=== PATIENT | female | born 1940 | race African-American/Black ===

== ENCOUNTER → 2016-09-09 | Outpatient (CLI) | payer MEDICARE, MEDICAID ==
[~2016-09-09] MED LIST: ACETAMINOPHEN325 M1 ORAL; ALPHAGAN1 DROP BOTH EYES; ALPHAGAN1 DROP OD; AMBIEN5 MG ORAL; AMITRIPTYLINE25 MG ORAL; AMLODIPINE BESY10 MG ORAL; ANCEF1 GM/50 ML IV; ANUSOL HC1 SUPP RECTAL; ATIVAN0.5 MG ORAL; ATIVAN1 MG ORAL; AZULFIDINE500 MG ORAL; BENADRYL25 M3 PO; BRIMONIDINE TART5 ML BOTH EYES; CATAPRES0.1 MG ORAL; CATAPRES0.2 MG ORAL; CITRACAL + D M1 EACH PO; CLONIDINE 0.2M0.2 MG ORAL; CLONIDINE 0.2M0.2 MG PO; CLONIDINE HCL0.2 MG PO; COLACE100 MG ORAL; COMPAZINE10 MG ORAL; DAILY VITAMIN1 EAC4 ORAL; DUONEB 0.5-3(2.53 ML HHN; FAMOTIDINE20 MG ORAL; HEPARIN SO5000 UNIT2 SUBQ; HEPARIN2000 UNIT/ SUBQ; HUMALOG100 UNIT/4 SUBQ; HUMULIN R100 UNIT/1 SUBQ; IBUPROFEN400 MG ORAL; INVANZ1 GM IVPB; IPRAT-ALBUT 0.5-3 ML IH; KEFLEX500 MG ORAL; KETOROLAC15 MG/1 ML IV; LACTULOSE20 GM/301 ORAL; LISINOPRIL20 MG ORAL; LISINOPRIL40 MG ORAL; LOPRESSOR25 M1 ORAL; LORAZEPAM0.5 MG ORAL; LORAZEPAM1 MG ORAL; MELATONIN3 MG ORAL; MEROPENEM500 MG IV; METOCLOPRAM5 MG/1 M1 IVP; METOPROLOL TAR100 M1 ORAL; METOPROLOL TAR100 MG ORAL; METOPROLOL TART75 MG PO; MIRALAX17 G2 ORAL; MORPHINE SU2 MG/1 M1 IVP; MORPHINE SULFAT15 M1 PO; MS CONTIN30 MG ORAL; MYLANTA II30 ML ORAL; NAMENDA5 MG ORAL; NITROGLYCERIN0.4 MG SL; NORVASC10 MG ORAL; NOVOLIN R100 UNIT/1 SUBQ; NOVOLOG100 UNIT/3 SUBQ; NOVOLOG100 UNITS1 SUBQ; OMEPRAZOLE20 M2 ORAL; ONDANSETRON4 MG/2 M1 IVP; OXYCODONE-ACET1 EAC5 ORAL; PENTASA500 MG ORAL; PERCOCET 10-321 EAC1 PO; PERCOCET 10-321 EACH ORAL; POLYETHYLENE GL17 GM ORAL; PRINIVIL20 MG ORAL; PROBIOTIC ACID1 EAC3 PO; PROTONIX40 MG ORAL; RANITIDINE50 MG/2 ML IV; RESTORIL15 MG ORAL; ROCEPHIN250 MG IVPB; SULFASALAZINE500 MG ORAL; TEMAZEPAM15 MG ORAL; TIMOLOL MALEATE10 M1 OP; TIMOPTIC 0.5%1 DRO1 BOTH EYES; TYLENOL650 MG/20. ORAL; UNOBMED; ZANTAC150 MG ORAL; ZOFRAN4 M3 ORAL; insulin novolog
--- NOTE | 2016-09-09 13:52 | GI Progress Note ---
Assessment/Plan Problems: (1) Osteoarthritis ICD Codes: M19.90 - Osteoarthritis SNOMED: 676540668 (2) Narcotic dependence ICD Codes: F19.20 - Narcotic dependence SNOMED: 36386101 (3) Diabetic nephropathies ICD Codes: E11.29 - Diabetic nephropathies SNOMED: 039717253 (4) Constipation ICD Codes: K59.00 - Constipation SNOMED: 89820454 (5) Abdominal pain ICD Codes: R10.9 - Abdominal pain SNOMED: 49174156 (6) Cirrhosis ICD Codes: K74.60 - Unspecified cirrhosis of liver SNOMED: 24359317 (7) Crohn's disease ICD Codes: K50.90 - Crohn's disease SNOMED: 19798299 Status: stable Status Narrative Seen with Dr. Ambriz. Assessment/Plan s/p EGD c esophageal varices (04/2015) rx refill Pentasa RTC x 3 months, will consider EGD during this visit given hx of EV repeat colon x 1 year Subjective Gastrointestinal/Abdominal: Reports: no symptoms Subjective request Pentasa refill Objective General Appearance: no apparent distress, alert Cardiovascular: normal rate Respiratory/Chest: normal breath sounds, no respiratory distress Abdominal Exam: normal bowel sounds, non tender, soft Extremities: other - wheelchair Objective Endoscopy Procedure Note Indication for Procedure: screening colon, cirrhosis Procedures Performed: EGD, colonoscopy Operative Findings/Diagnosis: esop varices, colon polyps SHARRON AMBRIZ - May 12, 2015 12:05 Miladys Tolliver N.P. Sep 09, 2016 13:52
== END | disposition home or self-care (01) ==
LOC: PAN 12:59
DX: M19.90 Unspecified osteoarthritis, unspecified site (principal); F19.20 Other psychoactive substance dependence, uncomplicated; E11.29 Type 2 diabetes mellitus with other diabetic kidney complication; K59.00 Constipation, unspecified; R10.9 Unspecified abdominal pain; K74.60 Unspecified cirrhosis of liver; K50.90 Crohn's disease, unspecified, without complications
CPT/HCPCS: 99211

== ENCOUNTER 2016-11-23 10:02 | Outpatient (CLI) | payer MEDICARE, MEDICAID ==
--- NOTE | 2016-11-23 10:29 | GI Progress Note ---
Assessment/Plan Problems: (1) Encounter for diagnostic endoscopy ICD Codes: Z01.818 - Encounter for other preprocedural examination SNOMED: 567650623, 783360785 (2) Nausea ICD Codes: R11.0 - Nausea SNOMED: 233614665 (3) Abdominal pain ICD Codes: R10.9 - Abdominal pain SNOMED: 58304394 (4) Crohn's disease ICD Codes: K50.90 - Crohn's disease SNOMED: 28153542 (5) Cirrhosis ICD Codes: K74.60 - Unspecified cirrhosis of liver SNOMED: 69927994 (6) DM (diabetes mellitus) ICD Codes: E11.9 - DM (diabetes mellitus) SNOMED: 50473507 (7) GERD (gastroesophageal reflux disease) ICD Codes: K21.9 - Gastro-esophageal reflux disease without esophagitis SNOMED: 531152161 Status: stable Status Narrative Seen with Dr. Ambriz. Assessment/Plan s/p EGD c esophageal varices (04/2015) EGD scheduled for 11/29/16 given hx of EV. - NPO @ [facility] day prior to procedure - ordered abdominal U/S - labs to be drawn; ESR, CRP, CBC, CMP cont pentasa zofran prn dc zantac rx omeprazole repeat colon x 1 year Subjective Subjective nausea after eating, denies emesis hx of crohns decrease in appetite with weight loss of 5 lbs over last month abdominal pain Objective T 97.7 BP 134/62 P 60 100 RA General Appearance: no apparent distress, alert, overweight Cardiovascular: normal rate Respiratory/Chest: normal breath sounds, no respiratory distress Abdominal Exam: normal bowel sounds, non tender, soft Extremities: other - WC Miladys Tolliver N.P. November 23, 2016 10:29
== END 2016-11-23 10:23 | disposition home or self-care (01) ==
LOC: PAN 10:02
DX: Z01.818 Encounter for other preprocedural examination (principal); R11.0 Nausea; R10.9 Unspecified abdominal pain; K50.90 Crohn's disease, unspecified, without complications; K74.60 Unspecified cirrhosis of liver; E11.9 Type 2 diabetes mellitus without complications; K21.9 Gastro-esophageal reflux disease without esophagitis
CPT/HCPCS: 99211

== ENCOUNTER 2016-11-29 11:00 | Day surgery (SDC) | payer MEDICARE, MEDICAID ==
[2016-11-29] VITALS (8 sets, daily range): BP systolic 130–140; BP diastolic 64–72
[~2016-11-29] VITALS: Ht 165.1 cm; Wt 89.4 kg
--- NOTE | 2016-11-29 11:38 | Diagnostic Imaging Report ---
Indication:Abdominal pain Technique: Grayscale and duplex Doppler imaging of the abdomen performed. Comparison: None Findings: Gallstones are present without gallbladder wall thickening. Sonographic Cullen sign is reported as positive for technologist. Please correlate clinically. The liver is prominent. Demonstrated part of the pancreas is normal. Main portal vein is patent by Doppler examination. No biliary ductal dilatation is definitely identified. There is trace ascites present. Kidneys are unremarkable. There is no hydronephrosis. Spleen is enlarged measuring 14 cm. CBD is between 8 and 9 mm. Impression: Cholelithiasis with wall thickening and positive sonographic Cullen's. Cholecystitis should be considered. Trace ascites Hepatosplenomegaly
--- NOTE | 2016-11-29 12:03 | Pre-Procedure Note/Attestation ---
Pre-Procedure Note/Attestation Complete Prior to Procedure Planned Procedure: not applicable Procedure Narrative: egd Indications for Procedure Pre-Operative Diagnosis: cirrhosis and varices Attestation I attest that I discussed the nature of the procedure; its benefits; risks and complications; and alternatives (and the risks and benefits of such alternatives ), prior to the procedure, with the patient (or the patient's legal construction sales representative). I attest that, if there was a reasonable possibility of needing a blood transfusion, the patient (or the patient's legal construction sales representative) was given the [facility] standardized written summary, pursuant to the [place] Levy Blood Safety Act ([place] Health and Safety Code # 1645, as amended). I attest that I re-evaluated the patient just prior to the surgery and that there has been no change in the patient's H&P, except as documented below: SHARRON BARRY November 29, 2016 12:03
--- NOTE | 2016-11-29 12:04 | Short Stay Surgery H&P ---
History of Present Illness History of Present Illness Chief Complaint esoph varices HPI Page Meraz is a 76 year old female who was admitted on for Abdominal Pain Patient History Allergies: Coded Allergies: No Known Allergies (Unverified , 08/20/14) PAST MEDICAL HISTORY: (1) Transaminitis (2) Hyperplastic colon polyp (3) HTN (hypertension) (4) COPD (chronic obstructive pulmonary disease) (5) Constipation (6) Cirrhosis (7) Crohn's disease (8) DM (diabetes mellitus) (9) GERD (gastroesophageal reflux disease) Past Surgeries: Social History: Medication History Scheduled Brimonidine Tartrate (Brimonidine Tartrate), 1 DROP BOTH EYES Q8HR Insulin Lispro (Humalog), 0 SUBQ BEFORE MEALS AND HS, (Reported) Lactobacillus Acidophilus (Probiotic Acidophilus), 1 EACH PO TID, (Reported) Lactulose (Lactulose*), 20 GM ORAL THREE TIMES A DAY Lisinopril (Lisinopril*), 40 MG ORAL DAILY, (Reported) Memantine Hcl* (Namenda*), 5 MG ORAL DAILY, (Reported) Metoprolol Tartrate* (Metoprolol Tartrate*), 100 MG ORAL EVERY 12 HOURS Scheduled PRN Lorazepam* (Ativan*), 0.5 MG ORAL Q8HR PRN for Agitation, (Reported) Ondansetron* (Zofran*), 4 MG ORAL Q6H PRN for Nausea & Vomiting, (Reported) Oxycodone Hcl/Acetaminophen 10-325* (Oxycodone-Acetaminophen 10-325*), 1 TAB ORAL Q4H PRN for Pain Scale (6-10), (Reported) Temazepam* (Restoril*), 15 MG ORAL BEDTIME PRN for Insomnia, (Reported) Discontinued Medications Polyethylene Glycol 3350* (Miralax*), 17 GM ORAL DAILY PRN for Constipation, ( Reported) Discontinued Reason: Pt stopped taking med Ranitidine Hcl* (Zantac*), 150 MG ORAL HS, (Reported) Discontinued Reason: Pt stopped taking med Review of Systems Cardiovascular: Reports: no symptoms Respiratory: Reports: no symptoms Skeletal: Reports: no symptoms Gastrointestinal: Reports: no symptoms Genitourinary: Reports: no symptoms Neurologic: Reports: no symptoms Endocrine: Reports: no symptoms Physical Exam Skin: normal HENT: normal Heart: normal Lungs: normal Abdomen: normal Extremities: normal Plan Plan of Care egd Final Diagnosis: Attestation Are the patient's medical conditions optimized for surgery? Attestation Response: yes SHARRON BARRY November 29, 2016 12:04
--- NOTE | 2016-11-29 12:51 | Endoscopy Procedure Note ---
Endoscopy Procedure Note Indication for Procedure: esoph varices Procedures Performed: EGD Operative Findings/Diagnosis: gastrtiis Specimen: yes Pt Tolerated Procedure Well: Yes Estimated Blood Loss: none Anesthesiologist: chiquita Anesthesia: MAC Implant(s) used?: No 50 yrs or older w/o bx or poly: Not Applicable 10yrs. F/U not recommended: Not Applicable SHARRON BARRY November 29, 2016 12:51
--- NOTE | 2016-11-29 12:58 | Immediate Post-Op Evaluation ---
Immediate Post-Op Evalulation Immediate Post-Op Evalulation Procedure: EGD Date of Evaluation: November 29, 2016 Time of Evaluation: 12:58 IV Fluids: 300 Blood Pressure Systolic: 122 Blood Pressure Diastolic: 66 Pulse Rate: 55 Respiratory Rate: 14 O2 Sat by Pulse Oximetry: 100 Temperature (Fahrenheit): 97.4 Nausea: No Vomiting: No Complications none Patient Status: awake, patent Hydration Status: adequate Drug: none KARLOS MONTES CRNA November 29, 2016 12:58
--- NOTE | 2016-11-29 13:00 | Anethesia Preoperative Eval ---
Anesthesia Pre-op PMH/ROS General Date of Evaluation: November 29, 2016 Time of Evaluation: 12:59 Anesthesiologist: xuan ASA Score: ASA 2 Mallampati Score Class I : Soft palate, uvula, fauces, pillars visible Class II: Soft palate, uvula, fauces visible Class III: Soft palate, base of uvula visible Class IV: Only hard plate visible Mallampati Classification: Class II Surgeon: Katina Diagnosis: GERD/Gastritis Surgical Procedure: EGD Anesthesia History: none Family History: no anesthesia problems Allergies: Coded Allergies: No Known Allergies (Unverified , 08/20/14) Past Medical History Cardiovascular: Reports: HTN Pulmonary: Reports: COPD Gastrointestinal/Genitourinary: Reports: GERD Endocrine: Reports: DM HEENT: Denies: THREE AFFILIATED (L), THREE AFFILIATED (R), cataract (L), cataract (R), glaucoma, other Hematology/Immune: Denies: DVT, anemia, bleeding disorder, other Musculoskeletal/Integumentary: Denies: DDD, DJD, OA, RA, edema, other Anesthesia Pre-op Phys. Exam Physician Exam 122/644 58 SR Constitutional: NAD Neurologic: CN 2-12 intact Cardiovascular: RRR Respiratory: CTA Gastrointestinal: S/NT/ND Airway Exam Mallampati Classification 2 MO: full ROM: full Dentures: upper Anesthesia Pre-op A/P Risk Assessment & Plan Plan: mac Status Change Before Surgery: No Pre-Antibiotics Drug: none KARLOS MONTES CRNA November 29, 2016 13:00
--- NOTE | 2016-11-29 13:01 | 48 Hour Post Anesthesia Eval ---
Post Anesthesia Evaluation Procedure: EGD Date of Evaluation: November 29, 2016 Time of Evaluation: 13:01 Blood Pressure Systolic: 110 0: 60 Pulse Rate: 58 Respiratory Rate: 14 O2 Sat by Pulse Oximetry: 100 Airway: patent Nausea: No Vomiting: No Hydration Status: adequate Mental Status/LOC: patient returned to baseline Post-Anesthesia Complications: none KARLOS MONTES CRNA November 29, 2016 13:01
--- NOTE | 2016-11-29 20:19 | Procedure Note ---
DATE OF PROCEDURE: 11/29/2016 SURGEON: Tashi Ambriz M.D. PROCEDURE: Upper endoscopy with biopsy. ANESTHESIA: Per Mavis MARTINEZ. INSTRUMENT: Olympus adult flexible upper endoscope. INDICATION: History of esophageal varices. REASON FOR PROCEDURE: The procedure, risks, benefits, and possible consequences, including hemorrhage, aspiration, perforation and infection, and alternative treatments, were explained to the patient/legal guardian by Dr. Tashi Ambriz and the patient/legal guardian understood and accepted these risks. DESCRIPTION OF PROCEDURE: After informed consent was obtained and the patient was adequately sedated, Olympus upper endoscope was advanced from mouth into the second portion of duodenum and retroflexion was performed in the stomach. The patient had four columns of grade maximum 2 distal esophageal varices without any stigmata. In the stomach, there was diffuse gastritis. Random biopsies from antrum was obtained to rule out H. pylori infection. Otherwise, the rest of the upper endoscopic examination was grossly within normal limits. The patient tolerated the procedure very well without any complication. SUMMARY OF FINDINGS: 1. Four columns of grade 2 distal esophageal varices. 2. Gastritis, status post biopsy. RECOMMENDATIONS: Follow up biopsies and treat accordingly. I want to thank, Dr. Chacho Morocho, for this kind referral. Tashi Ambriz M.D. DR: VERONICA JOB#: [id number] CC: Chacho Morocho D.O.
== END 2016-11-29 14:20 | disposition home or self-care (01) ==
LOC: GAS 11:00 → EDSTATUS 13:00 → GAS 14:20
DX: K74.60 Unspecified cirrhosis of liver (principal); I85.10 Secondary esophageal varices without bleeding; K29.50 Unspecified chronic gastritis without bleeding; K50.90 Crohn's disease, unspecified, without complications; K59.00 Constipation, unspecified; I10 Essential (primary) hypertension; J44.9 Chronic obstructive pulmonary disease, unspecified; E11.9 Type 2 diabetes mellitus without complications; Z79.4 Long term (current) use of insulin; K21.9 Gastro-esophageal reflux disease without esophagitis; Z86.010 Personal history of colon polyps
CPT/HCPCS: 76700; 82962; 94003; 94150

== ENCOUNTER → 2016-11-29 | Day surgery (SDC) | payer MEDICARE, MEDICAID ==
[~2016-11-29] VITALS: Ht 165.1 cm; Wt 89.4 kg
[2016-11-29] VITALS (8 sets, daily range): BP systolic 130–140; BP diastolic 64–72
--- NOTE | 2016-11-30 14:28 | Cardiology Report ---
APPROVED REPORT EKG Measurement Heart [id number] Normal sinus rhythm Normal ECG
== END | disposition home or self-care (01) ==
LOC: SDS 07:00 → EDSTATUS 11:15
DX: Z01.810 Encounter for preprocedural cardiovascular examination (principal); I85.00 Esophageal varices without bleeding
CPT/HCPCS: 93005; 94003; 94150

== ENCOUNTER 2016-12-21 10:08 | Outpatient (CLI) | payer MEDICARE, MEDICAID ==
--- NOTE | 2016-12-21 15:51 | GI Progress Note ---
Assessment/Plan Problems: (1) Transaminitis ICD Codes: R74.0 - Nonspec elev of levels of transamns & lactic acid dehydrgnse SNOMED: 230334459 (2) DM (diabetes mellitus) ICD Codes: E11.9 - DM (diabetes mellitus) SNOMED: 83421954 (3) HTN (hypertension) ICD Codes: I10 - Essential (primary) hypertension SNOMED: 55976851 (4) GERD (gastroesophageal reflux disease) ICD Codes: K21.9 - Gastro-esophageal reflux disease without esophagitis SNOMED: 114594752 (5) Crohn's disease ICD Codes: K50.90 - Crohn's disease SNOMED: 41073047 (6) Cirrhosis ICD Codes: K74.60 - Unspecified cirrhosis of liver SNOMED: 67200869 (7) Constipation ICD Codes: K59.00 - Constipation SNOMED: 88177184 (8) Abdominal pain ICD Codes: R10.9 - Abdominal pain SNOMED: 51925520 (9) Narcotic dependence ICD Codes: F19.20 - Narcotic dependence SNOMED: 45748964 Status: stable Status Narrative Discussed with Dr. Ambriz. Assessment/Plan S/P EGD SUMMARY OF FINDINGS: 1. Four columns of grade 2 distal esophageal varices. 2. Gastritis, status post biopsy. >> unremarkable RECOMMENDATIONS: pain management consultation cont Pentasa zofran prn cont omeprazole RTC x 3 months abdominal US q6 months given history if cirrhosis (last 11/29/16) repeat colon x 1 year Subjective Gastrointestinal/Abdominal: Reports: abdominal pain Subjective wakes up nauseated with relief from zofran BM daily, taking lactulose prescribed Omeprazole, she cannot feel the difference Objective T 98.5 BP 129/68 P 62 97 RA denies weight loss. General Appearance: no apparent distress, alert Cardiovascular: normal rate Respiratory/Chest: normal breath sounds, no respiratory distress Abdominal Exam: normal bowel sounds, non tender, soft Miladys Tolliver N.P. Dec 21, 2016 15:51
== END 2016-12-21 10:45 | disposition home or self-care (01) ==
LOC: PAN 10:08
DX: K50.90 Crohn's disease, unspecified, without complications (principal); K21.9 Gastro-esophageal reflux disease without esophagitis; I10 Essential (primary) hypertension; E11.9 Type 2 diabetes mellitus without complications; R74.0 Nonspecific elevation of levels of transaminase and lactic acid dehydrogenase [LDH]; K74.60 Unspecified cirrhosis of liver; K59.00 Constipation, unspecified; R10.9 Unspecified abdominal pain; F19.20 Other psychoactive substance dependence, uncomplicated
CPT/HCPCS: 99211

== ENCOUNTER 2017-01-14 15:02 | Inpatient (IN) | payer MEDICARE, MEDICAID ==
[~2017-01-14] VITALS: Ht 167.6 cm; Wt 89.8 kg
--- NOTE | 2017-01-14 15:14 | Emergency Room Report ---
History of Present Illness General Chief Complaint: Generalized Weakness Source: Patient, EMS Present Illness HPI Patient is a 76-year-old female presented for increased generalized weakness. Patient had increased shortness of breath for approximately one day. Patient gradual onset of symptoms. Patient was noted to have prior history of Crohn's disease. She was noted to be bedbound. Patient was noted increased lower extremity swelling bilaterally. She reported having increased difficulty breathing. Patient had no fever. She was noted to be hypoxic at facility was started on supplemental oxygen. 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, VRE Hx COPD: Yes Hx Diabetes: Yes Hx Cancer: No Hx Gastrointestinal Problems: Yes Hx Neurological Problems: No Hx Dementia: Yes Hx Seizures: Yes Hx Memory Loss: Yes - Forgetful Review of Systems All Other Systems: negative except mentioned in HPI Physical Exam Vital Signs Date Time Temp Pulse Resp B/P Pulse Ox O2 Delivery O2 Flow Rate FiO2 01/14/17 14:51 99.1 89 20 143/91 94 Nasal Cannula 3.0 Sp02 EP Interpretation: reviewed, normal General Appearance: normal inspection, well appearing, alert, GCS 15, mild distress, obese, Chronically Ill Head: atraumatic ENT: normal ENT inspection, hearing grossly normal, normal voice Neck: normal inspection, full range of motion, supple, no bony tend Respiratory: normal inspection, no respiratory distress, no retraction, rales Cardiovascular #1: regular rate, rhythm, edema - bilateral lower extremity Gastrointestinal: normal bowel sounds, non tender, soft, no guarding, no hernia , tenderness - mild diffuse tenderness Genitourinary: no CVA tenderness Musculoskeletal: normal inspection, back normal, normal range of motion Neurologic: normal inspection, alert, oriented x3, responsive, manhole builder III-XII nml as tested, speech normal, motor weakness - bilateral lower extremity weakness Psychiatric: normal inspection, judgement/insight normal, mood/affect normal Skin: normal inspection, normal color, no rash Medical Decision Making Diagnostic Impression: Primary Impression: Pulmonary edema Additional Impressions: Crohn's disease COPD (chronic obstructive pulmonary disease) ER Course Patient presented for shortness of breath. Differential included but was not limited to anemia, pneumonia, pneumothorax, myocardial infarction, pericardial effusion, congestive heart failure, acidosis. Because of complexity of patient' s case laboratory testing and imaging studies were ordered.The patient was given a Lasix. Chest x-ray one view interpreted by radiology showed upper limits of normal heart size with bilateral small pleural effusions. Patient requires hospitalization due to fluid overload. Dr. Chacho Morocho was contacted for inpatient management. Labs Test 01/14/17 15:31 01/14/17 18:42 White Blood Count 7.3 K/UL (4.8-10.8) Red Blood Count 4.66 M/UL (4.20-5.40) Hemoglobin 13.5 G/DL (12.0-16.0) Hematocrit 44.1 % (37.0-47.0) Mean Corpuscular Volume 95 FL (80-99) Mean Corpuscular Hemoglobin 28.9 PG (27.0-31.0) Mean Corpuscular Hemoglobin Concent 30.5 G/DL (32.0-36.0) Red Cell Distribution Width 13.3 % (11.6-14.8) Platelet Count 140 K/UL (150-450) Mean Platelet Volume 8.7 FL (6.5-10.1) Neutrophils (%) (Auto) 78.0 % (45.0-75.0) Lymphocytes (%) (Auto) 13.5 % (20.0-45.0) Monocytes (%) (Auto) 5.5 % (1.0-10.0) Eosinophils (%) (Auto) 2.3 % (0.0-3.0) Basophils (%) (Auto) 0.7 % (0.0-2.0) Sodium Level 135 mEQ/L (135-145) Potassium Level 5.4 mEQ/L (3.4-4.9) Chloride Level 95 mEQ/L (98-107) Carbon Dioxide Level 32 mEQ/L (20-30) Anion Gap 8 (5-15) Blood Urea Nitrogen 6 mg/dL (7-23) Creatinine 0.6 mg/dL (0.5-0.9) Estimat Glomerular Filtration Rate mL/min (>60) Glucose Level 144 mg/dL (74-106) Lactic Acid Level 1.00 mmol/L (0.66-2.22) Calcium Level 9.0 mg/dL (8.6-10.2) Total Bilirubin 0.8 mg/dL (0.0-1.2) Aspartate Amino Transf (AST/SGOT) 61 U/L (5-40) Alanine Aminotransferase (ALT/SGPT) 22 U/L (3-33) Alkaline Phosphatase 145 U/L (35-104) Total Creatine Kinase 54 U/L (26-140) Creatine Kinase MB < 1.5 ng/mL (< 3.8) Creatine Kinase MB Relative Index Troponin I < 0.30 ng/mL (<=0.30) Pro-B-Type Natriuretic Peptide 506 pg/mL (0-450) Total Protein 8.1 g/dL (6.6-8.7) Albumin 3.5 g/dL (3.5-5.2) Globulin 4.6 g/dL Albumin/Globulin Ratio 0.7 (1.0-2.7) Lipase 29 U/L (< 60) Urine Color Pale yellow Urine Appearance Clear Urine pH 5 (4.5-8.0) Urine Specific Almond 1.005 (1.005-1.035) Urine Protein Negative (NEGATIVE) Urine Glucose (UA) Negative (NEGATIVE) Urine Ketones Negative (NEGATIVE) Urine Occult Blood Negative (NEGATIVE) Urine Nitrite Negative (NEGATIVE) Urine Bilirubin Negative (NEGATIVE) Urine Urobilinogen Normal MG/DL (0.0-1.0) Urine Leukocyte Esterase Negative (NEGATIVE) EKG Diagnostic Results Rate: normal Rhythm: NSR ST Segments: no acute changes Rhythm Strip Diag. Results EP Interpretation: yes Rhythm: NSR, no PVC's, no ectopy Last Vital Signs Date Time Temp Pulse Resp B/P Pulse Ox O2 Delivery O2 Flow Rate FiO2 01/14/17 14:51 99.1 89 20 143/91 94 Nasal Cannula 3.0 Status: unchanged Disposition: ADMITTED INPATIENT Condition: Kolton Rodriguez Jan 14, 2017 15:14
[2017-01-14 15:59] LABS: BASOPHILS % (AUTO) 0.7 % (0.0-2.0); EOSINOPHILS % (AUTO) 2.3 % (0.0-3.0); LYMPHOCYTES % (AUTO) 13.5 % (20.0-45.0); MEAN CORPUSCULAR HEMOGLOBIN 28.9 PG (27.0-31.0); MEAN CORPUSCULAR HGB CONC 30.5 G/DL (32.0-36.0); MEAN CORPUSCULAR VOLUME 95 FL (80-99); MEAN PLATELET VOLUME 8.7 FL (6.5-10.1); MONOCYTES % (AUTO) 5.5 % (1.0-10.0); PLATELET COUNT 140 K/UL (150-450); RED BLOOD COUNT 4.66 M/UL (4.20-5.40); RED CELL DISTRIBUTION WIDTH 13.3 % (11.6-14.8); WHITE BLOOD COUNT 7.3 K/UL (4.8-10.8)
[2017-01-14] MEDS ORDERED: AMLODIPINE BESY10 MG ORAL (16:13)
[2017-01-14] MEDS ORDERED: PENTASA500 MG ORAL ×2 (16:13→18:03)
[2017-01-14] MEDS ORDERED: RESTORIL15 MG ORAL (16:13)
[2017-01-14] MEDS ORDERED: MIRALAX17 G2 ORAL (16:13)
[2017-01-14] MEDS ORDERED: OMEPRAZOLE40 M1 ORAL (16:13)
[2017-01-14] MEDS ORDERED: COMPAZINE10 MG ORAL (16:13)
[2017-01-14] MEDS ORDERED: CYCLOBENZAPRINE10 MG ORAL (16:13)
[2017-01-14] MEDS ORDERED: AZELASTINE HCL6 ML OP (16:13)
[2017-01-14 16:23] LABS: ALANINE AMINOTRANSFERASE 22 U/L (3-33); ALBUMIN/GLOBULIN RATIO 0.7 (1.0-2.7); ANION GAP 8 (5-15); ASPARTATE AMINO TRANSFERASE 61 U/L (5-40); CARBON DIOXIDE 32 mEQ/L (20-30); CHLORIDE 95 mEQ/L (98-107); CREATININE 0.6 mg/dL (0.5-0.9); HEMOLYSIS 177; LIPASE 29 U/L (< 60); POTASSIUM 5.4 mEQ/L (3.4-4.9); SODIUM 135 mEQ/L (135-145); TOTAL PROTEIN 8.1 g/dL (6.6-8.7); TROPONIN I < 0.30 ng/mL (<=0.30)
[2017-01-14 16:34] LABS: CKMB < 1.5 ng/mL (< 3.8)
[2017-01-14 16:55] VITALS: BP 140/61
[2017-01-14] MEDS ORDERED: Norco 5mg/325mg tab ORAL ONE (17:00)
[2017-01-14] MEDS ORDERED: ARTIFICIAL TEAR15 ML BOTH EYES (17:56)
[2017-01-14] MEDS ORDERED: ATIVAN1 MG ORAL (17:59)
[2017-01-14] MEDS ORDERED: BRIMONIDINE TART5 ML BOTH EYES (18:14)
[2017-01-14] MEDS ORDERED: DuoNeb 0.5-3(2.5)mg/3ml neb HHN PRN (18:15)
[2017-01-14] MEDS ORDERED: Miralax 17gm pkt ORAL PRN (18:15)
[2017-01-14 18:29] VITALS: BP 151/86
[2017-01-14 18:56] LABS: APPEARANCE,URINE CLEAR; KETONES,URINE NEGATIVE (NEGATIVE); LEUKOCYTE ESTERASE ,URINE NEGATIVE (NEGATIVE); NITRITE,URINE NEGATIVE (NEGATIVE); PH,URINE 5 (4.5-8.0); PROTEIN,URINE NEGATIVE (NEGATIVE); UROBILINOGEN,URINE NORMAL MG/DL (0.0-1.0)
[2017-01-14 20:00] VITALS: BP 153/90
[2017-01-14] MEDS: Heparin 5000 units/ml inj SUBQ SCH (21:58)
[2017-01-14] MEDS: NovoLOG Insulin Flexpen SUBQ SCH (22:01)
[2017-01-14] MEDS: Norco 5mg/325mg tab ORAL PRN (22:58)
[2017-01-15] VITALS: BP 156/65
[2017-01-15] MEDS: LORazepam 1mg tab ORAL PRN ×2 (01:34→12:53)
[2017-01-15 04:00] VITALS: BP_SYST 152; BP_SYST 97; BP_DIAS 60; BP_DIAS 72
[2017-01-15] MEDS: Norco 5mg/325mg tab ORAL PRN ×3 (04:23→12:49)
[2017-01-15] MEDS: NovoLOG Insulin Flexpen SUBQ SCH ×4 (06:30→21:46)
[2017-01-15 06:37] LABS: BASOPHILS % (AUTO) 0.5 % (0.0-2.0); EOSINOPHILS % (AUTO) 3.6 % (0.0-3.0); MEAN CORPUSCULAR HGB CONC 31.7 G/DL (32.0-36.0); MEAN CORPUSCULAR VOLUME 95 FL (80-99); MEAN PLATELET VOLUME 9.5 FL (6.5-10.1); MONOCYTES % (AUTO) 12.2 % (1.0-10.0); NEUTROPHILS % (AUTO) 62.7 % (45.0-75.0); PLATELET COUNT 114 K/UL (150-450); RED BLOOD COUNT 3.95 M/UL (4.20-5.40); RED CELL DISTRIBUTION WIDTH 13.1 % (11.6-14.8); WHITE BLOOD COUNT 4.9 K/UL (4.8-10.8)
[2017-01-15 06:46] LABS: ANION GAP 7 (5-15); CARBON DIOXIDE 39 mEQ/L (20-30); CHLORIDE 95 mEQ/L (98-107); CREATININE 0.4 mg/dL (0.5-0.9); HEMOLYSIS 1; PHOSPHORUS 3.2 mg/dL (2.5-4.8); POTASSIUM 3.4 mEQ/L (3.4-4.9); SODIUM 141 mEQ/L (135-145)
[2017-01-15 07:53] VITALS: BP 144/64
[2017-01-15 07:55] LABS: TROPONIN I < 0.30 ng/mL (<=0.30)
--- NOTE | 2017-01-15 08:00 | Consultation ---
History of Present Illness General Date patient seen: Jan 15, 2017 Time patient seen: 07:15 Chief Complaint: Generalized Weakness Referring physician: dr Morocho Reason for Consultation: inpatient management Present Illness HPI 76-year-old female with hx of COPD, HTN. DM, cirrhosis, Crohn disease, paranoid schizophrenia presented for increased generalized weakness and SOB Patient had gradually increased shortness of breath for approximately one day. Patient was noted increased lower extremity swelling bilaterally. She reported having increased difficulty breathing. Patient denied fevers, chills. She was noted to be hypoxic at facility and was started on supplemental oxygen. in ED afebrile, SR on tele sat stable on O2 via NC CXR with evidence of CHF/pulmonary edema troponin negative pro BNP -506 K-5.4 AST- 61 glucose -144 UA -negative last ECHO in 2015 with preserved EF 60-65% patient was admitted for further management Allergies: Coded Allergies: No Known Allergies (Unverified , 08/20/14) Medication History Scheduled Amlodipine Besylate* (Amlodipine Besylate*), 10 MG ORAL DAILY, (Reported) Brimonidine Tartrate* (Alphagan*), 1 DROP BOTH EYES BID, (Reported) Cyclobenzaprine Hcl* (Flexeril*), 10 MG ORAL BID, (Reported) Insulin Lispro (Humalog), 0 SUBQ BEFORE MEALS AND HS, (Reported) Lactobacillus Acidophilus (Probiotic Acidophilus), 1 EACH PO TID, (Reported) Lactulose (Lactulose*), 20 GM ORAL THREE TIMES A DAY Lisinopril (Lisinopril*), 40 MG ORAL DAILY, (Reported) Memantine Hcl* (Namenda*), 5 MG ORAL DAILY, (Reported) Mesalamine (Pentasa), 1,000 MG ORAL TID, (Reported) Metoprolol Tartrate* (Metoprolol Tartrate*), 100 MG ORAL EVERY 12 HOURS Omeprazole (Omeprazole), 40 MG ORAL DAILY, (Reported) Polyethylene Glycol 3350* (Miralax*), 17 GM ORAL DAILY, (Reported) Scheduled PRN Dextran 70/Hypromellose (Artificial Tears Eye Drops*), 1 DROP BOTH EYES for Dry Eyes, (Reported) Lorazepam* (Ativan*), 1 MG ORAL EVERY 8 HOURS PRN for For Anxiety, (Reported) Oxycodone Hcl/Acetaminophen 10-325* (Oxycodone-Acetaminophen 10-325*), 1 TAB ORAL Q4H PRN for Pain Scale (6-10), (Reported) Prochlorperazine (Compazine*), 10 MG ORAL Q8HR PRN for Nausea & Vomiting, ( Reported) Temazepam* (Restoril*), 15 MG ORAL BEDTIME PRN for Insomnia, (Reported) Miscellaneous Medications Azelastine Hcl (Azelastine Hcl), 6 ML OP, (Reported) Discontinued Medications Ondansetron* (Zofran*), 4 MG ORAL Q6H PRN for Nausea & Vomiting, (Reported) Discontinued Reason: MD discontinued med Patient History Healthcare decision maker N Resuscitation status Full Code Advanced Directive on File No Past Medical/Surgical History Past Medical/Surgical History: (1) Spinal stenosis of lumbar region (2) Lumbar radiculopathy (3) UTI (urinary tract infection) (4) HTN (hypertension) (5) Cholelithiasis (6) OBESITY, NOS (7) Scoliosis (8) Narcotic dependence (9) Diabetic nephropathies (10) Osteoarthritis (11) Cirrhosis (12) GERD (gastroesophageal reflux disease) (13) HTN (hypertension) (14) DM (diabetes mellitus) (15) COPD (chronic obstructive pulmonary disease) (16) Crohn's disease Review of Systems Constitutional: Reports: weakness Eye: Reports: no symptoms ENT: Reports: no symptoms Respiratory: Reports: see HPI Cardiovascular: Reports: see HPI Gastrointestinal: Reports: see HPI Genitourinary: Reports: frequency Musculoskeletal: Reports: joint pain, muscle pain, other - OA Skin: Reports: no symptoms Psychiatric: Reports: other - schizophrenia Neurological: Reports: headache, numbness Endocrine: Reports: other - DM Hematologic/Lymphatic: Reports: no symptoms Physical Exam General Appearance: no apparent distress, alert - responsive Lines, tubes and drains: peripheral HEENT: normocephalic, atraumatic, anicteric, mucous membranes moist Neck: non-tender, normal alignment, supple Respiratory/Chest: lungs clear - with moderate air entry Cardiovascular/Chest: normal rate, regular rhythm, no JVD Abdomen: normal bowel sounds, non tender, soft Extremities: non-tender, no calf tenderness, other - trace edema Skin Exam: warm/dry Neurologic: abnormal gait - bedridden , alert, responsive, normal mood/affect Musculoskeletal: atrophy - BLE Last 24 Hour Vital Signs Date Time Temp Pulse Resp B/P Pulse Ox O2 Delivery O2 Flow Rate FiO2 01/15/17 04:00 97.4 91 20 152/72 95 Nasal Cannula 3.0 01/15/17 03:41 89 01/15/17 00:00 92 01/15/17 00:00 98.1 92 20 156/65 97 Nasal Cannula 3.0 01/14/17 20:00 99.1 93 20 153/90 95 Nasal Cannula 3.0 01/14/17 19:35 99.1 65 9 151/86 100 Nasal Cannula 3.0 01/14/17 18:29 99.1 65 9 151/86 100 Nasal Cannula 3.0 01/14/17 16:55 99.1 83 17 140/61 99 Nasal Cannula 3.0 01/14/17 14:51 99.1 89 20 143/91 94 Nasal Cannula 3.0 Intake and Output 01/14/17 01/15/17 19:00 07:00 Intake Total 0 ml 840 ml Output Total 2600 ml Balance 0 ml -1760 ml Intake Oral 0 ml 840 ml Output Urine Total 2600 ml Laboratory Tests Test 01/14/17 15:31 01/14/17 18:42 01/15/17 05:45 White Blood Count 7.3 K/UL (4.8-10.8) 4.9 K/UL (4.8-10.8) Red Blood Count 4.66 M/UL (4.20-5.40) 3.95 M/UL (4.20-5.40) L Hemoglobin 13.5 G/DL (12.0-16.0) 11.9 G/DL (12.0-16.0) L Hematocrit 44.1 % (37.0-47.0) 37.4 % (37.0-47.0) Mean Corpuscular Volume 95 FL (80-99) 95 FL (80-99) Mean Corpuscular Hemoglobin 28.9 PG (27.0-31.0) 30.0 PG (27.0-31.0) Mean Corpuscular Hemoglobin Concent 30.5 G/DL (32.0-36.0) L 31.7 G/DL (32.0-36.0) L Red Cell Distribution Width 13.3 % (11.6-14.8) 13.1 % (11.6-14.8) Platelet Count 140 K/UL (150-450) L 114 K/UL (150-450) L Mean Platelet Volume 8.7 FL (6.5-10.1) 9.5 FL (6.5-10.1) Neutrophils (%) (Auto) 78.0 % (45.0-75.0) H 62.7 % (45.0-75.0) Lymphocytes (%) (Auto) 13.5 % (20.0-45.0) L 21.0 % (20.0-45.0) Monocytes (%) (Auto) 5.5 % (1.0-10.0) 12.2 % (1.0-10.0) H Eosinophils (%) (Auto) 2.3 % (0.0-3.0) 3.6 % (0.0-3.0) H Basophils (%) (Auto) 0.7 % (0.0-2.0) 0.5 % (0.0-2.0) Sodium Level 135 mEQ/L (135-145) 141 mEQ/L (135-145) Potassium Level 5.4 mEQ/L (3.4-4.9) H 3.4 mEQ/L (3.4-4.9) Chloride Level 95 mEQ/L (98-107) L 95 mEQ/L (98-107) L Carbon Dioxide Level 32 mEQ/L (20-30) H 39 mEQ/L (20-30) H Anion Gap 8 (5-15) 7 (5-15) Blood Urea Nitrogen 6 mg/dL (7-23) L 7 mg/dL (7-23) Creatinine 0.6 mg/dL (0.5-0.9) 0.4 mg/dL (0.5-0.9) L Estimat Glomerular Filtration Rate mL/min (>60) mL/min (>60) Glucose Level 144 mg/dL (74-106) H 131 mg/dL (74-106) H Lactic Acid Level 1.00 mmol/L (0.66-2.22) Calcium Level 9.0 mg/dL (8.6-10.2) 9.0 mg/dL (8.6-10.2) Total Bilirubin 0.8 mg/dL (0.0-1.2) Aspartate Amino Transf (AST/SGOT) 61 U/L (5-40) H Alanine Aminotransferase (ALT/SGPT) 22 U/L (3-33) Alkaline Phosphatase 145 U/L (35-104) H Total Creatine Kinase 54 U/L (26-140) Creatine Kinase MB < 1.5 ng/mL (< 3.8) Creatine Kinase MB Relative Index Troponin I < 0.30 ng/mL (<=0.30) Pending Pro-B-Type Natriuretic Peptide 506 pg/mL (0-450) H Total Protein 8.1 g/dL (6.6-8.7) Albumin 3.5 g/dL (3.5-5.2) 3.0 g/dL (3.5-5.2) L Globulin 4.6 g/dL Albumin/Globulin Ratio 0.7 (1.0-2.7) L Lipase 29 U/L (< 60) Urine Color Pale yellow Urine Appearance Clear Urine pH 5 (4.5-8.0) Urine Specific [place] 1.005 (1.005-1.035) Urine Protein Negative (NEGATIVE) Urine Glucose (UA) Negative (NEGATIVE) Urine Ketones Negative (NEGATIVE) Urine Occult Blood Negative (NEGATIVE) Urine Nitrite Negative (NEGATIVE) Urine Bilirubin Negative (NEGATIVE) Urine Urobilinogen Normal MG/DL (0.0-1.0) Urine Leukocyte Esterase Negative (NEGATIVE) Phosphorus Level 3.2 mg/dL (2.5-4.8) Height (Feet): 5 Height (Inches): 6.00 Weight (Pounds): 198 Medications Current Medications Medications (Trade) Dose Ordered Sig/Isabel Route PRN Reason Start Time Stop Time Status Last Admin Dose Admin Acetaminophen (Tylenol) 650 mg Q4H PRN ORAL Fever 01/14/17 18:15 02/13/17 18:14 Acetaminophen/ Hydrocodone Bitart ([place] 5/325) 1 tab Q4H PRN ORAL Moderate Pain (Pain Scale 4-6) 01/14/17 22:45 01/21/17 22:44 01/15/17 04:23 Albuterol/ Ipratropium (DuoNeb 0.5-3(2.5)mg/3ml) 3 ml Q4H PRN HHN Shortness of Breath 01/14/17 18:15 01/19/17 18:14 Amlodipine Besylate (Norvasc) 10 mg DAILY ORAL 01/15/17 09:00 02/14/17 08:59 Dextrose (Dextrose 50%) STAT PRN IV Hypoglycemia 01/14/17 18:15 02/13/17 18:14 Furosemide (Lasix) 40 mg EVERY 8 HOURS IV 01/14/17 22:00 02/13/17 21:59 01/15/17 06:38 Heparin Sodium (Porcine) (Heparin 5000 units/ml) 5,000 units EVERY 12 HOURS SUBQ 01/14/17 21:00 02/13/17 20:59 01/14/17 21:58 Insulin Aspart (NovoLOG) BEFORE MEALS AND HS SUBQ 01/14/17 21:00 02/13/17 20:59 01/14/17 22:01 Lorazepam (Ativan) 1 mg Q8H PRN ORAL For Anxiety 01/14/17 18:15 01/21/17 18:14 01/15/17 01:34 Ondansetron HCl (Zofran) 4 mg Q6H PRN IVP Nausea & Vomiting 01/14/17 18:15 02/13/17 18:14 Polyethylene Glycol (Miralax) 17 gm DAILYPRN PRN ORAL Constipation 01/14/17 18:15 02/13/17 18:14 Temazepam (Restoril) 15 mg HSPRN PRN ORAL Insomnia 01/14/17 18:15 01/21/17 18:14 01/14/17 22:16 Assessment/Plan Assessment/Plan ASSESSMENT acute pulmonary edema-improving acute hypoxemia 2 to acute pulmonary edema -improving HTN COPD DM Hyperkalemia Cirrhosis hx of Crohn disease PLAN OF CARE tele serial troponin x 2 negative, ECG no acute changes, r/o for acute [place] ECHO cardio consult appreciated diuresis, initially intense, change to daily today no edema, clinically improving, monitor I/O renal parameters. lytes O2 , to keep sat above 92@ HHN prn fup with CXR and pro BNP BP management with current regimen and optimize further as needed BS management with SS of insulin Venous Duplex BLE DVT prophylaxis Bowel regimen consider GI eval in lieu of hx of Crohn disease, cirrhosis, with findings fo esophageal varices on last EGD, hx of hep C case discussed and evaluated by supervising physician Shane ([facility]),Marimar ESCALANTE Jan 15, 2017 08:00
[2017-01-15] MEDS: Heparin 5000 units/ml inj SUBQ SCH ×2 (08:59→21:00)
[2017-01-15] MEDS ORDERED: Prochlorperazine 10mg tab ORAL PRN (09:15)
--- NOTE | 2017-01-15 09:16 | Cardiology Progress Note ---
Assessment/Plan Assessment/Plan full note dictated duplex neg pro bnp not sig elevated bu has no raj at this poitn echo repeat ekg all torp neg no sx to suggest coronary syndrome at this time resume anti hypertensive acei adn bb diuretic to q daily watch bicarb level Objective Last 24 Hour Vital Signs Date Time Temp Pulse Resp B/P Pulse Ox O2 Delivery O2 Flow Rate FiO2 01/15/17 08:47 91 144/64 01/15/17 07:53 98.1 91 20 144/64 94 Nasal Cannula 2.0 01/15/17 04:00 97.4 91 20 152/72 95 Nasal Cannula 3.0 01/15/17 03:41 89 01/15/17 00:00 92 01/15/17 00:00 98.1 92 20 156/65 97 Nasal Cannula 3.0 01/14/17 20:00 99.1 93 20 153/90 95 Nasal Cannula 3.0 01/14/17 19:35 99.1 65 9 151/86 100 Nasal Cannula 3.0 01/14/17 18:29 99.1 65 9 151/86 100 Nasal Cannula 3.0 01/14/17 16:55 99.1 83 17 140/61 99 Nasal Cannula 3.0 01/14/17 14:51 99.1 89 20 143/91 94 Nasal Cannula 3.0 Intake and Output 01/14/17 01/15/17 18:59 06:59 Intake Total 0 ml 840 ml Output Total 2600 ml Balance 0 ml -1760 ml Intake Oral 0 ml 840 ml Output Urine Total 2600 ml Laboratory Tests Test 01/14/17 15:31 01/14/17 18:42 01/15/17 05:45 White Blood Count 7.3 K/UL (4.8-10.8) 4.9 K/UL (4.8-10.8) Red Blood Count 4.66 M/UL (4.20-5.40) 3.95 M/UL (4.20-5.40) L Hemoglobin 13.5 G/DL (12.0-16.0) 11.9 G/DL (12.0-16.0) L Hematocrit 44.1 % (37.0-47.0) 37.4 % (37.0-47.0) Mean Corpuscular Volume 95 FL (80-99) 95 FL (80-99) Mean Corpuscular Hemoglobin 28.9 PG (27.0-31.0) 30.0 PG (27.0-31.0) Mean Corpuscular Hemoglobin Concent 30.5 G/DL (32.0-36.0) L 31.7 G/DL (32.0-36.0) L Red Cell Distribution Width 13.3 % (11.6-14.8) 13.1 % (11.6-14.8) Platelet Count 140 K/UL (150-450) L 114 K/UL (150-450) L Mean Platelet Volume 8.7 FL (6.5-10.1) 9.5 FL (6.5-10.1) Neutrophils (%) (Auto) 78.0 % (45.0-75.0) H 62.7 % (45.0-75.0) Lymphocytes (%) (Auto) 13.5 % (20.0-45.0) L 21.0 % (20.0-45.0) Monocytes (%) (Auto) 5.5 % (1.0-10.0) 12.2 % (1.0-10.0) H Eosinophils (%) (Auto) 2.3 % (0.0-3.0) 3.6 % (0.0-3.0) H Basophils (%) (Auto) 0.7 % (0.0-2.0) 0.5 % (0.0-2.0) Sodium Level 135 mEQ/L (135-145) 141 mEQ/L (135-145) Potassium Level 5.4 mEQ/L (3.4-4.9) H 3.4 mEQ/L (3.4-4.9) Chloride Level 95 mEQ/L (98-107) L 95 mEQ/L (98-107) L Carbon Dioxide Level 32 mEQ/L (20-30) H 39 mEQ/L (20-30) H Anion Gap 8 (5-15) 7 (5-15) Blood Urea Nitrogen 6 mg/dL (7-23) L 7 mg/dL (7-23) Creatinine 0.6 mg/dL (0.5-0.9) 0.4 mg/dL (0.5-0.9) L Estimat Glomerular Filtration Rate mL/min (>60) mL/min (>60) Glucose Level 144 mg/dL (74-106) H 131 mg/dL (74-106) H Lactic Acid Level 1.00 mmol/L (0.66-2.22) Calcium Level 9.0 mg/dL (8.6-10.2) 9.0 mg/dL (8.6-10.2) Total Bilirubin 0.8 mg/dL (0.0-1.2) Aspartate Amino Transf (AST/SGOT) 61 U/L (5-40) H Alanine Aminotransferase (ALT/SGPT) 22 U/L (3-33) Alkaline Phosphatase 145 U/L (35-104) H Total Creatine Kinase 54 U/L (26-140) Creatine Kinase MB < 1.5 ng/mL (< 3.8) Creatine Kinase MB Relative Index Troponin I < 0.30 ng/mL (<=0.30) < 0.30 ng/mL (<=0.30) Pro-B-Type Natriuretic Peptide 506 pg/mL (0-450) H Total Protein 8.1 g/dL (6.6-8.7) Albumin 3.5 g/dL (3.5-5.2) 3.0 g/dL (3.5-5.2) L Globulin 4.6 g/dL Albumin/Globulin Ratio 0.7 (1.0-2.7) L Lipase 29 U/L (< 60) Urine Color Pale yellow Urine Appearance Clear Urine pH 5 (4.5-8.0) Urine Specific [place] 1.005 (1.005-1.035) Urine Protein Negative (NEGATIVE) Urine Glucose (UA) Negative (NEGATIVE) Urine Ketones Negative (NEGATIVE) Urine Occult Blood Negative (NEGATIVE) Urine Nitrite Negative (NEGATIVE) Urine Bilirubin Negative (NEGATIVE) Urine Urobilinogen Normal MG/DL (0.0-1.0) Urine Leukocyte Esterase Negative (NEGATIVE) Phosphorus Level 3.2 mg/dL (2.5-4.8) JOSE ROMAN Jan 15, 2017 09:16
[2017-01-15] MEDS: Memantine 5 MG TAB ORAL SCH (10:12)
[2017-01-15] MEDS: Miralax 17gm pkt ORAL SCH (10:12)
--- NOTE | 2017-01-15 11:31 | History and Physical Report ---
DATE OF ADMISSION: 01/14/2017 TIME SEEN: 9 a.m. CONSULTANTS: 1. Jayson Mckinnon M.D. 2. Mohsen Ferrera M.D. 3. Tashi Ambriz M.D. 4. Casandra Alston M.D. CHIEF COMPLAINT: Shortness of breath, edema, CHF exacerbation, and chronic pain. BRIEF HISTORY: This is a 76-year-old female from [facility], presented for above-mentioned diagnosis, admitted to telemetry for further care. Currently, no bed complaining of general pain 01/24, no complaint. PAST MEDICAL HISTORY: Includes shortness of breath, bilateral lower extremity edema, COPD, CHF exacerbation, diabetes, hypertension, chronic pain and Crohn's. PAST SURGICAL HISTORY: Hysterectomy. MEDICATIONS: Include Norvasc, [place], Lasix, heparin, NovoLog, Ativan, Restoril, Zofran, MiraLax, Tylenol, and DuoNeb. ALLERGIES: Denies. SOCIAL HISTORY: No smoking. No alcohol. No intravenous drug abuse. FAMILY HISTORY: Noncontributory. REVIEW OF SYSTEMS: No chest pain. Slight shortness of breath. No nausea, vomiting, or diarrhea. PHYSICAL EXAMINATION: GENERAL: Slightly anxious in bed, oriented x2, and in no acute distress. VITAL SIGNS: Temperature is 98.0 degrees, pulse 91, respirations 20, and blood pressure 144/64. CARDIOVASCULAR: No murmurs. LUNGS: Poor air exchange. ABDOMEN: Positive bowel sounds. Soft, nontender, and nondistended. EXTREMITIES: Show no cyanosis or clubbing. A 1+ edema. NEUROLOGIC: The patient moves all extremities. Slightly weak. LABORATORY AND DIAGNOSTIC DATA: Lab exam show hemoglobin 11.9, platelets 114,000, otherwise CBC is normal. Chloride 95, CO2 of 39, creatinine 0.4, glucose 131, otherwise normal. Urinalysis is negative. ASSESSMENT: 1. Shortness of breath. 2. Anemia. 3. Bilateral lower extremity edema. 4. Chronic obstructive pulmonary disease. 5. Congestive heart failure exacerbation. 6. Diabetes. 7. Hypertension. 8. Chronic pain. PLAN: 1. Continue premedications. 2. O2 and pulmonary treatment. 3. OT, PT, and dietary evaluation. 4. Blood pressure and blood sugar control. 5. Pain control. 6. Dietary followup. 7. Using home medications. 8. Dr. Mckinnon, Dr. Ferrera, Dr. Ambriz, Dr. Alston to consult. Chacho Morocho D.O. DR: Tino JOB#: [id number] CC:
[2017-01-15 11:46] VITALS: BP 146/73
--- NOTE | 2017-01-15 12:00 | Diagnostic Imaging Report ---
Indication: Dyspnea Comparison: 01/14/17 A single view chest radiograph was obtained. Findings: Interstitial edema demonstrated with cardiomegaly. There is a probable right pleural effusion. The findings appear similar from the previous day. Impression: CHF
[2017-01-15] MEDS: Lactulose 20gm/30ml UDC ORAL SCH ×2 (13:50→17:30)
--- NOTE | 2017-01-15 14:01 | Consultation ---
DATE OF CONSULTATION: 01/15/2017 CARDIOLOGY CONSULTATION REFERRING PHYSICIAN: Chacho Morocho D.O. REASON FOR REFERRAL: Possible congestive heart failure. HISTORY OF PRESENT ILLNESS: This is an elderly female, who is brought to the emergency room from a convalescent facility because of complaints of lower extremity edema that has been occurring for the past two days. She really does not have any pain. She has some shortness of breath. She has an approximately two pillow usage for comfort. She does not ambulate. She does not stand. She does not get dizzy when she stands up. She does not have any pain, pressure, tightness, heaviness or discomfort in her chest and she denies any palpitations. PAST MEDICAL HISTORY: She has had an extensive past medical history including history of hypertension, diabetes, COPD, paranoid schizophrenia, and cirrhosis of the liver. She has history of atypical chest pain felt to be secondary to gastritis, cirrhosis of the liver, Klebsiella, urinary tract infection, obesity, chronic obstructive pulmonary disease, lumbar spondylosis, lumbar radiculopathy, chronic pain syndrome, cholelithiasis, hypokalemia, Crohn's disease as well. ALLERGIES: She is not allergic to any medications she states. SOCIAL HISTORY: She does not smoke or drink, never did. She used to drink alcoholic beverages previously. REVIEW OF SYSTEMS: Gastrointestinal: Positive for nausea and she has some problems with loose stool secondary to her Crohn's disease. Genitourinary: Negative. Pulmonary: Negative. Constitutional: She is just sweating all the time she states. Neurological: Negative. PHYSICAL EXAMINATION: GENERAL: Shows to be an elderly female, in no apparent respiratory distress. NECK: Supple. No jugular venous distention is noted. LUNGS: She has some crackles noted bilaterally at the bases of her lungs. CARDIAC: Regular rate and rhythm. No RV lift or heaves or thrills noted. There is a systolic ejection murmur. ABDOMEN: Soft and obese. Positive bowel sounds. EXTREMITIES: There is no edema of the lower extremities at this time. NEUROLOGIC: She is awake, alert, responsive, in no apparent respiratory distress. LABORATORY AND DIAGNOSTIC DATA: Laboratory values, her white count of 4.9 with hemoglobin 11.9 and platelet count of 114,000. Sodium 141, potassium 3.4, chloride 95, bicarbonate 39, BUN 7, creatinine 0.4, and glucose of 131. Troponins are negative on two separate occasions. ProBNP is only 506 at the time of her admission. Albumin of 3.0. Liver function tests are otherwise unremarkable. Her urinalysis in this hospitalization is actually normal. Her vital signs are blood pressure is anywhere between 144/64 to 152/72, heart rate in the 90s, temperature 98, saturation of 94% to 95% on and two and three liters of nasal cannula respectively. The chest x-ray performed apparently in the emergency room. The chest x-ray is not available for review by me, just radiologist interpretation, apparently per ER physician's note indicates upper limits of normal size with bilateral small pleural effusions. EKG, normal sinus rhythm, no ST-T wave abnormalities, of any significant degree. ASSESSMENT: 1. the convalescent facility. 2. Chronic obstructive pulmonary disease history. 3. Reported history of edema seems resolved. 4. Hypertension. 5. Obesity. 6. Diabetes mellitus. 7. Crohn's disease. 8. Cirrhosis. PLAN: This patient was seen in cardiac consultation. The patient seems to have had some improvement and I do not actually see any edema in lower extremities at this time. She did receive some diuretics earlier in the emergency room. Her proBNP was not significantly elevated. Venous Duplex study of the lower extremities have been fairly unremarkable except for that distally were not visualized due to "edema in depth". Jayson Mckinnon M.D. DR: NALLELY JOB#: [id number] CC:
[2017-01-15] MEDS ORDERED: Oxycodone/Acetaminophen 5-325 ORAL PRN (15:30)
[2017-01-15 16:12] VITALS: BP 145/65
[2017-01-15] MEDS: Brimonidine 0.2% Opth Sol BOTH EYES SCH (17:30)
[2017-01-15 20:00] VITALS: BP 140/68
--- NOTE | 2017-01-15 22:27 | General Progress Note ---
Assessment/Plan Assessment/Plan (1) Lumbar spondylosis (2) Lumbar radiculopathy (3) Scoliosis (4) Spinal stenosis of lumbar region (5) Crohn's disease We will continue Percocet as needed. Pt was d/w Dr. Alston and he concurred. Thank you for courtesy of this consultation. Subjective Date patient seen: Jan 15, 2017 Time patient seen: 10:00 - pm Allergies: Coded Allergies: No Known Allergies (Unverified , 08/20/14) Subjective Constitutional: Denies: no symptoms, chills, diaphoresis, fever, malaise, weakness, other HEENT: Denies: no symptoms, eye pain, blurred vision, tearing, double vision, ear pain, ear discharge, nose pain, nose congestion, throat pain, throat swelling, mouth pain, mouth swelling, other Cardiovascular: Denies: no symptoms, chest pain, edema, irregular heart rate, lightheadedness, palpitations, syncope, other Respiratory: Denies: no symptoms, cough, orthopnea, shortness of breath, SOB with excertion, SOB at rest, sputum, stridor, wheezing, other Gastrointestinal/Abdominal: Denies: no symptoms, abdomen distended, abdominal pain, black stools, tarry stools, blood in stool, constipated, diarrhea, difficulty swallowing, nausea, poor appetite, poor fluid intake, rectal bleeding , vomiting, other Genitourinary: Reports: burning, Denies: no symptoms, discharge, frequency, flank pain, hematuria, incontinence, pain, urgency, other Neurologic/Psychiatric: Reports: weakness, Denies: no symptoms, anxiety, depressed, emotional problems, headache, numbness, paresthesia, pre-existing deficit, seizure, tingling, tremors, other Endocrine: Denies: no symptoms, excessive sweating, flushing, intolerance to cold, intolerance to heat, increased hunger, increased thirst, increased urine, unexplained weight gain, unexplained weight loss, other Hematologic/Lymphatic: Denies: no symptoms, anemia, easy bleeding, easy bruising, other SUBJECTIVE Pt has been seen on prior admission and in the office admitted due to CHF and dyspnea. She is laying in bed in no signs or pain or distress. She continues to have back and abdominal pain tolerated on the Percocet. Which has been started at Percocet 5-10/325mg PO 1 tab Q4H PRN Mod to severe pain. Objective Last 24 Hour Vital Signs Date Time Temp Pulse Resp B/P Pulse Ox O2 Delivery O2 Flow Rate FiO2 01/15/17 21:43 87 140/68 01/15/17 20:00 98.4 87 20 140/68 97 Nasal Cannula 2.0 01/15/17 19:25 Room Air 2.0 01/15/17 19:25 97 18 Nasal Cannula 2.0 01/15/17 19:25 98 Nasal Cannula 2.0 01/15/17 19:12 85 01/15/17 16:12 97.9 83 20 145/65 96 Nasal Cannula 2.0 01/15/17 16:00 86 01/15/17 12:00 86 01/15/17 11:46 98.1 95 20 146/73 95 Nasal Cannula 2.0 01/15/17 10:12 91 144/64 01/15/17 08:47 91 144/64 01/15/17 08:00 94 01/15/17 07:53 98.1 91 20 144/64 94 Nasal Cannula 2.0 01/15/17 07:49 97 Nasal Cannula 2.0 01/15/17 07:48 97 18 Nasal Cannula 2.0 01/15/17 07:46 Room Air 2.0 01/15/17 04:00 97.4 91 20 152/72 95 Nasal Cannula 3.0 01/15/17 03:41 89 01/15/17 00:00 92 01/15/17 00:00 98.1 92 20 156/65 97 Nasal Cannula 3.0 Intake and Output 01/14/17 01/15/17 19:00 07:00 Intake Total 0 ml 840 ml Output Total 2600 ml Balance 0 ml -1760 ml Intake Oral 0 ml 840 ml Output Urine Total 2600 ml Laboratory Tests 01/15/17 05:45: White Blood Count 4.9, Red Blood Count 3.95L, Hemoglobin 11.9L, Hematocrit 37.4 , Mean Corpuscular Volume 95, Mean Corpuscular Hemoglobin 30.0, Mean Corpuscular Hemoglobin Concent 31.7L, Red Cell Distribution Width 13.1, Platelet Count 114L, Mean Platelet Volume 9.5, Neutrophils (%) (Auto) 62.7, Lymphocytes (%) (Auto) 21.0, Monocytes (%) (Auto) 12.2H, Eosinophils (%) (Auto) 3.6H, Basophils (%) (Auto) 0.5, Sodium Level 141, Potassium Level 3.4, Chloride Level 95L, Carbon Dioxide Level 39H, Anion Gap 7, Blood Urea Nitrogen 7, Creatinine 0.4L, Estimat Glomerular Filtration Rate , Glucose Level 131H, Calcium Level 9.0, Phosphorus Level 3.2, Troponin I < 0.30, Albumin 3.0L Height (Feet): 5 Height (Inches): 6.00 Weight (Pounds): 198 Objective General Appearance: no apparent distress, alert EENT: PERRL/EOMI, normal ENT inspection Neck: normal alignment, supple Cardiovascular: normal rate, regular rhythm Respiratory/Chest: lungs clear, normal breath sounds Abdomen: tender, soft Extremities: tender Edema: trace edema Neurologic: abnormal gait, alert, oriented x 3 Skin: normal pigmentation RON MCKENNA Jan 15, 2017 22:26
[2017-01-16] VITALS (7 sets, daily range): BP systolic 116–133; BP diastolic 57–71
[2017-01-16] MEDS: NovoLOG Insulin Flexpen SUBQ SCH ×4 (06:30→21:59)
[2017-01-16 07:26] LABS: BASOPHILS % (AUTO) 0.5 % (0.0-2.0); EOSINOPHILS % (AUTO) 4.5 % (0.0-3.0); LYMPHOCYTES % (AUTO) 23.2 % (20.0-45.0); MEAN CORPUSCULAR HEMOGLOBIN 30.2 PG (27.0-31.0); MEAN CORPUSCULAR HGB CONC 31.6 G/DL (32.0-36.0); MEAN CORPUSCULAR VOLUME 95 FL (80-99); MEAN PLATELET VOLUME 8.9 FL (6.5-10.1); NEUTROPHILS % (AUTO) 59.8 % (45.0-75.0); PLATELET COUNT 122 K/UL (150-450); RED BLOOD COUNT 4.02 M/UL (4.20-5.40); WHITE BLOOD COUNT 5.4 K/UL (4.8-10.8)
[2017-01-16 08:01] LABS: ANION GAP 7 (5-15); CALCIUM 8.9 mg/dL (8.6-10.2); CARBON DIOXIDE 40 mEQ/L (20-30); CHLORIDE 93 mEQ/L (98-107); CREATININE 0.6 mg/dL (0.5-0.9); HEMOLYSIS 5; POTASSIUM 3.6 mEQ/L (3.4-4.9); SODIUM 140 mEQ/L (135-145)
[2017-01-16 08:03] LABS: MAGNESIUM 1.7 mg/dL (1.7-2.5)
[2017-01-16] MEDS: Miralax 17gm pkt ORAL SCH ×2 (08:24→08:35)
[2017-01-16] MEDS: Lactulose 20gm/30ml UDC ORAL SCH ×3 (08:24→18:18)
[2017-01-16] MEDS: Memantine 5 MG TAB ORAL SCH (08:24)
[2017-01-16] MEDS: Lisinopril 20mg tab ORAL SCH (08:25)
[2017-01-16] MEDS: Brimonidine 0.2% Opth Sol BOTH EYES SCH ×2 (08:28→18:19)
[2017-01-16] MEDS: Heparin 5000 units/ml inj SUBQ SCH ×2 (08:28→21:44)
--- NOTE | 2017-01-16 09:19 | Diagnostic Imaging Report ---
Indication: SOB Technique: One view of the chest Comparison: 02/03/2016 Findings: There is thoracic scoliotic deformity. Interim development of bilateral mostly perihilar interstitial and alveolar parenchymal disease. Stable linear band in the left lung may reflect areas of scarring. The heart is upper limits of normal in size There are probably small bilateral pleural effusions. Impression: Bilateral residual and alveolar parenchymal disease, edema versus infiltrates. Probable small bilateral pleural effusions. Scoliosis
--- NOTE | 2017-01-16 09:51 | General Progress Note ---
Assessment/Plan Problem List: (1) SOB (shortness of breath) ICD Codes: R06.02 - Shortness of breath SNOMED: 184140900 (2) CHF (congestive heart failure) ICD Codes: I50.9 - Heart failure, unspecified SNOMED: 25053848 (3) Edema ICD Codes: R60.9 - Edema, unspecified SNOMED: 282852833, 459018504 (4) Chronic pain ICD Codes: G89.29 - Other chronic pain SNOMED: 40928670 (5) COPD (chronic obstructive pulmonary disease) ICD Codes: J44.9 - Chronic obstructive pulmonary disease, unspecified SNOMED: 21759195 (6) Crohn's disease ICD Codes: K50.90 - Crohn's disease SNOMED: 03905853 (7) OBESITY, NOS (8) HTN (hypertension) ICD Codes: I10 - HTN (hypertension) SNOMED: 89081253 (9) DM (diabetes mellitus) ICD Codes: E11.9 - DM (diabetes mellitus) SNOMED: 69312460 Status: stable, progressing, tolerating diet Assessment/Plan o2 pulm tx diuresis ot pt diet cbc bmp am Subjective Allergies: Coded Allergies: No Known Allergies (Unverified , 08/20/14) All Systems: reviewed and negative except above Subjective o2nc sleepy in bed Objective Last 24 Hour Vital Signs Date Time Temp Pulse Resp B/P Pulse Ox O2 Delivery O2 Flow Rate FiO2 01/16/17 08:25 78 133/69 01/16/17 08:25 133/69 01/16/17 08:23 78 133/69 01/16/17 07:56 97.9 78 18 133/69 96 Nasal Cannula 2.0 01/16/17 07:53 Nasal Cannula 2.0 01/16/17 07:51 93 Nasal Cannula 2.0 01/16/17 07:50 83 18 Nasal Cannula 2.0 01/16/17 04:00 96.8 70 20 132/63 100 Nasal Cannula 2.0 01/16/17 04:00 86 01/16/17 00:00 96.4 73 20 116/57 97 Nasal Cannula 2.0 01/15/17 23:37 76 01/15/17 21:43 87 140/68 01/15/17 20:00 98.4 87 20 140/68 97 Nasal Cannula 2.0 01/15/17 19:25 Room Air 2.0 01/15/17 19:25 97 18 Nasal Cannula 2.0 01/15/17 19:25 98 Nasal Cannula 2.0 01/15/17 19:12 85 01/15/17 16:12 97.9 83 20 145/65 96 Nasal Cannula 2.0 01/15/17 16:00 86 01/15/17 12:00 86 01/15/17 11:46 98.1 95 20 146/73 95 Nasal Cannula 2.0 01/15/17 10:12 91 144/64 Intake and Output 01/15/17 01/16/17 19:00 07:00 Intake Total 360 ml 200 ml Output Total 2450 ml 800 ml Balance -2090 ml -600 ml Intake Oral 360 ml 200 ml Output Urine Total 2450 ml 800 ml # Bowel Movements 2 Laboratory Tests 01/16/17 05:15: White Blood Count 5.4, Red Blood Count 4.02L, Hemoglobin 12.1, Hematocrit 38.4, Mean Corpuscular Volume 95, Mean Corpuscular Hemoglobin 30.2, Mean Corpuscular Hemoglobin Concent 31.6L, Red Cell Distribution Width 13.0, Platelet Count 122L , Mean Platelet Volume 8.9, Neutrophils (%) (Auto) 59.8, Lymphocytes (%) (Auto) 23.2, Monocytes (%) (Auto) 12.0H, Eosinophils (%) (Auto) 4.5H, Basophils (%) ( Auto) 0.5, Sodium Level 140, Potassium Level 3.6, Chloride Level 93L, Carbon Dioxide Level 40H, Anion Gap 7, Blood Urea Nitrogen 9, Creatinine 0.6, Estimat Glomerular Filtration Rate , Glucose Level 132H, Calcium Level 8.9, Magnesium Level 1.7, Pro-B-Type Natriuretic Peptide 182 Height (Feet): 5 Height (Inches): 6.00 Weight (Pounds): 198 General Appearance: lethargic EENT: normal ENT inspection Neck: normal alignment Cardiovascular: normal peripheral pulses, normal rate, regular rhythm Respiratory/Chest: chest wall non-tender, lungs clear, normal breath sounds Abdomen: normal bowel sounds, non tender, soft Extremities: normal inspection Edema: no edema noted Arm (L), no edema noted Arm (R), no edema noted Leg (L), no edema noted Leg (R), no edema noted Pedal (L), no edema noted Pedal (R), no edema noted Generalized Neurologic: motor weakness Skin: normal pigmentation, warm/dry KUMAR ENGLISH Jan 16, 2017 09:51
--- NOTE | 2017-01-16 10:50 | General Progress Note ---
Assessment/Plan Problem List: (1) Lumbar spondylosis ICD Codes: M47.9 - Lumbar spondylosis SNOMED: 356183386 (2) Scoliosis ICD Codes: M41.9 - Scoliosis SNOMED: 468514524 (3) Spinal stenosis of lumbar region ICD Codes: M48.06 - Spinal stenosis of lumbar region SNOMED: 93735451 (4) Lumbar radiculopathy ICD Codes: M54.16 - Lumbar radiculopathy SNOMED: 765895079 (5) Crohn's disease ICD Codes: K50.90 - Crohn's disease SNOMED: 46682710 (6) COPD (chronic obstructive pulmonary disease) ICD Codes: J44.9 - Chronic obstructive pulmonary disease, unspecified SNOMED: 62146559 (7) CHF (congestive heart failure) ICD Codes: I50.9 - Heart failure, unspecified SNOMED: 90282052 Status: stable Assessment/Plan Will continue Percocet PRN. Subjective ROS Limited/Unobtainable: Yes Allergies: Coded Allergies: No Known Allergies (Unverified , 08/20/14) Subjective Pt has tyaken 2 Percocet 10/325 mg yesterday. No meds since yesterday is used for pain. She reports that pain is controlled. She woke up upon my calling her name right away but is tired. Objective Last 24 Hour Vital Signs Date Time Temp Pulse Resp B/P Pulse Ox O2 Delivery O2 Flow Rate FiO2 01/16/17 08:25 78 133/69 01/16/17 08:25 133/69 01/16/17 08:23 78 133/69 01/16/17 07:56 97.9 78 18 133/69 96 Nasal Cannula 2.0 01/16/17 07:53 Nasal Cannula 2.0 01/16/17 07:51 93 Nasal Cannula 2.0 01/16/17 07:50 83 18 Nasal Cannula 2.0 01/16/17 04:00 96.8 70 20 132/63 100 Nasal Cannula 2.0 01/16/17 04:00 86 01/16/17 00:00 96.4 73 20 116/57 97 Nasal Cannula 2.0 01/15/17 23:37 76 01/15/17 21:43 87 140/68 01/15/17 20:00 98.4 87 20 140/68 97 Nasal Cannula 2.0 01/15/17 19:25 Room Air 2.0 01/15/17 19:25 97 18 Nasal Cannula 2.0 01/15/17 19:25 98 Nasal Cannula 2.0 01/15/17 19:12 85 01/15/17 16:12 97.9 83 20 145/65 96 Nasal Cannula 2.0 01/15/17 16:00 86 01/15/17 12:00 86 01/15/17 11:46 98.1 95 20 146/73 95 Nasal Cannula 2.0 Intake and Output 01/15/17 01/16/17 19:00 07:00 Intake Total 360 ml 200 ml Output Total 2450 ml 800 ml Balance -2090 ml -600 ml Intake Oral 360 ml 200 ml Output Urine Total 2450 ml 800 ml # Bowel Movements 2 Laboratory Tests 01/16/17 05:15: White Blood Count 5.4, Red Blood Count 4.02L, Hemoglobin 12.1, Hematocrit 38.4, Mean Corpuscular Volume 95, Mean Corpuscular Hemoglobin 30.2, Mean Corpuscular Hemoglobin Concent 31.6L, Red Cell Distribution Width 13.0, Platelet Count 122L , Mean Platelet Volume 8.9, Neutrophils (%) (Auto) 59.8, Lymphocytes (%) (Auto) 23.2, Monocytes (%) (Auto) 12.0H, Eosinophils (%) (Auto) 4.5H, Basophils (%) ( Auto) 0.5, Sodium Level 140, Potassium Level 3.6, Chloride Level 93L, Carbon Dioxide Level 40H, Anion Gap 7, Blood Urea Nitrogen 9, Creatinine 0.6, Estimat Glomerular Filtration Rate , Glucose Level 132H, Calcium Level 8.9, Magnesium Level 1.7, Pro-B-Type Natriuretic Peptide 182 Height (Feet): 5 Height (Inches): 6.00 Weight (Pounds): 198 General Appearance: WD/WN EENT: PERRL/EOMI Neck: non-tender, supple Cardiovascular: normal rate, regular rhythm Respiratory/Chest: chest wall non-tender, lungs clear Abdomen: normal bowel sounds, non tender, soft Extremities: non-tender Edema: no edema noted Arm (L), no edema noted Arm (R), no edema noted Leg (L), no edema noted Leg (R), no edema noted Pedal (L), no edema noted Pedal (R) Neurologic: responsive DI MEJIA Jan 16, 2017 10:50
--- NOTE | 2017-01-16 11:15 | Cardiology Report ---
APPROVED REPORT EKG Measurement Heart [id number] Normal sinus rhythm Non specific ST-T abn Borderlinel ECG
--- NOTE | 2017-01-16 11:18 | Cardiology Report ---
APPROVED REPORT EKG Measurement Heart [id number] [place] 162P68 [id number] Normal sinus rhythm Low voltage QRS Borderline ECG
--- NOTE | 2017-01-16 11:59 | Pulmonology Progress Note ---
Assessment/Plan Assessment/Plan ASSESSMENT acute pulmonary edema-resolved acute hypoxemia 2 to acute pulmonary edema- resolved HTN COPD DM Hyperkalemia Cirrhosis hx of Crohn disease lumbar radiculopathy PLAN OF CARE tele serial troponin x 2 negative, ECG no acute changes, r/o for acute DE ECHO with preserved EF cardio follows clinically responded to diuresis, diuresis, initially intense, changed to daily Lasix decreased to daily edema BLE resolved pro BNP trending down CXR still with evidence of CHF clinically improving, monitor I/O renal parameters. lytes O2 , to keep sat above 92@ HHN prn BP management with current regimen and optimize further as needed BS management with SS of insulin Venous Duplex BLE DVT prophylaxis Bowel regimen pain management pain specialist follows case discussed and evaluated by supervising physician Subjective Allergies: Coded Allergies: No Known Allergies (Unverified , 08/20/14) Subjective feeling better , less SOB edema BLE resolved Objective Last 24 Hour Vital Signs Date Time Temp Pulse Resp B/P Pulse Ox O2 Delivery O2 Flow Rate FiO2 01/16/17 11:32 98.1 69 18 122/65 96 Nasal Cannula 2.0 01/16/17 08:25 78 133/69 01/16/17 08:25 133/69 01/16/17 08:23 78 133/69 01/16/17 08:00 76 01/16/17 07:56 97.9 78 18 133/69 96 Nasal Cannula 2.0 01/16/17 07:53 Nasal Cannula 2.0 01/16/17 07:51 93 Nasal Cannula 2.0 01/16/17 07:50 83 18 Nasal Cannula 2.0 01/16/17 04:00 96.8 70 20 132/63 100 Nasal Cannula 2.0 01/16/17 04:00 86 01/16/17 00:00 96.4 73 20 116/57 97 Nasal Cannula 2.0 01/15/17 23:37 76 01/15/17 21:43 87 140/68 01/15/17 20:00 98.4 87 20 140/68 97 Nasal Cannula 2.0 01/15/17 19:25 Room Air 2.0 01/15/17 19:25 97 18 Nasal Cannula 2.0 01/15/17 19:25 98 Nasal Cannula 2.0 01/15/17 19:12 85 01/15/17 16:12 97.9 83 20 145/65 96 Nasal Cannula 2.0 01/15/17 16:00 86 01/15/17 12:00 86 Intake and Output 01/15/17 01/16/17 19:00 07:00 Intake Total 360 ml 200 ml Output Total 2450 ml 800 ml Balance -2090 ml -600 ml Intake Oral 360 ml 200 ml Output Urine Total 2450 ml 800 ml # Bowel Movements 2 Objective General Appearance: no apparent distress, alert - responsive Lines, tubes and drains: peripheral HEENT: normocephalic, atraumatic, anicteric, mucous membranes moist Neck: non-tender, normal alignment, supple Respiratory/Chest: lungs clear - with moderate air entry Cardiovascular/Chest: normal rate, regular rhythm, no JVD Abdomen: normal bowel sounds, non tender, soft Extremities: non-tender, no calf tenderness, other - trace edema Skin Exam: warm/dry Neurologic: abnormal gait - bedridden , alert, responsive, normal mood/affect Musculoskeletal: atrophy - BLE Microbiology Date/Time Source Procedure Growth Status 01/14/17 15:31 Blood Blood Culture - Preliminary NO GROWTH AFTER 24 HOURS Resulted 01/14/17 15:10 Blood Blood Culture - Preliminary NO GROWTH AFTER 24 HOURS Resulted Laboratory Tests 01/16/17 05:15: White Blood Count 5.4, Red Blood Count 4.02L, Hemoglobin 12.1, Hematocrit 38.4, Mean Corpuscular Volume 95, Mean Corpuscular Hemoglobin 30.2, Mean Corpuscular Hemoglobin Concent 31.6L, Red Cell Distribution Width 13.0, Platelet Count 122L , Mean Platelet Volume 8.9, Neutrophils (%) (Auto) 59.8, Lymphocytes (%) (Auto) 23.2, Monocytes (%) (Auto) 12.0H, Eosinophils (%) (Auto) 4.5H, Basophils (%) ( Auto) 0.5, Sodium Level 140, Potassium Level 3.6, Chloride Level 93L, Carbon Dioxide Level 40H, Anion Gap 7, Blood Urea Nitrogen 9, Creatinine 0.6, Estimat Glomerular Filtration Rate , Glucose Level 132H, Calcium Level 8.9, Magnesium Level 1.7, Pro-B-Type Natriuretic Peptide 182 Current Medications Medications (Trade) Dose Ordered Sig/Isabel Route PRN Reason Start Time Stop Time Status Last Admin Dose Admin Acetaminophen (Tylenol) 650 mg Q4H PRN ORAL Fever 01/14/17 18:15 02/13/17 18:14 Albuterol/ Ipratropium (DuoNeb 0.5-3(2.5)mg/3ml) 3 ml Q4H PRN HHN Shortness of Breath 01/14/17 18:15 01/19/17 18:14 Amlodipine Besylate (Norvasc) 10 mg DAILY ORAL 01/15/17 09:00 02/14/17 08:59 01/16/17 08:23 Brimonidine Tartrate (Alphagan) 1 drop BID BOTH EYES 01/15/17 18:00 02/14/17 17:59 01/16/17 08:28 Dextrose (Dextrose 50%) STAT PRN IV Hypoglycemia 01/14/17 18:15 02/13/17 18:14 Furosemide (Lasix) 40 mg DAILY IV 01/16/17 09:00 02/15/17 08:59 01/16/17 08:27 Heparin Sodium (Porcine) (Heparin 5000 units/ml) 5,000 units EVERY 12 HOURS SUBQ 01/14/17 21:00 02/13/17 20:59 01/14/17 21:58 Insulin Aspart (NovoLOG) BEFORE MEALS AND HS SUBQ 01/14/17 21:00 02/13/17 20:59 01/15/17 21:46 Lactulose (Cephulac) 20 gm THREE TIMES A DAY ORAL 01/15/17 13:00 02/14/17 12:59 01/16/17 08:24 Lisinopril (Prinivil) 40 mg DAILY ORAL 01/16/17 09:00 02/15/17 08:59 01/16/17 08:25 Lorazepam (Ativan) 1 mg Q8H PRN ORAL For Anxiety 01/14/17 18:15 01/21/17 18:14 01/15/17 12:53 Memantine (Namenda) 5 mg DAILY ORAL 01/15/17 10:00 02/14/17 09:59 01/16/17 08:24 Metoprolol Tartrate (Lopressor) 100 mg EVERY 12 HOURS ORAL 01/15/17 10:00 02/14/17 09:59 01/16/17 08:25 Ondansetron HCl (Zofran) 4 mg Q6H PRN IVP Nausea & Vomiting 01/14/17 18:15 02/13/17 18:14 Oxycodone/ Acetaminophen (Percocet 10/325) 1 tab Q4H PRN ORAL Severe Pain (Pain Scale 7-10) 01/15/17 15:15 01/22/17 15:14 01/15/17 22:38 Oxycodone/ Acetaminophen (Percocet 5-325) 1 tab Q4H PRN ORAL Moderate Pain (Pain Scale 4-6) 01/15/17 15:30 01/22/17 15:29 Polyethylene Glycol (Miralax) 17 gm DAILY ORAL 01/15/17 10:00 02/14/17 09:59 01/15/17 10:12 Polyethylene Glycol (Miralax) 17 gm DAILYPRN PRN ORAL Constipation 01/14/17 18:15 02/13/17 18:14 Prochlorperazine (Compazine) 10 mg Q8HR PRN ORAL Nausea & Vomiting 01/15/17 09:15 02/14/17 09:14 Temazepam (Restoril) 15 mg BEDTIME PRN ORAL Insomnia 01/15/17 09:15 01/22/17 09:14 01/15/17 22:38 [facility] DurhamMoh[facility] SystemMarimar Butts NP Jan 16, 2017 11:59
--- NOTE | 2017-01-16 12:18 | Cardiology Progress Note ---
Assessment/Plan Assessment/Plan Chronic obstructive pulmonary disease history. Reported history of edema seems resolved. Hypertension. Obesity. Diabetes mellitus. Crohn's disease. Cirrhosis. duplex neg pro bnp normal echo noted repeat ekg reviewed all torp neg no sx to suggest coronary syndrome at this time on anti hypertensive acei adn bb dc iv lasix as normal pro bnp nadn clear lung adn increased bicarb Subjective Cardiovascular: Denies: chest pain, lightheadedness, palpitations Respiratory: Denies: shortness of breath Gastrointestinal/Abdominal: Denies: abdominal pain Genitourinary: Denies: burning Objective Last 24 Hour Vital Signs Date Time Temp Pulse Resp B/P Pulse Ox O2 Delivery O2 Flow Rate FiO2 01/16/17 11:32 98.1 69 18 122/65 96 Nasal Cannula 2.0 01/16/17 08:25 78 133/69 01/16/17 08:25 133/69 01/16/17 08:23 78 133/69 01/16/17 08:00 76 01/16/17 07:56 97.9 78 18 133/69 96 Nasal Cannula 2.0 01/16/17 07:53 Nasal Cannula 2.0 01/16/17 07:51 93 Nasal Cannula 2.0 01/16/17 07:50 83 18 Nasal Cannula 2.0 01/16/17 04:00 96.8 70 20 132/63 100 Nasal Cannula 2.0 01/16/17 04:00 86 01/16/17 00:00 96.4 73 20 116/57 97 Nasal Cannula 2.0 01/15/17 23:37 76 01/15/17 21:43 87 140/68 01/15/17 20:00 98.4 87 20 140/68 97 Nasal Cannula 2.0 01/15/17 19:25 Room Air 2.0 01/15/17 19:25 97 18 Nasal Cannula 2.0 01/15/17 19:25 98 Nasal Cannula 2.0 01/15/17 19:12 85 01/15/17 16:12 97.9 83 20 145/65 96 Nasal Cannula 2.0 01/15/17 16:00 86 General Appearance: no apparent distress, obese Neck: no JVD Cardiovascular: normal rate, regular rhythm Respiratory/Chest: lungs clear Abdomen: normal bowel sounds, non tender, soft Extremities: no swelling Intake and Output 01/15/17 01/16/17 19:00 07:00 Intake Total 360 ml 200 ml Output Total 2450 ml 800 ml Balance -2090 ml -600 ml Intake Oral 360 ml 200 ml Output Urine Total 2450 ml 800 ml # Bowel Movements 2 Laboratory Tests Test 01/16/17 05:15 White Blood Count 5.4 K/UL (4.8-10.8) Red Blood Count 4.02 M/UL (4.20-5.40) L Hemoglobin 12.1 G/DL (12.0-16.0) Hematocrit 38.4 % (37.0-47.0) Mean Corpuscular Volume 95 FL (80-99) Mean Corpuscular Hemoglobin 30.2 PG (27.0-31.0) Mean Corpuscular Hemoglobin Concent 31.6 G/DL (32.0-36.0) L Red Cell Distribution Width 13.0 % (11.6-14.8) Platelet Count 122 K/UL (150-450) L Mean Platelet Volume 8.9 FL (6.5-10.1) Neutrophils (%) (Auto) 59.8 % (45.0-75.0) Lymphocytes (%) (Auto) 23.2 % (20.0-45.0) Monocytes (%) (Auto) 12.0 % (1.0-10.0) H Eosinophils (%) (Auto) 4.5 % (0.0-3.0) H Basophils (%) (Auto) 0.5 % (0.0-2.0) Sodium Level 140 mEQ/L (135-145) Potassium Level 3.6 mEQ/L (3.4-4.9) Chloride Level 93 mEQ/L (98-107) L Carbon Dioxide Level 40 mEQ/L (20-30) H Anion Gap 7 (5-15) Blood Urea Nitrogen 9 mg/dL (7-23) Creatinine 0.6 mg/dL (0.5-0.9) Estimat Glomerular Filtration Rate mL/min (>60) Glucose Level 132 mg/dL (74-106) H Calcium Level 8.9 mg/dL (8.6-10.2) Magnesium Level 1.7 mg/dL (1.7-2.5) Pro-B-Type Natriuretic Peptide 182 pg/mL (0-450) Microbiology Date/Time Source Procedure Growth Status 01/14/17 15:31 Blood Blood Culture - Preliminary NO GROWTH AFTER 24 HOURS Resulted 01/14/17 15:10 Blood Blood Culture - Preliminary NO GROWTH AFTER 24 HOURS Resulted JOSE ROMAN Jan 16, 2017 12:17
--- NOTE | 2017-01-16 14:24 | Consultation ---
History of Present Illness General Date patient seen: Jan 15, 2017 Chief Complaint: Generalized Weakness Referring physician: dr Morocho Reason for Consultation: inpatient management Present Illness HPI 76-year-old female from [facility], presented for above-mentioned diagnosis, admitted to telemetry for further care. the pt was c/ o severe pain.the pt pw depressed mood, irritable, poor energy, insomnia/ the pt stated that the pain meds are adequate. the pt didn't endorse any manic/ psychotic sxs. the pt doesn't has mild impairment of cognition otherwise the pt was a good historian. the pt at times yelling and gets angry. Allergies: Coded Allergies: No Known Allergies (Unverified , 08/20/14) Medication History Scheduled Amlodipine Besylate* (Amlodipine Besylate*), 10 MG ORAL DAILY, (Reported) Brimonidine Tartrate* (Alphagan*), 1 DROP BOTH EYES BID, (Reported) Cyclobenzaprine Hcl* (Flexeril*), 10 MG ORAL BID, (Reported) Insulin Lispro (Humalog), 0 SUBQ BEFORE MEALS AND HS, (Reported) Lactobacillus Acidophilus (Probiotic Acidophilus), 1 EACH PO TID, (Reported) Lactulose (Lactulose*), 20 GM ORAL THREE TIMES A DAY Lisinopril (Lisinopril*), 40 MG ORAL DAILY, (Reported) Memantine Hcl* (Namenda*), 5 MG ORAL DAILY, (Reported) Mesalamine (Pentasa), 1,000 MG ORAL TID, (Reported) Metoprolol Tartrate* (Metoprolol Tartrate*), 100 MG ORAL EVERY 12 HOURS Omeprazole (Omeprazole), 40 MG ORAL DAILY, (Reported) Polyethylene Glycol 3350* (Miralax*), 17 GM ORAL DAILY, (Reported) Scheduled PRN Dextran 70/Hypromellose (Artificial Tears Eye Drops*), 1 DROP BOTH EYES for Dry Eyes, (Reported) Lorazepam* (Ativan*), 1 MG ORAL EVERY 8 HOURS PRN for For Anxiety, (Reported) Oxycodone Hcl/Acetaminophen 10-325* (Oxycodone-Acetaminophen 10-325*), 1 TAB ORAL Q4H PRN for Pain Scale (6-10), (Reported) Prochlorperazine (Compazine*), 10 MG ORAL Q8HR PRN for Nausea & Vomiting, ( Reported) Temazepam* (Restoril*), 15 MG ORAL BEDTIME PRN for Insomnia, (Reported) Miscellaneous Medications Azelastine Hcl (Azelastine Hcl), 6 ML OP, (Reported) Discontinued Medications Ondansetron* (Zofran*), 4 MG ORAL Q6H PRN for Nausea & Vomiting, (Reported) Discontinued Reason: MD discontinued med Patient History History Provided By: Patient, Medical Record, PMD Healthcare decision maker N Resuscitation status Full Code Advanced Directive on File No Past Medical/Surgical History Past Medical/Surgical History: (1) Hypokalemia (2) Hypokalemia (3) Hypokalemia (4) Nausea alone (5) Nausea alone (6) Nausea alone (7) Cellulitis (8) Dyspnea (9) Hyponatremia (10) Pulmonary edema (11) Pulmonary edema (12) Transaminitis (13) Infection due to ESBL-producing Klebsiella pneumoniae (14) Positive blood culture (15) UTI (lower urinary tract infection) (16) Altered level of consciousness (17) Hyponatremia (18) Thrombocytopenia (19) Sepsis (20) ACS (acute coronary syndrome) (21) Abdominal pain (22) UTI (lower urinary tract infection) (23) Elevated LFTs (24) Altered mental status (25) Pain (26) UTI (lower urinary tract infection) (27) Opioid intoxication (28) Nausea (29) Encounter for diagnostic endoscopy (30) Hyperplastic colon polyp (31) Constipation (32) Abdominal pain (33) Transaminitis (34) COPD (chronic obstructive pulmonary disease) (35) Crohn's disease (36) OBESITY, NOS (37) Spinal stenosis of lumbar region (38) Scoliosis (39) Cholelithiasis (40) Lumbar radiculopathy (41) Cirrhosis (42) Diabetic nephropathies (43) Narcotic dependence (44) Osteoarthritis (45) UTI (urinary tract infection) (46) GERD (gastroesophageal reflux disease) (47) HTN (hypertension) (48) HTN (hypertension) (49) DM (diabetes mellitus) (50) SOB (shortness of breath) (51) Edema (52) CHF (congestive heart failure) (53) Chronic pain (54) Lumbar spondylosis Review of Systems Constitutional: Reports: malaise, weakness Psychiatric: Reports: anxiety, depressed feelings, emotional problems, prior hx Physical Exam General Appearance: alert, moderate distress, overweight Neurologic: alert, oriented x 3, responsive, depressed affect Last 24 Hour Vital Signs Date Time Temp Pulse Resp B/P Pulse Ox O2 Delivery O2 Flow Rate FiO2 01/16/17 11:32 98.1 69 18 122/65 96 Nasal Cannula 2.0 01/16/17 08:25 78 133/69 01/16/17 08:25 133/69 01/16/17 08:23 78 133/69 01/16/17 08:00 76 01/16/17 07:56 97.9 78 18 133/69 96 Nasal Cannula 2.0 01/16/17 07:53 Nasal Cannula 2.0 01/16/17 07:51 93 Nasal Cannula 2.0 01/16/17 07:50 83 18 Nasal Cannula 2.0 01/16/17 04:00 96.8 70 20 132/63 100 Nasal Cannula 2.0 01/16/17 04:00 86 01/16/17 00:00 96.4 73 20 116/57 97 Nasal Cannula 2.0 01/15/17 23:37 76 01/15/17 21:43 87 140/68 01/15/17 20:00 98.4 87 20 140/68 97 Nasal Cannula 2.0 01/15/17 19:25 Room Air 2.0 01/15/17 19:25 97 18 Nasal Cannula 2.0 01/15/17 19:25 98 Nasal Cannula 2.0 01/15/17 19:12 85 01/15/17 16:12 97.9 83 20 145/65 96 Nasal Cannula 2.0 01/15/17 16:00 86 Intake and Output 01/15/17 01/16/17 19:00 07:00 Intake Total 360 ml 200 ml Output Total 2450 ml 800 ml Balance -2090 ml -600 ml Intake Oral 360 ml 200 ml Output Urine Total 2450 ml 800 ml # Bowel Movements 2 Laboratory Tests Test 01/16/17 05:15 White Blood Count 5.4 K/UL (4.8-10.8) Red Blood Count 4.02 M/UL (4.20-5.40) L Hemoglobin 12.1 G/DL (12.0-16.0) Hematocrit 38.4 % (37.0-47.0) Mean Corpuscular Volume 95 FL (80-99) Mean Corpuscular Hemoglobin 30.2 PG (27.0-31.0) Mean Corpuscular Hemoglobin Concent 31.6 G/DL (32.0-36.0) L Red Cell Distribution Width 13.0 % (11.6-14.8) Platelet Count 122 K/UL (150-450) L Mean Platelet Volume 8.9 FL (6.5-10.1) Neutrophils (%) (Auto) 59.8 % (45.0-75.0) Lymphocytes (%) (Auto) 23.2 % (20.0-45.0) Monocytes (%) (Auto) 12.0 % (1.0-10.0) H Eosinophils (%) (Auto) 4.5 % (0.0-3.0) H Basophils (%) (Auto) 0.5 % (0.0-2.0) Sodium Level 140 mEQ/L (135-145) Potassium Level 3.6 mEQ/L (3.4-4.9) Chloride Level 93 mEQ/L (98-107) L Carbon Dioxide Level 40 mEQ/L (20-30) H Anion Gap 7 (5-15) Blood Urea Nitrogen 9 mg/dL (7-23) Creatinine 0.6 mg/dL (0.5-0.9) Estimat Glomerular Filtration Rate mL/min (>60) Glucose Level 132 mg/dL (74-106) H Calcium Level 8.9 mg/dL (8.6-10.2) Magnesium Level 1.7 mg/dL (1.7-2.5) Pro-B-Type Natriuretic Peptide 182 pg/mL (0-450) Height (Feet): 5 Height (Inches): 6.00 Weight (Pounds): 198 Medications Current Medications Medications (Trade) Dose Ordered Sig/Isabel Route PRN Reason Start Time Stop Time Status Last Admin Dose Admin Acetaminophen (Tylenol) 650 mg Q4H PRN ORAL Fever 01/14/17 18:15 02/13/17 18:14 Acetazolamide (Diamox) 250 mg BID@1300,2100 ORAL 01/16/17 13:00 01/16/17 21:01 01/16/17 14:09 Albuterol/ Ipratropium (DuoNeb 0.5-3(2.5)mg/3ml) 3 ml Q4H PRN HHN Shortness of Breath 01/14/17 18:15 01/19/17 18:14 Amlodipine Besylate (Norvasc) 10 mg DAILY ORAL 01/15/17 09:00 02/14/17 08:59 01/16/17 08:23 Brimonidine Tartrate (Alphagan) 1 drop BID BOTH EYES 01/15/17 18:00 02/14/17 17:59 01/16/17 08:28 Dextrose (Dextrose 50%) STAT PRN IV Hypoglycemia 01/14/17 18:15 02/13/17 18:14 Furosemide (Lasix) 40 mg DAILY IV 01/16/17 09:00 02/15/17 08:59 01/16/17 08:27 Heparin Sodium (Porcine) (Heparin 5000 units/ml) 5,000 units EVERY 12 HOURS SUBQ 01/14/17 21:00 02/13/17 20:59 01/14/17 21:58 Insulin Aspart (NovoLOG) BEFORE MEALS AND HS SUBQ 01/14/17 21:00 02/13/17 20:59 01/16/17 11:53 Lactulose (Cephulac) 20 gm THREE TIMES A DAY ORAL 01/15/17 13:00 02/14/17 12:59 01/16/17 13:30 Lisinopril (Prinivil) 40 mg DAILY ORAL 01/16/17 09:00 02/15/17 08:59 01/16/17 08:25 Lorazepam (Ativan) 1 mg Q8H PRN ORAL For Anxiety 01/14/17 18:15 01/21/17 18:14 01/15/17 12:53 Memantine (Namenda) 5 mg DAILY ORAL 01/15/17 10:00 02/14/17 09:59 01/16/17 08:24 Metoprolol Tartrate (Lopressor) 100 mg EVERY 12 HOURS ORAL 01/15/17 10:00 02/14/17 09:59 01/16/17 08:25 Ondansetron HCl (Zofran) 4 mg Q6H PRN IVP Nausea & Vomiting 01/14/17 18:15 02/13/17 18:14 Oxycodone/ Acetaminophen (Percocet 10/325) 1 tab Q4H PRN ORAL Severe Pain (Pain Scale 7-10) 01/15/17 15:15 01/22/17 15:14 01/16/17 12:25 Oxycodone/ Acetaminophen (Percocet 5-325) 1 tab Q4H PRN ORAL Moderate Pain (Pain Scale 4-6) 01/15/17 15:30 01/22/17 15:29 Polyethylene Glycol (Miralax) 17 gm DAILY ORAL 01/15/17 10:00 02/14/17 09:59 01/15/17 10:12 Polyethylene Glycol (Miralax) 17 gm DAILYPRN PRN ORAL Constipation 01/14/17 18:15 02/13/17 18:14 Prochlorperazine (Compazine) 10 mg Q8HR PRN ORAL Nausea & Vomiting 01/15/17 09:15 02/14/17 09:14 Temazepam (Restoril) 15 mg BEDTIME PRN ORAL Insomnia 01/15/17 09:15 01/22/17 09:14 01/15/17 22:38 Assessment/Plan Status: stable Assessment/Plan MDD cognitive impairment Remeron 7.5 mg qhs to improve insomnia provided jerrell/Hunter Lenz M.D. Jan 16, 2017 14:24
[2017-01-16] MEDS: LORazepam 1mg tab ORAL PRN (15:32)
[2017-01-16 20:42] LABS: TROPONIN I < 0.30 ng/mL (<=0.30)
[2017-01-17 03:57] VITALS: BP 128/70
[2017-01-17] MEDS: LORazepam 1mg tab ORAL PRN (04:34)
[2017-01-17] MEDS: NovoLOG Insulin Flexpen SUBQ SCH ×3 (06:20→16:30)
[2017-01-17 07:12] LABS: BASOPHILS % (AUTO) 0.6 % (0.0-2.0); EOSINOPHILS % (AUTO) 4.2 % (0.0-3.0); MEAN CORPUSCULAR HEMOGLOBIN 30.3 PG (27.0-31.0); MEAN CORPUSCULAR HGB CONC 31.5 G/DL (32.0-36.0); MEAN CORPUSCULAR VOLUME 96 FL (80-99); MEAN PLATELET VOLUME 9.7 FL (6.5-10.1); MONOCYTES % (AUTO) 10.7 % (1.0-10.0); NEUTROPHILS % (AUTO) 66.5 % (45.0-75.0); PLATELET COUNT 135 K/UL (150-450); RED BLOOD COUNT 4.21 M/UL (4.20-5.40); WHITE BLOOD COUNT 6.2 K/UL (4.8-10.8)
[2017-01-17 07:21] LABS: ANION GAP 8 (5-15); CALCIUM 9.2 mg/dL (8.6-10.2); CARBON DIOXIDE 34 mEQ/L (20-30); CHLORIDE 95 mEQ/L (98-107); CREATININE 0.6 mg/dL (0.5-0.9); HEMOLYSIS 11; POTASSIUM 3.8 mEQ/L (3.4-4.9); SODIUM 137 mEQ/L (135-145)
--- NOTE | 2017-01-17 08:02 | Cardiology Report ---
APPROVED REPORT EXAM: Two-dimensional and M-mode echocardiogram with Doppler and color Doppler. INDICATION Left ventricular function M-Mode DIMENSIONS IVSd0.7 (0.7-1.1cm)Left Atrium (MM)4.5 (1.6-4.0cm) LVDd4.9 (3.5-5.6cm)Aortic Root2.8 (2.0-3.7cm) PWd0.8 (0.7-1.1cm)Aortic Cusp Exc.2.0 (1.5-2.0cm) LVDs2.8 (2.5-4.0cm) PWs1.0 cm Normal left ventricular chamber size, systolic function and wall motion. Left ventricular ejection fraction estimated to be 60-65 %. No evidence of left ventricular hypertrophy. No evidence of pericardial fat or effusion. Right cardiac chamber sizes are within normal limits. Mild left atrial enlargement by 2D. Focal aortic valve sclerosis with adequate cusp excursion Thickened mitral valve leaflets with normal excursion. Mitral annulus and aortic root calcification. Pulmonic valve not well visualized. Normal tricuspid valve structure. IVC not obtainable. A color flow and spectral Doppler study was performed and revealed: No aortic regurgitation. No mitral regurgitation. Left ventricular diastolic dysfunction not obtainable due to arrhythmia. Trace tricuspid regurgitation. Pulmonic regurgitation present.
[2017-01-17 08:04] VITALS: BP 128/63
--- NOTE | 2017-01-17 08:09 | General Progress Note ---
Assessment/Plan Problem List: (1) Lumbar spondylosis ICD Codes: M47.9 - Lumbar spondylosis SNOMED: 022051627 (2) Scoliosis ICD Codes: M41.9 - Scoliosis SNOMED: 441571419 (3) Spinal stenosis of lumbar region ICD Codes: M48.06 - Spinal stenosis of lumbar region SNOMED: 85095661 (4) Lumbar radiculopathy ICD Codes: M54.16 - Lumbar radiculopathy SNOMED: 136749442 (5) Crohn's disease ICD Codes: K50.90 - Crohn's disease SNOMED: 78794840 (6) CHF (congestive heart failure) ICD Codes: I50.9 - Heart failure, unspecified SNOMED: 39439178 (7) COPD (chronic obstructive pulmonary disease) ICD Codes: J44.9 - Chronic obstructive pulmonary disease, unspecified SNOMED: 90108881 Assessment/Plan Pian is controlled. Needs GI f/u to r/o bowel obstruction. Will continue Percocet PRN. Subjective ROS Limited/Unobtainable: Yes Allergies: Coded Allergies: No Known Allergies (Unverified , 08/20/14) Subjective Pt has taken 2 Percocet 10/325 mg yesterday again. She complains of abdominal pain also and has not moved her bowel for 2 days. No other complains. Objective Last 24 Hour Vital Signs Date Time Temp Pulse Resp B/P Pulse Ox O2 Delivery O2 Flow Rate FiO2 01/17/17 04:00 75 01/17/17 03:57 98.3 70 18 128/70 96 Room Air 01/17/17 00:00 70 01/16/17 23:51 98.6 75 17 123/61 95 Room Air 01/16/17 21:41 78 126/71 01/16/17 20:21 98.4 78 18 126/71 98 Nasal Cannula 2.0 01/16/17 20:00 74 01/16/17 19:30 95 Nasal Cannula 2.0 28 01/16/17 19:30 Nasal Cannula 2.0 28 01/16/17 19:30 80 20 Nasal Cannula 2.0 28 01/16/17 16:00 68 01/16/17 15:43 96.6 75 18 122/57 97 Nasal Cannula 2.0 01/16/17 12:00 66 01/16/17 11:32 98.1 69 18 122/65 96 Nasal Cannula 2.0 01/16/17 08:25 78 133/69 01/16/17 08:25 133/69 01/16/17 08:23 78 133/69 Intake and Output 01/16/17 01/17/17 19:00 07:00 Intake Total 950 ml Output Total 2500 ml 2000 ml Balance -1550 ml -2000 ml Intake Oral 950 ml Output Urine Total 2500 ml 2000 ml Laboratory Tests 01/16/17 19:55: Troponin I < 0.30 01/17/17 04:35: White Blood Count 6.2, Red Blood Count 4.21, Hemoglobin 12.7, Hematocrit 40.4, Mean Corpuscular Volume 96, Mean Corpuscular Hemoglobin 30.3, Mean Corpuscular Hemoglobin Concent 31.5L, Red Cell Distribution Width 13.0, Platelet Count 135L , Mean Platelet Volume 9.7, Neutrophils (%) (Auto) 66.5, Lymphocytes (%) (Auto) 18.0L, Monocytes (%) (Auto) 10.7H, Eosinophils (%) (Auto) 4.2H, Basophils (%) ( Auto) 0.6, Sodium Level 137, Potassium Level 3.8, Chloride Level 95L, Carbon Dioxide Level 34H, Anion Gap 8, Blood Urea Nitrogen 8, Creatinine 0.6, Estimat Glomerular Filtration Rate , Glucose Level 136H, Calcium Level 9.2 Height (Feet): 5 Height (Inches): 6.00 Weight (Pounds): 198 General Appearance: WD/WN, no apparent distress EENT: PERRL/EOMI Neck: non-tender, supple Cardiovascular: normal rate, regular rhythm Respiratory/Chest: decreased breath sounds Abdomen: non tender, distended - mildly Extremities: non-tender Edema: no edema noted Arm (L), no edema noted Arm (R), no edema noted Leg (L), no edema noted Leg (R), no edema noted Pedal (L), no edema noted Pedal (R) Neurologic: responsive DI MEJIA Jan 17, 2017 08:09
[2017-01-17] MEDS: Miralax 17gm pkt ORAL SCH (09:00)
[2017-01-17] MEDS: Memantine 5 MG TAB ORAL SCH (09:12)
[2017-01-17] MEDS: Lactulose 20gm/30ml UDC ORAL SCH ×2 (09:12→13:00)
[2017-01-17] MEDS: Brimonidine 0.2% Opth Sol BOTH EYES SCH (09:13)
[2017-01-17] MEDS: Lisinopril 20mg tab ORAL SCH (09:14)
[2017-01-17] MEDS: Heparin 5000 units/ml inj SUBQ SCH (09:17)
--- NOTE | 2017-01-17 10:29 | Diagnostic Imaging Report ---
Indications: Shortness of breath Technique: Portable AP chest Findings: Comparison: 01/15/2017 Cardiomegaly, pulmonary vascular redistribution, bilateral interstitial infiltrates, suggestion of alveolar consolidation right lung base, probable right pleural effusion, subsegmental atelectasis left midlung persist, unchanged. No new abnormality identified. IMPRESSION: Stable bilateral congestive changes Suggestion of underlying atelectasis versus pneumonia right lower lobe, unchanged Left midlung subsegmental atelectasis, unchanged
[2017-01-17 11:18] VITALS: BP 122/53
--- NOTE | 2017-01-17 11:31 | Cardiology Progress Note ---
Assessment/Plan Assessment/Plan Chronic obstructive pulmonary disease history. Reported history of edema seems resolved. Hypertension. Obesity. Diabetes mellitus. Crohn's disease. Cirrhosis. duplex neg pro bnp normal echo noted repeat ekg reviewed all torp neg no sx to suggest coronary syndrome at this time on anti hypertensive acei adn bb off lasix on bicarb co2 better doing ok want s to go home , ok from cardiac view point Subjective Cardiovascular: Denies: chest pain, lightheadedness, palpitations Respiratory: Denies: shortness of breath Gastrointestinal/Abdominal: Denies: abdominal pain Genitourinary: Denies: burning Objective Last 24 Hour Vital Signs Date Time Temp Pulse Resp B/P Pulse Ox O2 Delivery O2 Flow Rate FiO2 01/17/17 11:18 96.3 68 18 122/53 97 Nasal Cannula 2.0 01/17/17 09:14 128/63 01/17/17 09:14 72 128/63 01/17/17 09:13 72 128/63 01/17/17 08:04 96.1 72 18 128/63 97 Nasal Cannula 2.0 01/17/17 04:00 75 01/17/17 03:57 98.3 70 18 128/70 96 Room Air 01/17/17 00:00 70 01/16/17 23:51 98.6 75 17 123/61 95 Room Air 01/16/17 21:41 78 126/71 01/16/17 20:21 98.4 78 18 126/71 98 Nasal Cannula 2.0 01/16/17 20:00 74 01/16/17 19:30 95 Nasal Cannula 2.0 28 01/16/17 19:30 Nasal Cannula 2.0 28 01/16/17 19:30 80 20 Nasal Cannula 2.0 28 01/16/17 16:00 68 01/16/17 15:43 96.6 75 18 122/57 97 Nasal Cannula 2.0 01/16/17 12:00 66 01/16/17 11:32 98.1 69 18 122/65 96 Nasal Cannula 2.0 General Appearance: no apparent distress Neck: supple Cardiovascular: normal rate, regular rhythm Respiratory/Chest: lungs clear, normal breath sounds Abdomen: normal bowel sounds, non tender, soft Extremities: no swelling Intake and Output 01/16/17 01/17/17 19:00 07:00 Intake Total 950 ml Output Total 2500 ml 2000 ml Balance -1550 ml -2000 ml Intake Oral 950 ml Output Urine Total 2500 ml 2000 ml Laboratory Tests Test 01/16/17 19:55 01/17/17 04:35 Troponin I < 0.30 ng/mL (<=0.30) White Blood Count 6.2 K/UL (4.8-10.8) Red Blood Count 4.21 M/UL (4.20-5.40) Hemoglobin 12.7 G/DL (12.0-16.0) Hematocrit 40.4 % (37.0-47.0) Mean Corpuscular Volume 96 FL (80-99) Mean Corpuscular Hemoglobin 30.3 PG (27.0-31.0) Mean Corpuscular Hemoglobin Concent 31.5 G/DL (32.0-36.0) L Red Cell Distribution Width 13.0 % (11.6-14.8) Platelet Count 135 K/UL (150-450) L Mean Platelet Volume 9.7 FL (6.5-10.1) Neutrophils (%) (Auto) 66.5 % (45.0-75.0) Lymphocytes (%) (Auto) 18.0 % (20.0-45.0) L Monocytes (%) (Auto) 10.7 % (1.0-10.0) H Eosinophils (%) (Auto) 4.2 % (0.0-3.0) H Basophils (%) (Auto) 0.6 % (0.0-2.0) Sodium Level 137 mEQ/L (135-145) Potassium Level 3.8 mEQ/L (3.4-4.9) Chloride Level 95 mEQ/L (98-107) L Carbon Dioxide Level 34 mEQ/L (20-30) H Anion Gap 8 (5-15) Blood Urea Nitrogen 8 mg/dL (7-23) Creatinine 0.6 mg/dL (0.5-0.9) Estimat Glomerular Filtration Rate mL/min (>60) Glucose Level 136 mg/dL (74-106) H Calcium Level 9.2 mg/dL (8.6-10.2) Microbiology Date/Time Source Procedure Growth Status 01/14/17 15:31 Blood Blood Culture - Preliminary NO GROWTH AFTER 48 HOURS Resulted 01/14/17 15:10 Blood Blood Culture - Preliminary NO GROWTH AFTER 48 HOURS Resulted JOSE ROMAN Jan 17, 2017 11:31
--- NOTE | 2017-01-17 12:10 | General Progress Note ---
Assessment/Plan Problem List: (1) SOB (shortness of breath) ICD Codes: R06.02 - Shortness of breath SNOMED: 057863404 (2) CHF (congestive heart failure) ICD Codes: I50.9 - Heart failure, unspecified SNOMED: 12697525 (3) Edema ICD Codes: R60.9 - Edema, unspecified SNOMED: 686216972, 149714582 (4) Chronic pain ICD Codes: G89.29 - Other chronic pain SNOMED: 45243252 (5) COPD (chronic obstructive pulmonary disease) ICD Codes: J44.9 - Chronic obstructive pulmonary disease, unspecified SNOMED: 98466068 (6) Crohn's disease ICD Codes: K50.90 - Crohn's disease SNOMED: 02762900 (7) OBESITY, NOS (8) HTN (hypertension) ICD Codes: I10 - HTN (hypertension) SNOMED: 51074564 (9) DM (diabetes mellitus) ICD Codes: E11.9 - DM (diabetes mellitus) SNOMED: 50320808 Status: stable, progressing, tolerating diet Assessment/Plan o2 pulm tx diuresis ot pt diet dc if clear Subjective Constitutional: Reports: weakness Allergies: Coded Allergies: No Known Allergies (Unverified , 08/20/14) All Systems: reviewed and negative except above Subjective o2nc sleepy in bed Objective Last 24 Hour Vital Signs Date Time Temp Pulse Resp B/P Pulse Ox O2 Delivery O2 Flow Rate FiO2 01/17/17 11:18 96.3 68 18 122/53 97 Nasal Cannula 2.0 01/17/17 10:14 74 18 Nasal Cannula 2.0 28 01/17/17 10:14 97 Nasal Cannula 2.0 28 01/17/17 10:14 Nasal Cannula 2.0 28 01/17/17 09:14 128/63 01/17/17 09:14 72 128/63 01/17/17 09:13 72 128/63 01/17/17 08:04 96.1 72 18 128/63 97 Nasal Cannula 2.0 01/17/17 04:00 75 01/17/17 03:57 98.3 70 18 128/70 96 Room Air 01/17/17 00:00 70 01/16/17 23:51 98.6 75 17 123/61 95 Room Air 01/16/17 21:41 78 126/71 01/16/17 20:21 98.4 78 18 126/71 98 Nasal Cannula 2.0 01/16/17 20:00 74 01/16/17 19:30 95 Nasal Cannula 2.0 28 01/16/17 19:30 Nasal Cannula 2.0 28 01/16/17 19:30 80 20 Nasal Cannula 2.0 28 01/16/17 16:00 68 01/16/17 15:43 96.6 75 18 122/57 97 Nasal Cannula 2.0 Intake and Output 01/16/17 01/17/17 19:00 07:00 Intake Total 950 ml Output Total 2500 ml 2000 ml Balance -1550 ml -2000 ml Intake Oral 950 ml Output Urine Total 2500 ml 2000 ml Laboratory Tests 01/16/17 19:55: Troponin I < 0.30 01/17/17 04:35: White Blood Count 6.2, Red Blood Count 4.21, Hemoglobin 12.7, Hematocrit 40.4, Mean Corpuscular Volume 96, Mean Corpuscular Hemoglobin 30.3, Mean Corpuscular Hemoglobin Concent 31.5L, Red Cell Distribution Width 13.0, Platelet Count 135L , Mean Platelet Volume 9.7, Neutrophils (%) (Auto) 66.5, Lymphocytes (%) (Auto) 18.0L, Monocytes (%) (Auto) 10.7H, Eosinophils (%) (Auto) 4.2H, Basophils (%) ( Auto) 0.6, Sodium Level 137, Potassium Level 3.8, Chloride Level 95L, Carbon Dioxide Level 34H, Anion Gap 8, Blood Urea Nitrogen 8, Creatinine 0.6, Estimat Glomerular Filtration Rate , Glucose Level 136H, Calcium Level 9.2 Height (Feet): 5 Height (Inches): 6.00 Weight (Pounds): 198 General Appearance: alert EENT: normal ENT inspection Neck: normal alignment Cardiovascular: normal peripheral pulses, normal rate, regular rhythm Respiratory/Chest: chest wall non-tender, lungs clear, normal breath sounds Abdomen: normal bowel sounds, non tender, soft Extremities: normal inspection Edema: no edema noted Arm (L), no edema noted Arm (R), no edema noted Leg (L), no edema noted Leg (R), no edema noted Pedal (L), no edema noted Pedal (R), no edema noted Generalized Neurologic: responsive, motor weakness Skin: normal pigmentation, warm/dry KUMAR ENGLISH Jan 17, 2017 12:10
--- NOTE | 2017-01-17 12:22 | Pulmonology Progress Note ---
Assessment/Plan Problems: (1) CHF (congestive heart failure) (2) SOB (shortness of breath) (3) COPD (chronic obstructive pulmonary disease) (4) Cirrhosis (5) DM (diabetes mellitus) Assessment/Plan CXR reviewed, still bilateral pulmonary edeam continue laxis 40 BID monitor BP and heart rate respiratory treatment dvt prophylaxis all notes and meds reviewed Subjective ROS Limited/Unobtainable: No Interval Events: feeling better Constitutional: Reports: no symptoms HEENT: Repors: no symptoms Allergies: Coded Allergies: No Known Allergies (Unverified , 08/20/14) Objective Last 24 Hour Vital Signs Date Time Temp Pulse Resp B/P Pulse Ox O2 Delivery O2 Flow Rate FiO2 01/17/17 11:18 96.3 68 18 122/53 97 Nasal Cannula 2.0 01/17/17 10:14 74 18 Nasal Cannula 2.0 01/17/17 10:14 97 Nasal Cannula 2.0 01/17/17 10:14 Nasal Cannula 2.0 01/17/17 09:14 128/63 01/17/17 09:14 72 128/63 01/17/17 09:13 72 128/63 01/17/17 08:04 96.1 72 18 128/63 97 Nasal Cannula 2.0 01/17/17 04:00 75 01/17/17 03:57 98.3 70 18 128/70 96 Room Air 01/17/17 00:00 70 01/16/17 23:51 98.6 75 17 123/61 95 Room Air 01/16/17 21:41 78 126/71 01/16/17 20:21 98.4 78 18 126/71 98 Nasal Cannula 2.0 01/16/17 20:00 74 01/16/17 19:30 95 Nasal Cannula 2.0 01/16/17 19:30 Nasal Cannula 2.0 28 01/16/17 19:30 80 20 Nasal Cannula 2.0 01/16/17 16:00 68 01/16/17 15:43 96.6 75 18 122/57 97 Nasal Cannula 2.0 Intake and Output 01/16/17 01/17/17 18:59 06:59 Intake Total 950 ml Output Total 2500 ml 2000 ml Balance -1550 ml -2000 ml Intake Oral 950 ml Output Urine Total 2500 ml 2000 ml Objective sinus with occasional PVC's General Appearance: cachetic HEENT: normocephalic, atraumatic Respiratory/Chest: chest wall non-tender, lungs clear Breasts: no masses Cardiovascular: normal peripheral pulses, normal rate, regular rhythm Abdomen: normal bowel sounds, soft, non tender Genitourinary: normal external genitalia Extremities: no clubbing Skin: no rash Neurologic/Psychiatric: skill labor II-XII grossly normal Microbiology Date/Time Source Procedure Growth Status 01/14/17 15:31 Blood Blood Culture - Preliminary NO GROWTH AFTER 48 HOURS Resulted 01/14/17 15:10 Blood Blood Culture - Preliminary NO GROWTH AFTER 48 HOURS Resulted Laboratory Tests 01/16/17 19:55: Troponin I < 0.30 01/17/17 04:35: White Blood Count 6.2, Red Blood Count 4.21, Hemoglobin 12.7, Hematocrit 40.4, Mean Corpuscular Volume 96, Mean Corpuscular Hemoglobin 30.3, Mean Corpuscular Hemoglobin Concent 31.5L, Red Cell Distribution Width 13.0, Platelet Count 135L , Mean Platelet Volume 9.7, Neutrophils (%) (Auto) 66.5, Lymphocytes (%) (Auto) 18.0L, Monocytes (%) (Auto) 10.7H, Eosinophils (%) (Auto) 4.2H, Basophils (%) ( Auto) 0.6, Sodium Level 137, Potassium Level 3.8, Chloride Level 95L, Carbon Dioxide Level 34H, Anion Gap 8, Blood Urea Nitrogen 8, Creatinine 0.6, Estimat Glomerular Filtration Rate , Glucose Level 136H, Calcium Level 9.2 Current Medications Medications (Trade) Dose Ordered Sig/Isabel Route PRN Reason Start Time Stop Time Status Last Admin Dose Admin Acetaminophen (Tylenol) 650 mg Q4H PRN ORAL Fever 01/14/17 18:15 02/13/17 18:14 Albuterol/ Ipratropium (DuoNeb 0.5-3(2.5)mg/3ml) 3 ml Q4H PRN HHN Shortness of Breath 01/14/17 18:15 01/19/17 18:14 Amlodipine Besylate (Norvasc) 10 mg DAILY ORAL 01/15/17 09:00 02/14/17 08:59 01/17/17 09:14 Brimonidine Tartrate (Alphagan) 1 drop BID BOTH EYES 01/15/17 18:00 02/14/17 17:59 01/17/17 09:13 Dextrose (Dextrose 50%) STAT PRN IV Hypoglycemia 01/14/17 18:15 02/13/17 18:14 Furosemide (Lasix) 40 mg DAILY IV 01/16/17 09:00 02/15/17 08:59 01/17/17 09:13 Heparin Sodium (Porcine) (Heparin 5000 units/ml) 5,000 units EVERY 12 HOURS SUBQ 01/14/17 21:00 02/13/17 20:59 01/17/17 09:17 Insulin Aspart (NovoLOG) BEFORE MEALS AND HS SUBQ 01/14/17 21:00 02/13/17 20:59 01/17/17 06:20 Lactulose (Cephulac) 20 gm THREE TIMES A DAY ORAL 01/15/17 13:00 02/14/17 12:59 01/17/17 09:12 Lisinopril (Prinivil) 40 mg DAILY ORAL 01/16/17 09:00 02/15/17 08:59 01/17/17 09:14 Lorazepam (Ativan) 1 mg Q8H PRN ORAL For Anxiety 01/14/17 18:15 01/21/17 18:14 01/17/17 04:34 Memantine (Namenda) 5 mg DAILY ORAL 01/15/17 10:00 02/14/17 09:59 01/17/17 09:12 Metoprolol Tartrate (Lopressor) 100 mg EVERY 12 HOURS ORAL 01/15/17 10:00 02/14/17 09:59 01/17/17 09:13 Mirtazapine (Remeron) 7.5 mg BEDTIME ORAL 01/16/17 21:00 02/15/17 20:59 01/16/17 21:41 Ondansetron HCl (Zofran) 4 mg Q6H PRN IVP Nausea & Vomiting 01/14/17 18:15 02/13/17 18:14 Oxycodone/ Acetaminophen (Percocet 10/325) 1 tab Q4H PRN ORAL Severe Pain (Pain Scale 7-10) 01/15/17 15:15 01/22/17 15:14 01/17/17 09:12 Oxycodone/ Acetaminophen (Percocet 5-325) 1 tab Q4H PRN ORAL Moderate Pain (Pain Scale 4-6) 01/15/17 15:30 01/22/17 15:29 Polyethylene Glycol (Miralax) 17 gm DAILY ORAL 01/15/17 10:00 02/14/17 09:59 01/15/17 10:12 Polyethylene Glycol (Miralax) 17 gm DAILYPRN PRN ORAL Constipation 01/14/17 18:15 02/13/17 18:14 Prochlorperazine (Compazine) 10 mg Q8HR PRN ORAL Nausea & Vomiting 01/15/17 09:15 02/14/17 09:14 Temazepam (Restoril) 15 mg BEDTIME PRN ORAL Insomnia 01/15/17 09:15 01/22/17 09:14 01/16/17 21:54 TABATHA PLASENCIA Jan 17, 2017 12:22
--- NOTE | 2017-01-17 12:59 | GI Initial Consult Note ---
ShareeMiladys Pritchardoi N.P. 01/17/17 1259: History of Present Illness General Date patient seen: Jan 17, 2017 Time patient seen: 10:00 Reason for Hospitalization: Generalized Weakness Referring physician: dr Morocho Reason for Consultation: CROHNS Present Illness HPI Patient is a 76-year-old female presented for increased generalized weakness. Patient had increased shortness of breath for approximately one day. Patient gradual onset of symptoms. Patient was noted to have prior history of Crohn's disease. She was noted to be bedbound. Patient was noted increased lower extremity swelling bilaterally. She reported having increased difficulty breathing. Patient had no fever. She was noted to be hypoxic at facility was started on supplemental oxygen. GI Consult. HPI as noted above. GI consulted for mgmt of Crohn's. Pt seen on floor, awake A&O NAD with no active s/sx of N/V/D. Patient is familiar to us , hx of crohn's and seen in our clinic. She presents today with resolved SOB. Last BM yesterday. Currently taking lactulose. Home Meds Active Scripts Metoprolol Tartrate* (METOPROLOL TARTRATE*) 100 Mg Tab, 100 MG ORAL EVERY 12 HOURS, #1 TAB Prov:WENDY COREY 05/30/14 Lactulose (LACTULOSE*) 20 Gm/30 Ml Syrp, 20 GM ORAL THREE TIMES A DAY, #1 GM Prov:WENDY COREY 05/30/14 Reported Medications Brimonidine Tartrate* (ALPHAGAN*) 5 Ml Drops, 1 DROP BOTH EYES BID, ML 01/14/17 Mesalamine (PENTASA) 500 Mg Capsule.er, 1000 MG ORAL TID, #30 CAP 0 Refills 01/14/17 Lorazepam* (ATIVAN*) 1 Mg Tablet, 1 MG ORAL EVERY 8 HOURS Y for For Anxiety MDD 2GM, TAB 01/14/17 Dextran 70/Hypromellose (ARTIFICIAL TEARS EYE DROPS*) 15 Ml Drops, 1 DROP BOTH EYES Y for Dry Eyes, #15 ML 0 Refills 01/14/17 Temazepam* (RESTORIL*) 15 Mg Capsule, 15 MG ORAL BEDTIME Y for Insomnia, CAP 01/14/17 Omeprazole (OMEPRAZOLE) 40 Mg Capsule.dr, 40 MG ORAL DAILY, CAP 01/14/17 Polyethylene Glycol 3350* (MIRALAX*) 17 Gm Powd.pack, 17 GM ORAL DAILY, PACKET 01/14/17 Cyclobenzaprine Hcl* (FLEXERIL*) 10 Mg Tablet, 10 MG ORAL BID, TAB 01/14/17 Prochlorperazine (COMPAZINE*) 10 Mg Tablet, 10 MG ORAL Q8HR Y for Nausea & Vomiting, TAB 01/14/17 Azelastine Hcl (AZELASTINE HCL) 6 Ml Drops, 6 ML OP, ML 01/14/17 Amlodipine Besylate* (AMLODIPINE BESYLATE*) 10 Mg Tablet, 10 MG ORAL DAILY, TAB 01/14/17 Oxycodone Hcl/Acetaminophen 10-325* (OXYCODONE-ACETAMINOPHEN 10-325*) 1 Each Tablet, 1 TAB ORAL Q4H Y for Pain Scale (6-10), TAB 05/18/16 Lactobacillus Acidophilus (Probiotic Acidophilus) 1 Each Tablet, 1 EACH PO TID, TAB 05/18/16 Memantine Hcl* (NAMENDA*) 5 Mg Tablet, 5 MG ORAL DAILY, TAB 04/13/16 Insulin Lispro (HUMALOG) 100 Unit/1 Ml Cartridge, 0 SUBQ BEFORE MEALS AND HS, # 1 UNITS 0 Refills 04/13/16 Lisinopril (LISINOPRIL*) 20 Mg Tablet, 40 MG ORAL DAILY, TAB 02/08/16 Discontinued Reported Medications Ondansetron* (ZOFRAN*) 4 Mg Tablet, 4 MG ORAL Q6H Y for Nausea & Vomiting, TAB 05/18/16 Med list reviewed/reconciled: Yes Allergies: Coded Allergies: No Known Allergies (Unverified , 08/20/14) Patient History Limited by: medical condition History Provided By: Patient, Medical Record PMH Narrative Hx Cardiac Problems: Yes Hx Hypertension: Yes 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, VRE Hx COPD: Yes Hx Diabetes: Yes Hx Cancer: No Hx Gastrointestinal Problems: Yes Hx Neurological Problems: No Hx Dementia: Yes Hx Seizures: Yes Hx Memory Loss: Yes - Forgetful Review of Systems All Other Systems: negative except mentioned in HPI Physical Exam Vital Signs Date Time Temp Pulse Resp B/P Pulse Ox O2 Delivery O2 Flow Rate FiO2 01/14/17 14:51 99.1 89 20 143/91 94 Nasal Cannula 3.0 01/16/17 19:30 28 Sp02 EP Interpretation: reviewed Labs Laboratory Tests Test 01/16/17 19:55 01/17/17 04:35 Troponin I < 0.30 ng/mL (<=0.30) White Blood Count 6.2 K/UL (4.8-10.8) Red Blood Count 4.21 M/UL (4.20-5.40) Hemoglobin 12.7 G/DL (12.0-16.0) Hematocrit 40.4 % (37.0-47.0) Mean Corpuscular Volume 96 FL (80-99) Mean Corpuscular Hemoglobin 30.3 PG (27.0-31.0) Mean Corpuscular Hemoglobin Concent 31.5 G/DL (32.0-36.0) L Red Cell Distribution Width 13.0 % (11.6-14.8) Platelet Count 135 K/UL (150-450) L Mean Platelet Volume 9.7 FL (6.5-10.1) Neutrophils (%) (Auto) 66.5 % (45.0-75.0) Lymphocytes (%) (Auto) 18.0 % (20.0-45.0) L Monocytes (%) (Auto) 10.7 % (1.0-10.0) H Eosinophils (%) (Auto) 4.2 % (0.0-3.0) H Basophils (%) (Auto) 0.6 % (0.0-2.0) Sodium Level 137 mEQ/L (135-145) Potassium Level 3.8 mEQ/L (3.4-4.9) Chloride Level 95 mEQ/L (98-107) L Carbon Dioxide Level 34 mEQ/L (20-30) H Anion Gap 8 (5-15) Blood Urea Nitrogen 8 mg/dL (7-23) Creatinine 0.6 mg/dL (0.5-0.9) Estimat Glomerular Filtration Rate mL/min (>60) Glucose Level 136 mg/dL (74-106) H Calcium Level 9.2 mg/dL (8.6-10.2) General Appearance: well appearing, no apparent distress, obese Head: normocephalic EENT: normal ENT inspection Neck: full range of motion, supple Respiratory: normal breath sounds, no respiratory distress Cardiovascular: normal rate Gastrointestinal: normal inspection, non tender, soft Rectal: deferred Genitourinary: no CVA tenderness Neurologic: alert Psychiatric: other - forgetful Skin: normal inspection, normal color, no rash Lymphatic: normal inspection, no adenopathy Current Medications Current Medications Medications (Trade) Dose Ordered Sig/Isabel Route PRN Reason Start Time Stop Time Status Last Admin Dose Admin Acetaminophen (Tylenol) 650 mg Q4H PRN ORAL Fever 01/14/17 18:15 02/13/17 18:14 Albuterol/ Ipratropium (DuoNeb 0.5-3(2.5)mg/3ml) 3 ml Q4H PRN HHN Shortness of Breath 01/14/17 18:15 01/19/17 18:14 Amlodipine Besylate (Norvasc) 10 mg DAILY ORAL 01/15/17 09:00 02/14/17 08:59 01/17/17 09:14 Brimonidine Tartrate (Alphagan) 1 drop BID BOTH EYES 01/15/17 18:00 02/14/17 17:59 01/17/17 09:13 Dextrose (Dextrose 50%) STAT PRN IV Hypoglycemia 01/14/17 18:15 02/13/17 18:14 Furosemide (Lasix) 40 mg DAILY IV 01/16/17 09:00 02/15/17 08:59 01/17/17 09:13 Heparin Sodium (Porcine) (Heparin 5000 units/ml) 5,000 units EVERY 12 HOURS SUBQ 01/14/17 21:00 02/13/17 20:59 01/17/17 09:17 Insulin Aspart (NovoLOG) BEFORE MEALS AND HS SUBQ 01/14/17 21:00 02/13/17 20:59 01/17/17 06:20 Lactulose (Cephulac) 20 gm THREE TIMES A DAY ORAL 01/15/17 13:00 02/14/17 12:59 01/17/17 09:12 Lisinopril (Prinivil) 40 mg DAILY ORAL 01/16/17 09:00 02/15/17 08:59 01/17/17 09:14 Lorazepam (Ativan) 1 mg Q8H PRN ORAL For Anxiety 01/14/17 18:15 01/21/17 18:14 01/17/17 04:34 Memantine (Namenda) 5 mg DAILY ORAL 01/15/17 10:00 02/14/17 09:59 01/17/17 09:12 Metoprolol Tartrate (Lopressor) 100 mg EVERY 12 HOURS ORAL 01/15/17 10:00 02/14/17 09:59 01/17/17 09:13 Mirtazapine (Remeron) 7.5 mg BEDTIME ORAL 01/16/17 21:00 02/15/17 20:59 01/16/17 21:41 Ondansetron HCl (Zofran) 4 mg Q6H PRN IVP Nausea & Vomiting 01/14/17 18:15 02/13/17 18:14 Oxycodone/ Acetaminophen (Percocet 10/325) 1 tab Q4H PRN ORAL Severe Pain (Pain Scale 7-10) 01/15/17 15:15 01/22/17 15:14 01/17/17 09:12 Oxycodone/ Acetaminophen (Percocet 5-325) 1 tab Q4H PRN ORAL Moderate Pain (Pain Scale 4-6) 01/15/17 15:30 01/22/17 15:29 Polyethylene Glycol (Miralax) 17 gm DAILY ORAL 01/15/17 10:00 02/14/17 09:59 01/15/17 10:12 Polyethylene Glycol (Miralax) 17 gm DAILYPRN PRN ORAL Constipation 01/14/17 18:15 02/13/17 18:14 Prochlorperazine (Compazine) 10 mg Q8HR PRN ORAL Nausea & Vomiting 01/15/17 09:15 02/14/17 09:14 Temazepam (Restoril) 15 mg BEDTIME PRN ORAL Insomnia 01/15/17 09:15 01/22/17 09:14 01/16/17 21:54 GI: Plan Problems: (1) Constipation (2) Chronic pain (3) CHF (congestive heart failure) (4) Cirrhosis (5) Crohn's disease Plan S/P EGD SUMMARY OF FINDINGS: 1. Four columns of grade 2 distal esophageal varices. 2. Gastritis, status post biopsy. >> unremarkable RECOMMENDATIONS: cont Pentasa for crohn's bowel regime >> lactulose zofran prn cont omeprazole abdominal US q6 months given history if cirrhosis (last 11/29/16) repeat colon x 1 year fu as outpatient clinic Discussed with Dr. Barry. Thank you for referring this patient, we will follow. SHARRON BARRY 01/19/17 0800: History of Present Illness General Reason for Hospitalization: Generalized Weakness Present Illness Home Meds Active Scripts Metoprolol Tartrate* (METOPROLOL TARTRATE*) 100 Mg Tab, 100 MG ORAL EVERY 12 HOURS, #1 TAB Prov:WENDY COREY 05/30/14 Lactulose (LACTULOSE*) 20 Gm/30 Ml Syrp, 20 GM ORAL THREE TIMES A DAY, #1 GM Prov:RANDY COREYJACINTO 05/30/14 Reported Medications Brimonidine Tartrate* (ALPHAGAN*) 5 Ml Drops, 1 DROP BOTH EYES BID, ML 01/14/17 Mesalamine (PENTASA) 500 Mg Capsule.er, 1000 MG ORAL TID, #30 CAP 0 Refills 01/14/17 Lorazepam* (ATIVAN*) 1 Mg Tablet, 1 MG ORAL EVERY 8 HOURS Y for For Anxiety MDD 2GM, TAB 01/14/17 Dextran 70/Hypromellose (ARTIFICIAL TEARS EYE DROPS*) 15 Ml Drops, 1 DROP BOTH EYES Y for Dry Eyes, #15 ML 0 Refills 01/14/17 Temazepam* (RESTORIL*) 15 Mg Capsule, 15 MG ORAL BEDTIME Y for Insomnia, CAP 01/14/17 Omeprazole (OMEPRAZOLE) 40 Mg Capsule.dr, 40 MG ORAL DAILY, CAP 01/14/17 Polyethylene Glycol 3350* (MIRALAX*) 17 Gm Powd.pack, 17 GM ORAL DAILY, PACKET 01/14/17 Cyclobenzaprine Hcl* (FLEXERIL*) 10 Mg Tablet, 10 MG ORAL BID, TAB 01/14/17 Prochlorperazine (COMPAZINE*) 10 Mg Tablet, 10 MG ORAL Q8HR Y for Nausea & Vomiting, TAB 01/14/17 Azelastine Hcl (AZELASTINE HCL) 6 Ml Drops, 6 ML OP, ML 01/14/17 Amlodipine Besylate* (AMLODIPINE BESYLATE*) 10 Mg Tablet, 10 MG ORAL DAILY, TAB 01/14/17 Oxycodone Hcl/Acetaminophen 10-325* (OXYCODONE-ACETAMINOPHEN 10-325*) 1 Each Tablet, 1 TAB ORAL Q4H Y for Pain Scale (6-10), TAB 05/18/16 Lactobacillus Acidophilus (Probiotic Acidophilus) 1 Each Tablet, 1 EACH PO TID, TAB 05/18/16 Memantine Hcl* (NAMENDA*) 5 Mg Tablet, 5 MG ORAL DAILY, TAB 04/13/16 Insulin Lispro (HUMALOG) 100 Unit/1 Ml Cartridge, 0 SUBQ BEFORE MEALS AND HS, # 1 UNITS 0 Refills 04/13/16 Lisinopril (LISINOPRIL*) 20 Mg Tablet, 40 MG ORAL DAILY, TAB 02/08/16 Discontinued Reported Medications Ondansetron* (ZOFRAN*) 4 Mg Tablet, 4 MG ORAL Q6H Y for Nausea & Vomiting, TAB 05/18/16 Allergies: Coded Allergies: No Known Allergies (Unverified , 08/20/14) GI: Plan Plan The patient was seen and examined at bedside and all new and available data was reviewed in the patients chart. I agree with the above findings, impression and plan. (Patient seen earlier today. Signature stamp does not reflect patient encounter time.). -Miladys Rodriguez MD, N.P. Jan 17, 2017 12:59 SHARRON BARRY Jan 19, 2017 08:00
--- NOTE | 2017-01-17 13:40 | Diagnostic Imaging Report ---
APPROVED REPORT CPT Code: 33886 Present Symptoms Lower Extremity Pain: Bilateral Lower Extremity Edema: Bilateral Shortness of breath RIGHT LEG: Venous imaging reveals a patent deep venous system. There is no evidence of thrombus within the femoral, popliteal or tibial segments. The mid to distal superficial femoral, popliteal and calf veins were not well visualized due to vessel depth and edema. The greater saphenous vein is also within normal limits. Doppler indicates normal spontaneous flow within these segments. LEFT LEG: Venous imaging reveals a patent deep venous system. There is no evidence of thrombus within the femoral, popliteal or tibial segments. The mid to distal superficial femoral and calf veins were not well visualized due to vessel depth and edema. The greater saphenous vein is also within normal limits. Doppler indicates normal spontaneous flow within these segments.
[2017-01-17 15:32] VITALS: BP 126/64
--- NOTE | 2017-01-19 19:52 | Discharge Summary ---
Discharge Summary Hospital Course Date of Admission Jan 14, 2017 at 15:48 Date of Discharge Jan 17, 2017 at 17:46 Admitting Diagnosis CONGESTIVE HEART FAILURE HPI Page Meraz is a 76 year old female who was admitted on Jan 14, 2017 at 15 :48 for Congestive Heart Failure Hospital Course [id number] Discharge Discharge Disposition Patient was discharged to SNF/Subacute Facility(03) Discharge Diagnoses: Mayte Lentz NP Jan 19, 2017 19:52
--- NOTE | 2017-01-20 00:30 | Discharge Summary 2 SIG ---
DATE OF ADMISSION: 01/14/2017 DATE OF DISCHARGE: 01/17/2017 CONSULTANTS: 1. Tashi Ambriz M.D. 2. Mohsen Ferrera M.D. 3. Jayson Mckinnon M.D. 4. Casandra Alston M.D. 5. Hunter Grant M.D. BRIEF HOSPITAL COURSE: The patient is a 76-year-old female from [facility] presented for shortness of breath and edema. On evaluation at ED, chest x-ray showed bilateral small pleural effusion. EKG was in normal sinus rhythm. ProBNP was 506. Troponin was negative. The patient was admitted to telemetry for congestive heart failure exacerbation and shortness of breath. Venous study showed deep patent venous system. No evidence of DVT. Although, the mid to distal superficial femoral, popliteal, and calf veins were not well visualized due to vessel depth and edema. Troponins were negative. The patient was given diuretics. Lower extremity edema resolved and BNP trended down. Echocardiogram done showed ejection fraction 60% to 65%. She complained of back pain and was given a Percocet. She was evaluated by psychiatry and was diagnosed to have major depressive disorder. She was given Remeron 7.5 mg at bedtime. ProBNP normalized. Repeat electrocardiogram, did not show any findings to suggest coronary syndrome. She was continued on antihypertensive medications, lisinopril and metoprolol tartrate. She was eventually taken off Lasix and was advised to continue Pentasa for Crohn disease and continue with lactulose and omeprazole, recommended to undergo surveillance abdominal ultrasound given history of liver cirrhosis. She was eventually discharged back to SNF. FINAL DIAGNOSES: 1. Acute diastolic congestive heart failure. 2. Chronic obstructive pulmonary disease. 3. Liver cirrhosis. 4. Crohn disease. 5. Diabetes mellitus. 6. Acute pulmonary edema resolved. 7. Acute hypoxemia secondary to acute pulmonary edema, resolved. 8. Hypertension. 9. Hyperkalemia. 10. Lumbar radiculopathy. 11. Chronic pain. 12. Obesity. 13. Major depressive disorder. Chacho Morocho D.O. I have been assigned to dictate discharge summary on this account and I was not involved in the patient's management. Mayte Lentz N.P. DR: Yessenia JOB#: [id number] CC: [id number]
== END 2017-01-17 17:46 | DRG 292 ==
LOC: EDBD 15:02 → EMR 15:30 → 2E 15:48 → EDBEDREQ 16:43 → 2E 19:35
DX: I50.31 Acute diastolic (congestive) heart failure (principal); I85.00 Esophageal varices without bleeding; K50.90 Crohn's disease, unspecified, without complications; E87.5 Hyperkalemia; K74.60 Unspecified cirrhosis of liver; R09.02 Hypoxemia; I10 Essential (primary) hypertension; J44.9 Chronic obstructive pulmonary disease, unspecified; B19.20 Unspecified viral hepatitis C without hepatic coma; E11.9 Type 2 diabetes mellitus without complications; M54.16 Radiculopathy, lumbar region; G89.29 Other chronic pain; E66.9 Obesity, unspecified; F32.9 Major depressive disorder, single episode, unspecified; K59.00 Constipation, unspecified; M47.896 Other spondylosis, lumbar region; M48.06 Spinal stenosis, lumbar region
CPT/HCPCS: 36415; 71010; 80048; 80053; 80069; 81003; 82550; 82553; 82962; 83605; 83690; 83735; 83880; 84484; 85025; 86850; 86900; 86901; 87040; 93005; 93306; 93970; 94664; 94760; 97803; J1815

== ENCOUNTER 2017-04-04 11:16 | Inpatient (IN) | payer MEDICARE, MEDICAID ==
[~2017-04-04] VITALS: Ht 165.1 cm; Wt 101.4 kg
[~2017-04-04 11:16] MED LIST changes: +ARTIFICIAL TEAR15 ML BOTH EYES; +AZELASTINE HCL6 ML OP; +CYCLOBENZAPRINE10 MG ORAL; +OMEPRAZOLE40 M1 ORAL
[2017-04-04] MEDS ORDERED: LASIX40 MG ORAL (11:38)
[2017-04-04] MEDS ORDERED: HEPARIN SO5000 UNIT2 SUBQ (11:38)
[2017-04-04] MEDS ORDERED: IPRAT-ALBUT 0.5-3 ML IH (11:38)
[2017-04-04 11:40] VITALS: BP 157/62
--- NOTE | 2017-04-04 11:58 | Emergency Room Report ---
History of Present Illness General Chief Complaint: General Complaint Source: Medical Record Present Illness HPI 69-year-old female coming [facility], history of CHF, COPD, difficulty walking, hypertension, diabetes, waxing and waning mental status, presenting with lower extremity swelling and congestion. Per [facility] the patient was satting 91% on 2 L nasal cannula. When asking patient who is a poor historian patient only stating that her legs have been hurting for "a long time" but states that she does not know why she is here Patient denying any cough fever chest pain or shortness of breath. Denies any abdominal pain Patient was admitted in January for pulmonary edema, at that time had lower extremity Dopplers which were negative for DVT, patient had an echo performed which showed an EF of 60-65% Allergies: Coded Allergies: No Known Allergies (Unverified , 08/20/14) Patient History Past Medical History: see triage record Past Surgical History: none Pertinent Family History: none Reviewed Nursing Documentation: PMH: Agreed, PSxH: Agreed Nursing Documentation-PMH Hx Cardiac Problems: Yes - CHF Hx Hypertension: Yes Hx COPD: Yes Hx Diabetes: Yes Hx Cancer: No Hx Gastrointestinal Problems: Yes - Crohn's History Of Psychiatric Problem: Yes - Anxiety disorder Hx Dementia: Yes Hx Seizures: Yes Hx Memory Loss: Yes Hx Weakness: Yes Review of Systems All Other Systems: negative except mentioned in HPI Physical Exam Vital Signs Date Time Temp Pulse Resp B/P (MAP) Pulse Ox O2 Delivery O2 Flow Rate FiO2 04/04/17 11:20 99.7 101 20 154/75 95 Room Air Sp02 EP Interpretation: reviewed, abnormal - hypoxic 89 on RA, 99% on 3L NC General Appearance: alert, non-toxic, other - Chronically ill elderly patient, appears to be tired, mild distress Head: normocephalic, atraumatic Eyes: bilateral eye normal inspection, bilateral eye PERRL, bilateral eye EOMI ENT: normal ENT inspection, normal pharynx, normal voice, dry mucus membranes Neck: normal inspection, full range of motion, supple Respiratory: no retraction, no wheezing, speaking full sentences, other - no wheezing noted, possible dec b/s b/l bases however pt w poor inspiratory effort , chest symmetrical Cardiovascular #1: normal inspection, normal capillary refill, tachycardia Cardiovascular #2: 2+ radial (R), 2+ radial (L) Gastrointestinal: normal inspection, non tender, soft, non-distended, no guarding Musculoskeletal: normal inspection, other - Bilateral 2+ pitting edema lower extremities, both are mildly tender to palpation, no calf tenderness, no erythema no signs of cellulitis Neurologic: alert, responsive, motor strength/tone normal, sensory intact, other - Oriented x3 however poor historian Psychiatric: other - Short-term memory loss Skin: normal inspection, normal color, no rash, well hydrated, normal turgor Procedures Critical Care Time Critical Care Time 40 minutes of CC time 69-year-old female with CHF exacerbation VS: Hypoxic, tachypneic Airway patent. PLAN: IV access, labs, lactate, Blood/Urine Cx, diuresis Anticipate admission to Tele CC time also includes review of labs, review of EMR, paperwork from SNF, d/w hospitalist CC could include dosing of pressors, additional Abx CC time does not include procedures Medical Decision Making Diagnostic Impression: Primary Impression: CHF (congestive heart failure) Additional Impressions: Edema Dyspnea Hypoxia UTI (urinary tract infection) ER Course 69-year-old female with bilateral lower extremity swelling DDX: Fluid overload from CHF Also found to be slightly febrile, rule out infectious source such as UTI or pneumonia Plan: Obtain labs, ua, EKG, CXR ER course: Patient has been monitored during ED stay, HD stable Hypoxic on room air, respiratory distress, better with nasal cannula. Pulmonary vascular congestion on chest x-ray, 40 of Lasix given +UTI ceftriaxone given Disposition: Patient is to be admitted to tele Patient was signed out to Dr. Kumar English, who has accepted patient for admission. Please note that this Emergency Department Report was dictated using [employer] consultant technology software, occasionally this can lead to erroneous entry secondary to interpretation by the dictation equipment. Laboratory Tests Test 04/04/17 11:39 04/04/17 13:00 04/04/17 13:45 White Blood Count 6.2 K/UL (4.8-10.8) Red Blood Count 4.71 M/UL (4.20-5.40) Hemoglobin 13.6 G/DL (12.0-16.0) Hematocrit 44.8 % (37.0-47.0) Mean Corpuscular Volume 95 FL (80-99) Mean Corpuscular Hemoglobin 28.9 PG (27.0-31.0) Mean Corpuscular Hemoglobin Concent 30.5 G/DL (32.0-36.0) L Red Cell Distribution Width 12.9 % (11.6-14.8) Platelet Count 150 K/UL (150-450) Mean Platelet Volume 8.7 FL (6.5-10.1) Neutrophils (%) (Auto) 76.7 % (45.0-75.0) H Lymphocytes (%) (Auto) 14.4 % (20.0-45.0) L Monocytes (%) (Auto) 7.4 % (1.0-10.0) Eosinophils (%) (Auto) 0.5 % (0.0-3.0) Basophils (%) (Auto) 1.0 % (0.0-2.0) Urine Color Pale yellow Urine Appearance Clear Urine pH 5 (4.5-8.0) Urine Specific [place] 1.015 (1.005-1.035) Urine Protein Negative (NEGATIVE) Urine Glucose (UA) Negative (NEGATIVE) Urine Ketones Negative (NEGATIVE) Urine Occult Blood Negative (NEGATIVE) Urine Nitrite Positive (NEGATIVE) H Urine Bilirubin Negative (NEGATIVE) Urine Urobilinogen Normal MG/DL (0.0-1.0) Urine Leukocyte Esterase 1+ (NEGATIVE) H Urine RBC 0-2 /HPF (0 - 2) Urine WBC 5-10 /HPF (0 - 2) H Urine Squamous Epithelial Cells Few /LPF (NONE/OCC) Urine Bacteria Many /HPF (NONE) H Sodium Level 133 mEQ/L (135-145) L Potassium Level 4.3 mEQ/L (3.4-4.9) Chloride Level 88 mEQ/L (98-107) L Carbon Dioxide Level 38 mEQ/L (20-30) H Anion Gap 7 (5-15) Blood Urea Nitrogen 8 mg/dL (7-23) Creatinine 0.5 mg/dL (0.5-0.9) Estimate Glomerular Filtration Rate mL/min (>60) Glucose Level 149 mg/dL (74-106) H Lactic Acid Level 1.50 mmol/L (0.66-2.22) Calcium Level 8.7 mg/dL (8.6-10.2) Total Bilirubin 0.8 mg/dL (0.0-1.2) Aspartate Amino Transferase (AST) 40 U/L (5-40) Alanine Aminotransferase (ALT) 20 U/L (3-33) Alkaline Phosphatase 128 U/L (35-104) H Total Creatine Kinase 27 U/L (26-140) Creatine Kinase MB Pending Troponin I < 0.30 ng/mL (<=0.30) Pro-B-Type Natriuretic Peptide Pending Total Protein 8.2 g/dL (6.6-8.7) Albumin 4.1 g/dL (3.5-5.2) Globulin 4.1 g/dL Albumin/Globulin Ratio 1.0 (1.0-2.7) EKG Diagnostic Results Rate: normal Rhythm: other - sinus arrythmia ST Segments: other ASA given to the pt in ED: No Rhythm Strip Diag. Results EP Interpretation: yes Rate: 97 Rhythm: NSR, no PVC's, no ectopy Chest X-Ray Diagnostic Results Chest X-Ray Diagnostic Results : Chest X-Ray Ordered: Yes # of Views/Limited/Complete: 1 View EP Interpretation: Yes Interpretation: other - b/l pleural effusions, cardiomegaly Impression: Other - pulm edema + .b/l pleural effusions, cardiomegaly Electronically Signed by: Electronically signed by Miguelina Rojas MD Last Vital Signs Date Time Temp Pulse Resp B/P (MAP) Pulse Ox O2 Delivery O2 Flow Rate FiO2 04/04/17 11:20 99.7 101 20 154/75 95 Room Air Disposition: ADMITTED INPATIENT Condition: Serious Referrals: KUMAR ENGLISH (PCP) Miguelina Rojas M.D. Apr 04, 2017 11:58
--- NOTE | 2017-04-04 12:03 | Diagnostic Imaging Report ---
Indication: PAIN Technique: One view of the chest Comparison: 01/17/2017 Findings: There are bilateral pleural effusions. These are larger than that seen on the prior study. There is resultant basilar compressive atelectasis There is bilateral interstitial edema, appearing similar to previous exam. Heart is enlarged. There is thoracic scoliotic deformity Impression: Cardiomegaly. Evidence of congestive heart failure, bilateral pleural effusions and interstitial edema
[2017-04-04] MEDS ORDERED: NOVOLOG SS (12:23)
[2017-04-04] MEDS ORDERED: MIRTAZAPINE7.5 MG ORAL (12:23)
[2017-04-04 12:28] LABS: EOSINOPHILS % (AUTO) 0.5 % (0.0-3.0); LYMPHOCYTES % (AUTO) 14.4 % (20.0-45.0); MEAN CORPUSCULAR HEMOGLOBIN 28.9 PG (27.0-31.0); MEAN CORPUSCULAR HGB CONC 30.5 G/DL (32.0-36.0); MEAN CORPUSCULAR VOLUME 95 FL (80-99); MEAN PLATELET VOLUME 8.7 FL (6.5-10.1); MONOCYTES % (AUTO) 7.4 % (1.0-10.0); NEUTROPHILS % (AUTO) 76.7 % (45.0-75.0); PLATELET COUNT 150 K/UL (150-450); RED BLOOD COUNT 4.71 M/UL (4.20-5.40); RED CELL DISTRIBUTION WIDTH 12.9 % (11.6-14.8); WHITE BLOOD COUNT 6.2 K/UL (4.8-10.8)
[2017-04-04] MEDS ORDERED: ZOFRAN ODT4 MG ORAL (12:39)
[2017-04-04 12:46] VITALS: BP 144/69
[2017-04-04 13:10] LABS: APPEARANCE,URINE CLEAR; KETONES,URINE NEGATIVE (NEGATIVE); LEUKOCYTE ESTERASE ,URINE 1+ (NEGATIVE); NITRITE,URINE POSITIVE (NEGATIVE); PH,URINE 5 (4.5-8.0); PROTEIN,URINE NEGATIVE (NEGATIVE); UROBILINOGEN,URINE NORMAL MG/DL (0.0-1.0)
[2017-04-04 13:18] LABS: BACTERIA,URINE MANY /HPF; RBC,URINE 0-2 /HPF (0 - 2); SQUAMOUS EPITHELIAL CELL,UR FEW /LPF (NONE/OCC)
[2017-04-04] MEDS ORDERED: Miralax 17gm pkt ORAL PRN (13:45)
[2017-04-04] MEDS ORDERED: DuoNeb 0.5-3(2.5)mg/3ml neb HHN PRN (13:45)
[2017-04-04 13:52] VITALS: BP 145/69
[2017-04-04] MEDS ORDERED: cefTRIAXone 1 GM in D5W 55 ML IVPB ONE (14:00)
--- NOTE | 2017-04-04 14:22 | Infectious Diseases Prog Note ---
Assessment/Plan Problems: (1) HCAP (healthcare-associated pneumonia) Assessment & Plan: with fever, will start zosyn and vancomycin empirically pending culture results. (2) UTI (urinary tract infection) Assessment & Plan: await urine culture already on zosyn (3) DM (diabetes mellitus) Assessment & Plan: recommend tight glycemic control to keep blood glucose between 80-120 (4) Pulmonary edema Assessment & Plan: due to CHF, needs diureses , pulmonary is following (5) CHF (congestive heart failure) Assessment & Plan: with acute exacerbation, continue diuretics, recommend cardiology eval (6) Hypoxia Assessment & Plan: due to the above, continue oxygen, and dieuretics , monitor cxr Subjective Allergies: Coded Allergies: No Known Allergies (Unverified , 08/20/14) Objective Vital Signs Last 24 Hour Vital Signs Date Time Temp Pulse Resp B/P (MAP) Pulse Ox O2 Delivery O2 Flow Rate FiO2 04/04/17 13:52 99 20 145/69 98 Nasal Cannula 3.0 04/04/17 12:46 100.2 97 20 144/69 97 Nasal Cannula 3.0 04/04/17 11:40 99.7 95 19 157/62 95 Nasal Cannula 3.0 04/04/17 11:20 99.7 101 20 154/75 95 Room Air Height (Feet): 5 Height (Inches): 5.00 Weight (Pounds): 230 Laboratory Tests Test 04/04/17 11:39 04/04/17 13:00 04/04/17 13:45 White Blood Count 6.2 K/UL (4.8-10.8) Red Blood Count 4.71 M/UL (4.20-5.40) Hemoglobin 13.6 G/DL (12.0-16.0) Hematocrit 44.8 % (37.0-47.0) Mean Corpuscular Volume 95 FL (80-99) Mean Corpuscular Hemoglobin 28.9 PG (27.0-31.0) Mean Corpuscular Hemoglobin Concent 30.5 G/DL (32.0-36.0) L Red Cell Distribution Width 12.9 % (11.6-14.8) Platelet Count 150 K/UL (150-450) Mean Platelet Volume 8.7 FL (6.5-10.1) Neutrophils (%) (Auto) 76.7 % (45.0-75.0) H Lymphocytes (%) (Auto) 14.4 % (20.0-45.0) L Monocytes (%) (Auto) 7.4 % (1.0-10.0) Eosinophils (%) (Auto) 0.5 % (0.0-3.0) Basophils (%) (Auto) 1.0 % (0.0-2.0) Urine Color Pale yellow Urine Appearance Clear Urine pH 5 (4.5-8.0) Urine Specific [place] 1.015 (1.005-1.035) Urine Protein Negative (NEGATIVE) Urine Glucose (UA) Negative (NEGATIVE) Urine Ketones Negative (NEGATIVE) Urine Occult Blood Negative (NEGATIVE) Urine Nitrite Positive (NEGATIVE) H Urine Bilirubin Negative (NEGATIVE) Urine Urobilinogen Normal MG/DL (0.0-1.0) Urine Leukocyte Esterase 1+ (NEGATIVE) H Urine RBC 0-2 /HPF (0 - 2) Urine WBC 5-10 /HPF (0 - 2) H Urine Squamous Epithelial Cells Few /LPF (NONE/OCC) Urine Bacteria Many /HPF (NONE) H Sodium Level Pending Potassium Level Pending Chloride Level Pending Carbon Dioxide Level Pending Blood Urea Nitrogen Pending Creatinine Pending Estimat Glomerular Filtration Rate Pending Glucose Level Pending Lactic Acid Level Pending Calcium Level Pending Total Bilirubin Pending Aspartate Amino Transf (AST/SGOT) Pending Alanine Aminotransferase (ALT/SGPT) Pending Alkaline Phosphatase Pending Total Creatine Kinase Pending Creatine Kinase MB Pending Troponin I Pending Pro-B-Type Natriuretic Peptide Pending Total Protein Pending Albumin Pending Globulin Pending Current Medications Medications (Trade) Dose Ordered Sig/Isabel Route PRN Reason Start Time Stop Time Status Last Admin Dose Admin Acetaminophen (Tylenol) 650 mg Q4H PRN ORAL Fever 04/04/17 13:45 05/04/17 13:44 Albuterol/ Ipratropium (DuoNeb 0.5-3(2.5)mg/3ml) 3 ml Q4H PRN HHN Shortness of Breath 04/04/17 13:45 04/09/17 13:44 Amlodipine Besylate (Norvasc) 10 mg DAILY ORAL 04/05/17 09:00 05/05/17 08:59 Ceftriaxone Sodium 1 gm/ Dextrose 55 ml @ 110 mls/hr ONCE ONCE IVPB 04/04/17 14:00 04/04/17 14:29 04/04/17 14:16 Cyclobenzaprine HCl (Flexeril) 10 mg BID ORAL 04/04/17 18:00 05/04/17 17:59 Dextrose (Dextrose 50%) STAT PRN IV Hypoglycemia 04/04/17 13:45 05/04/17 13:44 Furosemide (Lasix) 40 mg EVERY 8 HOURS IV 04/04/17 15:00 05/04/17 14:59 Heparin Sodium (Porcine) (Heparin 5000 units/ml) 5,000 units EVERY 12 HOURS SUBQ 04/04/17 21:00 05/04/17 20:59 Insulin Aspart (NovoLOG) BEFORE MEALS AND HS SUBQ 04/04/17 16:30 05/04/17 16:29 Lisinopril (Prinivil) 40 mg DAILY ORAL 04/05/17 09:00 05/05/17 08:59 Memantine (Namenda) 5 mg DAILY ORAL 04/05/17 09:00 05/05/17 08:59 Mirtazapine (Remeron) 7.5 mg BEDTIME ORAL 04/04/17 21:00 05/04/17 20:59 Ondansetron HCl (Zofran) 4 mg Q6H PRN IVP Nausea & Vomiting 04/04/17 13:45 05/04/17 13:44 Polyethylene Glycol (Miralax) 17 gm DAILYPRN PRN ORAL Constipation 04/04/17 13:45 05/04/17 13:44 Temazepam (Restoril) 15 mg HSPRN PRN ORAL Insomnia 04/04/17 13:45 04/11/17 13:44 Siria Ellison M.D. Apr 04, 2017 14:22
[2017-04-04 14:23] LABS: TROPONIN I < 0.30 ng/mL (<=0.30)
[2017-04-04 14:26] LABS: ALANINE AMINOTRANSFERASE 20 U/L (3-33); ANION GAP 7 (5-15); ASPARTATE AMINO TRANSFERASE 40 U/L (5-40); CALCIUM 8.7 mg/dL (8.6-10.2); CARBON DIOXIDE 38 mEQ/L (20-30); CHLORIDE 88 mEQ/L (98-107); CREATININE 0.5 mg/dL (0.5-0.9); HEMOLYSIS 2; POTASSIUM 4.3 mEQ/L (3.4-4.9); SODIUM 133 mEQ/L (135-145); TOTAL PROTEIN 8.2 g/dL (6.6-8.7)
[2017-04-04 14:36] LABS: CKMB < 1.5 ng/mL (< 3.8)
[2017-04-04 15:07] VITALS: BP 152/64
[2017-04-04] MEDS ORDERED: Vancomycin 1.5 GM/D5W 250ML IVPB ONE (16:00)
[2017-04-04] MEDS ORDERED: Vancomycin 1250mg/D5W 250ml IVPB ONE (16:00)
[2017-04-04] MEDS: NovoLOG Insulin Flexpen SUBQ SCH ×2 (16:30→21:00)
[2017-04-04] MEDS ORDERED: Lactulose 20gm/30ml UDC ORAL SCH (18:00)
--- NOTE | 2017-04-04 18:21 | Cardiology Report ---
APPROVED REPORT EXAM: Two-dimensional and M-mode echocardiogram with Doppler and color Doppler. INDICATION LV function M-Mode DIMENSIONS IVSd0.9 (0.7-1.1cm)Left Atrium (MM)4.5 (1.6-4.0cm) LVDd3.6 (3.5-5.6cm)Aortic Root3.0 (2.0-3.7cm) PWd1.0 (0.7-1.1cm)Aortic Cusp Exc.1.9 (1.5-2.0cm) LVDs1.4 (2.5-4.0cm) PWs1.4 cm Normal left ventricular chamber size, hyperdynamic systolic function and wall motion. Left ventricular ejection fraction estimated to be 70-75 %. Mild left ventricular hypertrophy by 2-D. Anterior Echo-free space, may be due to pericardial fat or effusion. Large posterior pleural effusion. Mild left atrial enlargement by 2D. Right cardiac chamber sizes are within normal limits. Focal aortic valve sclerosis with adequate cusp excursion Thickened mitral valve leaflets with normal excursion. Mitral annulus and aortic root calcification. Pulmonic valve not well visualized. Normal tricuspid valve structure. IVC at normal size with physiologic collapse. A color flow and spectral Doppler study was performed and revealed: No aortic regurgitation. Trace mitral regurgitation. Mitral inflow indicates normal left ventricular diastolic function. Trace tricuspid regurgitation. Tricuspid systolic velocities suggests peak right ventricular systolic pressure of 29 mmHg. Pulmonic regurgitation present.
[2017-04-04] MEDS: Piperacillin/Tazobactam 3.375 GM in D5W 110 ML IVPB SCH (18:32)
[2017-04-04] MEDS: Cyclobenzaprine 10mg Tab ORAL SCH (18:34)
--- NOTE | 2017-04-04 18:43 | General Progress Note ---
Progress Note Progress Note [id number] full note dictated TESSIE ASCENCIO Apr 04, 2017 18:43
[2017-04-04 20:10] VITALS: BP 132/66
[2017-04-04] MEDS: Heparin 5000 units/ml inj SUBQ SCH (21:22)
--- NOTE | 2017-04-04 22:00 | History and Physical Report ---
DATE OF ADMISSION: 04/04/2017 TIME SEEN: 1 p.m. CONSULTANTS: 1. Mohsen Ferrera M.D. 2. Moy Merchant M.D. CHIEF COMPLAINT: Shortness of breath, weakness, lethargy, and edema. Brief History: This is a 77-year-old female, who lives in [facility], presents with increased shortness of breath and edema, was diagnosed with CHF exacerbation, pulmonary edema, hypoxia, and being admitted to telemetry for further care. Currently, calm, slightly confused, slightly short of breath, in bed, in ER gurney. No complaints. Past Medical History: CHF, hypertension, COPD, and lower extremity weakness. PAST SURGICAL HISTORY: None as per patient. Medications: Just Fioricet for now, we will obtain list of medications later. ALLERGIES: Denies. Social History: No smoking, no alcohol, and no intravenous drug abuse. FAMILY HISTORY: Noncontributory. Review Of Systems: No chest pain. Slightly short of breath. No nausea, vomiting, or diarrhea. PHYSICAL EXAMINATION: General: Slightly short of breath, O2 NC in gurney in ER, oriented x1, and in no acute distress. Vital Signs: Temperature 100.2 degrees, pulse 97, respirations 20, and blood pressure 144/69. CARDIOVASCULAR: No murmurs. LUNGS: Poor air exchange. Abdomen: Bowel sounds are positive. Soft, nontender, and nondistended. EXTREMITIES: No cyanosis or clubbing. There is 1+ edema. Neurological: The patient moves all extremities, but lower extremity weakness noted. Laboratory Data: CBC is normal. BMP is pending. Urinalysis, 1+ leukocyte esterase. ASSESSMENT: 1. Lower extremity edema. 2. Exacerbation of congestive heart failure and hypoxia. 3. Pulmonary edema. 4. Chronic obstructive pulmonary disease. 5. Hypertension. 6. Urinary tract infection. PLAN: 1. Continue premedications 2. O2 pulmonary treatment. 3. Antibiotics per Infectious Diseases. 4. OT, PT, and dietary evaluation. 5. CBC and BMP in the morning. 6. Dr. Merchant, Dr. Ferrera, Dr. Canseco, Dr. Meza, and Dr. Morris to consult. We will continue to follow this patient medically. Chacho Morocho D.O. DR: YUKO JOB#: [id number] CC:
--- NOTE | 2017-04-04 22:05 | Consultation ---
History of Present Illness General Date patient seen: Apr 04, 2017 Chief Complaint: General Complaint Referring physician: Dr. Morocho Reason for Consultation: dyspnea Present Illness HPI 69-year-old female with hx of CHF, COPD, difficulty walking, hypertension, diabetes, group home resident presenting with lower extremity swelling and congestion. Patient denying any cough fever chest pain or shortness of breath. Pt is a poor historian. Initial CXR in ER showed that she had pulmonary edema and possible infiltrate and admitted for further evaluation. Allergies: Coded Allergies: No Known Allergies (Unverified , 08/20/14) Medication History Scheduled Amlodipine Besylate* (Amlodipine Besylate*), 10 MG ORAL DAILY, (Reported) Brimonidine Tartrate* (Alphagan*), 1 DROP BOTH EYES BID, (Reported) Cyclobenzaprine Hcl* (Flexeril*), 10 MG ORAL BID, (Reported) Furosemide* (Lasix*), 40 MG ORAL DAILY, (Reported) Heparin Sod (Porcine) (Heparin Sodium*), 5,000 UNITS SUBQ EVERY 12 HOURS, ( Reported) Insulin Lispro (Humalog), 0 SUBQ BEFORE MEALS AND HS, (Reported) Lactobacillus Acidophilus (Probiotic Acidophilus), 1 EACH PO TID, (Reported) Lactulose (Lactulose*), 20 GM ORAL THREE TIMES A DAY Lisinopril (Lisinopril*), 40 MG ORAL DAILY, (Reported) Memantine Hcl* (Namenda*), 5 MG ORAL DAILY, (Reported) Mesalamine (Pentasa), 1,000 MG ORAL TID, (Reported) Metoprolol Tartrate* (Metoprolol Tartrate*), 100 MG ORAL EVERY 12 HOURS Mirtazapine* (Mirtazapine*), 7.5 MG ORAL BEDTIME, (Reported) Omeprazole (Omeprazole), 40 MG ORAL DAILY, (Reported) Polyethylene Glycol 3350* (Miralax*), 17 GM ORAL DAILY, (Reported) Scheduled PRN Dextran 70/Hypromellose (Artificial Tears Eye Drops*), 1 DROP BOTH EYES for Dry Eyes, (Reported) Ipratropium/Albuterol Sulfate (Iprat-Albut 0.5-3(2.5) Mg/3 Ml), 3 ML IH Q4HR PRN for Shortness of Breath, (Reported) Lorazepam* (Ativan*), 1 MG ORAL EVERY 8 HOURS PRN for For Anxiety, (Reported) Ondansetron Odt* (Zofran Odt*), 4 MG ORAL Q6H PRN for Nausea & Vomiting, ( Reported) Oxycodone Hcl/Acetaminophen 10-325* (Oxycodone-Acetaminophen 10-325*), 1 TAB ORAL Q4H PRN for Pain Scale (6-10), (Reported) Prochlorperazine (Compazine*), 10 MG ORAL Q8HR PRN for Nausea & Vomiting, ( Reported) Temazepam* (Restoril*), 15 MG ORAL BEDTIME PRN for Insomnia, (Reported) Miscellaneous Medications Azelastine Hcl (Azelastine Hcl), 6 ML OP, (Reported) [novolog ss], (Reported) Patient History Healthcare decision maker Resuscitation status Advanced Directive on File Past Medical/Surgical History Past Medical/Surgical History: (1) COPD (chronic obstructive pulmonary disease) (2) Cirrhosis (3) Elevated LFTs (4) DM (diabetes mellitus) Review of Systems All Other Systems: negative except mentioned in HPI Physical Exam General Appearance: WD/WN Lines, tubes and drains: peripheral HEENT: normocephalic, anicteric Neck: non-tender, normal alignment Respiratory/Chest: chest wall non-tender, lungs clear, decreased breath sounds , rhonchi - left, rhonchi - right Cardiovascular/Chest: normal peripheral pulses, normal rate Abdomen: normal bowel sounds, non tender Genitourinary/Rectal: normal genital exam Extremities: normal range of motion Last 24 Hour Vital Signs Date Time Temp Pulse Resp B/P (MAP) Pulse Ox O2 Delivery O2 Flow Rate FiO2 04/04/17 20:10 98.4 96 20 132/66 95 Nasal Cannula 2.0 04/04/17 16:00 99 04/04/17 15:07 100.4 64 19 152/64 96 Nasal Cannula 2.0 04/04/17 14:24 100.2 99 20 145/69 98 Nasal Cannula 3.0 04/04/17 13:52 99 20 145/69 98 Nasal Cannula 3.0 04/04/17 12:46 100.2 97 20 144/69 97 Nasal Cannula 3.0 04/04/17 11:40 99.7 95 19 157/62 95 Nasal Cannula 3.0 04/04/17 11:20 99.7 101 20 154/75 95 Room Air Intake and Output 04/04/17 04/05/17 19:00 07:00 Intake Total 0 ml Output Total 2900 ml Balance -2900 ml Intake Oral 0 ml Output Urine Total 2900 ml # Bowel Movements 1 Laboratory Tests Test 04/04/17 11:39 04/04/17 13:00 04/04/17 13:45 White Blood Count 6.2 K/UL (4.8-10.8) Red Blood Count 4.71 M/UL (4.20-5.40) Hemoglobin 13.6 G/DL (12.0-16.0) Hematocrit 44.8 % (37.0-47.0) Mean Corpuscular Volume 95 FL (80-99) Mean Corpuscular Hemoglobin 28.9 PG (27.0-31.0) Mean Corpuscular Hemoglobin Concent 30.5 G/DL (32.0-36.0) L Red Cell Distribution Width 12.9 % (11.6-14.8) Platelet Count 150 K/UL (150-450) Mean Platelet Volume 8.7 FL (6.5-10.1) Neutrophils (%) (Auto) 76.7 % (45.0-75.0) H Lymphocytes (%) (Auto) 14.4 % (20.0-45.0) L Monocytes (%) (Auto) 7.4 % (1.0-10.0) Eosinophils (%) (Auto) 0.5 % (0.0-3.0) Basophils (%) (Auto) 1.0 % (0.0-2.0) Urine Color Pale yellow Urine Appearance Clear Urine pH 5 (4.5-8.0) Urine Specific [place] 1.015 (1.005-1.035) Urine Protein Negative (NEGATIVE) Urine Glucose (UA) Negative (NEGATIVE) Urine Ketones Negative (NEGATIVE) Urine Occult Blood Negative (NEGATIVE) Urine Nitrite Positive (NEGATIVE) H Urine Bilirubin Negative (NEGATIVE) Urine Urobilinogen Normal MG/DL (0.0-1.0) Urine Leukocyte Esterase 1+ (NEGATIVE) H Urine RBC 0-2 /HPF (0 - 2) Urine WBC 5-10 /HPF (0 - 2) H Urine Squamous Epithelial Cells Few /LPF (NONE/OCC) Urine Bacteria Many /HPF (NONE) H Sodium Level 133 mEQ/L (135-145) L Potassium Level 4.3 mEQ/L (3.4-4.9) Chloride Level 88 mEQ/L (98-107) L Carbon Dioxide Level 38 mEQ/L (20-30) H Anion Gap 7 (5-15) Blood Urea Nitrogen 8 mg/dL (7-23) Creatinine 0.5 mg/dL (0.5-0.9) Estimat Glomerular Filtration Rate mL/min (>60) Glucose Level 149 mg/dL (74-106) H Lactic Acid Level 1.50 mmol/L (0.66-2.22) Calcium Level 8.7 mg/dL (8.6-10.2) Total Bilirubin 0.8 mg/dL (0.0-1.2) Aspartate Amino Transf (AST/SGOT) 40 U/L (5-40) Alanine Aminotransferase (ALT/SGPT) 20 U/L (3-33) Alkaline Phosphatase 128 U/L (35-104) H Total Creatine Kinase 27 U/L (26-140) Creatine Kinase MB < 1.5 ng/mL (< 3.8) Creatine Kinase MB Relative Index Troponin I < 0.30 ng/mL (<=0.30) Pro-B-Type Natriuretic Peptide 603 pg/mL (0-450) H Total Protein 8.2 g/dL (6.6-8.7) Albumin 4.1 g/dL (3.5-5.2) Globulin 4.1 g/dL Albumin/Globulin Ratio 1.0 (1.0-2.7) Height (Feet): 5 Height (Inches): 5.00 Weight (Pounds): 230 Medications Current Medications Medications (Trade) Dose Ordered Sig/Isabel Route PRN Reason Start Time Stop Time Status Last Admin Dose Admin Acetaminophen (Tylenol) 650 mg Q4H PRN ORAL Fever 04/04/17 13:45 05/04/17 13:44 04/04/17 15:40 Albuterol/ Ipratropium (DuoNeb 0.5-3(2.5)mg/3ml) 3 ml Q4H PRN HHN Shortness of Breath 04/04/17 13:45 04/09/17 13:44 Amlodipine Besylate (Norvasc) 10 mg DAILY ORAL 04/05/17 09:00 05/05/17 08:59 Cyclobenzaprine HCl (Flexeril) 10 mg BID ORAL 04/04/17 18:00 05/04/17 17:59 04/04/17 18:34 Dextrose (Dextrose 50%) STAT PRN IV Hypoglycemia 04/04/17 13:45 05/04/17 13:44 Furosemide (Lasix) 40 mg EVERY 8 HOURS IV 04/04/17 15:00 05/04/17 14:59 04/04/17 21:47 Heparin Sodium (Porcine) (Heparin 5000 units/ml) 5,000 units EVERY 12 HOURS SUBQ 04/04/17 21:00 05/04/17 20:59 04/04/17 21:22 Insulin Aspart (NovoLOG) BEFORE MEALS AND HS SUBQ 04/04/17 16:30 05/04/17 16:29 Lisinopril (Prinivil) 40 mg DAILY ORAL 04/05/17 09:00 05/05/17 08:59 Memantine (Namenda) 5 mg DAILY ORAL 04/05/17 09:00 05/05/17 08:59 Mirtazapine (Remeron) 7.5 mg BEDTIME ORAL 04/04/17 21:00 05/04/17 20:59 04/04/17 21:19 Ondansetron HCl (Zofran) 4 mg Q6H PRN IVP Nausea & Vomiting 04/04/17 13:45 05/04/17 13:44 Oxycodone/ Acetaminophen (Percocet 10/325) 1 tab Q4H PRN ORAL PAIN 6-10 04/04/17 17:30 04/11/17 17:29 04/04/17 18:33 Piperacillin Sod/ Tazobactam Sod 3.375 gm/Dextrose 110 ml @ 27.5 mls/hr EVERY 8 HOURS IVPB 04/04/17 18:00 04/09/17 17:59 04/04/17 18:32 Polyethylene Glycol (Miralax) 17 gm DAILYPRN PRN ORAL Constipation 04/04/17 13:45 05/04/17 13:44 Temazepam (Restoril) 15 mg HSPRN PRN ORAL Insomnia 04/04/17 13:45 04/11/17 13:44 Vancomycin HCl (Vanco rx to dose) 1 ea DAILY PRN MISC Per rx protocol 04/04/17 14:30 05/04/17 14:29 Vancomycin HCl/ Dextrose 250 ml @ 166.667 mls/hr Q24H IVPB 04/05/17 18:00 04/10/17 17:59 Assessment/Plan Problem List: (1) Sepsis ICD Codes: A41.9 - Sepsis, unspecified organism SNOMED: 63305767 (2) Pulmonary edema ICD Codes: J81.1 - Pulmonary edema SNOMED: 88499803 (3) Cirrhosis ICD Codes: K74.60 - Unspecified cirrhosis of liver SNOMED: 92211428 (4) COPD (chronic obstructive pulmonary disease) ICD Codes: J44.9 - Chronic obstructive pulmonary disease, unspecified SNOMED: 07962689 (5) Scoliosis ICD Codes: M41.9 - Scoliosis SNOMED: 115878117 (6) Diabetic nephropathies ICD Codes: E11.29 - Diabetic nephropathies SNOMED: 394426283 Assessment/Plan respiratory treatment titrate fio2 diuretics echo sputum for c/s abx dvt prophylaxis. TABATHA PLASENCIA Apr 04, 2017 22:05
[2017-04-05 00:23] VITALS: BP 160/65
--- NOTE | 2017-04-05 00:30 | Consultation ---
DATE OF CONSULTATION: 04/04/2017 INFECTIOUS DISEASES CONSULTATION CONSULTING PHYSICIAN: Siria Ellison M.D. REQUESTING PHYSICIAN: Chacho Morocho D.O. Reason For Consultation: Healthcare-acquired pneumonia, UTI, possible sepsis, recommendation for antibiotic treatment. History Of Present Illness: The patient is a 77-year-old female, half-way resident, with past medical history of CHF, COPD, diabetes, and hypertension, who was sent to [facility] Emergency Room with lower extremity swelling and pulmonary congestion. The patient was found to be hypoxemic saturating 91% on 2 L nasal cannula. She had cough, but nonproductive. Her mental status has been waxing and waning over the last couple of weeks, so she is a poor historian and cannot provide good history. History was mainly obtained from the emergency room personnel and medical record. In the emergency room, the patient was found to have temperature of 99.7. Her chest x-ray showed bilateral lower lobe infiltration and fluid component, possible CHF, so she was started on IV antibiotics and I was consulted by the primary provider for antibiotic treatment and further management. Past Medical History: Significant for CHF, hypertension, COPD, diabetes, Crohn disease, anxiety disorder, dementia, seizure, and memory loss. PAST SURGICAL HISTORY: Negative. ALLERGIES: No known drug allergy. Medications: The patient received ceftriaxone in the emergency room. For the rest of her medications, please refer to MAR. FAMILY HISTORY: Unable to obtain. Social History: She lives at a half-way. No recent drugs, tobacco, or alcohol. PHYSICAL EXAMINATION: Vital Signs: Temperature 100.4, pulse 64, respirations 19, blood pressure 152/64, and saturation 96% on 2 L nasal cannula. General: An elderly female, lying in bed, awake, alert, oriented x1, not in distress. HEENT: Normocephalic and atraumatic. Pupils reactive to light. Dry oral mucosa. No exudate. NECK: Supple. No lymphadenopathy. CARDIOVASCULAR: Regular rate and rhythm. No murmur or gallop. Lungs: She had crackles and wheezing at the base of her lungs with diminished breathing sound. Abdomen: Soft, obese, nontender, and nondistended. Normal bowel sounds. No hepatosplenomegaly. No ascites. EXTREMITIES: Edema +1. No cyanosis. No clubbing. SKIN: No rash or hives. Laboratory Data: Showed white count of 6.2, hemoglobin of 13.6, and platelet count of 150,000. BUN of 8, creatinine of 0.5, and glucose 149. AST of 40 and ALT of 20. Urinalysis showed positive nitrite, +1 leukocyte esterase, WBC 5 to 10, and many bacteria. Imaging: Chest x-ray showed cardiomegaly with congestive heart failure, bilateral pleural effusion, and interstitial edema. ASSESSMENT AND RECOMMENDATIONS: 1. Healthcare-acquired pneumonia with fever. We will start Zosyn and vancomycin empiric treatment for now and send sputum culture if she produces any. 2. Urinary tract infection. We will await urine culture. The patient will be already on Zosyn. 3. Diabetes. Recommend tight glycemic control to keep blood glucose between 80 to 120. 4. Pulmonary edema due to congestive heart failure. Needs diuresis. [employer] is following. 5. Congestive heart failure with acute exacerbation. Continue diuretics. Recommend cardiology evaluation. Siria Ellison M.D. DR: FILI JOB#: [id number] CC:
[2017-04-05 04:20] VITALS: BP 128/68
--- NOTE | 2017-04-05 05:15 | Consultation ---
DATE OF CONSULTATION: 04/04/2017 NEPHROLOGY CONSULTATION CONSULTING PHYSICIAN: Sammi Morris M.D. REFERRING PHYSICIAN: Chacho Morocho D.O. REASON FOR CONSULTATION: Fluid overload and CHF exacerbation. History Of Present Illness: The patient is a 77-year-old female with past medical history significant for history of hypertension, history of COPD, history of morbid obesity, history of anxiety, history of Crohn disease, history of dementia, history of CHF in the past, and history of diabetes, [facility]. Apparently, [facility], the patient was found to have a low oxygenation saturation 91% on 2 liters nasal cannula. The patient in the ER was evaluated and found to have pulmonary edema, lower extremity swelling, has received Lasix, found to have mild hyponatremia. I was called for management of renal disease and electrolyte imbalance. Unfortunately, her history is not very helpful. She notes that her leg is swollen, but she denies having any active chest pain or shortness of breath. PAST MEDICAL HISTORY: 1. COPD. 2. Hypertension. 3. CHF. 4. Diabetes. 5. Morbid obesity. 6. History of dementia. 7. History of memory loss. 8. History of Crohn disease. 9. History of anxiety. PAST SURGICAL HISTORY: None. ALLERGIES: Not known drug allergy. FAMILY HISTORY: Noncontributory. Social History: [facility]. No current history of tobacco, alcohol, or drug use. Review Of Systems: General: She complained of generalized weakness. Denies any fever, chills, or night sweats. Head And Neck: Denies any dysphagia, odynophagia, blurry vision, headache, or neck stiffness. Pulmonary: Mild shortness of breath. No cough. No sputum. Cardiovascular: Denies any chest pain or palpitations. Gastrointestinal: Denies any nausea, vomiting, diarrhea, hematemesis, or hematochezia. Genitourinary: Denies any dysuria, frequency, or hematuria. Musculoskeletal: She complained of bilateral lower extremity pain, otherwise negative. PHYSICAL EXAMINATION: Vital Signs: The patient had temperature of 99 degrees, blood pressure of 150/70, pulse rate of 71, and respiratory rate of 18. Head and Neck: No JVP. No LAD. No thyromegaly. Extraocular movements intact. Pupils are reactive to light and accommodation. LUNGS: Decreased breathing sounds on both sides. CARDIAC: Regular rate and rhythm. S1 and S2, tachycardic. ABDOMEN: Obese, nontender, and nondistended. EXTREMITIES: She has 1+ edema. No clubbing. No cyanosis. Neurologic: Cranial nerves II through XII are within normal limits. Upper and lower extremities are grossly intact. Laboratory and diagnostic Data: Laboratory values, the patient had UA, which revealed specific gravity of 1.015, pH of 5, leukocyte 1+, WBC 5 to 10, and bacteria many. Chemistry revealed sodium of 133, potassium 4.3, chloride 88, bicarbonate 38, BUN of 8, creatinine of 0.5, glucose of 149, and calcium of 8.7. AST of 40, ALT of 20, and alkaline phosphatase of 128. Albumin of 4.1 and total protein of 8.2. CBC revealed WBC count of 6.2, hemoglobin of 13, hematocrit of 44, and platelet count of 150,000. ASSESSMENT: 1. Mild hypervolemic hyponatremia. 2. Congestive heart failure exacerbation. 3. Chronic obstructive pulmonary disease. 4. Hypertension. 5. Diabetes. Plan: Plan for the patient is to check the random urine protein creatinine ratio to calculate the proteinuria. Check the urine sodium and creatinine to calculate fractional excretion of sodium. I would place the patient on fluid restriction. Continue with diuretic, Lasix, daily weight, monitoring intakes and outputs, and replace electrolytes as needed. Avoid any NSAIDs or nephrotoxics. Check hemoglobin A1c recommended for this patient is 6 to 7. Adjust blood pressure medication and goal of blood pressure less than 130/70. Again, I would like to thank, Dr. Chacho Morocho, for allowing me to participate in the care of this patient. Sammi Morris M.D. DR: CE JOB#: [id number] CC:
[2017-04-05] MEDS: NovoLOG Insulin Flexpen SUBQ SCH ×4 (06:10→20:47)
[2017-04-05] MEDS: Piperacillin/Tazobactam 3.375 GM in D5W 110 ML IVPB SCH ×3 (06:10→23:13)
[2017-04-05 07:14] LABS: BASOPHILS % (AUTO) 0.5 % (0.0-2.0); EOSINOPHILS % (AUTO) 1.1 % (0.0-3.0); LYMPHOCYTES % (AUTO) 18.4 % (20.0-45.0); MEAN CORPUSCULAR HEMOGLOBIN 29.1 PG (27.0-31.0); MEAN CORPUSCULAR HGB CONC 30.7 G/DL (32.0-36.0); MEAN CORPUSCULAR VOLUME 95 FL (80-99); MEAN PLATELET VOLUME 8.1 FL (6.5-10.1); MONOCYTES % (AUTO) 12.8 % (1.0-10.0); NEUTROPHILS % (AUTO) 67.1 % (45.0-75.0); PLATELET COUNT 126 K/UL (150-450); RED BLOOD COUNT 4.53 M/UL (4.20-5.40); RED CELL DISTRIBUTION WIDTH 12.8 % (11.6-14.8); WHITE BLOOD COUNT 5.2 K/UL (4.8-10.8)
[2017-04-05 07:32] LABS: ANION GAP 10 (5-15); CALCIUM 8.8 mg/dL (8.6-10.2); CARBON DIOXIDE 43 mEQ/L (20-30); CHLORIDE 87 mEQ/L (98-107); CREATININE 0.5 mg/dL (0.5-0.9); HEMOLYSIS 12; POTASSIUM 3.6 mEQ/L (3.4-4.9); SODIUM 140 mEQ/L (135-145)
[2017-04-05 07:35] LABS: ANION GAP 8 (5-15); CALCIUM 8.9 mg/dL (8.6-10.2); CHLORIDE 87 mEQ/L (98-107); CREATININE 0.5 mg/dL (0.5-0.9); HEMOLYSIS 1; PHOSPHORUS 3.2 mg/dL (2.5-4.8); POTASSIUM 3.4 mEQ/L (3.4-4.9); SODIUM 139 mEQ/L (135-145); TROPONIN I < 0.30 ng/mL (<=0.30)
[2017-04-05 07:36] LABS: CARBON DIOXIDE 44 mEQ/L (20-30)
[2017-04-05 08:00] VITALS: BP 159/75
[2017-04-05] MEDS: Heparin 5000 units/ml inj SUBQ SCH ×2 (09:00→20:49)
[2017-04-05] MEDS ORDERED: Memantine 5 MG TAB ORAL SCH (09:00)
[2017-04-05] MEDS: Cyclobenzaprine 10mg Tab ORAL SCH ×2 (09:20→18:24)
[2017-04-05] MEDS: Lisinopril 20mg tab ORAL SCH (09:21)
[2017-04-05 12:00] VITALS: BP 137/74
--- NOTE | 2017-04-05 12:20 | Pulmonology Progress Note ---
Assessment/Plan Problems: (1) Sepsis (2) Pulmonary edema (3) Cirrhosis (4) COPD (chronic obstructive pulmonary disease) (5) Scoliosis (6) Diabetic nephropathies Assessment/Plan check sputum US of chest dc lasix check echo sputum induction titrate fio2 Subjective ROS Limited/Unobtainable: No Interval Events: looks comfortable Allergies: Coded Allergies: No Known Allergies (Unverified , 08/20/14) Objective Last 24 Hour Vital Signs Date Time Temp Pulse Resp B/P (MAP) Pulse Ox O2 Delivery O2 Flow Rate FiO2 04/05/17 12:00 119 04/05/17 12:00 98.2 107 20 137/74 95 Nasal Cannula 2.0 04/05/17 09:21 159/75 04/05/17 09:21 109 159/75 04/05/17 08:00 98.2 109 21 159/75 96 Nasal Cannula 2.0 04/05/17 08:00 113 04/05/17 07:56 Nasal Cannula 2.0 28 04/05/17 07:55 100 Nasal Cannula 2.0 28 04/05/17 07:50 116 20 Nasal Cannula 2.0 28 04/05/17 04:20 97.7 103 20 128/68 95 Nasal Cannula 2.0 04/05/17 04:00 99 04/05/17 00:23 98.1 100 20 160/65 95 Nasal Cannula 2.0 04/05/17 00:00 107 04/04/17 20:10 98.4 96 20 132/66 95 Nasal Cannula 2.0 04/04/17 20:00 93 04/04/17 19:30 Nasal Cannula 2.0 28 04/04/17 19:30 94 Nasal Cannula 2.0 28 04/04/17 19:30 94 20 Nasal Cannula 2.0 28 04/04/17 16:00 99 04/04/17 15:07 100.4 64 19 152/64 96 Nasal Cannula 2.0 04/04/17 14:24 100.2 99 20 145/69 98 Nasal Cannula 3.0 04/04/17 13:52 99 20 145/69 98 Nasal Cannula 3.0 04/04/17 12:46 100.2 97 20 144/69 97 Nasal Cannula 3.0 Intake and Output 04/05/17 04/06/17 19:00 07:00 # Bowel Movements 1 General Appearance: WD/WN HEENT: normocephalic, atraumatic Respiratory/Chest: chest wall non-tender, lungs clear Cardiovascular: normal peripheral pulses, normal rate Abdomen: normal bowel sounds, soft, non tender Lymphatic: no neck adenopathy Microbiology Date/Time Source Procedure Growth Status 04/04/17 12:05 Blood Blood Culture - Preliminary Resulted 04/04/17 13:00 Urine,Clean Catch Urine Culture - Preliminary Gram Negative Bacillus 1 Resulted Laboratory Tests 04/04/17 13:00: Urine Color Pale yellow, Urine Appearance Clear, Urine pH 5, Urine Specific [place] 1.015, Urine Protein Negative, Urine Glucose (UA) Negative, Urine Ketones Negative, Urine Occult Blood Negative, Urine Nitrite PositiveH, Urine Bilirubin Negative, Urine Urobilinogen Normal, Urine Leukocyte Esterase 1+H, Urine RBC 0-2, Urine WBC 5-10H, Urine Squamous Epithelial Cells Few, Urine Bacteria ManyH 04/04/17 13:45: Sodium Level 133L, Potassium Level 4.3, Chloride Level 88L, Carbon Dioxide Level 38H, Anion Gap 7, Blood Urea Nitrogen 8, Creatinine 0.5, Estimat Glomerular Filtration Rate , Glucose Level 149H, Lactic Acid Level 1.50, Calcium Level 8.7, Total Bilirubin 0.8, Aspartate Amino Transf (AST/SGOT) 40, Alanine Aminotransferase (ALT/SGPT) 20, Alkaline Phosphatase 128H, Total Creatine Kinase 27, Creatine Kinase MB < 1.5, Creatine Kinase MB Relative Index , Troponin I < 0.30, Pro-B-Type Natriuretic Peptide 603H, Total Protein 8.2, Albumin 4.1, Globulin 4.1, Albumin/Globulin Ratio 1.0 04/05/17 04:30: Sodium Level 139, Potassium Level 3.4, Chloride Level 87L, Carbon Dioxide Level 44*H, Anion Gap 8, Blood Urea Nitrogen 7, Creatinine 0.5, Estimat Glomerular Filtration Rate , Glucose Level 130H, Calcium Level 8.9, Troponin I < 0.30, Albumin 3.6, White Blood Count 5.2, Red Blood Count 4.53, Hemoglobin 13.2, Hematocrit 43.0, Mean Corpuscular Volume 95, Mean Corpuscular Hemoglobin 29.1, Mean Corpuscular Hemoglobin Concent 30.7L, Red Cell Distribution Width 12.8, Platelet Count 126L, Mean Platelet Volume 8.1, Neutrophils (%) (Auto) 67.1, Lymphocytes (%) (Auto) 18.4L, Monocytes (%) (Auto) 12.8H, Eosinophils (%) (Auto ) 1.1, Basophils (%) (Auto) 0.5, Phosphorus Level 3.2 Current Medications Medications (Trade) Dose Ordered Sig/Isabel Route PRN Reason Start Time Stop Time Status Last Admin Dose Admin Acetaminophen (Tylenol) 650 mg Q4H PRN ORAL Fever 04/04/17 13:45 05/04/17 13:44 04/04/17 15:40 Albuterol/ Ipratropium (DuoNeb 0.5-3(2.5)mg/3ml) 3 ml Q4H PRN HHN Shortness of Breath 04/04/17 13:45 04/09/17 13:44 Amlodipine Besylate (Norvasc) 10 mg DAILY ORAL 04/05/17 09:00 05/05/17 08:59 04/05/17 09:21 Cyclobenzaprine HCl (Flexeril) 10 mg BID ORAL 04/04/17 18:00 05/04/17 17:59 04/05/17 09:20 Dextrose (Dextrose 50%) STAT PRN IV Hypoglycemia 04/04/17 13:45 05/04/17 13:44 Heparin Sodium (Porcine) (Heparin 5000 units/ml) 5,000 units EVERY 12 HOURS SUBQ 04/04/17 21:00 05/04/17 20:59 04/04/17 21:22 Insulin Aspart (NovoLOG) BEFORE MEALS AND HS SUBQ 04/04/17 16:30 05/04/17 16:29 04/05/17 11:52 Lisinopril (Prinivil) 40 mg DAILY ORAL 04/05/17 09:00 05/05/17 08:59 04/05/17 09:21 Memantine (Namenda) 5 mg DAILY ORAL 04/05/17 09:00 05/05/17 08:59 04/05/17 09:20 Mirtazapine (Remeron) 7.5 mg BEDTIME ORAL 04/04/17 21:00 05/04/17 20:59 04/04/17 21:19 Ondansetron HCl (Zofran) 4 mg Q6H PRN IVP Nausea & Vomiting 04/04/17 13:45 05/04/17 13:44 Oxycodone/ Acetaminophen (Percocet 10/325) 1 tab Q4H PRN ORAL PAIN 6-10 04/04/17 17:30 04/11/17 17:29 04/05/17 09:23 Piperacillin Sod/ Tazobactam Sod 3.375 gm/Dextrose 110 ml @ 27.5 mls/hr EVERY 8 HOURS IVPB 04/04/17 18:00 04/09/17 17:59 04/05/17 06:10 Polyethylene Glycol (Miralax) 17 gm DAILYPRN PRN ORAL Constipation 04/04/17 13:45 05/04/17 13:44 Temazepam (Restoril) 15 mg HSPRN PRN ORAL Insomnia 04/04/17 13:45 04/11/17 13:44 Vancomycin HCl (Vanco rx to dose) 1 ea DAILY PRN MISC Per rx protocol 04/04/17 14:30 05/04/17 14:29 Vancomycin HCl/ Dextrose 250 ml @ 166.667 mls/hr Q24H IVPB 04/05/17 18:00 04/10/17 17:59 TABATHA PLASENCIA Apr 05, 2017 12:20
[2017-04-05 12:45] LABS: INR 1.1 (0.9-1.1); PROTHROMBIN TIME 11.8 SEC (9.30-11.50)
[2017-04-05] MEDS ORDERED: Promethazine/Codeine 5ml UD ORAL PRN (13:00)
[2017-04-05] MEDS ORDERED: Tubing IV Secondary IV ONE (15:11)
[2017-04-05] MEDS ORDERED: NS 275ml ONE (15:11)
--- NOTE | 2017-04-05 15:17 | General Progress Note ---
Assessment/Plan Problem List: (1) OBESITY, NOS (2) HTN (hypertension) ICD Codes: I10 - Essential (primary) hypertension SNOMED: 71348774 (3) SOB (shortness of breath) ICD Codes: R06.02 - Shortness of breath SNOMED: 684627928 (4) Chronic pain ICD Codes: G89.29 - Other chronic pain SNOMED: 55954517 (5) UTI (lower urinary tract infection) ICD Codes: N39.0 - UTI (lower urinary tract infection) SNOMED: 8040131 (6) Edema ICD Codes: R60.9 - Edema, unspecified SNOMED: 819855554, 020049987 (7) CHF (congestive heart failure) ICD Codes: I50.9 - Heart failure, unspecified SNOMED: 13685380 (8) COPD (chronic obstructive pulmonary disease) ICD Codes: J44.9 - Chronic obstructive pulmonary disease, unspecified SNOMED: 07532032 Status: stable, progressing, tolerating diet Assessment/Plan o2 pulm tx ot pt diet bp pain control cbc bmp am Subjective Constitutional: Reports: weakness Allergies: Coded Allergies: No Known Allergies (Unverified , 08/20/14) All Systems: reviewed and negative except above Subjective calm in bed Objective Last 24 Hour Vital Signs Date Time Temp Pulse Resp B/P (MAP) Pulse Ox O2 Delivery O2 Flow Rate FiO2 04/05/17 12:00 119 04/05/17 12:00 98.2 107 20 137/74 95 Nasal Cannula 2.0 04/05/17 09:21 159/75 04/05/17 09:21 109 159/75 04/05/17 08:00 98.2 109 21 159/75 96 Nasal Cannula 2.0 04/05/17 08:00 113 04/05/17 07:56 Nasal Cannula 2.0 28 04/05/17 07:55 100 Nasal Cannula 2.0 28 04/05/17 07:50 116 20 Nasal Cannula 2.0 28 04/05/17 04:20 97.7 103 20 128/68 95 Nasal Cannula 2.0 04/05/17 04:00 99 04/05/17 00:23 98.1 100 20 160/65 95 Nasal Cannula 2.0 04/05/17 00:00 107 04/04/17 20:10 98.4 96 20 132/66 95 Nasal Cannula 2.0 04/04/17 20:00 93 04/04/17 19:30 Nasal Cannula 2.0 28 04/04/17 19:30 94 Nasal Cannula 2.0 28 04/04/17 19:30 94 20 Nasal Cannula 2.0 28 04/04/17 16:00 99 Intake and Output 04/05/17 04/06/17 19:00 07:00 # Bowel Movements 1 Laboratory Tests 04/05/17 04:30: White Blood Count 5.2, Red Blood Count 4.53, Hemoglobin 13.2, Hematocrit 43.0, Mean Corpuscular Volume 95, Mean Corpuscular Hemoglobin 29.1, Mean Corpuscular Hemoglobin Concent 30.7L, Red Cell Distribution Width 12.8, Platelet Count 126L , Mean Platelet Volume 8.1, Neutrophils (%) (Auto) 67.1, Lymphocytes (%) (Auto) 18.4L, Monocytes (%) (Auto) 12.8H, Eosinophils (%) (Auto) 1.1, Basophils (%) ( Auto) 0.5, Sodium Level 139, Potassium Level 3.4, Chloride Level 87L, Carbon Dioxide Level 44*H, Anion Gap 8, Blood Urea Nitrogen 7, Creatinine 0.5, Estimat Glomerular Filtration Rate , Glucose Level 130H, Calcium Level 8.9, Phosphorus Level 3.2, Troponin I < 0.30, Albumin 3.6 04/05/17 12:30: Prothrombin Time 11.8H, Prothromb Time International Ratio 1.1, Activated Partial Thromboplast Time 32 Height (Feet): 5 Height (Inches): 5.00 Weight (Pounds): 230 General Appearance: lethargic EENT: normal ENT inspection Neck: normal alignment Cardiovascular: normal peripheral pulses, normal rate, regular rhythm Respiratory/Chest: chest wall non-tender, lungs clear, normal breath sounds Abdomen: normal bowel sounds, non tender, soft Extremities: normal inspection Edema: no edema noted Arm (L), no edema noted Arm (R), no edema noted Leg (L), no edema noted Leg (R), no edema noted Pedal (L), no edema noted Pedal (R), no edema noted Generalized Neurologic: responsive, motor weakness Skin: normal pigmentation, warm/dry KUMAR ENGLISH Apr 05, 2017 15:17
--- NOTE | 2017-04-05 15:39 | Infectious Diseases Prog Note ---
Assessment/Plan Problems: (1) HCAP (healthcare-associated pneumonia) Assessment & Plan: with fever, on zosyn and vancomycin empirically pending culture results. (2) UTI (urinary tract infection) Assessment & Plan: with gram negative rods , already on zosyn (3) DM (diabetes mellitus) Assessment & Plan: recommend tight glycemic control to keep blood glucose between 80-120 (4) Pulmonary edema Assessment & Plan: due to CHF, needs diureses , pulmonary is following (5) CHF (congestive heart failure) Assessment & Plan: with acute exacerbation, continue diuretics, recommend cardiology eval (6) Hypoxia Assessment & Plan: due to the above, continue oxygen, and dieuretics , monitor cxr Subjective Constitutional: Reports: no symptoms HEENT: Reports: no symptoms Respiratory: Reports: shortness of breath, dry cough Breasts: Reports: no symptoms Cardiovascular: Reports: no symptoms Gastrointestinal/Abdominal: Reports: no symptoms Genitourinary: Reports: no symptoms Neurologic: Reports: no symptoms Psychiatric: Reports: no symptoms Skin: Reports: no symptoms Allergies: Coded Allergies: No Known Allergies (Unverified , 08/20/14) Objective Vital Signs Last 24 Hour Vital Signs Date Time Temp Pulse Resp B/P (MAP) Pulse Ox O2 Delivery O2 Flow Rate FiO2 04/05/17 12:00 119 04/05/17 12:00 98.2 107 20 137/74 95 Nasal Cannula 2.0 04/05/17 09:21 159/75 04/05/17 09:21 109 159/75 04/05/17 08:00 98.2 109 21 159/75 96 Nasal Cannula 2.0 04/05/17 08:00 113 04/05/17 07:56 Nasal Cannula 2.0 28 04/05/17 07:55 100 Nasal Cannula 2.0 28 04/05/17 07:50 116 20 Nasal Cannula 2.0 28 04/05/17 04:20 97.7 103 20 128/68 95 Nasal Cannula 2.0 04/05/17 04:00 99 04/05/17 00:23 98.1 100 20 160/65 95 Nasal Cannula 2.0 04/05/17 00:00 107 04/04/17 20:10 98.4 96 20 132/66 95 Nasal Cannula 2.0 04/04/17 20:00 93 04/04/17 19:30 Nasal Cannula 2.0 28 04/04/17 19:30 94 Nasal Cannula 2.0 28 04/04/17 19:30 94 20 Nasal Cannula 2.0 28 04/04/17 16:00 99 Height (Feet): 5 Height (Inches): 5.00 Weight (Pounds): 230 General Appearance: WD/WN, no acute distress HEENT: normocephalic, atraumatic, anicteric, mucous membranes moist, PERRL, EOMI, pharynx normal, supple, no JVD Respiratory/Chest: chest wall non-tender, lungs clear, normal breath sounds, no respiratory distress, no accessory muscle use Cardiovascular: normal peripheral pulses, normal rate, regular rhythm, no gallop/murmur, no JVD Abdomen: normal bowel sounds, soft, non tender, no organomegaly, non distended , no mass, no scars Extremities: no cyanosis, no clubbing Skin: no rash, no lesions, no ulcers Neurologic/Psychiatric: alert, oriented x 3 Microbiology Date/Time Source Procedure Growth Status 04/04/17 12:05 Blood Blood Culture - Preliminary Resulted 04/04/17 10:05 Blood Blood Culture - Preliminary Resulted 04/04/17 13:00 Urine,Clean Catch Urine Culture - Preliminary Gram Negative Bacillus 1 Resulted Laboratory Tests Test 04/05/17 04:30 04/05/17 12:30 White Blood Count 5.2 K/UL (4.8-10.8) Red Blood Count 4.53 M/UL (4.20-5.40) Hemoglobin 13.2 G/DL (12.0-16.0) Hematocrit 43.0 % (37.0-47.0) Mean Corpuscular Volume 95 FL (80-99) Mean Corpuscular Hemoglobin 29.1 PG (27.0-31.0) Mean Corpuscular Hemoglobin Concent 30.7 G/DL (32.0-36.0) L Red Cell Distribution Width 12.8 % (11.6-14.8) Platelet Count 126 K/UL (150-450) L Mean Platelet Volume 8.1 FL (6.5-10.1) Neutrophils (%) (Auto) 67.1 % (45.0-75.0) Lymphocytes (%) (Auto) 18.4 % (20.0-45.0) L Monocytes (%) (Auto) 12.8 % (1.0-10.0) H Eosinophils (%) (Auto) 1.1 % (0.0-3.0) Basophils (%) (Auto) 0.5 % (0.0-2.0) Sodium Level 139 mEQ/L (135-145) Potassium Level 3.4 mEQ/L (3.4-4.9) Chloride Level 87 mEQ/L (98-107) L Carbon Dioxide Level 44 mEQ/L (20-30) *H Anion Gap 8 (5-15) Blood Urea Nitrogen 7 mg/dL (7-23) Creatinine 0.5 mg/dL (0.5-0.9) Estimat Glomerular Filtration Rate mL/min (>60) Glucose Level 130 mg/dL (74-106) H Calcium Level 8.9 mg/dL (8.6-10.2) Phosphorus Level 3.2 mg/dL (2.5-4.8) Troponin I < 0.30 ng/mL (<=0.30) Albumin 3.6 g/dL (3.5-5.2) Prothrombin Time 11.8 SEC (9.30-11.50) H Prothromb Time International Ratio 1.1 (0.9-1.1) Activated Partial Thromboplast Time 32 SEC (23-33) Current Medications Medications (Trade) Dose Ordered Sig/Isabel Route PRN Reason Start Time Stop Time Status Last Admin Dose Admin Acetaminophen (Tylenol) 650 mg Q4H PRN ORAL Fever 04/04/17 13:45 05/04/17 13:44 04/04/17 15:40 Albuterol/ Ipratropium (DuoNeb 0.5-3(2.5)mg/3ml) 3 ml Q4H PRN HHN Shortness of Breath 04/04/17 13:45 04/09/17 13:44 Amlodipine Besylate (Norvasc) 10 mg DAILY ORAL 04/05/17 09:00 05/05/17 08:59 04/05/17 09:21 Cyclobenzaprine HCl (Flexeril) 10 mg BID ORAL 04/04/17 18:00 05/04/17 17:59 04/05/17 09:20 Dextrose (Dextrose 50%) STAT PRN IV Hypoglycemia 04/04/17 13:45 05/04/17 13:44 Heparin Sodium (Porcine) (Heparin 5000 units/ml) 5,000 units EVERY 12 HOURS SUBQ 04/04/17 21:00 05/04/17 20:59 04/04/17 21:22 Insulin Aspart (NovoLOG) BEFORE MEALS AND HS SUBQ 04/04/17 16:30 05/04/17 16:29 04/05/17 11:52 Lisinopril (Prinivil) 40 mg DAILY ORAL 04/05/17 09:00 05/05/17 08:59 04/05/17 09:21 Memantine (Namenda) 5 mg DAILY ORAL 04/05/17 09:00 05/05/17 08:59 04/05/17 09:20 Mirtazapine (Remeron) 7.5 mg BEDTIME ORAL 04/04/17 21:00 05/04/17 20:59 04/04/17 21:19 Ondansetron HCl (Zofran) 4 mg Q6H PRN IVP Nausea & Vomiting 04/04/17 13:45 05/04/17 13:44 Oxycodone/ Acetaminophen (Percocet 10/325) 1 tab Q4H PRN ORAL PAIN 6-10 04/04/17 17:30 04/11/17 17:29 04/05/17 09:23 Piperacillin Sod/ Tazobactam Sod 3.375 gm/Dextrose 110 ml @ 27.5 mls/hr EVERY 8 HOURS IVPB 04/04/17 18:00 04/09/17 17:59 04/05/17 13:44 Polyethylene Glycol (Miralax) 17 gm DAILYPRN PRN ORAL Constipation 04/04/17 13:45 05/04/17 13:44 Promethazine HCl/ Codeine (Phenergan with Codeine) 5 ml Q4H PRN ORAL For Cough 04/05/17 13:00 05/05/17 12:59 Temazepam (Restoril) 15 mg HSPRN PRN ORAL Insomnia 04/04/17 13:45 04/11/17 13:44 Vancomycin HCl (Vanco rx to dose) 1 ea DAILY PRN MISC Per rx protocol 04/04/17 14:30 05/04/17 14:29 Vancomycin HCl/ Dextrose 250 ml @ 166.667 mls/hr Q24H IVPB 04/05/17 18:00 04/10/17 17:59 Siria Ellison M.D. Apr 05, 2017 15:38
--- NOTE | 2017-04-05 16:00 | Nephrology Progress Note ---
Assessment/Plan Assessment 1. Mild hypervolemic hyponatremia. 2. Congestive heart failure exacerbation. 3. Chronic obstructive pulmonary disease. 4. Hypertension. 5. Diabetes. Plan plan to continue current med fluid restriction monitoring in and out put replace electrolyte diuretic Subjective Constitutional: Reports: malaise, weakness HEENT: Reports: no symptoms Genitourinary: Reports: no symptoms Neurologic/Psychiatric: Reports: no symptoms Subjective alert and awake mild sob no cough Objective Objective Last 24 Hour Vital Signs Date Time Temp Pulse Resp B/P (MAP) Pulse Ox O2 Delivery O2 Flow Rate FiO2 04/05/17 12:00 119 04/05/17 12:00 98.2 107 20 137/74 95 Nasal Cannula 2.0 04/05/17 09:21 159/75 04/05/17 09:21 109 159/75 04/05/17 08:00 98.2 109 21 159/75 96 Nasal Cannula 2.0 04/05/17 08:00 113 04/05/17 07:56 Nasal Cannula 2.0 28 04/05/17 07:55 100 Nasal Cannula 2.0 28 04/05/17 07:50 116 20 Nasal Cannula 2.0 28 04/05/17 04:20 97.7 103 20 128/68 95 Nasal Cannula 2.0 04/05/17 04:00 99 04/05/17 00:23 98.1 100 20 160/65 95 Nasal Cannula 2.0 04/05/17 00:00 107 04/04/17 20:10 98.4 96 20 132/66 95 Nasal Cannula 2.0 04/04/17 20:00 93 04/04/17 19:30 Nasal Cannula 2.0 28 04/04/17 19:30 94 Nasal Cannula 2.0 28 04/04/17 19:30 94 20 Nasal Cannula 2.0 28 04/04/17 16:00 99 Intake and Output 04/05/17 04/06/17 19:00 07:00 # Bowel Movements 1 Laboratory Tests 04/05/17 04:30: White Blood Count 5.2, Red Blood Count 4.53, Hemoglobin 13.2, Hematocrit 43.0, Mean Corpuscular Volume 95, Mean Corpuscular Hemoglobin 29.1, Mean Corpuscular Hemoglobin Concent 30.7L, Red Cell Distribution Width 12.8, Platelet Count 126L , Mean Platelet Volume 8.1, Neutrophils (%) (Auto) 67.1, Lymphocytes (%) (Auto) 18.4L, Monocytes (%) (Auto) 12.8H, Eosinophils (%) (Auto) 1.1, Basophils (%) ( Auto) 0.5, Sodium Level 139, Potassium Level 3.4, Chloride Level 87L, Carbon Dioxide Level 44*H, Anion Gap 8, Blood Urea Nitrogen 7, Creatinine 0.5, Estimat Glomerular Filtration Rate , Glucose Level 130H, Calcium Level 8.9, Phosphorus Level 3.2, Troponin I < 0.30, Albumin 3.6 04/05/17 12:30: Prothrombin Time 11.8H, Prothromb Time International Ratio 1.1, Activated Partial Thromboplast Time 32 Height (Feet): 5 Height (Inches): 5.00 Weight (Pounds): 230 Objective Head and Neck: No JVP. No LAD. No thyromegaly. Extraocular movements intact. Pupils are reactive to light and accommodation. LUNGS: Decreased breathing sounds on both sides. CARDIAC: Regular rate and rhythm. S1 and S2, tachycardic. ABDOMEN: Obese, nontender, and nondistended. EXTREMITIES: She has 1+ edema. No clubbing. No cyanosis. Neurologic: Cranial nerves II through XII are within normal limits. Upper and lower extremities are grossly intact. TESSIE ASCENCIO Apr 05, 2017 16:00
--- NOTE | 2017-04-05 16:54 | Diagnostic Imaging Report ---
Indication: Status post thoracentesis Technique: One view of the chest Comparison: 04/04/2017 Findings: There is interim complete or near complete resolution of previously demonstrated left-sided pleural effusion, post thoracentesis. No pneumothorax is demonstrated. Right pleural effusion persists. The heart is borderline enlarged. Interstitial congestion has improved since the prior study. The aorta is tortuous and calcified. Impression: Resolved left-sided pleural effusion, post thoracentesis. No radiographically evident complication Improved interstitial congestion Stable right-sided pleural effusion
--- NOTE | 2017-04-05 16:55 | Diagnostic Imaging Report ---
Indications: Pleural effusion Technique: Informed consent obtained prior to commencement of the procedure. Procedure timeout performed. Ultrasound used to localize optimal puncture site. Sterile prepping and draping left chest. Local anesthesia with 1% lidocaine. Under real-time ultrasound guidance, puncture pleural space using thoracentesis needle. Stylet removed. Catheter placed to vacuum bottle suction. Total 460 milliliters of fluid aspirated. Patient tolerated procedure well, without immediate complication. A specimen was sent to the lab for analysis Findings: Followup sonography demonstrates complete resolution of pleural fluid. Impression: Successful ultrasound-guided thoracentesis, yielding 460 milliliters of fluid
[2017-04-05 20:00] VITALS: BP 126/61
[2017-04-05 20:04] LABS: APPEARANCE, BODY FLUID SLIGHTLY CLOUDY; BD FL SOURCE PLEURAL; BD FL VOLUME 24 mL; BODY FLUID NUCLEATED CELLS 678 /CUMM; BODY FLUID RBC 28250 /CUMM
[2017-04-05 20:05] LABS: COMMENT,BODY FLUID BLOODY; MONONUCLEAR WBC 74 %; POLYMORPHONUCLEAR WBC 5 %
[2017-04-05] MEDS: Vancomycin 1250mg/D5W 250ml IVPB SCH (21:24)
--- NOTE | 2017-04-05 23:52 | Cardiology Progress Note ---
Assessment/Plan Assessment/Plan The patient is seen and examined, full consult note will be dictated. Objective Last 24 Hour Vital Signs Date Time Temp Pulse Resp B/P (MAP) Pulse Ox O2 Delivery O2 Flow Rate FiO2 04/05/17 20:00 99.1 114 18 126/61 96 Nasal Cannula 2.0 04/05/17 20:00 110 04/05/17 19:30 94 Nasal Cannula 2.0 28 04/05/17 19:30 Nasal Cannula 2.0 28 04/05/17 19:30 101 20 Nasal Cannula 2.0 28 04/05/17 16:00 117 04/05/17 12:00 119 04/05/17 12:00 98.2 107 20 137/74 95 Nasal Cannula 2.0 04/05/17 09:21 159/75 04/05/17 09:21 109 159/75 04/05/17 08:00 98.2 109 21 159/75 96 Nasal Cannula 2.0 04/05/17 08:00 113 04/05/17 07:56 Nasal Cannula 2.0 28 04/05/17 07:55 100 Nasal Cannula 2.0 28 04/05/17 07:50 116 20 Nasal Cannula 2.0 28 04/05/17 04:20 97.7 103 20 128/68 95 Nasal Cannula 2.0 04/05/17 04:00 99 04/05/17 00:23 98.1 100 20 160/65 95 Nasal Cannula 2.0 04/05/17 00:00 107 Intake and Output 04/05/17 04/06/17 19:00 07:00 Intake Total 655.5 ml Balance 655.5 ml Intake Oral 600 ml IV Total 55.5 ml # Voids 3 # Bowel Movements 1 1 Laboratory Tests Test 04/05/17 04:30 04/05/17 12:30 04/05/17 16:00 White Blood Count 5.2 K/UL (4.8-10.8) Red Blood Count 4.53 M/UL (4.20-5.40) Hemoglobin 13.2 G/DL (12.0-16.0) Hematocrit 43.0 % (37.0-47.0) Mean Corpuscular Volume 95 FL (80-99) Mean Corpuscular Hemoglobin 29.1 PG (27.0-31.0) Mean Corpuscular Hemoglobin Concent 30.7 G/DL (32.0-36.0) L Red Cell Distribution Width 12.8 % (11.6-14.8) Platelet Count 126 K/UL (150-450) L Mean Platelet Volume 8.1 FL (6.5-10.1) Neutrophils (%) (Auto) 67.1 % (45.0-75.0) Lymphocytes (%) (Auto) 18.4 % (20.0-45.0) L Monocytes (%) (Auto) 12.8 % (1.0-10.0) H Eosinophils (%) (Auto) 1.1 % (0.0-3.0) Basophils (%) (Auto) 0.5 % (0.0-2.0) Sodium Level 139 mEQ/L (135-145) Potassium Level 3.4 mEQ/L (3.4-4.9) Chloride Level 87 mEQ/L (98-107) L Carbon Dioxide Level 44 mEQ/L (20-30) *H Anion Gap 8 (5-15) Blood Urea Nitrogen 7 mg/dL (7-23) Creatinine 0.5 mg/dL (0.5-0.9) Estimat Glomerular Filtration Rate mL/min (>60) Glucose Level 130 mg/dL (74-106) H Calcium Level 8.9 mg/dL (8.6-10.2) Phosphorus Level 3.2 mg/dL (2.5-4.8) Troponin I < 0.30 ng/mL (<=0.30) Albumin 3.6 g/dL (3.5-5.2) Prothrombin Time 11.8 SEC (9.30-11.50) H Prothromb Time International Ratio 1.1 (0.9-1.1) Activated Partial Thromboplast Time 32 SEC (23-33) Body Fluid Source Pleural Body Fluid Volume 24 mL Body Fluid Appearance Slightly cloudy Body Fluid RBC 90841 /CUMM Body Fluid Total Nucleated Cells 678 /CUMM Body Fluid Polynuclear WBCs (%) 5 % Body Fluid Mononuclear WBCs (%) 74 % Body Fluid Mesothelial Cells (%) 21 % Body Fluid Glucose Pending Body Fluid Total Protein Pending Body Fluid Albumin Pending Body Fluid Comment Bloody Microbiology Date/Time Source Procedure Growth Status 04/04/17 12:05 Blood Blood Culture - Preliminary Resulted 04/04/17 10:05 Blood Blood Culture - Preliminary Resulted 04/04/17 13:00 Urine,Clean Catch Urine Culture - Preliminary Gram Negative Bacillus 1 Resulted WILLIE JENKINS Apr 05, 2017 23:52
[2017-04-06] VITALS (7 sets, daily range): BP systolic 125–151; BP diastolic 63–74
[2017-04-06] MEDS ORDERED: Metoprolol 5mg/5ml Inj ONE ×2 (03:22→03:41)
[2017-04-06] MEDS ORDERED: LORazepam 1mg tab ORAL PRN (05:00)
[2017-04-06] MEDS ORDERED: Metoprolol 5mg/5ml Inj IVP PRN (05:30)
[2017-04-06] MEDS ORDERED: NS 250 ML IVPB ONE (05:30)
[2017-04-06] MEDS: Piperacillin/Tazobactam 3.375 GM in D5W 110 ML IVPB SCH (05:58)
[2017-04-06] MEDS: NovoLOG Insulin Flexpen SUBQ SCH ×4 (06:30→20:54)
[2017-04-06 07:52] LABS: BASOPHILS % (AUTO) 0.8 % (0.0-2.0); EOSINOPHILS % (AUTO) 1.3 % (0.0-3.0); LYMPHOCYTES % (AUTO) 19.5 % (20.0-45.0); MEAN CORPUSCULAR HEMOGLOBIN 29.6 PG (27.0-31.0); MEAN CORPUSCULAR HGB CONC 31.2 G/DL (32.0-36.0); MEAN CORPUSCULAR VOLUME 95 FL (80-99); MEAN PLATELET VOLUME 7.8 FL (6.5-10.1); MONOCYTES % (AUTO) 12.2 % (1.0-10.0); NEUTROPHILS % (AUTO) 66.2 % (45.0-75.0); PLATELET COUNT 136 K/UL (150-450); RED CELL DISTRIBUTION WIDTH 12.9 % (11.6-14.8); WHITE BLOOD COUNT 5.2 K/UL (4.8-10.8)
[2017-04-06 08:09] LABS: TROPONIN I < 0.30 ng/mL (<=0.30)
[2017-04-06 08:11] LABS: ALANINE AMINOTRANSFERASE 21 U/L (3-33); ALBUMIN/GLOBULIN RATIO 0.7 (1.0-2.7); ANION GAP 5 (5-15); ASPARTATE AMINO TRANSFERASE 49 U/L (5-40); CALCIUM 9.1 mg/dL (8.6-10.2); CHLORIDE 87 mEQ/L (98-107); CREATININE 0.5 mg/dL (0.5-0.9); HEMOLYSIS 3; POTASSIUM 3.5 mEQ/L (3.4-4.9); SODIUM 137 mEQ/L (135-145); TOTAL PROTEIN 7.6 g/dL (6.6-8.7)
[2017-04-06 08:12] LABS: CARBON DIOXIDE 45 mEQ/L (20-30)
--- NOTE | 2017-04-06 08:12 | Nephrology Progress Note ---
Assessment/Plan Assessment 1. Mild hypervolemic hyponatremia. 2. Congestive heart failure exacerbation. 3. Chronic obstructive pulmonary disease. 4. Hypertension. 5. Diabetes. Plan plan Daily WT fluid restriction monitoring in and out put replace electrolyte diuretic Subjective Constitutional: Reports: no symptoms, malaise, weakness HEENT: Reports: no symptoms Genitourinary: Reports: no symptoms Neurologic/Psychiatric: Reports: no symptoms Subjective alert and awake mild sob no cough Objective Objective Last 24 Hour Vital Signs Date Time Temp Pulse Resp B/P (MAP) Pulse Ox O2 Delivery O2 Flow Rate FiO2 04/06/17 04:09 98.1 156 18 151/72 98 Nasal Cannula 2.0 04/06/17 04:00 94 04/06/17 00:00 99.0 165 18 137/74 97 Nasal Cannula 2.0 04/06/17 00:00 131 04/05/17 20:00 99.1 114 18 126/61 96 Nasal Cannula 2.0 04/05/17 20:00 110 04/05/17 19:30 94 Nasal Cannula 2.0 28 04/05/17 19:30 Nasal Cannula 2.0 28 04/05/17 19:30 101 20 Nasal Cannula 2.0 28 04/05/17 16:00 117 04/05/17 12:00 119 04/05/17 12:00 98.2 107 20 137/74 95 Nasal Cannula 2.0 04/05/17 09:21 159/75 04/05/17 09:21 109 159/75 Laboratory Tests 04/05/17 12:30: Prothrombin Time 11.8H, Prothromb Time International Ratio 1.1, Activated Partial Thromboplast Time 32 04/05/17 16:00: Body Fluid Source Pleural, Body Fluid Volume 24, Body Fluid Appearance Slightly cloudy, Body Fluid RBC 32019, Body Fluid Total Nucleated Cells 678, Body Fluid Polynuclear WBCs (%) 5, Body Fluid Mononuclear WBCs (%) 74, Body Fluid Mesothelial Cells (%) 21, Body Fluid Glucose [Pending], Body Fluid Total Protein [Pending], Body Fluid Albumin [Pending], Body Fluid Comment Bloody 04/06/17 07:30: White Blood Count 5.2, Red Blood Count 4.40, Hemoglobin 13.0, Hematocrit 41.8, Mean Corpuscular Volume 95, Mean Corpuscular Hemoglobin 29.6, Mean Corpuscular Hemoglobin Concent 31.2L, Red Cell Distribution Width 12.9, Platelet Count 136L , Mean Platelet Volume 7.8, Neutrophils (%) (Auto) 66.2, Lymphocytes (%) (Auto) 19.5L, Monocytes (%) (Auto) 12.2H, Eosinophils (%) (Auto) 1.3, Basophils (%) ( Auto) 0.8, Sodium Level [Pending], Potassium Level [Pending], Chloride Level [ Pending], Carbon Dioxide Level [Pending], Blood Urea Nitrogen [Pending], Creatinine [Pending], Estimat Glomerular Filtration Rate [Pending], Glucose Level [Pending], Calcium Level [Pending], Total Bilirubin [Pending], Aspartate Amino Transf (AST/SGOT) [Pending], Alanine Aminotransferase (ALT/SGPT) [Pending] , Alkaline Phosphatase [Pending], Troponin I < 0.30, Pro-B-Type Natriuretic Peptide [Pending], Total Protein [Pending], Albumin [Pending], Globulin [Pending ] Height (Feet): 5 Height (Inches): 5.00 Weight (Pounds): 230 Objective Head and Neck: No JVP. No LAD. No thyromegaly. Extraocular movements intact. Pupils are reactive to light and accommodation. LUNGS: Decreased breathing sounds on both sides. CARDIAC: Regular rate and rhythm. S1 and S2, tachycardic. ABDOMEN: Obese, nontender, and nondistended. EXTREMITIES: She has 1+ edema. No clubbing. No cyanosis. Neurologic: Cranial nerves II through XII are within normal limits. Upper and lower extremities are grossly intact. TESSIE ASCENCIO Apr 06, 2017 08:12
[2017-04-06] MEDS: Heparin 5000 units/ml inj SUBQ SCH ×2 (09:00→21:00)
[2017-04-06] MEDS: Lisinopril 20mg tab ORAL SCH (09:12)
[2017-04-06] MEDS: Metoprolol Tartrate 50mg tab ORAL SCH ×2 (09:13→18:25)
[2017-04-06] MEDS: Memantine 5 MG TAB ORAL SCH ×2 (09:13→18:26)
[2017-04-06] MEDS: Cyclobenzaprine 10mg Tab ORAL SCH ×2 (09:14→18:27)
--- NOTE | 2017-04-06 10:00 | Diagnostic Imaging Report ---
Indication: DYSPNEA Technique: One view of the chest Comparison: 04/05/2017 Findings: There is persistent atelectasis, infiltrate, and possibly pleural fluid at the right lung base, probably cysts unchanged allowing for projectional differences. Ingestion there is suggestion of recurrent left pleural effusion as well as increased basilar atelectasis and consolidation. Mild interstitial congestion persists. Heart remains enlarged. There are degenerative changes of both shoulders. Thoracic scoliotic deformity is again demonstrated Impression: Evidence of recurrent pleural fluid on the left. Resultant basilar compressive atelectasis and possibly some consolidation Stable pleural and parenchymal disease on the right Other stable findings as noted
--- NOTE | 2017-04-06 11:34 | Pulmonology Progress Note ---
Assessment/Plan Problems: (1) Sepsis (2) Pulmonary edema (3) Cirrhosis (4) COPD (chronic obstructive pulmonary disease) (5) Scoliosis (6) Diabetic nephropathies Assessment/Plan check sputum US of chest done, 460 cc, removed sputum induction titrate fio2 continue abx Subjective ROS Limited/Unobtainable: No Interval Events: s/p thoracentesis, 860 cc removed Allergies: Coded Allergies: No Known Allergies (Unverified , 08/20/14) Objective Last 24 Hour Vital Signs Date Time Temp Pulse Resp B/P (MAP) Pulse Ox O2 Delivery O2 Flow Rate FiO2 04/06/17 09:13 96 132/72 04/06/17 09:13 96 132/72 04/06/17 09:12 132/72 04/06/17 08:00 99.3 96 17 132/72 97 Nasal Cannula 2.0 04/06/17 08:00 103 04/06/17 07:23 96 Nasal Cannula 2.0 28 04/06/17 07:23 115 20 Nasal Cannula 2.0 28 04/06/17 07:23 Nasal Cannula 2.0 28 04/06/17 04:09 98.1 156 18 151/72 98 Nasal Cannula 2.0 04/06/17 04:00 94 04/06/17 00:00 99.0 165 18 137/74 97 Nasal Cannula 2.0 04/06/17 00:00 131 04/05/17 20:00 99.1 114 18 126/61 96 Nasal Cannula 2.0 04/05/17 20:00 110 04/05/17 19:30 94 Nasal Cannula 2.0 28 04/05/17 19:30 Nasal Cannula 2.0 28 04/05/17 19:30 101 20 Nasal Cannula 2.0 28 04/05/17 16:00 117 04/05/17 12:00 119 04/05/17 12:00 98.2 107 20 137/74 95 Nasal Cannula 2.0 Intake and Output 04/06/17 04/07/17 19:00 07:00 Intake Total 55.0 ml Balance 55.0 ml IV Total 55.0 ml # Bowel Movements 1 General Appearance: WD/WN HEENT: normocephalic, atraumatic Respiratory/Chest: chest wall non-tender, lungs clear Breasts: no masses Cardiovascular: normal peripheral pulses, normal rate Abdomen: normal bowel sounds, soft, non tender Skin: no rash 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 Complete Laboratory Tests 04/05/17 12:30: Prothrombin Time 11.8H, Prothromb Time International Ratio 1.1, Activated Partial Thromboplast Time 32 04/05/17 16:00: Body Fluid Source Pleural, Body Fluid Volume 24, Body Fluid Appearance Slightly cloudy, Body Fluid [place] [address], Body Fluid Total Nucleated Cells 678, Body Fluid Polynuclear WBCs (%) 5, Body Fluid Mononuclear WBCs (%) 74, Body Fluid Mesothelial Cells (%) 21, Body Fluid Glucose [Pending], Body Fluid Total Protein [Pending], Body Fluid Albumin [Pending], Body Fluid Comment Bloody 04/06/17 07:30: White Blood Count 5.2, Red Blood Count 4.40, Hemoglobin 13.0, Hematocrit 41.8, Mean Corpuscular Volume 95, Mean Corpuscular Hemoglobin 29.6, Mean Corpuscular Hemoglobin Concent 31.2L, Red Cell Distribution Width 12.9, Platelet Count 136L , Mean Platelet Volume 7.8, Neutrophils (%) (Auto) 66.2, Lymphocytes (%) (Auto) 19.5L, Monocytes (%) (Auto) 12.2H, Eosinophils (%) (Auto) 1.3, Basophils (%) ( Auto) 0.8, Sodium Level 137, Potassium Level 3.5, Chloride Level 87L, Carbon Dioxide Level 45*H, Anion Gap 5, Blood Urea Nitrogen 7, Creatinine 0.5, Estimat Glomerular Filtration Rate , Glucose Level 146H, Calcium Level 9.1, Total Bilirubin 0.9, Aspartate Amino Transf (AST/SGOT) 49H, Alanine Aminotransferase ( ALT/SGPT) 21, Alkaline Phosphatase 108H, Troponin I < 0.30, Pro-B-Type Natriuretic Peptide 147, Total Protein 7.6, Albumin 3.3L, Globulin 4.3, Albumin/ Globulin Ratio 0.7L Current Medications Medications (Trade) Dose Ordered Sig/Isabel Route PRN Reason Start Time Stop Time Status Last Admin Dose Admin Acetaminophen (Tylenol) 650 mg Q4H PRN ORAL Fever 04/04/17 13:45 05/04/17 13:44 04/04/17 15:40 Albuterol/ Ipratropium (DuoNeb 0.5-3(2.5)mg/3ml) 3 ml Q4H PRN HHN Shortness of Breath 04/04/17 13:45 04/09/17 13:44 Amlodipine Besylate (Norvasc) 10 mg DAILY ORAL 04/05/17 09:00 05/05/17 08:59 04/06/17 09:13 Cyclobenzaprine HCl (Flexeril) 10 mg BID ORAL 04/04/17 18:00 05/04/17 17:59 04/06/17 09:14 Dextrose (Dextrose 50%) STAT PRN IV Hypoglycemia 04/04/17 13:45 05/04/17 13:44 Heparin Sodium (Porcine) (Heparin 5000 units/ml) 5,000 units EVERY 12 HOURS SUBQ 04/04/17 21:00 05/04/17 20:59 04/04/17 21:22 Insulin Aspart (NovoLOG) BEFORE MEALS AND HS SUBQ 04/04/17 16:30 05/04/17 16:29 04/06/17 11:17 Levofloxacin 50 ml @ 50 mls/hr Q24H IVPB 04/07/17 09:00 04/14/17 08:59 Lisinopril (Prinivil) 40 mg DAILY ORAL 04/05/17 09:00 05/05/17 08:59 04/06/17 09:12 Lorazepam (Ativan) 1 mg Q6H PRN ORAL For Anxiety 04/06/17 05:00 04/13/17 04:59 Memantine (Namenda) 5 mg BID ORAL 04/06/17 09:00 05/05/17 08:59 04/06/17 09:13 Metoprolol Tartrate (Lopressor) 5 mg Q5MIN X 3 PRN IVP Per rx protocol 04/06/17 05:30 05/06/17 05:29 Metoprolol Tartrate (Lopressor) 50 mg BID ORAL 04/06/17 09:00 05/06/17 08:59 04/06/17 09:13 Mirtazapine (Remeron) 7.5 mg BEDTIME ORAL 04/04/17 21:00 05/04/17 20:59 04/05/17 20:45 Ondansetron HCl (Zofran) 4 mg Q6H PRN IVP Nausea & Vomiting 04/04/17 13:45 05/04/17 13:44 Oxycodone/ Acetaminophen (Percocet 10/325) 1 tab Q4H PRN ORAL PAIN 6-10 04/04/17 17:30 04/11/17 17:29 04/06/17 05:14 Polyethylene Glycol (Miralax) 17 gm DAILYPRN PRN ORAL Constipation 04/04/17 13:45 05/04/17 13:44 Promethazine HCl/ Codeine (Phenergan with Codeine) 5 ml Q4H PRN ORAL For Cough 04/05/17 13:00 05/05/17 12:59 Temazepam (Restoril) 15 mg HSPRN PRN ORAL Insomnia 04/04/17 13:45 04/11/17 13:44 Vancomycin HCl (Vanco rx to dose) 1 ea DAILY PRN MISC Per rx protocol 04/04/17 14:30 05/04/17 14:29 Vancomycin HCl/ Dextrose 250 ml @ 166.667 mls/hr Q24H IVPB 04/05/17 18:00 04/10/17 17:59 04/05/17 21:24 TABATHA PLASENCIA Apr 06, 2017 11:34
[2017-04-06 14:22] LABS: PROTEIN, BODY FLUID 3.4 g/dL (.)
--- NOTE | 2017-04-06 15:05 | General Progress Note ---
Assessment/Plan Problem List: (1) OBESITY, NOS (2) HTN (hypertension) ICD Codes: I10 - Essential (primary) hypertension SNOMED: 24255231 (3) SOB (shortness of breath) ICD Codes: R06.02 - Shortness of breath SNOMED: 699421644 (4) Chronic pain ICD Codes: G89.29 - Other chronic pain SNOMED: 92074952 (5) UTI (lower urinary tract infection) ICD Codes: N39.0 - UTI (lower urinary tract infection) SNOMED: 2542750 (6) Edema ICD Codes: R60.9 - Edema, unspecified SNOMED: 976863533, 557481503 (7) CHF (congestive heart failure) ICD Codes: I50.9 - Heart failure, unspecified SNOMED: 50850852 (8) COPD (chronic obstructive pulmonary disease) ICD Codes: J44.9 - Chronic obstructive pulmonary disease, unspecified SNOMED: 11104992 Status: stable, progressing, tolerating diet Assessment/Plan o2 pulm tx ot pt diet bp pain control cbc bmp am promise ltach Subjective Allergies: Coded Allergies: No Known Allergies (Unverified , 08/20/14) All Systems: reviewed and negative except above Subjective calm in bed o2 nc Objective Last 24 Hour Vital Signs Date Time Temp Pulse Resp B/P (MAP) Pulse Ox O2 Delivery O2 Flow Rate FiO2 04/06/17 12:00 98.1 78 18 125/64 95 Nasal Cannula 2.0 04/06/17 12:00 85 04/06/17 09:13 96 132/72 04/06/17 09:13 96 132/72 04/06/17 09:12 132/72 04/06/17 08:00 99.3 96 17 132/72 97 Nasal Cannula 2.0 04/06/17 08:00 103 04/06/17 07:23 96 Nasal Cannula 2.0 28 04/06/17 07:23 115 20 Nasal Cannula 2.0 28 04/06/17 07:23 Nasal Cannula 2.0 28 04/06/17 04:09 98.1 156 18 151/72 98 Nasal Cannula 2.0 04/06/17 04:00 94 04/06/17 00:00 99.0 165 18 137/74 97 Nasal Cannula 2.0 04/06/17 00:00 131 04/05/17 20:00 99.1 114 18 126/61 96 Nasal Cannula 2.0 04/05/17 20:00 110 04/05/17 19:30 94 Nasal Cannula 2.0 28 04/05/17 19:30 Nasal Cannula 2.0 28 04/05/17 19:30 101 20 Nasal Cannula 2.0 28 04/05/17 16:00 117 Intake and Output 04/06/17 04/07/17 19:00 07:00 Intake Total 55.0 ml Balance 55.0 ml IV Total 55.0 ml # Bowel Movements 1 Laboratory Tests 04/05/17 16:00: Body Fluid Source Pleural, Body Fluid Volume 24, Body Fluid Appearance Slightly cloudy, Body Fl[place] [address], Body Fluid Total Nucleated Cells 678, Body Fluid Polynuclear WBCs (%) 5, Body Fluid Mononuclear WBCs (%) 74, Body Fluid Mesothelial Cells (%) 21, Body Fluid Glucose 126, Body Fluid Total Protein 3.4, Body Fluid Albumin 1.9, Body Fluid Comment Bloody 04/06/17 07:30: White Blood Count 5.2, Red Blood Count 4.40, Hemoglobin 13.0, Hematocrit 41.8, Mean Corpuscular Volume 95, Mean Corpuscular Hemoglobin 29.6, Mean Corpuscular Hemoglobin Concent 31.2L, Red Cell Distribution Width 12.9, Platelet Count 136L , Mean Platelet Volume 7.8, Neutrophils (%) (Auto) 66.2, Lymphocytes (%) (Auto) 19.5L, Monocytes (%) (Auto) 12.2H, Eosinophils (%) (Auto) 1.3, Basophils (%) ( Auto) 0.8, Sodium Level 137, Potassium Level 3.5, Chloride Level 87L, Carbon Dioxide Level 45*H, Anion Gap 5, Blood Urea Nitrogen 7, Creatinine 0.5, Estimat Glomerular Filtration Rate , Glucose Level 146H, Calcium Level 9.1, Total Bilirubin 0.9, Aspartate Amino Transf (AST/SGOT) 49H, Alanine Aminotransferase ( ALT/SGPT) 21, Alkaline Phosphatase 108H, Troponin I < 0.30, Pro-B-Type Natriuretic Peptide 147, Total Protein 7.6, Albumin 3.3L, Globulin 4.3, Albumin/ Globulin Ratio 0.7L Height (Feet): 5 Height (Inches): 5.00 Weight (Pounds): 230 General Appearance: lethargic EENT: normal ENT inspection Neck: normal alignment Cardiovascular: normal peripheral pulses, normal rate, regular rhythm Respiratory/Chest: chest wall non-tender, lungs clear, normal breath sounds Abdomen: normal bowel sounds, non tender, soft Extremities: normal inspection Edema: 1+ Arm (L), 1+ Arm (R), 1+ Leg (L), 1+ Leg (R), 1+ Pedal (L), 1+ Pedal ( R), 1+ Generalized Neurologic: motor weakness Skin: normal pigmentation, warm/dry KUMAR ENGLISH Apr 06, 2017 15:05
[2017-04-06] MEDS ORDERED: NS 275ml ONE (15:06)
[2017-04-06] MEDS ORDERED: Tubing IV Secondary IV ONE (15:06)
[2017-04-06] MEDS: Vancomycin 1250mg/D5W 250ml IVPB SCH (20:51)
--- NOTE | 2017-04-06 21:30 | Consultation ---
DATE OF CONSULTATION: 04/06/2017 History Of Present Illness: This is a 77-year-old female patient who was admitted to [facility]. Reason for admission to [place] is secondary to congestive heart failure; however, this patient does have a history of anxiety, depression, and altered mental status, rule out pseudodementia, rule out dementia with psychotic features. That is why, the psychiatric consultation was requested for this patient. As far as her psychotropic medications on admission, she normally takes medication regimen of Namenda 5 mg daily. She also states she takes Ativan as needed, but she complains that she has not been able to get it here in the hospital and she has been having intermittent bouts of anxiety and panic attacks and she also takes Remeron 7.5 mg to address anxiety, depression, and insomnia. ALLERGIES: She has no known drug allergies. Past Medical History: This patient has a medical history consistent with congestive heart failure, hypertension, COPD, and lower extremity weakness. Social History: This patient is living in [facility], financially supported by [facility] and Medicare. SUBSTANCE ABUSE HISTORY: Denies drug or alcohol use. PSYCHIATRIC HISTORY: Major depressive disorder. Mental Status Examination: This is a 77-year-old female with psychomotor retardation. Mood is depressed. Affect guarded and restricted. Thought process disorganized and illogical. No signs of any suicidal or homicidal thoughts. Insight and judgement is poor. DIAGNOSIS: Major depressive disorder, rule out pseudodementia. Plan: Plan for this patient is to continue her on Namenda, but as far as her dosing of Namenda, I am going to increase her Namenda to a dose of 5 mg twice a day, because it appears as though once a day is not necessarily improving her cognition. She was oriented x3, but she did know the exact date, she thought it was 04/03/2017, which is 3 days off. That is a decline from her baseline, so I am going to increase her Namenda to 5 mg b.i.d. I am also going to add Ativan 1 mg q.6 h. as needed because that was the dose that she was taking at intermediate and she states she is having anxiety and panic attacks without that medication added. I would like to thank, Dr. Chacho Morocho, for this interesting consultation. I will continue to follow this patient with you throughout her hospital course. Chart reviewed and discussed with staff. The patient was seen and assessed in the room. Edilberto Canseco M.D. DR: DELVIS JOB#: [id number] CC:
--- NOTE | 2017-04-06 23:10 | Infectious Diseases Prog Note ---
Assessment/Plan Problems: (1) HCAP (healthcare-associated pneumonia) Assessment & Plan: with fever, on levaquin and vancomycin empirically pending culture results. (2) UTI (urinary tract infection) Assessment & Plan: due to E coli, intermediate to zosyn , will switch to levaquin (3) Sepsis due to Staphylococcus Assessment & Plan: source unclear, continue vancomycin for now pending identification and sensitivity (4) DM (diabetes mellitus) Assessment & Plan: recommend tight glycemic control to keep blood glucose between 80-120 (5) Pulmonary edema Assessment & Plan: due to CHF, needs diureses , pulmonary is following (6) CHF (congestive heart failure) Assessment & Plan: with acute exacerbation, continue diuretics, recommend cardiology eval (7) Hypoxia Assessment & Plan: due to the above, continue oxygen, and dieuretics , monitor cxr Subjective Constitutional: Reports: no symptoms HEENT: Reports: no symptoms Respiratory: Reports: no symptoms Breasts: Reports: no symptoms Cardiovascular: Reports: no symptoms Gastrointestinal/Abdominal: Reports: no symptoms Genitourinary: Reports: no symptoms Neurologic: Reports: no symptoms Psychiatric: Reports: no symptoms Skin: Reports: no symptoms Endocrine: Reports: no symptoms Allergies: Coded Allergies: No Known Allergies (Unverified , 08/20/14) Objective Vital Signs Last 24 Hour Vital Signs Date Time Temp Pulse Resp B/P (MAP) Pulse Ox O2 Delivery O2 Flow Rate FiO2 04/06/17 19:59 98.2 79 18 133/63 97 Nasal Cannula 2.0 04/06/17 19:51 81 20 Nasal Cannula 2.0 28 04/06/17 19:51 96 Nasal Cannula 2.0 28 04/06/17 19:51 Nasal Cannula 2.0 28 04/06/17 18:25 78 131/67 04/06/17 16:00 98.2 72 19 128/64 97 Nasal Cannula 2.0 04/06/17 16:00 71 04/06/17 12:00 98.1 78 18 125/64 95 Nasal Cannula 2.0 04/06/17 12:00 85 04/06/17 09:13 96 132/72 04/06/17 09:13 96 132/72 04/06/17 09:12 132/72 04/06/17 08:00 99.3 96 17 132/72 97 Nasal Cannula 2.0 04/06/17 08:00 103 9/20/17 07:23 96 Nasal Cannula 2.0 28 04/06/17 07:23 115 20 Nasal Cannula 2.0 28 04/06/17 07:23 Nasal Cannula 2.0 28 04/06/17 04:09 98.1 156 18 151/72 98 Nasal Cannula 2.0 04/06/17 04:00 94 04/06/17 00:00 99.0 165 18 137/74 97 Nasal Cannula 2.0 04/06/17 00:00 131 Height (Feet): 5 Height (Inches): 5.00 Weight (Pounds): 230 General Appearance: WD/WN, no acute distress HEENT: normocephalic, atraumatic, anicteric, mucous membranes moist Respiratory/Chest: chest wall non-tender, no respiratory distress, no accessory muscle use, decreased breath sounds, crackles/rales Cardiovascular: normal peripheral pulses, normal rate, regular rhythm, no gallop/murmur, no JVD Abdomen: normal bowel sounds, soft, non tender, no organomegaly, non distended , no mass Extremities: no cyanosis, no clubbing Skin: no rash, no lesions, no ulcers Neurologic/Psychiatric: alert Microbiology Date/Time Source Procedure Growth Status 04/04/17 12:05 Blood Blood Culture - Preliminary Staphylococcus Species Resulted 04/04/17 10:05 Blood Blood Culture - Preliminary Staphylococcus Species Resulted 04/05/17 16:00 Thoracic Fluid Gram Stain - Final Resulted 04/05/17 16:00 Thoracic Fluid Body Fluid Culture - Preliminary NO GROWTH AFTER 24 HOURS Resulted 04/04/17 12:20 Nasal Nares MRSA Culture - Final Staphylococcus Aureus - Mrsa Complete 04/04/17 13:00 Urine,Clean Catch Urine Culture - Final Escherichia Coli Complete 04/04/17 12:20 Rectal Mucosa VRE Culture - Final NO VANCOMYCIN RESISTANT ENTEROCOCCUS ... Complete Laboratory Tests Test 04/06/17 07:30 04/06/17 17:40 White Blood Count 5.2 K/UL (4.8-10.8) Red Blood Count 4.40 M/UL (4.20-5.40) Hemoglobin 13.0 G/DL (12.0-16.0) Hematocrit 41.8 % (37.0-47.0) Mean Corpuscular Volume 95 FL (80-99) Mean Corpuscular Hemoglobin 29.6 PG (27.0-31.0) Mean Corpuscular Hemoglobin Concent 31.2 G/DL (32.0-36.0) L Red Cell Distribution Width 12.9 % (11.6-14.8) Platelet Count 136 K/UL (150-450) L Mean Platelet Volume 7.8 FL (6.5-10.1) Neutrophils (%) (Auto) 66.2 % (45.0-75.0) Lymphocytes (%) (Auto) 19.5 % (20.0-45.0) L Monocytes (%) (Auto) 12.2 % (1.0-10.0) H Eosinophils (%) (Auto) 1.3 % (0.0-3.0) Basophils (%) (Auto) 0.8 % (0.0-2.0) Sodium Level 137 mEQ/L (135-145) Potassium Level 3.5 mEQ/L (3.4-4.9) Chloride Level 87 mEQ/L (98-107) L Carbon Dioxide Level 45 mEQ/L (20-30) *H Anion Gap 5 (5-15) Blood Urea Nitrogen 7 mg/dL (7-23) Creatinine 0.5 mg/dL (0.5-0.9) Estimat Glomerular Filtration Rate mL/min (>60) Glucose Level 146 mg/dL (74-106) H Calcium Level 9.1 mg/dL (8.6-10.2) Total Bilirubin 0.9 mg/dL (0.0-1.2) Aspartate Amino Transf (AST/SGOT) 49 U/L (5-40) H Alanine Aminotransferase (ALT/SGPT) 21 U/L (3-33) Alkaline Phosphatase 108 U/L (35-104) H Troponin I < 0.30 ng/mL (<=0.30) Pro-B-Type Natriuretic Peptide 147 pg/mL (0-450) Total Protein 7.6 g/dL (6.6-8.7) Albumin 3.3 g/dL (3.5-5.2) L Globulin 4.3 g/dL Albumin/Globulin Ratio 0.7 (1.0-2.7) L Vancomycin Level Trough 5.0 ug/mL (5.0-12.0) Current Medications Medications (Trade) Dose Ordered Sig/Isabel Route PRN Reason Start Time Stop Time Status Last Admin Dose Admin Acetaminophen (Tylenol) 650 mg Q4H PRN ORAL Fever 04/04/17 13:45 05/04/17 13:44 04/04/17 15:40 Albuterol/ Ipratropium (DuoNeb 0.5-3(2.5)mg/3ml) 3 ml Q4H PRN HHN Shortness of Breath 04/04/17 13:45 04/09/17 13:44 Amlodipine Besylate (Norvasc) 10 mg DAILY ORAL 04/05/17 09:00 05/05/17 08:59 04/06/17 09:13 Cyclobenzaprine HCl (Flexeril) 10 mg BID ORAL 04/04/17 18:00 05/04/17 17:59 04/06/17 18:27 Dextrose (Dextrose 50%) STAT PRN IV Hypoglycemia 04/04/17 13:45 05/04/17 13:44 Heparin Sodium (Porcine) (Heparin 5000 units/ml) 5,000 units EVERY 12 HOURS SUBQ 04/04/17 21:00 05/04/17 20:59 04/04/17 21:22 Insulin Aspart (NovoLOG) BEFORE MEALS AND HS SUBQ 04/04/17 16:30 05/04/17 16:29 04/06/17 20:54 Levofloxacin 50 ml @ 50 mls/hr Q24H IVPB 04/07/17 11:00 04/14/17 10:59 Lisinopril (Prinivil) 40 mg DAILY ORAL 04/05/17 09:00 05/05/17 08:59 04/06/17 09:12 Lorazepam (Ativan) 1 mg Q6H PRN ORAL For Anxiety 04/06/17 05:00 04/13/17 04:59 Memantine (Namenda) 5 mg BID ORAL 04/06/17 09:00 05/05/17 08:59 04/06/17 18:26 Metoprolol Tartrate (Lopressor) 5 mg Q5MIN X 3 PRN IVP Per rx protocol 04/06/17 05:30 05/06/17 05:29 Metoprolol Tartrate (Lopressor) 50 mg BID ORAL 04/06/17 09:00 05/06/17 08:59 04/06/17 18:25 Mirtazapine (Remeron) 7.5 mg BEDTIME ORAL 04/04/17 21:00 05/04/17 20:59 04/06/17 20:51 Ondansetron HCl (Zofran) 4 mg Q6H PRN IVP Nausea & Vomiting 04/04/17 13:45 05/04/17 13:44 Oxycodone/ Acetaminophen (Percocet 10/325) 1 tab Q4H PRN ORAL PAIN 6-10 04/04/17 17:30 04/11/17 17:29 04/06/17 18:26 Polyethylene Glycol (Miralax) 17 gm DAILYPRN PRN ORAL Constipation 04/04/17 13:45 05/04/17 13:44 Promethazine HCl/ Codeine (Phenergan with Codeine) 5 ml Q4H PRN ORAL For Cough 04/05/17 13:00 05/05/17 12:59 Temazepam (Restoril) 15 mg HSPRN PRN ORAL Insomnia 04/04/17 13:45 04/11/17 13:44 Vancomycin HCl (Vanco rx to dose) 1 ea DAILY PRN MISC Per rx protocol 04/04/17 14:30 05/04/17 14:29 Vancomycin HCl 1 gm/Dextrose 275 ml @ 183.708 mls/hr Q12HR IVPB 04/07/17 09:00 04/12/17 08:59 Vancomycin HCl/ Dextrose 250 ml @ 166.667 mls/hr Q24H IVPB 04/05/17 18:00 04/06/17 23:30 04/06/17 20:51 Siria Ellison M.D. Apr 06, 2017 23:10
[2017-04-07 03:51] VITALS: BP 147/76
[2017-04-07] MEDS: NovoLOG Insulin Flexpen SUBQ SCH ×4 (06:29→21:50)
[2017-04-07 07:49] LABS: BASOPHILS % (AUTO) 1.1 % (0.0-2.0); EOSINOPHILS % (AUTO) 3.6 % (0.0-3.0); LYMPHOCYTES % (AUTO) 23.8 % (20.0-45.0); MEAN CORPUSCULAR HEMOGLOBIN 29.6 PG (27.0-31.0); MEAN CORPUSCULAR HGB CONC 31.2 G/DL (32.0-36.0); MEAN CORPUSCULAR VOLUME 95 FL (80-99); MEAN PLATELET VOLUME 9.6 FL (6.5-10.1); MONOCYTES % (AUTO) 12.8 % (1.0-10.0); NEUTROPHILS % (AUTO) 58.7 % (45.0-75.0); PLATELET COUNT 124 K/UL (150-450); RED BLOOD COUNT 4.58 M/UL (4.20-5.40); WHITE BLOOD COUNT 5.1 K/UL (4.8-10.8)
[2017-04-07 08:00] VITALS: BP 139/74
[2017-04-07 08:07] LABS: ALANINE AMINOTRANSFERASE 20 U/L (3-33); ALBUMIN/GLOBULIN RATIO 0.8 (1.0-2.7); ANION GAP 7 (5-15); ASPARTATE AMINO TRANSFERASE 46 U/L (5-40); CARBON DIOXIDE 40 mEQ/L (20-30); CHLORIDE 92 mEQ/L (98-107); CREATININE 0.5 mg/dL (0.5-0.9); HEMOLYSIS 16; MAGNESIUM 1.8 mg/dL (1.7-2.5); PHOSPHORUS 2.9 mg/dL (2.5-4.8); POTASSIUM 4.1 mEQ/L (3.4-4.9); SODIUM 139 mEQ/L (135-145); TOTAL PROTEIN 7.4 g/dL (6.6-8.7)
--- NOTE | 2017-04-07 08:32 | Consultation ---
DATE OF CONSULTATION: 04/04/2017 PSYCHOTHERAPY CONSULTATION PROGRESS NOTE NOTE: POOR AUDIO QUALITY CONSULTING PHYSICIAN: Miguel Angel Farris M.D. TREATING ATTENDING PHYSICIAN: Chacho Morocho D.O. History Of Present Illness: The patient is a 77-year-old female patient from [facility]. This patient was brought into the hospital for failure to thrive and edema. The patient has CHF exacerbation and acute shortness of breath. The patient has a history of weakness, confusion, disorganization in thought process. For this reason, she was referred for psychotherapeutic services. The patient upon assessment. was brought into the hospital. The patient is very cooperative, helpless, however, denies suicidal or homicidal thoughts of ideations, auditory or visual hallucinations. The patient has poor insight into her current condition. Past Medical History: Significant for history of CHF, hypertension, COPD, and lower extremity weakness. ALLERGIES: The patient has no known drug allergies. Substance Abuse History: The patient denies a history of alcohol use or illicit substance use or smoking cigarettes. Psychiatric History: The patient has mental illness at this time. Social History: The patient is a 77-year-old female patient from [facility]. Financially sustained through [employer]. Mental Status Examination: The patient is alert and oriented x3, person, place, and time. Her mood is dysphoric. Affect is blunted. Thought process is disorganized. The patient has poor attention and concentration. Poor insight, judgment, and impulse control. DIAGNOSES: Thompson I Rule out major depressive disorder, single episode, moderate. Thompson II Deferred. Thompson III Per History and Physical. Plan: This clinician assessed this patient. Provided the patient with supportive psychotherapy and reality orientation. The patient has been weak and . Continue with medication management and behavioral management. This clinician has reviewed the patient's chart. Discussed the treatment with nursing staff. Miguel Angel Farris PsyD. DR: AUTUMN JOB#: [id number] CC:
[2017-04-07] MEDS: Memantine 5 MG TAB ORAL SCH ×2 (08:37→18:05)
[2017-04-07] MEDS: Cyclobenzaprine 10mg Tab ORAL SCH ×2 (08:38→18:06)
[2017-04-07] MEDS: Metoprolol Tartrate 50mg tab ORAL SCH ×2 (08:38→18:06)
[2017-04-07] MEDS: Lisinopril 20mg tab ORAL SCH (08:38)
[2017-04-07] MEDS: Vancomycin 1gm/D5W 275ml IVPB SCH ×4 (08:41→21:42)
[2017-04-07] MEDS: Heparin 5000 units/ml inj SUBQ SCH ×2 (08:56→21:48)
--- NOTE | 2017-04-07 09:53 | Pulmonology Progress Note ---
Assessment/Plan Assessment/Plan ASSESSMENT sepsis with bacteremia/Staph possible HCAP UTI with E coli pulmonary edema acute on chronic diastolic CHF COPD DM HTN Diabetic nephropathy cirrhosis left pleural effusion s/p thoracentesis mild hypervolemic hypoNa-resolved PLAN OF CARE tele O2 HHN prn s/p diuresis , pro BNP down, renal parameters stable ECHO with pEF 70-75% and RVSP of 29 abx ID follows urine cx + E coli, blood cx + Staph, pleural fluid cx preliminary negative s/p tap Left pleural effusion - 460 ml fup CXR with resolution of left pleural effusion, however next day 04/06 - recurrent left pleural effusion CXR this am , 04/07 no change, bilateral pleural effusion cytology pleural fluid pending will get CT chest BP management with CCB and BB, optimize as needed BS management with SS of insulin PT/OT/ST bowel regimen pain management DVT prophylaxis nephro follows, fluid restriction, monitor Na , stable now can be transferred to [place] floor if OK with cardio case discussed and evaluated by supervising physician Subjective Allergies: Coded Allergies: No Known Allergies (Unverified , 08/20/14) Subjective no signs of distress on o2 via NC pulse oximetry stable Objective Last 24 Hour Vital Signs Date Time Temp Pulse Resp B/P (MAP) Pulse Ox O2 Delivery O2 Flow Rate FiO2 04/07/17 08:38 79 139/74 04/07/17 08:38 139/74 04/07/17 08:38 79 139/74 04/07/17 08:00 97.9 79 21 139/74 100 Nasal Cannula 2.0 04/07/17 04:00 71 04/07/17 03:51 98.1 71 18 147/76 98 Nasal Cannula 2.0 04/07/17 00:00 76 04/06/17 23:53 98.6 69 16 130/70 91 Nasal Cannula 2.0 04/06/17 20:00 81 04/06/17 19:59 98.2 79 18 133/63 97 Nasal Cannula 2.0 04/06/17 19:51 81 20 Nasal Cannula 2.0 28 04/06/17 19:51 96 Nasal Cannula 2.0 28 04/06/17 19:51 Nasal Cannula 2.0 28 04/06/17 18:25 78 131/67 04/06/17 16:00 98.2 72 19 128/64 97 Nasal Cannula 2.0 04/06/17 16:00 71 04/06/17 12:00 98.1 78 18 125/64 95 Nasal Cannula 2.0 04/06/17 12:00 85 General Appearance: no acute distress, other - awake, obese AA female HEENT: normocephalic, atraumatic, anicteric Respiratory/Chest: lungs clear - with moderate air exchange , decreased breath sounds - on the left Cardiovascular: normal rate, regular rhythm - SR on tele Abdomen: normal bowel sounds, soft, non tender, non distended Extremities: no edema, pedal pulses normal Neurologic/Psychiatric: abnormal gait, alert Musculoskeletal: atrophy - BLE Microbiology Date/Time Source Procedure Growth Status 04/04/17 12:05 Blood Blood Culture - Final Staphylococcus Warneri Complete 04/04/17 10:05 Blood Blood Culture - Final Staphylococcus Warneri Complete 04/05/17 16:00 Thoracic Fluid Gram Stain - Final Resulted 04/05/17 16:00 Thoracic Fluid Body Fluid Culture - Preliminary NO GROWTH AFTER 24 HOURS Resulted 04/04/17 12:20 Nasal Nares MRSA Culture - Final Staphylococcus Aureus - Mrsa Complete 04/04/17 13:00 Urine,Clean Catch Urine Culture - Final Escherichia Coli Complete 04/04/17 12:20 Rectal Mucosa VRE Culture - Final NO VANCOMYCIN RESISTANT ENTEROCOCCUS ... Complete Laboratory Tests 04/06/17 17:40: Vancomycin Level Trough 5.0 04/07/17 05:15: White Blood Count 5.1, Red Blood Count 4.58, Hemoglobin 13.6, Hematocrit 43.6, Mean Corpuscular Volume 95, Mean Corpuscular Hemoglobin 29.6, Mean Corpuscular Hemoglobin Concent 31.2L, Red Cell Distribution Width 13.0, Platelet Count 124L , Mean Platelet Volume 9.6, Neutrophils (%) (Auto) 58.7, Lymphocytes (%) (Auto) 23.8, Monocytes (%) (Auto) 12.8H, Eosinophils (%) (Auto) 3.6H, Basophils (%) ( Auto) 1.1, Sodium Level 139, Potassium Level 4.1, Chloride Level 92L, Carbon Dioxide Level 40H, Anion Gap 7, Blood Urea Nitrogen 7, Creatinine 0.5, Estimat Glomerular Filtration Rate , Glucose Level 125H, Calcium Level 9.0, Phosphorus Level 2.9, Magnesium Level 1.8, Total Bilirubin 0.8, Aspartate Amino Transf (AST /SGOT) 46H, Alanine Aminotransferase (ALT/SGPT) 20, Alkaline Phosphatase 101, Total Protein 7.4, Albumin 3.4L, Globulin 4.0, Albumin/Globulin Ratio 0.8L Current Medications Medications (Trade) Dose Ordered Sig/Isabel Route PRN Reason Start Time Stop Time Status Last Admin Dose Admin Acetaminophen (Tylenol) 650 mg Q4H PRN ORAL Fever 04/04/17 13:45 05/04/17 13:44 04/04/17 15:40 Albuterol/ Ipratropium (DuoNeb 0.5-3(2.5)mg/3ml) 3 ml Q4H PRN HHN Shortness of Breath 04/04/17 13:45 04/09/17 13:44 Amlodipine Besylate (Norvasc) 10 mg DAILY ORAL 04/05/17 09:00 05/05/17 08:59 04/07/17 08:38 Cyclobenzaprine HCl (Flexeril) 10 mg BID ORAL 04/04/17 18:00 05/04/17 17:59 04/07/17 08:38 Dextrose (Dextrose 50%) STAT PRN IV Hypoglycemia 04/04/17 13:45 05/04/17 13:44 Heparin Sodium (Porcine) (Heparin 5000 units/ml) 5,000 units EVERY 12 HOURS SUBQ 04/04/17 21:00 05/04/17 20:59 04/04/17 21:22 Insulin Aspart (NovoLOG) BEFORE MEALS AND HS SUBQ 04/04/17 16:30 05/04/17 16:29 04/07/17 06:29 Levofloxacin 50 ml @ 50 mls/hr Q24H IVPB 04/07/17 11:00 04/14/17 10:59 Lisinopril (Prinivil) 40 mg DAILY ORAL 04/05/17 09:00 05/05/17 08:59 04/07/17 08:38 Lorazepam (Ativan) 1 mg Q6H PRN ORAL For Anxiety 04/06/17 05:00 04/13/17 04:59 Memantine (Namenda) 5 mg BID ORAL 04/06/17 09:00 05/05/17 08:59 04/07/17 08:37 Metoprolol Tartrate (Lopressor) 5 mg Q5MIN X 3 PRN IVP Per rx protocol 04/06/17 05:30 05/06/17 05:29 Metoprolol Tartrate (Lopressor) 50 mg BID ORAL 04/06/17 09:00 05/06/17 08:59 04/07/17 08:38 Mirtazapine (Remeron) 7.5 mg BEDTIME ORAL 04/04/17 21:00 05/04/17 20:59 04/06/17 20:51 Ondansetron HCl (Zofran) 4 mg Q6H PRN IVP Nausea & Vomiting 04/04/17 13:45 05/04/17 13:44 Oxycodone/ Acetaminophen (Percocet 10) 1 tab Q4H PRN ORAL PAIN 6-10 04/04/17 17:30 04/11/17 17:29 04/06/17 18:26 Polyethylene Glycol (Miralax) 17 gm DAILYPRN PRN ORAL Constipation 04/04/17 13:45 05/04/17 13:44 Promethazine HCl/ Codeine (Phenergan with Codeine) 5 ml Q4H PRN ORAL For Cough 04/05/17 13:00 05/05/17 12:59 Temazepam (Restoril) 15 mg HSPRN PRN ORAL Insomnia 04/04/17 13:45 04/11/17 13:44 Vancomycin HCl (Vanco rx to dose) 1 ea DAILY PRN MISC Per rx protocol 04/04/17 14:30 05/04/17 14:29 Vancomycin HCl 1 gm/Dextrose 275 ml @ 183.708 mls/hr Q12HR IVPB 04/07/17 09:00 04/12/17 08:59 04/07/17 08:41 Shane (Ghassan)Marimar NP Apr 07, 2017 09:53
[2017-04-07] MEDS ORDERED: DuoNeb 0.5-3(2.5)mg/3ml neb HHN PRN (10:00)
--- NOTE | 2017-04-07 10:02 | Nephrology Progress Note ---
Assessment/Plan Assessment 1. Mild hypervolemic hyponatremia. 2. Congestive heart failure exacerbation. 3. Chronic obstructive pulmonary disease. 4. Hypertension. 5. Diabetes. Plan plan Daily WT fluid restriction monitoring in and out put replace electrolyte diuretic Subjective Constitutional: Reports: no symptoms HEENT: Reports: no symptoms Genitourinary: Reports: no symptoms Neurologic/Psychiatric: Reports: no symptoms Subjective alert and awake no complaints Objective Objective Last 24 Hour Vital Signs Date Time Temp Pulse Resp B/P (MAP) Pulse Ox O2 Delivery O2 Flow Rate FiO2 04/07/17 08:38 79 139/74 04/07/17 08:38 139/74 04/07/17 08:38 79 139/74 04/07/17 08:00 87 04/07/17 08:00 97.9 79 21 139/74 100 Nasal Cannula 2.0 04/07/17 04:00 71 04/07/17 03:51 98.1 71 18 147/76 98 Nasal Cannula 2.0 04/07/17 00:00 76 04/06/17 23:53 98.6 69 16 130/70 91 Nasal Cannula 2.0 04/06/17 20:00 81 04/06/17 19:59 98.2 79 18 133/63 97 Nasal Cannula 2.0 04/06/17 19:51 81 20 Nasal Cannula 2.0 28 04/06/17 19:51 96 Nasal Cannula 2.0 28 04/06/17 19:51 Nasal Cannula 2.0 28 04/06/17 18:25 78 131/67 04/06/17 16:00 98.2 72 19 128/64 97 Nasal Cannula 2.0 04/06/17 16:00 71 04/06/17 12:00 98.1 78 18 125/64 95 Nasal Cannula 2.0 04/06/17 12:00 85 Laboratory Tests 04/06/17 17:40: Vancomycin Level Trough 5.0 04/07/17 05:15: White Blood Count 5.1, Red Blood Count 4.58, Hemoglobin 13.6, Hematocrit 43.6, Mean Corpuscular Volume 95, Mean Corpuscular Hemoglobin 29.6, Mean Corpuscular Hemoglobin Concent 31.2L, Red Cell Distribution Width 13.0, Platelet Count 124L , Mean Platelet Volume 9.6, Neutrophils (%) (Auto) 58.7, Lymphocytes (%) (Auto) 23.8, Monocytes (%) (Auto) 12.8H, Eosinophils (%) (Auto) 3.6H, Basophils (%) ( Auto) 1.1, Sodium Level 139, Potassium Level 4.1, Chloride Level 92L, Carbon Dioxide Level 40H, Anion Gap 7, Blood Urea Nitrogen 7, Creatinine 0.5, Estimat Glomerular Filtration Rate , Glucose Level 125H, Calcium Level 9.0, Phosphorus Level 2.9, Magnesium Level 1.8, Total Bilirubin 0.8, Aspartate Amino Transf (AST /SGOT) 46H, Alanine Aminotransferase (ALT/SGPT) 20, Alkaline Phosphatase 101, Total Protein 7.4, Albumin 3.4L, Globulin 4.0, Albumin/Globulin Ratio 0.8L Height (Feet): 5 Height (Inches): 5.00 Weight (Pounds): 224 Objective Head and Neck: No JVP. No LAD. No thyromegaly. Extraocular movements intact. Pupils are reactive to light and accommodation. LUNGS: Decreased breathing sounds on both sides. CARDIAC: Regular rate and rhythm. S1 and S2, tachycardic. ABDOMEN: Obese, nontender, and nondistended. EXTREMITIES: She has 1+ edema. No clubbing. No cyanosis. Neurologic: Cranial nerves II through XII are within normal limits. Upper and lower extremities are grossly intact. TESSIE ASCENCIO Apr 07, 2017 10:02
[2017-04-07] MEDS: Levofloxacin 250mg/D5W 50ml IVPB SCH (11:11)
[2017-04-07 12:00] VITALS: BP 131/69
--- NOTE | 2017-04-07 12:25 | Diagnostic Imaging Report ---
Indication: SOB Technique: One view of the chest Comparison: 04/06/2017 Findings: Bilateral pleural effusions and basilar atelectatic changes, interstitial congestive changes persists, stable. Cardiomegaly is unchanged. Degenerative changes of both shoulders again noted Impression: Unchanged, over one day, findings as above.
[2017-04-07] MEDS ORDERED: Tubing IV Secondary IV ONE (14:31)
[2017-04-07] MEDS ORDERED: D5W 275ml ONE (14:31)
[2017-04-07 16:00] VITALS: BP 130/65
--- NOTE | 2017-04-07 16:04 | Diagnostic Imaging Report ---
Clinical Indication: SOB shortness of breath, history left-sided pleural effusion Technique: IV administration nonionic contrast. Spiral acquisition obtained through the chest. Multiplanar reconstructions generated. Total dose length product 1321 mGycm. CTDIvol(s) 8, 89, 25, 26 mGy. Dose reduction achieved using automated exposure control Comparison: None Findings: There is a moderate size left-sided pleural effusion and a small to moderate right-sided pleural effusion. There is compressive atelectasis of a significant portion of the right lower lobe, and compressive atelectasis of most of the left lower lobe. Some atelectatic changes are also seen in the posterior inferior lingula. The right upper and middle lobes are clear. The heart is borderline enlarged. No pericardial effusion. No mediastinal or hilar mass or adenopathy. The included portions of the thyroid are unremarkable. No axillary or chest wall mass or adenopathy. The main pulmonary artery is ectatic, measuring 37 mm in diameter. The included upper abdominal anatomy is remarkable for considerable surface nodularity of the liver. There is ascites fluid present. The spleen is incompletely included but appears enlarged. There is considerable thoracic scoliotic deformity. There is some secondary degenerative change. Impression: Bilateral pleural effusions, left greater than right. Resultant bilateral lower lobe compressive atelectasis Borderline cardiomegaly Ectatic main pulmonary artery. This is suspicious for pulmonary arterial hypertension Hepatic surface nodularity, consistent with cirrhosis. This has been described previously. Ascites Scoliosis and secondary degenerative change The CT scanner at [facility] is accredited by the [employer] and the scans are performed using protocols designed to limit radiation exposure to as low as reasonably achievable to attain images of sufficient resolution adequate for diagnostic evaluation.
--- NOTE | 2017-04-07 17:33 | Infectious Diseases Prog Note ---
Assessment/Plan Problems: (1) HCAP (healthcare-associated pneumonia) Assessment & Plan: with fever, improving on levaquin and vancomycin empirically pending culture results. (2) UTI (urinary tract infection) Assessment & Plan: due to E coli, intermediate to zosyn , on levaquin (3) Sepsis due to Staphylococcus Assessment & Plan: source unclear, will treat with vancomycin for 4 weeks , since echo didn't show any vegetations, will repeat blood culture to confirm clearance (4) DM (diabetes mellitus) Assessment & Plan: recommend tight glycemic control to keep blood glucose between 80-120 (5) Pulmonary edema Assessment & Plan: due to CHF, needs diureses , pulmonary is following (6) CHF (congestive heart failure) Assessment & Plan: with acute exacerbation, continue diuretics, recommend cardiology eval (7) Hypoxia Assessment & Plan: due to the above, continue oxygen, and dieuretics , monitor cxr Subjective Constitutional: Reports: no symptoms HEENT: Reports: no symptoms Respiratory: Reports: dry cough Breasts: Reports: no symptoms Cardiovascular: Reports: no symptoms Gastrointestinal/Abdominal: Reports: no symptoms Genitourinary: Reports: no symptoms Neurologic: Reports: no symptoms Psychiatric: Reports: no symptoms Skin: Reports: no symptoms Endocrine: Reports: no symptoms Hematologic: Reports: no symptoms Musculoskeletal: Reports: no symptoms Allergies: Coded Allergies: No Known Allergies (Unverified , 08/20/14) Objective Vital Signs Last 24 Hour Vital Signs Date Time Temp Pulse Resp B/P (MAP) Pulse Ox O2 Delivery O2 Flow Rate FiO2 04/07/17 16:00 98.4 74 20 130/65 97 Nasal Cannula 2.0 04/07/17 16:00 82 04/07/17 12:00 71 04/07/17 12:00 97.9 69 20 131/69 98 Nasal Cannula 2.0 04/07/17 08:38 79 139/74 04/07/17 08:38 139/74 04/07/17 08:38 79 139/74 04/07/17 08:00 87 04/07/17 08:00 97.9 79 21 139/74 100 Nasal Cannula 2.0 04/07/17 07:45 99 Nasal Cannula 2.0 04/07/17 07:45 78 18 Nasal Cannula 2.0 04/07/17 07:45 Nasal Cannula 2.0 04/07/17 04:00 71 04/07/17 03:51 98.1 71 18 147/76 98 Nasal Cannula 2.0 04/07/17 00:00 76 04/06/17 23:53 98.6 69 16 130/70 91 Nasal Cannula 2.0 04/06/17 20:00 81 04/06/17 19:59 98.2 79 18 133/63 97 Nasal Cannula 2.0 04/06/17 19:51 81 20 Nasal Cannula 2.0 28 04/06/17 19:51 96 Nasal Cannula 2.0 28 04/06/17 19:51 Nasal Cannula 2.0 28 04/06/17 18:25 78 131/67 Height (Feet): 5 Height (Inches): 5.00 Weight (Pounds): 224 General Appearance: WD/WN, no acute distress HEENT: normocephalic, atraumatic, anicteric, mucous membranes moist Respiratory/Chest: chest wall non-tender, no respiratory distress, no accessory muscle use, decreased breath sounds, crackles/rales Cardiovascular: normal peripheral pulses, normal rate, regular rhythm, no gallop/murmur, no JVD Abdomen: normal bowel sounds, soft, non tender, no organomegaly, non distended , no mass, no scars Extremities: no cyanosis, no clubbing Skin: no rash, no lesions Microbiology Date/Time Source Procedure Growth Status 04/05/17 16:00 Thoracic Fluid Gram Stain - Final Resulted 04/05/17 16:00 Thoracic Fluid Body Fluid Culture - Preliminary NO GROWTH AFTER 48 HOURS Resulted Laboratory Tests Test 04/06/17 17:40 04/07/17 05:15 Vancomycin Level Trough 5.0 ug/mL (5.0-12.0) White Blood Count 5.1 K/UL (4.8-10.8) Red Blood Count 4.58 M/UL (4.20-5.40) Hemoglobin 13.6 G/DL (12.0-16.0) Hematocrit 43.6 % (37.0-47.0) Mean Corpuscular Volume 95 FL (80-99) Mean Corpuscular Hemoglobin 29.6 PG (27.0-31.0) Mean Corpuscular Hemoglobin Concent 31.2 G/DL (32.0-36.0) L Red Cell Distribution Width 13.0 % (11.6-14.8) Platelet Count 124 K/UL (150-450) L Mean Platelet Volume 9.6 FL (6.5-10.1) Neutrophils (%) (Auto) 58.7 % (45.0-75.0) Lymphocytes (%) (Auto) 23.8 % (20.0-45.0) Monocytes (%) (Auto) 12.8 % (1.0-10.0) H Eosinophils (%) (Auto) 3.6 % (0.0-3.0) H Basophils (%) (Auto) 1.1 % (0.0-2.0) Sodium Level 139 mEQ/L (135-145) Potassium Level 4.1 mEQ/L (3.4-4.9) Chloride Level 92 mEQ/L (98-107) L Carbon Dioxide Level 40 mEQ/L (20-30) H Anion Gap 7 (5-15) Blood Urea Nitrogen 7 mg/dL (7-23) Creatinine 0.5 mg/dL (0.5-0.9) Estimat Glomerular Filtration Rate mL/min (>60) Glucose Level 125 mg/dL (74-106) H Calcium Level 9.0 mg/dL (8.6-10.2) Phosphorus Level 2.9 mg/dL (2.5-4.8) Magnesium Level 1.8 mg/dL (1.7-2.5) Total Bilirubin 0.8 mg/dL (0.0-1.2) Aspartate Amino Transf (AST/SGOT) 46 U/L (5-40) H Alanine Aminotransferase (ALT/SGPT) 20 U/L (3-33) Alkaline Phosphatase 101 U/L (35-104) Total Protein 7.4 g/dL (6.6-8.7) Albumin 3.4 g/dL (3.5-5.2) L Globulin 4.0 g/dL Albumin/Globulin Ratio 0.8 (1.0-2.7) L Current Medications Medications (Trade) Dose Ordered Sig/Isabel Route PRN Reason Start Time Stop Time Status Last Admin Dose Admin Acetaminophen (Tylenol) 650 mg Q4H PRN ORAL Fever 04/04/17 13:45 05/04/17 13:44 04/04/17 15:40 Albuterol/ Ipratropium (DuoNeb 0.5-3(2.5)mg/3ml) 3 ml Q4H PRN HHN Shortness of Breath 04/07/17 10:00 04/12/17 09:59 Amlodipine Besylate (Norvasc) 10 mg DAILY ORAL 04/05/17 09:00 05/05/17 08:59 04/07/17 08:38 Cyclobenzaprine HCl (Flexeril) 10 mg BID ORAL 04/04/17 18:00 05/04/17 17:59 04/07/17 08:38 Dextrose (Dextrose 50%) STAT PRN IV Hypoglycemia 04/04/17 13:45 05/04/17 13:44 Heparin Sodium (Porcine) (Heparin 5000 units/ml) 5,000 units EVERY 12 HOURS SUBQ 04/04/17 21:00 05/04/17 20:59 04/04/17 21:22 Insulin Aspart (NovoLOG) BEFORE MEALS AND HS SUBQ 04/04/17 16:30 05/04/17 16:29 04/07/17 16:38 Levofloxacin 50 ml @ 50 mls/hr Q24H IVPB 04/07/17 11:00 04/14/17 10:59 04/07/17 11:11 Lisinopril (Prinivil) 40 mg DAILY ORAL 04/05/17 09:00 05/05/17 08:59 04/07/17 08:38 Lorazepam (Ativan) 1 mg Q6H PRN ORAL For Anxiety 04/06/17 05:00 04/13/17 04:59 Memantine (Namenda) 5 mg BID ORAL 04/06/17 09:00 05/05/17 08:59 04/07/17 08:37 Metoprolol Tartrate (Lopressor) 5 mg Q5MIN X 3 PRN IVP Per rx protocol 04/06/17 05:30 05/06/17 05:29 Metoprolol Tartrate (Lopressor) 50 mg BID ORAL 04/06/17 09:00 05/06/17 08:59 04/07/17 08:38 Mirtazapine (Remeron) 7.5 mg BEDTIME ORAL 04/04/17 21:00 05/04/17 20:59 04/06/17 20:51 Ondansetron HCl (Zofran) 4 mg Q6H PRN IVP Nausea & Vomiting 04/04/17 13:45 05/04/17 13:44 Oxycodone/ Acetaminophen (Percocet 10) 1 tab Q4H PRN ORAL PAIN 6-10 04/04/17 17:30 04/11/17 17:29 04/07/17 11:26 Polyethylene Glycol (Miralax) 17 gm DAILYPRN PRN ORAL Constipation 04/04/17 13:45 05/04/17 13:44 Promethazine HCl/ Codeine (Phenergan with Codeine) 5 ml Q4H PRN ORAL For Cough 04/05/17 13:00 05/05/17 12:59 Temazepam (Restoril) 15 mg HSPRN PRN ORAL Insomnia 04/04/17 13:45 04/11/17 13:44 Vancomycin HCl (Vanco rx to dose) 1 ea DAILY PRN MISC Per rx protocol 04/04/17 14:30 05/04/17 14:29 Vancomycin HCl 1 gm/Dextrose 275 ml @ 183.708 mls/hr Q12HR IVPB 04/07/17 09:00 04/12/17 08:59 04/07/17 08:41 Siria Ellison M.D. Apr 07, 2017 17:33
[2017-04-07 20:00] VITALS: BP 135/65
[2017-04-07] MEDS ORDERED: Artificial Tears 1.4% Op Soln BOTH EYES PRN ×2 (20:45→22:45)
[2017-04-07 23:47] VITALS: BP 134/70
[2017-04-08 03:51] VITALS: BP 132/75
[2017-04-08] MEDS: NovoLOG Insulin Flexpen SUBQ SCH ×2 (06:16→11:25)
[2017-04-08 08:00] VITALS: BP 152/76
[2017-04-08 08:30] LABS: BASOPHILS % (AUTO) 0.6 % (0.0-2.0); LYMPHOCYTES % (AUTO) 15.4 % (20.0-45.0); MEAN CORPUSCULAR HEMOGLOBIN 29.8 PG (27.0-31.0); MEAN CORPUSCULAR HGB CONC 31.9 G/DL (32.0-36.0); MEAN CORPUSCULAR VOLUME 93 FL (80-99); MEAN PLATELET VOLUME 8.2 FL (6.5-10.1); MONOCYTES % (AUTO) 7.2 % (1.0-10.0); NEUTROPHILS % (AUTO) 73.9 % (45.0-75.0); PLATELET COUNT 128 K/UL (150-450); RED BLOOD COUNT 4.57 M/UL (4.20-5.40); RED CELL DISTRIBUTION WIDTH 12.6 % (11.6-14.8); WHITE BLOOD COUNT 6.2 K/UL (4.8-10.8)
[2017-04-08 09:01] LABS: ANION GAP 5 (5-15); CARBON DIOXIDE 41 mEQ/L (20-30); CHLORIDE 92 mEQ/L (98-107); CREATININE 0.4 mg/dL (0.5-0.9); HEMOLYSIS 5; SODIUM 138 mEQ/L (135-145)
[2017-04-08] MEDS: Lisinopril 20mg tab ORAL SCH (09:16)
[2017-04-08] MEDS: Metoprolol Tartrate 50mg tab ORAL SCH (09:17)
[2017-04-08] MEDS: Memantine 5 MG TAB ORAL SCH (09:17)
[2017-04-08] MEDS: Cyclobenzaprine 10mg Tab ORAL SCH (09:18)
[2017-04-08] MEDS: Heparin 5000 units/ml inj SUBQ SCH (09:19)
[2017-04-08] MEDS: Vancomycin 1gm/D5W 275ml IVPB SCH ×2 (09:25)
[2017-04-08] MEDS: Levofloxacin 250mg/D5W 50ml IVPB SCH (11:26)
--- NOTE | 2017-04-08 11:52 | Pulmonology Progress Note ---
Assessment/Plan Assessment/Plan ASSESSMENT sepsis with bacteremia/Staph possible HCAP UTI with E coli pulmonary edema acute on chronic diastolic CHF COPD DM HTN Diabetic nephropathy cirrhosis left pleural effusion ( recurrent) s/p thoracentesis mild hypervolemic hypoNa-resolved cirrhosis PLAN OF CARE O2 HHN prn s/p diuresis , pro BNP down, renal parameters stable ECHO with pEF 70-75% and RVSP of 29 abx ID follows urine cx + E coli, blood cx + Staph, pleural fluid cx preliminary negative s/p tap Left pleural effusion - 460 ml fup CXR with resolution of left pleural effusion, however next day 04/06 - recurrent left pleural effusion CXR , 04/07 no change, bilateral pleural effusion cytology pleural fluid pending CT chest with Bilateral pleural effusions, left greater than right. Resultant bilateral lower lobe compressive atelectasis Borderline cardiomegaly Ectatic main pulmonary artery. This is suspicious for pulmonary arterial hypertension Hepatic surface nodularity, consistent with cirrhosis recurrence of pleural effusion likely due to underlying liver disease CHF stable and compensated at this point last time only 46o ml was tapped hold on tap for now will fup with CXR BP management with CCB and BB, optimize as needed BS management with SS of insulin PT/OT/ST bowel regimen pain management DVT prophylaxis nephro follows, fluid restriction, monitor Na , stable now can be transferred to [facility] floor ( cardio cleared) case discussed and evaluated by supervising physician Subjective Allergies: Coded Allergies: No Known Allergies (Unverified , 08/20/14) Subjective no signs of distress on o2 via NC pulse oximetry stable Objective Last 24 Hour Vital Signs Date Time Temp Pulse Resp B/P (MAP) Pulse Ox O2 Delivery O2 Flow Rate FiO2 04/08/17 09:17 81 152/76 04/08/17 09:17 81 152/76 04/08/17 09:16 152/76 04/08/17 08:00 97.5 81 20 152/76 98 Nasal Cannula 2.0 04/08/17 08:00 88 04/08/17 07:34 Nasal Cannula 2.0 28 04/08/17 07:33 97 Nasal Cannula 2.0 28 04/08/17 07:33 78 16 Nasal Cannula 2.0 04/08/17 04:00 74 04/08/17 03:51 98.5 73 19 132/75 97 Nasal Cannula 2.0 04/08/17 00:00 81 9/21/17 23:47 98.1 78 18 134/70 96 Nasal Cannula 2.0 04/07/17 20:46 84 18 Nasal Cannula 2.0 04/07/17 20:46 98 Nasal Cannula 2.0 04/07/17 20:46 Nasal Cannula 2.0 04/07/17 20:00 98.8 82 19 135/65 98 Nasal Cannula 2.0 04/07/17 20:00 77 04/07/17 18:06 82 130/65 04/07/17 16:00 98.4 74 20 130/65 97 Nasal Cannula 2.0 04/07/17 16:00 82 04/07/17 12:00 71 04/07/17 12:00 97.9 69 20 131/69 98 Nasal Cannula 2.0 Intake and Output 04/08/17 04/09/17 19:00 07:00 Intake Total 367.416 ml Balance 367.416 ml IV Total 367.416 ml Objective General Appearance: no acute distress, other - awake, obese AA female HEENT: normocephalic, atraumatic, anicteric Respiratory/Chest: lungs clear - with moderate air exchange , decreased breath sounds - on the left Cardiovascular: normal rate, regular rhythm - SR on tele Abdomen: normal bowel sounds, soft, non tender, non distended Extremities: no edema, pedal pulses normal Neurologic/Psychiatric: abnormal gait, alert Musculoskeletal: atrophy - BLE Microbiology Date/Time Source Procedure Growth Status 04/05/17 16:00 Thoracic Fluid Gram Stain - Final Resulted 04/05/17 16:00 Thoracic Fluid Body Fluid Culture - Preliminary NO GROWTH AFTER 72 HOURS Resulted 04/07/17 18:00 Stool Clostridium difficile Toxin Assay - Final Complete Laboratory Tests 04/08/17 08:15: White Blood Count 6.2, Red Blood Count 4.57, Hemoglobin 13.6, Hematocrit 42.6, Mean Corpuscular Volume 93, Mean Corpuscular Hemoglobin 29.8, Mean Corpuscular Hemoglobin Concent 31.9L, Red Cell Distribution Width 12.6, Platelet Count 128L , Mean Platelet Volume 8.2, Neutrophils (%) (Auto) 73.9, Lymphocytes (%) (Auto) 15.4L, Monocytes (%) (Auto) 7.2, Eosinophils (%) (Auto) 3.0, Basophils (%) (Auto ) 0.6, Sodium Level 138, Potassium Level 4.0, Chloride Level 92L, Carbon Dioxide Level 41*H, Anion Gap 5, Blood Urea Nitrogen 7, Creatinine 0.4L, Estimat Glomerular Filtration Rate , Glucose Level 130H, Calcium Level 9.0, Vancomycin Level Trough 11.8 Current Medications Medications (Trade) Dose Ordered Sig/Isabel Route PRN Reason Start Time Stop Time Status Last Admin Dose Admin Acetaminophen (Tylenol) 650 mg Q4H PRN ORAL Fever 04/04/17 13:45 05/04/17 13:44 04/04/17 15:40 Albuterol/ Ipratropium (DuoNeb 0.5-3(2.5)mg/3ml) 3 ml Q4H PRN HHN Shortness of Breath 04/07/17 10:00 04/12/17 09:59 Amlodipine Besylate (Norvasc) 10 mg DAILY ORAL 04/05/17 09:00 05/05/17 08:59 04/08/17 09:17 Artificial Tears (Akwa-Tears) 1 drop Q4H PRN BOTH EYES Dry Eyes 04/07/17 22:45 05/07/17 22:44 Cyclobenzaprine HCl (Flexeril) 10 mg BID ORAL 04/04/17 18:00 05/04/17 17:59 04/08/17 09:18 Dextrose (Dextrose 50%) STAT PRN IV Hypoglycemia 04/04/17 13:45 05/04/17 13:44 Heparin Sodium (Porcine) (Heparin 5000 units/ml) 5,000 units EVERY 12 HOURS SUBQ 04/07/17 21:00 05/07/17 20:59 04/08/17 09:19 Insulin Aspart (NovoLOG) BEFORE MEALS AND HS SUBQ 04/04/17 16:30 05/04/17 16:29 04/08/17 11:25 Levofloxacin 50 ml @ 50 mls/hr Q24H IVPB 04/07/17 11:00 04/14/17 10:59 04/08/17 11:26 Lisinopril (Prinivil) 40 mg DAILY ORAL 04/05/17 09:00 05/05/17 08:59 04/08/17 09:16 Lorazepam (Ativan) 1 mg Q6H PRN ORAL For Anxiety 04/06/17 05:00 04/13/17 04:59 Memantine (Namenda) 5 mg BID ORAL 04/06/17 09:00 05/05/17 08:59 04/08/17 09:17 Metoprolol Tartrate (Lopressor) 5 mg Q5MIN X 3 PRN IVP Per rx protocol 04/06/17 05:30 05/06/17 05:29 Metoprolol Tartrate (Lopressor) 50 mg BID ORAL 04/06/17 09:00 05/06/17 08:59 04/08/17 09:17 Mirtazapine (Remeron) 7.5 mg BEDTIME ORAL 04/04/17 21:00 05/04/17 20:59 04/07/17 21:42 Ondansetron HCl (Zofran) 4 mg Q6H PRN IVP Nausea & Vomiting 04/04/17 13:45 05/04/17 13:44 Oxycodone/ Acetaminophen (Percocet 10/325) 1 tab Q4H PRN ORAL PAIN 6-10 04/04/17 17:30 04/11/17 17:29 04/07/17 22:44 Polyethylene Glycol (Miralax) 17 gm DAILYPRN PRN ORAL Constipation 04/04/17 13:45 05/04/17 13:44 Promethazine HCl/ Codeine (Phenergan with Codeine) 5 ml Q4H PRN ORAL For Cough 04/05/17 13:00 05/05/17 12:59 Temazepam (Restoril) 15 mg HSPRN PRN ORAL Insomnia 04/04/17 13:45 04/11/17 13:44 04/07/17 21:43 Vancomycin HCl (Vanco rx to dose) 1 ea DAILY PRN MISC Per rx protocol 04/04/17 14:30 05/04/17 14:29 Vancomycin HCl 1 gm/Dextrose 275 ml @ 183.708 mls/hr Q12HR IVPB 04/07/17 09:00 04/12/17 08:59 04/08/17 09:25 Marimar Lynn NP (Vanchtein) Apr 08, 2017 11:52
[2017-04-08 12:00] VITALS: BP 131/70
--- NOTE | 2017-04-08 13:38 | General Progress Note ---
Assessment/Plan Problem List: (1) OBESITY, NOS (2) HTN (hypertension) ICD Codes: I10 - Essential (primary) hypertension SNOMED: 71627821 (3) SOB (shortness of breath) ICD Codes: R06.02 - Shortness of breath SNOMED: 161646695 (4) Chronic pain ICD Codes: G89.29 - Other chronic pain SNOMED: 70326352 (5) UTI (lower urinary tract infection) ICD Codes: N39.0 - UTI (lower urinary tract infection) SNOMED: 5793571 (6) Edema ICD Codes: R60.9 - Edema, unspecified SNOMED: 588709104, 379232027 (7) CHF (congestive heart failure) ICD Codes: I50.9 - Heart failure, unspecified SNOMED: 18014373 (8) COPD (chronic obstructive pulmonary disease) ICD Codes: J44.9 - Chronic obstructive pulmonary disease, unspecified SNOMED: 82797923 Status: stable, progressing, tolerating diet Assessment/Plan o2 pulm tx ot pt diet bp pain control cbc bmp am dc if clear Subjective Constitutional: Reports: weakness Allergies: Coded Allergies: No Known Allergies (Unverified , 08/20/14) All Systems: reviewed and negative except above Subjective calm in bed o2 nc Objective Last 24 Hour Vital Signs Date Time Temp Pulse Resp B/P (MAP) Pulse Ox O2 Delivery O2 Flow Rate FiO2 04/08/17 12:00 71 04/08/17 12:00 97.7 73 21 131/70 99 Nasal Cannula 2.0 04/08/17 09:17 81 152/76 04/08/17 09:17 81 152/76 04/08/17 09:16 152/76 04/08/17 08:00 97.5 81 20 152/76 98 Nasal Cannula 2.0 04/08/17 08:00 88 04/08/17 07:34 Nasal Cannula 2.0 28 04/08/17 07:33 97 Nasal Cannula 2.0 28 04/08/17 07:33 78 16 Nasal Cannula 2.0 04/08/17 04:00 74 04/08/17 03:51 98.5 73 19 132/75 97 Nasal Cannula 2.0 04/08/17 00:00 81 04/07/17 23:47 98.1 78 18 134/70 96 Nasal Cannula 2.0 04/07/17 20:46 84 18 Nasal Cannula 2.0 04/07/17 20:46 98 Nasal Cannula 2.0 04/07/17 20:46 Nasal Cannula 2.0 04/07/17 20:00 98.8 82 19 135/65 98 Nasal Cannula 2.0 04/07/17 20:00 77 04/07/17 18:06 82 130/65 04/07/17 16:00 98.4 74 20 130/65 97 Nasal Cannula 2.0 04/07/17 16:00 82 Intake and Output 04/08/17 04/09/17 19:00 07:00 Intake Total 417.416 ml Balance 417.416 ml IV Total 417.416 ml Laboratory Tests 04/08/17 08:15: White Blood Count 6.2, Red Blood Count 4.57, Hemoglobin 13.6, Hematocrit 42.6, Mean Corpuscular Volume 93, Mean Corpuscular Hemoglobin 29.8, Mean Corpuscular Hemoglobin Concent 31.9L, Red Cell Distribution Width 12.6, Platelet Count 128L , Mean Platelet Volume 8.2, Neutrophils (%) (Auto) 73.9, Lymphocytes (%) (Auto) 15.4L, Monocytes (%) (Auto) 7.2, Eosinophils (%) (Auto) 3.0, Basophils (%) (Auto ) 0.6, Sodium Level 138, Potassium Level 4.0, Chloride Level 92L, Carbon Dioxide Level 41*H, Anion Gap 5, Blood Urea Nitrogen 7, Creatinine 0.4L, Estimat Glomerular Filtration Rate , Glucose Level 130H, Calcium Level 9.0, Vancomycin Level Trough 11.8 Height (Feet): 5 Height (Inches): 5.00 Weight (Pounds): 223 General Appearance: lethargic EENT: normal ENT inspection Neck: normal alignment Cardiovascular: normal peripheral pulses, normal rate, regular rhythm Respiratory/Chest: chest wall non-tender, lungs clear, normal breath sounds Abdomen: normal bowel sounds, non tender, soft Extremities: normal inspection Edema: no edema noted Arm (L), no edema noted Arm (R), no edema noted Leg (L), no edema noted Leg (R), no edema noted Pedal (L), no edema noted Pedal (R), no edema noted Generalized Neurologic: responsive, motor weakness Skin: normal pigmentation, warm/dry KUMAR ENGLISH Apr 08, 2017 13:38
[2017-04-08] MEDS ORDERED: Miralax 17gm pkt ORAL PRN (13:45)
[2017-04-08] MEDS ORDERED: Heparin 2000 units/Ns 1000ml INJ PRN ×2 (14:00→14:30)
[2017-04-08] MEDS ORDERED: Lidocaine 1% Plain 30 ml INJ PRN ×2 (14:00→14:30)
[2017-04-08] MEDS ORDERED: Sodium Bicarbonate 50ml Carp IV PRN ×2 (14:00→14:30)
[2017-04-08] MEDS ORDERED: LORazepam 1mg tab ORAL PRN (14:30)
[2017-04-08] MEDS ORDERED: Promethazine/Codeine 5ml UD ORAL PRN (14:30)
[2017-04-08] MEDS ORDERED: DuoNeb 0.5-3(2.5)mg/3ml neb HHN PRN (14:30)
[2017-04-08] MEDS ORDERED: Metoprolol 5mg/5ml Inj IVP PRN (14:30)
[2017-04-08] MEDS ORDERED: Artificial Tears 1.4% Op Soln BOTH EYES PRN (14:45)
[2017-04-08] MEDS ORDERED: LEVOFLOXAC250 MG/50 IVPB (15:20)
[2017-04-08] MEDS ORDERED: VANCOMYCIN1 GM/2502 IVPB (15:20)
[2017-04-08] MEDS ORDERED: PROMETH-CODEIN 65 ML PO (15:21)
[2017-04-08] MEDS ORDERED: MIRALAX17 G2 ORAL (15:21)
[2017-04-08] MEDS ORDERED: ZOFRAN 4 MG4 MG/2 ML IV (15:21)
[2017-04-08] MEDS ORDERED: ATIVAN1 MG ORAL (15:22)
[2017-04-08] MEDS ORDERED: METOPROLOL TART50 M1 ORAL (15:23)
[2017-04-08] MEDS ORDERED: NAMENDA5 MG ORAL (15:23)
[2017-04-08] MEDS ORDERED: ARTIFICIAL TEAR15 ML BOTH EYES (15:24)
[2017-04-08] MEDS ORDERED: ACETAMINOPHEN325 M1 ORAL (15:24)
[2017-04-08] MEDS ORDERED: CYCLOBENZAPRINE10 MG ORAL (15:25)
--- NOTE | 2017-04-08 15:36 | Diagnostic Imaging Report ---
Indications: Needs long-term IV access Technique: Ultrasound confirms patent compressible left basilic vein. Total sterile technique, including sterile probe cover and sterile gel, hat, mask,, sterile gown, large sterile drape, and preparation with 2% chlorhexidine utilized. Local anesthesia with 1% lidocaine. Under real-time ultrasound guidance, puncture basilic vein using 21-gauge needle, documented and archived, passage 0.018 guidewire under direct fluoroscopy, which was used to determine appropriate catheter length, exchange for 5 Yoruba peel-away sheath. 5 Yoruba Bard dual-lumen power PICC cut to 45 cm. It was inserted through the peel-away sheath. Peel-away sheath and guidewire removed. Catheter fixed to the skin. Both catheter ports aspirated and flushed. Patient tolerated procedure well, without immediate complication. Digital radiograph documents satisfactory catheter tip position, at the cavoatrial junction. Total fluoroscopy time 0.3 minutes. Total dose area product 13 dGycm2 Impression: Successful placement of left arm PICC under sonographic and fluoroscopic guidance, as described above.
[2017-04-08 16:07] VITALS: BP 159/76
[2017-04-08] MEDS ORDERED: NovoLOG Insulin Flexpen SUBQ SCH (16:30)
[2017-04-08 17:10] VITALS: BP 159/76
--- NOTE | 2017-04-08 17:47 | Infectious Diseases Prog Note ---
Assessment/Plan Problems: (1) HCAP (healthcare-associated pneumonia) Assessment & Plan: with fever, on levaquin and vancomycin empirically pending culture results. (2) UTI (urinary tract infection) Assessment & Plan: due to E coli, intermediate to zosyn , continue levaquin for 7 days total (3) Sepsis due to Staphylococcus Assessment & Plan: source unclear, continue vancomycin for 4 weeks to treat for bacteremia , starting from the date her repeated blood culture is negative (4) DM (diabetes mellitus) Assessment & Plan: recommend tight glycemic control to keep blood glucose between 80-120 (5) Pulmonary edema Assessment & Plan: due to CHF, needs diureses , pulmonary is following (6) CHF (congestive heart failure) Assessment & Plan: with acute exacerbation, continue diuretics, recommend cardiology eval (7) Hypoxia Assessment & Plan: due to the above, continue oxygen, and dieuretics , monitor cxr Subjective Constitutional: Reports: no symptoms Respiratory: Reports: no symptoms Breasts: Reports: no symptoms Cardiovascular: Reports: no symptoms Gastrointestinal/Abdominal: Reports: no symptoms Genitourinary: Reports: no symptoms Neurologic: Reports: no symptoms Psychiatric: Reports: no symptoms Skin: Reports: no symptoms Endocrine: Reports: no symptoms Hematologic: Reports: no symptoms Allergies: Coded Allergies: No Known Allergies (Unverified , 08/20/14) Objective Vital Signs Last 24 Hour Vital Signs Date Time Temp Pulse Resp B/P (MAP) Pulse Ox O2 Delivery O2 Flow Rate FiO2 04/08/17 17:10 86 159/76 04/08/17 16:07 98.6 86 19 159/76 96 Nasal Cannula 2.0 04/08/17 12:00 71 04/08/17 12:00 97.7 73 21 131/70 99 Nasal Cannula 2.0 04/08/17 09:17 81 152/76 04/08/17 09:17 81 152/76 04/08/17 09:16 152/76 04/08/17 08:00 97.5 81 20 152/76 98 Nasal Cannula 2.0 04/08/17 08:00 88 04/08/17 07:34 Nasal Cannula 2.0 28 04/08/17 07:33 97 Nasal Cannula 2.0 28 04/08/17 07:33 78 16 Nasal Cannula 2.0 04/08/17 04:00 74 04/08/17 03:51 98.5 73 19 132/75 97 Nasal Cannula 2.0 04/08/17 00:00 81 04/07/17 23:47 98.1 78 18 134/70 96 Nasal Cannula 2.0 04/07/17 20:46 84 18 Nasal Cannula 2.0 04/07/17 20:46 98 Nasal Cannula 2.0 04/07/17 20:46 Nasal Cannula 2.0 04/07/17 20:00 98.8 82 19 135/65 98 Nasal Cannula 2.0 04/07/17 20:00 77 04/07/17 18:06 82 130/65 Height (Feet): 5 Height (Inches): 5.00 Weight (Pounds): 223 General Appearance: WD/WN, no acute distress HEENT: normocephalic, atraumatic, anicteric, mucous membranes moist Respiratory/Chest: normal breath sounds, no respiratory distress, no accessory muscle use, decreased breath sounds, crackles/rales Cardiovascular: normal peripheral pulses, normal rate, regular rhythm Abdomen: normal bowel sounds, soft, non tender, no organomegaly, non distended , no mass Extremities: no cyanosis, no clubbing Skin: no rash, no lesions Microbiology Date/Time Source Procedure Growth Status 04/07/17 18:00 Stool Clostridium difficile Toxin Assay - Final Complete Laboratory Tests Test 04/08/17 08:15 White Blood Count 6.2 K/UL (4.8-10.8) Red Blood Count 4.57 M/UL (4.20-5.40) Hemoglobin 13.6 G/DL (12.0-16.0) Hematocrit 42.6 % (37.0-47.0) Mean Corpuscular Volume 93 FL (80-99) Mean Corpuscular Hemoglobin 29.8 PG (27.0-31.0) Mean Corpuscular Hemoglobin Concent 31.9 G/DL (32.0-36.0) L Red Cell Distribution Width 12.6 % (11.6-14.8) Platelet Count 128 K/UL (150-450) L Mean Platelet Volume 8.2 FL (6.5-10.1) Neutrophils (%) (Auto) 73.9 % (45.0-75.0) Lymphocytes (%) (Auto) 15.4 % (20.0-45.0) L Monocytes (%) (Auto) 7.2 % (1.0-10.0) Eosinophils (%) (Auto) 3.0 % (0.0-3.0) Basophils (%) (Auto) 0.6 % (0.0-2.0) Sodium Level 138 mEQ/L (135-145) Potassium Level 4.0 mEQ/L (3.4-4.9) Chloride Level 92 mEQ/L (98-107) L Carbon Dioxide Level 41 mEQ/L (20-30) *H Anion Gap 5 (5-15) Blood Urea Nitrogen 7 mg/dL (7-23) Creatinine 0.4 mg/dL (0.5-0.9) L Estimat Glomerular Filtration Rate mL/min (>60) Glucose Level 130 mg/dL (74-106) H Calcium Level 9.0 mg/dL (8.6-10.2) Vancomycin Level Trough 11.8 ug/mL (5.0-12.0) Current Medications Medications (Trade) Dose Ordered Sig/Isabel Route PRN Reason Start Time Stop Time Status Last Admin Dose Admin Acetaminophen (Tylenol) 650 mg Q4H PRN ORAL Fever 04/08/17 14:30 05/04/17 14:29 Albuterol/ Ipratropium (DuoNeb 0.5-3(2.5)mg/3ml) 3 ml Q4H PRN HHN Shortness of Breath 04/08/17 14:30 04/12/17 14:29 Amlodipine Besylate (Norvasc) 10 mg DAILY ORAL 04/09/17 09:00 05/05/17 08:59 Artificial Tears (Akwa-Tears) 1 drop Q4H PRN BOTH EYES Dry Eyes 04/08/17 14:45 05/07/17 22:44 Chlorhexidine Gluconate (Kathy-Hex 2%) 1 applic DAILY TOPIC 04/09/17 09:00 05/09/17 08:59 Cyclobenzaprine HCl (Flexeril) 10 mg BID ORAL 04/08/17 18:00 05/04/17 17:59 04/08/17 17:10 Dextrose (Dextrose 50%) STAT PRN IV Hypoglycemia 04/08/17 14:30 05/08/17 14:29 Heparin Sodium (Porcine) (Heparin 5000 units/ml) 5,000 units EVERY 12 HOURS SUBQ 9/22/17 21:00 05/07/17 20:59 Heparin Sodium/ Sodium Chloride (Heparin 2000 units/Ns 1000ml premix) 2,000 unit ONCE PRN INJ PICC 04/08/17 14:30 04/09/17 23:59 Insulin Aspart (NovoLOG) BEFORE MEALS AND HS SUBQ 04/08/17 16:30 05/04/17 16:29 04/08/17 16:43 Levofloxacin 50 ml @ 50 mls/hr Q24H IVPB 04/09/17 11:00 04/14/17 10:59 Lidocaine HCl (Xylocaine 1% 30ml) 30 ml ONCE PRN INJ PICC LINE 04/08/17 14:30 04/09/17 23:59 Lisinopril (Prinivil) 40 mg DAILY ORAL 04/09/17 09:00 05/05/17 08:59 Lorazepam (Ativan) 1 mg Q6H PRN ORAL For Anxiety 04/08/17 14:30 04/13/17 14:29 Memantine (Namenda) 5 mg BID ORAL 04/08/17 18:00 05/05/17 08:59 04/08/17 17:10 Metoprolol Tartrate (Lopressor) 50 mg BID ORAL 04/08/17 18:00 05/06/17 08:59 04/08/17 17:10 Mirtazapine (Remeron) 7.5 mg BEDTIME ORAL 04/08/17 21:00 05/04/17 20:59 Ondansetron HCl (Zofran) 4 mg Q6H PRN IVP Nausea & Vomiting 04/08/17 14:30 05/04/17 14:29 Oxycodone/ Acetaminophen (Percocet 10/325) 1 tab Q4H PRN ORAL PAIN 6-10 04/08/17 14:30 04/11/17 14:29 04/08/17 17:14 Polyethylene Glycol (Miralax) 17 gm DAILYPRN PRN ORAL Constipation 04/08/17 13:45 05/08/17 13:44 Promethazine HCl/ Codeine (Phenergan with Codeine) 5 ml Q4H PRN ORAL For Cough 04/08/17 14:30 05/05/17 14:29 Sodium Bicarbonate (Sodium Bicarbonate) 50 ml ONCE PRN IV PICC LINE 04/08/17 14:30 04/09/17 23:59 Temazepam (Restoril) 15 mg HSPRN PRN ORAL Insomnia 04/08/17 20:00 04/15/17 19:59 Vancomycin HCl (Vanco rx to dose) 1 ea DAILY PRN MISC Per rx protocol 04/08/17 15:00 05/08/17 14:59 Vancomycin HCl 1 gm/Dextrose 275 ml @ 183.708 mls/hr Q12HR IVPB 04/08/17 21:00 04/12/17 08:59 Siria Ellison M.D. Apr 08, 2017 17:47
[2017-04-08] MEDS ORDERED: Memantine 5 MG TAB ORAL SCH (18:00)
[2017-04-08] MEDS ORDERED: Cyclobenzaprine 10mg Tab ORAL SCH (18:00)
[2017-04-08] MEDS ORDERED: Metoprolol Tartrate 50mg tab ORAL SCH (18:00)
[2017-04-08] MEDS ORDERED: Tubing IV Secondary IV ONE (19:34)
[2017-04-08] MEDS ORDERED: Heparin 5000 units/ml inj SUBQ SCH (21:00)
[2017-04-08] MEDS ORDERED: Vancomycin 1 GM in D5W 275 ML IVPB SCH (21:00)
[2017-04-09] MEDS ORDERED: Dyna-Hex 2% Top Sol 8oz TOPIC SCH ×2 (09:00)
[2017-04-09] MEDS ORDERED: Lisinopril 20mg tab ORAL SCH (09:00)
--- NOTE | 2017-04-10 22:15 | Diagnostic Imaging Report ---
APPROVED REPORT CPT Code: 64443 Present Symptoms Lower Extremity Pain: Bilateral Comments: Technically difficult/ limited study due to vessel depth (mid-thigh and calf area), bilaterally. BILATERAL: Imaging reveals a patent deep venous system bilaterally. There is no evidence of thrombus within the femoral, and popliteal veins. The greater saphenous veins are also within normal limits. Doppler indicates normal spontaneous flow within these segments. The tibial veins were not well visualized.
--- NOTE | 2017-04-11 14:56 | Discharge Summary ---
Discharge Summary Hospital Course Date of Admission Apr 04, 2017 at 12:09 Date of Discharge Apr 08, 2017 at 19:35 Admitting Diagnosis chf exacerbation HPI Page Meraz is a 77 year old female who was admitted on Apr 04, 2017 at 12 :09 for Congestive Heart Failure Exacerbation Hospital Course dc summary #[id number] Discharge Medications Continued Medications: Acetaminophen* (Acetaminophen 325MG Tablet*) 325 Mg Tablet 650 MG ORAL Q4H PRN for Fever/Headache/Mild Pain, TAB Amlodipine Besylate* (Amlodipine Besylate*) 10 Mg Tablet 10 MG ORAL DAILY, TAB Cyclobenzaprine Hcl* (Flexeril*) 10 Mg Tablet 10 MG ORAL BID, TAB Dextran 70/Hypromellose (Artificial Tears Eye Drops*) 15 Ml Drops 1 DROP BOTH EYES Q4HR PRN for eye dryness, #15 ML 0 Refills Heparin Sod (Porcine) (Heparin Sodium*) 5 000/1 Ml Vial 5000 UNITS SUBQ EVERY 12 HOURS, VIAL Insulin Lispro (Humalog) 100 Unit/1 Ml Cartridge 0 SUBQ BEFORE MEALS AND HS, #1 UNITS 0 Refills Ipratropium/Albuterol Sulfate (Iprat-Albut 0.5-3(2.5) Mg/3 Ml) 3 Ml Ampul.neb 3 ML IH Q4HR PRN for Shortness of Breath, EA Levofloxacin-D5w 250 Mg/50 Ml* (Levofloxacin-D5w 250 Mg/50 Ml*) 250 Mg/50 Ml Piggyback 250 MG IVPB Q24H for 7 Days, BAG Lisinopril (Lisinopril*) 20 Mg Tablet 40 MG ORAL DAILY, TAB Lorazepam* (Ativan*) 1 Mg Tablet 1 MG ORAL Q6HR PRN for For Anxiety, TAB Memantine Hcl* (Namenda*) 5 Mg Tablet 5 MG ORAL TWICE A DAY, TAB Metoprolol Tartrate* (Metoprolol Tartrate*) 50 Mg Tablet 50 MG ORAL BID, TAB Mirtazapine* (Mirtazapine*) 7.5 Mg Tablet 7.5 MG ORAL BEDTIME, TAB Ondansetron* (Zofran*) 4 Mg/2 Ml Vial 4 MG IV Q6H PRN for Nausea & Vomiting, VIAL Oxycodone Hcl/Acetaminophen 10-325* (Oxycodone-Acetaminophen 10-325*) 1 Each Tablet 1 TAB ORAL Q4H PRN for Pain Scale (6-10), TAB Polyethylene Glycol 3350* (Miralax*) 17 Gm Powd.pack 17 GM ORAL DAILY PRN for Constipation, PACKET Promethazine HCl/Codeine (Prometh-Codein 6.25-10 mg/5 ml) 5 Ml Syrup 5 ML PO Q4HR PRN for For Cough, ML Temazepam* (Restoril*) 15 Mg Capsule 15 MG ORAL BEDTIME PRN for Insomnia, CAP Vancomycin Hcl/D5w (Vancomycin-D5w 1 G/250 Ml) 1 Gm/250 Ml Plast..bag 1 GM IVPB Q12HR for pharm to dose for 28 Days, BAG Discontinued Medications: Azelastine Hcl (Azelastine Hcl) 6 Ml Drops 6 ML OP, ML Brimonidine Tartrate* (Alphagan*) 5 Ml Drops 1 DROP BOTH EYES BID, ML Cyclobenzaprine Hcl* (Flexeril*) 10 Mg Tablet 10 MG ORAL BID, TAB Dextran 70/Hypromellose (Artificial Tears Eye Drops*) 15 Ml Drops 1 DROP BOTH EYES PRN for Dry Eyes, #15 ML 0 Refills Furosemide* (Lasix*) 40 Mg Tablet 40 MG ORAL DAILY, TAB Lactobacillus Acidophilus (Probiotic Acidophilus) 1 Each Tablet 1 EACH PO TID, TAB Lactulose (Lactulose*) 20 Gm/30 Ml Syrp 20 GM ORAL THREE TIMES A DAY, #1 GM Lorazepam* (Ativan*) 1 Mg Tablet 1 MG ORAL EVERY 8 HOURS PRN for For Anxiety MDD 2GM, TAB Memantine Hcl* (Namenda*) 5 Mg Tablet 5 MG ORAL DAILY, TAB Mesalamine (Pentasa) 500 Mg Capsule.er 1000 MG ORAL TID, #30 CAP 0 Refills Metoprolol Tartrate* (Metoprolol Tartrate*) 100 Mg Tab 100 MG ORAL EVERY 12 HOURS, #1 TAB Omeprazole (Omeprazole) 40 Mg Capsule.dr 40 MG ORAL DAILY, CAP Ondansetron Odt* (Zofran Odt*) 4 Mg Tab.rapdis 4 MG ORAL Q6H PRN for Nausea & Vomiting, #30 TAB Polyethylene Glycol 3350* (Miralax*) 17 Gm Powd.pack 17 GM ORAL DAILY, PACKET Prochlorperazine (Compazine*) 10 Mg Tablet 10 MG ORAL Q8HR PRN for Nausea & Vomiting, TAB [novolog ss] () Discharge Condition Upon Discharge: stable Discharge Disposition Patient was discharged to SNF Discharge Diagnoses: Shane (Benniekarri),Marimar ESCALANTE Apr 11, 2017 14:56
--- NOTE | 2017-04-12 04:45 | Discharge Summary 2 SIG ---
DATE OF ADMISSION: 04/04/2017 DATE OF DISCHARGE: 04/08/2017 Reason For Admission: 77-year-old female with history of congestive heart failure, chronic obstructive pulmonary disease, diabetes, hypertension, anxiety disorder, dementia, [facility] the [facility] for waxing and waning of mental status, lower extremities swelling and congestion. The patient overall was a poor historian and was unable to provide a good history. The patient was tachycardic, tachypneic, with low-grade fever- 99.7 degrees. No leukocytosis. Urinalysis with evidence of urinary tract infection with many bacteria and pyuria. Sodium -133. Lactic acid -1.5. Troponin negative. EKG revealed sinus arrhythmia. No ischemic changes. Chest x-ray revealed bilateral pleural effusion, cardiomegaly, and pulmonary edema. The patient was hypoxic on room air and required placement of nasal cannula. A 40 mg of Lasix intravenous given in the emergency department. Ceftriaxone given empirically for urinary tract infection. The patient was admitted for further management. ADMITTING DIAGNOSES: 1. Congestive heart failure exacerbation. 2. Hypoxia. 3. Possible sepsis 4. Urinary tract infection. Hospital Stay: The patient was admitted to telemetry floor. Supplemental oxygen provided to maintain pulse oximetry above 92%. Pulmonary toilet provided as needed. The patient was on diuresis. Pro BNP and chest x-ray were followed up. Pro BNP was trending down. Renal parameter were stable. The patient status post diuresis. Echocardiogram revealed preserved ejection fraction of 70% to 75% and right ventricular systolic pressure of 29. The patient was on empiric antibiotic. ID followed. Antibiotic regimen optimized based on sensitivity. Urine culture was positive for E. coli. Blood culture were positive for Staphylococcus warneri. Pleural fluid culture was negative. The patient was status post thoracentesis of left pleural effusion, which yielded 460 mL of pleural fluid with negative culture. Followup chest x-ray revealed resolution of left pleural effusion and no pneumothorax. However, the next day on 04/06/2017, the patient had recurrent left pleural effusion. Chest x-ray was followed up on 04/07/2017, again no change in bilateral pleural fluid effusion. Subsequently, a CT chest was ordered, which revealed bilateral pleural effusion, left greater than right with a resultant bilateral lower lobe comprehensive atelectasis and hepatic surface nodularity consistent for cirrhosis. Recurrence of pleural effusion was likely due to the underlying liver disease. Congestive heart failure was stable prior to discharge and compensated. Last time, only 460 mL was tapped. Thoracentesis was on hold. Follow up with the chest x-ray as outpatient. The patient was asymptomatic. Patient was on 2 liter oxygen, saturated 96%. Pedal edema subsided. Blood pressure was managed with calcium channel mateusz and beta-mateusz, and was stable. Blood sugar was managed with sliding scale of insulin. The patient was working with physical and occupational therapists. Swallow evaluation was done. Diet changed as per speech therapist recommendation. Bowel regimen was instituted. Pain management was addressed and provided. DVT prophylaxis provided. Burglar Alarm Inspector closely followed. Burglar Alarm Inspector put the patient on fluid restriction. Initially with hyponatremia, per awning hanger supervisor- mild hypervolemic hyponatremia, which resolved with fluid restriction. Flight Engineer Manager cleared the patient for discharge. The patient was seen by psychiatrist, who optimized psychiatric medication regimen. The patient was stable for discharge back to jail facility. FINAL DIAGNOSES: 1. Sepsis with bacteremia. 2. Bacteremia with Staphylococcus warneri. 3. Urinary tract infection with Escherichia coli. 4. Possible healthcare-associated pneumonia. 5. Pulmonary edema, improved. 6. Acute on chronic diastolic congestive heart failure, resolved. 7. Chronic obstructive pulmonary disease. 8. Diabetes. 9. Hypertension. 10. Diabetic nephropathy. 11. Cirrhosis. 12. Left pleural effusion, recurrent. 13. Status post thoracentesis. 14. Mild hypovolemic hyponatremia, resolved. Discharge Medications: See medication reconciliation list. The patient will need extended antibiotic treatment as specified by ID for bacteremia. PICC line was placed in left upper extremity prior to discharge. Discharge Instructions: The patient was discharged to jail facility. Follow up with medical doctor at the facility. Chacho Morocho D.O. Marimar DurhamFour Winds Psychiatric Hospitalfranklyn N.PBhavin DR: MARICEL JOB#: [id number] CC: DOROTHY
--- NOTE | 2017-04-13 08:45 | Progress Note ---
DATE: 04/07/2017 Subjective: The patient , continuing on Namenda 5 mg twice a day to prevent any decline in her cognition, Remeron 7.5 mg at bedtime. Chart reviewed. Discussed with staff. Seen and assessed at bedside. Edilberto Canseco M.D. DR: AUTUMN JOB#: [id number] CC:
== END 2017-04-08 19:35 | DRG 871 ==
LOC: EDUNIT# 11:16 → EDBD 11:16 → EMR 11:40 → 2E 12:09 → EDBEDREQ 12:44 → 4E 04-08 14:18
PROC: 0W9B30Z Drainage of Left Pleural Cavity with Drainage Device, Percutaneous Approach (ICD-10-PCS; principal; 2017-04-05)
PROC: 02HV33Z Insertion of Infusion Device into Superior Vena Cava, Percutaneous Approach (ICD-10-PCS; 2017-04-08)
DX: A41.2 Sepsis due to unspecified staphylococcus (principal); J18.9 Pneumonia, unspecified organism; I50.33 Acute on chronic diastolic (congestive) heart failure; J90 Pleural effusion, not elsewhere classified; N39.0 Urinary tract infection, site not specified; K74.60 Unspecified cirrhosis of liver; E11.21 Type 2 diabetes mellitus with diabetic nephropathy; E87.1 Hypo-osmolality and hyponatremia; R09.02 Hypoxemia; J44.9 Chronic obstructive pulmonary disease, unspecified; M41.9 Scoliosis, unspecified; I10 Essential (primary) hypertension; B96.20 Unspecified Escherichia coli [E. coli] as the cause of diseases classified elsewhere; E66.9 Obesity, unspecified
CPT/HCPCS: 36415; 36569; 71010; 71260; 76937; 76942; 80048; 80053; 80069; 80202; 81001; 82550; 82553; 82962; 83605; 83735; 83880; 84100; 84484; 85025; 85610; 85730; 87040; 87070; 87081; 87086; 87181; 87205; 87324; 88104; 89051; 93005; 93306; 93970; 94664; 94760; 97803; J1815

== ENCOUNTER 2017-04-16 08:10 | Inpatient (IN) | payer MEDICARE, MEDICAID ==
[~2017-04-16] VITALS: Ht 162.6 cm; Wt 97.5 kg
[~2017-04-16 08:10] MED LIST changes: +LASIX40 MG ORAL; +LEVOFLOXAC250 MG/50 IVPB; +METOPROLOL TART50 M1 ORAL; +MIRTAZAPINE7.5 MG ORAL; +NOVOLOG SS; +PROMETH-CODEIN 65 ML PO; +VANCOMYCIN1 GM/2502 IVPB; +ZOFRAN 4 MG4 MG/2 ML PO; +ZOFRAN ODT4 MG ORAL
[2017-04-16 08:17] VITALS: BP 141/60
[2017-04-16 08:57] LABS: BASOPHILS % (AUTO) 0.7 % (0.0-2.0); EOSINOPHILS % (AUTO) 1.7 % (0.0-3.0); LYMPHOCYTES % (AUTO) 9.5 % (20.0-45.0); MEAN CORPUSCULAR HEMOGLOBIN 28.3 PG (27.0-31.0); MEAN CORPUSCULAR HGB CONC 30.2 G/DL (32.0-36.0); MEAN CORPUSCULAR VOLUME 94 FL (80-99); MONOCYTES % (AUTO) 7.6 % (1.0-10.0); NEUTROPHILS % (AUTO) 80.5 % (45.0-75.0); PLATELET COUNT 133 K/UL (150-450); RED BLOOD COUNT 4.23 M/UL (4.20-5.40); RED CELL DISTRIBUTION WIDTH 12.2 % (11.6-14.8)
[2017-04-16] MEDS ORDERED: Solu-MEDROL 125mg Inj IVP ONE (09:00)
[2017-04-16] MEDS ORDERED: Famotidine 20 MG/ 2ML VIAL IVP ONE (09:00)
[2017-04-16] MEDS ORDERED: DiphenhydrAMINE 50mg/ml Inj IVP ONE (09:00)
--- NOTE | 2017-04-16 09:00 | Emergency Room Report ---
History of Present Illness General Chief Complaint: Skin Rash/Abscess Source: Medical Record Present Illness HPI Patient presents from nursing facility with complaints of rash Patient has a PICC line in the left upper arm receiving antibiotics for reported infection Patient herself is a poor historian not able to provide appropriate input This does limit the history of present illness Patient's past medical history is been reviewed No reports of vomiting or diarrhea unknown regarding fever There is limited information regarding the duration of this rash Allergies: Coded Allergies: LEVOFLOXACIN (Verified Allergy, Severe, Rash, 04/16/17) VANCOMYCIN (Verified Allergy, Severe, Rash, 04/16/17) Patient History Limited by: medical condition Pertinent Family History: unable to obtain Reviewed Nursing Documentation: PMH: Agreed, PSxH: Agreed Nursing Documentation-PMH Past Medical History: No History, Except For Hx Cardiac Problems: Yes - CHF Hx Hypertension: Yes Hx COPD: Yes - PNA Hx Diabetes: Yes Hx Cancer: No Hx Gastrointestinal Problems: Yes - Crohn's/ UTI/GERD Hx Neurological Problems: Yes - Difficulty in walking Hx Dementia: Yes Hx Seizures: Yes Hx Memory Loss: Yes Hx Weakness: Yes Review of Systems All Other Systems: limited - Other than the ones mentioned in the history of present illness all others are reviewed however they do stay limited due to the patient's mental status Physical Exam Vital Signs Date Time Temp Pulse Resp B/P (MAP) Pulse Ox O2 Delivery O2 Flow Rate FiO2 04/16/17 08:07 97.7 95 16 134/64 98 Nasal Cannula 3.0 Sp02 EP Interpretation: reviewed, normal General Appearance: no apparent distress Head: normocephalic, atraumatic Eyes: bilateral eye PERRL, bilateral eye EOMI ENT: dry mucus membranes Neck: supple Respiratory: lungs clear, normal breath sounds Cardiovascular #1: regular rate, rhythm Gastrointestinal: other - Mid abdominal hernia which is easily reducible otherwise nontender on palpation Genitourinary: no CVA tenderness Musculoskeletal: other - Patient does not follow commands no obvious focal upper extremities weakness, Neurologic: responsive - to physical stimuli Skin: other - Extensive rash, initially visible on the right upper trapezius and right shoulder along with the right arm, further evaluation reveals diffuse erythema involving the patient's entire back lower abdominal area, bilateral inguinal region, area appears to julian in nature, Lymphatic: no adenopathy Medical Decision Making Diagnostic Impression: Primary Impression: Cellulitis Additional Impressions: Severe allergic reaction Dermatitis ER Course Given the presentation patient has extremity concerning Patient's rash involves diffusely throughout the body and the back concern for recent antibiotic reaction as high Differentials such as Stubbs-Ajith, toxic shock syndrome all considered Patient has IV hydration and steroids initiated in the emergency room At this time requires admission for further infectious disease specialty consultation Labs Test 04/18/17 07:00 04/19/17 04:46 04/20/17 05:30 White Blood Count 10.5 K/UL (4.8-10.8) 11.9 K/UL (4.8-10.8) 12.4 K/UL (4.8-10.8) Red Blood Count 3.94 M/UL (4.20-5.40) 4.06 M/UL (4.20-5.40) 4.06 M/UL (4.20-5.40) Hemoglobin 11.8 G/DL (12.0-16.0) 12.2 G/DL (12.0-16.0) 12.3 G/DL (12.0-16.0) Hematocrit 36.4 % (37.0-47.0) 37.4 % (37.0-47.0) 37.9 % (37.0-47.0) Mean Corpuscular Volume 92 FL (80-99) 92 FL (80-99) 93 FL (80-99) Mean Corpuscular Hemoglobin 29.9 PG (27.0-31.0) 30.0 PG (27.0-31.0) 30.3 PG (27.0-31.0) Mean Corpuscular Hemoglobin Concent 32.3 G/DL (32.0-36.0) 32.5 G/DL (32.0-36.0) 32.5 G/DL (32.0-36.0) Red Cell Distribution Width 12.4 % (11.6-14.8) 12.5 % (11.6-14.8) 12.4 % (11.6-14.8) Platelet Count 152 K/UL (150-450) 174 K/UL (150-450) 176 K/UL (150-450) Mean Platelet Volume 10.1 FL (6.5-10.1) 8.8 FL (6.5-10.1) 8.0 FL (6.5-10.1) Neutrophils (%) (Auto) % (45.0-75.0) % (45.0-75.0) 84.9 % (45.0-75.0) Lymphocytes (%) (Auto) % (20.0-45.0) % (20.0-45.0) 7.6 % (20.0-45.0) Monocytes (%) (Auto) % (1.0-10.0) % (1.0-10.0) 6.7 % (1.0-10.0) Eosinophils (%) (Auto) % (0.0-3.0) % (0.0-3.0) 0.4 % (0.0-3.0) Basophils (%) (Auto) % (0.0-2.0) % (0.0-2.0) 0.4 % (0.0-2.0) Differential Total Cells Counted 100 100 Neutrophils % (Manual) 94 % (45-75) 88 % (45-75) Lymphocytes % (Manual) 5 % (20-45) 5 % (20-45) Monocytes % (Manual) 1 % (1-10) 7 % (1-10) Eosinophils % (Manual) 0 % (0-3) 0 % (0-3) Basophils % (Manual) 0 % (0-2) 0 % (0-2) Band Neutrophils 0 % (0-8) 0 % (0-8) Platelet Estimate Adequate Adequate Platelet Morphology Normal Normal Hypochromasia 1+ Sodium Level 137 mEQ/L (135-145) 137 mEQ/L (135-145) 136 mEQ/L (135-145) Potassium Level 3.6 mEQ/L (3.4-4.9) 3.7 mEQ/L (3.4-4.9) 3.9 mEQ/L (3.4-4.9) Chloride Level 92 mEQ/L (98-107) 93 mEQ/L (98-107) 93 mEQ/L (98-107) Carbon Dioxide Level 36 mEQ/L (20-30) 36 mEQ/L (20-30) 38 mEQ/L (20-30) Anion Gap 9 (5-15) 8 (5-15) 5 (5-15) Blood Urea Nitrogen 28 mg/dL (7-23) 28 mg/dL (7-23) 24 mg/dL (7-23) Creatinine 0.8 mg/dL (0.5-0.9) 0.9 mg/dL (0.5-0.9) 0.8 mg/dL (0.5-0.9) Estimat Glomerular Filtration Rate mL/min (>60) mL/min (>60) mL/min (>60) Glucose Level 242 mg/dL (74-106) 226 mg/dL (74-106) 166 mg/dL (74-106) Calcium Level 9.5 mg/dL (8.6-10.2) 9.4 mg/dL (8.6-10.2) 9.4 mg/dL (8.6-10.2) Total Bilirubin 0.5 mg/dL (0.0-1.2) Aspartate Amino Transf (AST/SGOT) 33 U/L (5-40) Alanine Aminotransferase (ALT/SGPT) 18 U/L (3-33) Alkaline Phosphatase 187 U/L (35-104) Pro-B-Type Natriuretic Peptide 358 pg/mL (0-450) Total Protein 7.7 g/dL (6.6-8.7) Albumin 3.2 g/dL (3.5-5.2) Globulin 4.5 g/dL Albumin/Globulin Ratio 0.7 (1.0-2.7) Red Blood Cell Morphology Normal Rhythm Strip Diag. Results EP Interpretation: yes Rate: 88 Rhythm: NSR, no PVC's, no ectopy Chest X-Ray Diagnostic Results Chest X-Ray Diagnostic Results : Chest X-Ray Ordered: Yes # of Views/Limited/Complete: 1 View Indication: Chest Pain EP Interpretation: Yes Interpretation: no pneumothorax, other - cardiomegaly, small effusion, no bony pathology Impression: Other - small effusion Electronically Signed by: Neal Crooks DO Last Vital Signs Date Time Temp Pulse Resp B/P (MAP) Pulse Ox O2 Delivery O2 Flow Rate FiO2 04/16/17 08:17 99.0 78 17 141/60 100 Nasal Cannula 3.0 Status: improved Disposition: ADMITTED INPATIENT Condition: Serious Referrals: KUMAR ENGLISH (PCP) NEAL CROOKS D.O. Apr 16, 2017 09:00
[2017-04-16 09:08] LABS: INR 1.1 (0.9-1.1); PROTHROMBIN TIME 11.6 SEC (9.30-11.50)
[2017-04-16 09:14] LABS: ALANINE AMINOTRANSFERASE 16 U/L (3-33); ALBUMIN/GLOBULIN RATIO 0.7 (1.0-2.7); ANION GAP 7 (5-15); ASPARTATE AMINO TRANSFERASE 36 U/L (5-40); CALCIUM 8.8 mg/dL (8.6-10.2); CARBON DIOXIDE 37 mEQ/L (20-30); CHLORIDE 91 mEQ/L (98-107); CREATININE 0.8 mg/dL (0.5-0.9); HEMOLYSIS 1; SODIUM 135 mEQ/L (135-145)
[2017-04-16 09:15] LABS: TROPONIN I < 0.30 ng/mL (<=0.30)
[2017-04-16 09:25] LABS: CKMB < 1.5 ng/mL (< 3.8)
[2017-04-16 09:30] VITALS: BP 141/56
[2017-04-16] MEDS ORDERED: Mylanta II UD 30ml ORAL PRN (09:45)
[2017-04-16] MEDS ORDERED: LORazepam 1mg tab ORAL PRN (09:45)
[2017-04-16 11:00] VITALS: BP 145/44
[2017-04-16] MEDS ORDERED: OMEPRAZOLE40 M1 ORAL (11:42)
[2017-04-16] MEDS ORDERED: BRIMONIDINE TART5 ML BOTH EYES (11:42)
[2017-04-16] MEDS ORDERED: LACTULOSE20 GM/301 ORAL (11:42)
[2017-04-16] MEDS ORDERED: FUROSEMIDE40 MG ORAL (11:42)
--- NOTE | 2017-04-16 11:42 | Diagnostic Imaging Report ---
Indication: Shortness of breath Comparison: 04/07/2017 Findings: Cardiomegaly is unchanged. No overt congestive changes. There is opacity is noted in the lung bases, left greater than right which may represent bilateral pleural effusions and/or consolidation/atelectasis. The opacity the right lung base appears improved. Left is unchanged. Pulmonary vasculature is normal. Left PICC line has been intervally placed with distal tip in good position at the superior vena cava. There is severe right scoliotic curvature of the thoracic spine, unchanged. Impression: Stable cardiomegaly. No overt congestive changes. Stable left pleural effusion and/or left basilar atelectasis/consolidation. Improvement in right basilar pleural effusion/consolidation Interval placement of left PICC line in good position.
[2017-04-16 12:08] VITALS: BP 154/73
[2017-04-16] MEDS: NovoLOG Insulin Flexpen SUBQ SCH ×3 (12:20→22:00)
--- NOTE | 2017-04-16 15:16 | Consultation ---
History of Present Illness General Date patient seen: Apr 16, 2017 Chief Complaint: Skin Rash/Abscess Reason for Consultation: dyspnea Present Illness HPI 77 year old female with hx of morbid obesity, Cirrhosis, HTN, jail resident presented with complaints of disseminated rash. She was diagnosed to have bilateral pneumonia as well. Pt is a poor historian and cant provide any history. Seems awake and comfortable. Allergies: Coded Allergies: LEVOFLOXACIN (Verified Allergy, Severe, Rash, 04/16/17) VANCOMYCIN (Verified Allergy, Severe, Rash, 04/16/17) Medication History Scheduled Amlodipine Besylate* (Amlodipine Besylate*), 10 MG ORAL DAILY, (Reported) Brimonidine Tartrate* (Alphagan*), 1 DROP BOTH EYES BID, (Reported) Cyclobenzaprine Hcl* (Flexeril*), 10 MG ORAL BID, (Reported) Furosemide* (Lasix*), 40 MG ORAL DAILY, (Reported) Heparin Sod (Porcine) (Heparin Sodium*), 5,000 UNITS SUBQ EVERY 12 HOURS, ( Reported) Insulin Lispro (Humalog), 0 SUBQ BEFORE MEALS AND HS, (Reported) Lactulose (Lactulose*), 30 ML ORAL THREE TIMES A DAY, (Reported) Lisinopril (Lisinopril*), 40 MG ORAL DAILY, (Reported) Memantine Hcl* (Namenda*), 5 MG ORAL DAILY, (Reported) Metoprolol Tartrate* (Metoprolol Tartrate*), 50 MG ORAL BID, (Reported) Mirtazapine* (Mirtazapine*), 7.5 MG ORAL BEDTIME, (Reported) Omeprazole (Omeprazole), 40 MG ORAL DAILY, (Reported) Scheduled PRN Acetaminophen* (Acetaminophen 325MG Tablet*), 650 MG ORAL Q4H PRN for Fever/ Headache/Mild Pain, (Reported) Dextran 70/Hypromellose (Artificial Tears Eye Drops*), 1 DROP BOTH EYES Q4HR PRN for eye dryness, (Reported) Ipratropium/Albuterol Sulfate (Iprat-Albut 0.5-3(2.5) Mg/3 Ml), 3 ML IH Q4HR PRN for Shortness of Breath, (Reported) Lorazepam* (Ativan*), 1 MG ORAL Q6HR PRN for For Anxiety, (Reported) Ondansetron* (Zofran*), 4 MG PO Q6H PRN for Nausea & Vomiting, (Reported) Oxycodone Hcl/Acetaminophen 10-325* (Oxycodone-Acetaminophen 10-325*), 1 TAB ORAL Q4H PRN for Pain Scale (6-10), (Reported) Polyethylene Glycol 3350* (Miralax*), 17 GM ORAL DAILY PRN for Constipation, ( Reported) Promethazine HCl/Codeine (Prometh-Codein 6.25-10 mg/5 ml), 5 ML PO Q4HR PRN for For Cough, (Reported) Temazepam* (Restoril*), 15 MG ORAL BEDTIME PRN for Insomnia, (Reported) Discontinued Medications Levofloxacin-D5w 250 Mg/50 Ml* (Levofloxacin-D5w 250 Mg/50 Ml*), 250 MG IVPB Q24H, (Reported) Discontinued Reason: Therapy completed Vancomycin Hcl/D5w (Vancomycin-D5w 1 G/250 Ml), 1 GM IVPB Q12HR, (Reported) Discontinued Reason: Therapy completed Patient History Healthcare decision maker Resuscitation status Full Code Advanced Directive on File No Past Medical/Surgical History Past Medical/Surgical History: (1) DM (diabetes mellitus) (2) HTN (hypertension) (3) OBESITY, NOS (4) COPD (chronic obstructive pulmonary disease) Review of Systems All Other Systems: negative except mentioned in HPI Physical Exam General Appearance: WD/WN, no apparent distress Lines, tubes and drains: peripheral, central line HEENT: normocephalic, atraumatic Neck: non-tender, supple Respiratory/Chest: chest wall non-tender, lungs clear Cardiovascular/Chest: normal peripheral pulses, normal rate Abdomen: normal bowel sounds, non tender Genitourinary/Rectal: normal genital exam, normal rectal exam Extremities: normal range of motion, normal inspection Skin Exam: normal pigmentation Neurologic: helix coil winder II-XII grossly normal Lymphatic: anterior cervical Last 24 Hour Vital Signs Date Time Temp Pulse Resp B/P (MAP) Pulse Ox O2 Delivery O2 Flow Rate FiO2 04/16/17 12:08 98.1 90 19 154/73 99 Nasal Cannula 2.0 04/16/17 12:00 91 04/16/17 11:00 97.8 83 18 145/44 94 Nasal Cannula 3.0 04/16/17 10:31 90 04/16/17 10:10 88 17 141/56 100 Nasal Cannula 3.0 04/16/17 09:30 98.3 88 17 141/56 100 Nasal Cannula 3.0 04/16/17 08:20 78 17 Nasal Cannula 3.0 04/16/17 08:17 99.0 78 17 141/60 100 Nasal Cannula 3.0 04/16/17 08:07 97.7 95 16 134/64 98 Nasal Cannula 3.0 Intake and Output 04/16/17 04/17/17 19:00 07:00 Intake Total 620 ml Balance 620 ml Intake Oral 120 ml IV Total 500 ml # Bowel Movements 1 Laboratory Tests Test 04/16/17 08:27 White Blood Count 11.0 K/UL (4.8-10.8) H Red Blood Count 4.23 M/UL (4.20-5.40) Hemoglobin 12.0 G/DL (12.0-16.0) Hematocrit 39.6 % (37.0-47.0) Mean Corpuscular Volume 94 FL (80-99) Mean Corpuscular Hemoglobin 28.3 PG (27.0-31.0) Mean Corpuscular Hemoglobin Concent 30.2 G/DL (32.0-36.0) L Red Cell Distribution Width 12.2 % (11.6-14.8) Platelet Count 133 K/UL (150-450) L Mean Platelet Volume 10.0 FL (6.5-10.1) Neutrophils (%) (Auto) 80.5 % (45.0-75.0) H Lymphocytes (%) (Auto) 9.5 % (20.0-45.0) L Monocytes (%) (Auto) 7.6 % (1.0-10.0) Eosinophils (%) (Auto) 1.7 % (0.0-3.0) Basophils (%) (Auto) 0.7 % (0.0-2.0) Prothrombin Time 11.6 SEC (9.30-11.50) H Prothromb Time International Ratio 1.1 (0.9-1.1) Activated Partial Thromboplast Time 36 SEC (23-33) H Sodium Level 135 mEQ/L (135-145) Potassium Level 4.0 mEQ/L (3.4-4.9) Chloride Level 91 mEQ/L (98-107) L Carbon Dioxide Level 37 mEQ/L (20-30) H Anion Gap 7 (5-15) Blood Urea Nitrogen 23 mg/dL (7-23) Creatinine 0.8 mg/dL (0.5-0.9) Estimat Glomerular Filtration Rate mL/min (>60) Glucose Level 139 mg/dL (74-106) H Lactic Acid Level 1.10 mmol/L (0.66-2.22) Calcium Level 8.8 mg/dL (8.6-10.2) Total Bilirubin 0.6 mg/dL (0.0-1.2) Aspartate Amino Transf (AST/SGOT) 36 U/L (5-40) Alanine Aminotransferase (ALT/SGPT) 16 U/L (3-33) Alkaline Phosphatase 101 U/L (35-104) Total Creatine Kinase 11 U/L (26-140) L Creatine Kinase MB < 1.5 ng/mL (< 3.8) Creatine Kinase MB Relative Index 13.6 Troponin I < 0.30 ng/mL (<=0.30) Total Protein 7.0 g/dL (6.6-8.7) Albumin 2.9 g/dL (3.5-5.2) L Globulin 4.1 g/dL Albumin/Globulin Ratio 0.7 (1.0-2.7) L Height (Feet): 5 Height (Inches): 4.00 Weight (Pounds): 160 Medications Current Medications Medications (Trade) Dose Ordered Sig/Isabel Route PRN Reason Start Time Stop Time Status Last Admin Dose Admin Acetaminophen (Tylenol) 650 mg Q4H PRN ORAL T>100.5 04/16/17 09:45 05/16/17 09:44 Al Hydroxide/Mg Hydroxide (Mylanta II) 30 ml Q6H PRN ORAL dyspepsia 04/16/17 09:45 05/16/17 09:44 Amlodipine Besylate (Norvasc) 10 mg DAILY ORAL 04/17/17 09:00 05/17/17 08:59 Cyclobenzaprine HCl (Flexeril) 10 mg Q12HR ORAL 04/16/17 21:00 05/16/17 20:59 Dextrose (Dextrose 50%) STAT PRN IV Hypoglycemia 04/16/17 09:45 05/16/17 09:44 Heparin Sodium (Porcine) (Heparin 5000 units/ml) 5,000 units EVERY 12 HOURS SUBQ 04/16/17 21:00 05/16/17 20:59 Insulin Aspart (NovoLOG) BEFORE MEALS AND HS SUBQ 04/16/17 11:30 05/16/17 11:29 04/16/17 12:20 Lisinopril (Prinivil) 40 mg DAILY ORAL 04/17/17 09:00 05/17/17 08:59 Lorazepam (Ativan 2mg/ml 1ml) 0.5 mg Q4H PRN IV For Anxiety 04/16/17 09:45 04/23/17 09:44 Mirtazapine (Remeron) 7.5 mg BEDTIME ORAL 04/16/17 21:00 05/16/17 20:59 Morphine Sulfate (Morphine Sulfate) 1 mg Q4H PRN IVP PAIN 4-10 04/16/17 09:45 04/23/17 09:44 Ondansetron HCl (Zofran) 4 mg Q6H PRN IVP Nausea & Vomiting 04/16/17 09:45 05/16/17 09:44 Polyethylene Glycol (Miralax) 17 gm HSPRN PRN ORAL Constipation 04/16/17 21:00 05/16/17 20:59 Zolpidem Tartrate (Ambien) 5 mg HSPRN PRN ORAL Insomnia 04/16/17 21:00 04/23/17 20:59 Assessment/Plan Problem List: (1) Bilateral pneumonia ICD Codes: J18.9 - Pneumonia, unspecified organism SNOMED: 577412985 (2) Generalized rash ICD Codes: R21 - Rash and other nonspecific skin eruption SNOMED: 860165947, 029341455 (3) Dermatitis ICD Codes: L30.9 - Dermatitis, unspecified SNOMED: 47392411 (4) Tachycardia ICD Codes: R00.0 - Tachycardia, unspecified SNOMED: 1956451 (5) COPD (chronic obstructive pulmonary disease) ICD Codes: J44.9 - Chronic obstructive pulmonary disease, unspecified SNOMED: 82225832 (6) DM (diabetes mellitus) ICD Codes: E11.9 - DM (diabetes mellitus) SNOMED: 27086748 (7) HTN (hypertension) ICD Codes: I10 - Essential (primary) hypertension SNOMED: 80270063 (8) GERD (gastroesophageal reflux disease) ICD Codes: K21.9 - Gastro-esophageal reflux disease without esophagitis SNOMED: 540025405 (9) Cirrhosis ICD Codes: K74.60 - Unspecified cirrhosis of liver SNOMED: 51887107 Assessment/Plan respiratory treatment IV abx steroids check sputum sliding scale echo dvt prophylaxis TABATHA PLASENCIA Apr 16, 2017 15:16
--- NOTE | 2017-04-16 16:11 | Infectious Diseases Prog Note ---
Assessment/Plan Problems: (1) Rash and other nonspecific skin eruption Assessment & Plan: unclear whether due to vancomycin or levaquin since she was on both, avoid both drug class and add to her list of allergy. start steroids and benadryl (2) Sepsis due to Staphylococcus Assessment & Plan: delfin , had skin allergic reaction, unclear whether to vancomycin or levaquin , will start oxacillin to finish her course of treatment for 4 weeks total . EOT 05/06/17 Subjective Allergies: Coded Allergies: LEVOFLOXACIN (Verified Allergy, Severe, Rash, 04/16/17) VANCOMYCIN (Verified Allergy, Severe, Rash, 04/16/17) Objective Vital Signs Last 24 Hour Vital Signs Date Time Temp Pulse Resp B/P (MAP) Pulse Ox O2 Delivery O2 Flow Rate FiO2 04/16/17 12:08 98.1 90 19 154/73 99 Nasal Cannula 2.0 04/16/17 12:00 91 04/16/17 11:00 97.8 83 18 145/44 94 Nasal Cannula 3.0 04/16/17 10:31 90 04/16/17 10:10 88 17 141/56 100 Nasal Cannula 3.0 04/16/17 09:30 98.3 88 17 141/56 100 Nasal Cannula 3.0 04/16/17 08:20 78 17 Nasal Cannula 3.0 04/16/17 08:17 99.0 78 17 141/60 100 Nasal Cannula 3.0 04/16/17 08:07 97.7 95 16 134/64 98 Nasal Cannula 3.0 Height (Feet): 5 Height (Inches): 4.00 Weight (Pounds): 160 Laboratory Tests Test 04/16/17 08:27 White Blood Count 11.0 K/UL (4.8-10.8) H Red Blood Count 4.23 M/UL (4.20-5.40) Hemoglobin 12.0 G/DL (12.0-16.0) Hematocrit 39.6 % (37.0-47.0) Mean Corpuscular Volume 94 FL (80-99) Mean Corpuscular Hemoglobin 28.3 PG (27.0-31.0) Mean Corpuscular Hemoglobin Concent 30.2 G/DL (32.0-36.0) L Red Cell Distribution Width 12.2 % (11.6-14.8) Platelet Count 133 K/UL (150-450) L Mean Platelet Volume 10.0 FL (6.5-10.1) Neutrophils (%) (Auto) 80.5 % (45.0-75.0) H Lymphocytes (%) (Auto) 9.5 % (20.0-45.0) L Monocytes (%) (Auto) 7.6 % (1.0-10.0) Eosinophils (%) (Auto) 1.7 % (0.0-3.0) Basophils (%) (Auto) 0.7 % (0.0-2.0) Prothrombin Time 11.6 SEC (9.30-11.50) H Prothromb Time International Ratio 1.1 (0.9-1.1) Activated Partial Thromboplast Time 36 SEC (23-33) H Sodium Level 135 mEQ/L (135-145) Potassium Level 4.0 mEQ/L (3.4-4.9) Chloride Level 91 mEQ/L (98-107) L Carbon Dioxide Level 37 mEQ/L (20-30) H Anion Gap 7 (5-15) Blood Urea Nitrogen 23 mg/dL (7-23) Creatinine 0.8 mg/dL (0.5-0.9) Estimat Glomerular Filtration Rate mL/min (>60) Glucose Level 139 mg/dL (74-106) H Lactic Acid Level 1.10 mmol/L (0.66-2.22) Calcium Level 8.8 mg/dL (8.6-10.2) Total Bilirubin 0.6 mg/dL (0.0-1.2) Aspartate Amino Transf (AST/SGOT) 36 U/L (5-40) Alanine Aminotransferase (ALT/SGPT) 16 U/L (3-33) Alkaline Phosphatase 101 U/L (35-104) Total Creatine Kinase 11 U/L (26-140) L Creatine Kinase MB < 1.5 ng/mL (< 3.8) Creatine Kinase MB Relative Index 13.6 Troponin I < 0.30 ng/mL (<=0.30) Total Protein 7.0 g/dL (6.6-8.7) Albumin 2.9 g/dL (3.5-5.2) L Globulin 4.1 g/dL Albumin/Globulin Ratio 0.7 (1.0-2.7) L Current Medications Medications (Trade) Dose Ordered Sig/Isabel Route PRN Reason Start Time Stop Time Status Last Admin Dose Admin Acetaminophen (Tylenol) 650 mg Q4H PRN ORAL T>100.5 04/16/17 09:45 05/16/17 09:44 Al Hydroxide/Mg Hydroxide (Mylanta II) 30 ml Q6H PRN ORAL dyspepsia 04/16/17 09:45 05/16/17 09:44 Amlodipine Besylate (Norvasc) 10 mg DAILY ORAL 04/17/17 09:00 05/17/17 08:59 Cyclobenzaprine HCl (Flexeril) 10 mg Q12HR ORAL 04/16/17 21:00 05/16/17 20:59 Dextrose (Dextrose 50%) STAT PRN IV Hypoglycemia 04/16/17 09:45 05/16/17 09:44 Heparin Sodium (Porcine) (Heparin 5000 units/ml) 5,000 units EVERY 12 HOURS SUBQ 04/16/17 21:00 05/16/17 20:59 Insulin Aspart (NovoLOG) BEFORE MEALS AND HS SUBQ 04/16/17 11:30 05/16/17 11:29 04/16/17 12:20 Lisinopril (Prinivil) 40 mg DAILY ORAL 04/17/17 09:00 05/17/17 08:59 Lorazepam (Ativan 2mg/ml 1ml) 0.5 mg Q4H PRN IV For Anxiety 04/16/17 09:45 04/23/17 09:44 Mirtazapine (Remeron) 7.5 mg BEDTIME ORAL 04/16/17 21:00 05/16/17 20:59 Morphine Sulfate (Morphine Sulfate) 1 mg Q4H PRN IVP PAIN 4-10 04/16/17 09:45 04/23/17 09:44 Ondansetron HCl (Zofran) 4 mg Q6H PRN IVP Nausea & Vomiting 04/16/17 09:45 05/16/17 09:44 Polyethylene Glycol (Miralax) 17 gm HSPRN PRN ORAL Constipation 04/16/17 21:00 05/16/17 20:59 Zolpidem Tartrate (Ambien) 5 mg HSPRN PRN ORAL Insomnia 04/16/17 21:00 04/23/17 20:59 Siria Ellison M.D. Apr 16, 2017 16:10
[2017-04-16 16:33] VITALS: BP 127/71
[2017-04-16] MEDS: Solu-MEDROL 125mg Inj IVP SCH ×2 (16:43→22:00)
[2017-04-16] MEDS: Oxacillin 2 GM in NS 110 ML IVPB SCH ×2 (17:54→23:11)
[2017-04-16 20:00] VITALS: BP 159/72
[2017-04-16] MEDS ORDERED: Miralax 17gm pkt ORAL PRN (21:00)
[2017-04-16] MEDS: Cyclobenzaprine 10mg Tab ORAL SCH (21:57)
[2017-04-16] MEDS: Heparin 5000 units/ml inj SUBQ SCH (21:58)
[2017-04-16] MEDS: DiphenhydrAMINE 50mg/ml Inj IVP PRN (23:10)
[2017-04-17] VITALS (7 sets, daily range): BP systolic 139–162; BP diastolic 74–81
[2017-04-17] MEDS: Zolpidem 5mg tab ORAL PRN ×2 (00:07→21:38)
[2017-04-17 04:55] LABS: MEAN CORPUSCULAR HEMOGLOBIN 28.4 PG (27.0-31.0); MEAN CORPUSCULAR HGB CONC 31.2 G/DL (32.0-36.0); MEAN CORPUSCULAR VOLUME 91 FL (80-99); MEAN PLATELET VOLUME 9.7 FL (6.5-10.1); PLATELET COUNT 131 K/UL (150-450); RED BLOOD COUNT 4.15 M/UL (4.20-5.40); RED CELL DISTRIBUTION WIDTH 11.9 % (11.6-14.8); WHITE BLOOD COUNT 7.5 K/UL (4.8-10.8)
[2017-04-17 05:10] LABS: ALANINE AMINOTRANSFERASE 18 U/L (3-33); ALBUMIN/GLOBULIN RATIO 0.7 (1.0-2.7); ANION GAP 9 (5-15); ASPARTATE AMINO TRANSFERASE 36 U/L (5-40); CARBON DIOXIDE 35 mEQ/L (20-30); CHLORIDE 89 mEQ/L (98-107); CHOLESTEROL 107 mg/dL (< 200); CHOLESTEROL/HDL RATIO 2.5 (3.3-4.4); CREATININE 0.8 mg/dL (0.5-0.9); HEMOLYSIS 1; LDL CHOLESTEROL CALC 51 mg/dL (60-99); POTASSIUM 3.8 mEQ/L (3.4-4.9); SODIUM 133 mEQ/L (135-145); TOTAL PROTEIN 7.4 g/dL (6.6-8.7)
[2017-04-17] MEDS: Oxacillin 2 GM in NS 110 ML IVPB SCH ×4 (05:31→23:31)
[2017-04-17] MEDS: Morphine Sulfate 2mg/ml Inj IVP PRN ×2 (05:32→12:16)
--- NOTE | 2017-04-17 05:47 | Consultation ---
DATE OF CONSULTATION: 04/16/2017 INFECTIOUS DISEASES CONSULTATION REQUESTING PHYSICIAN: Chacho Morocho D.O. Reason For Consultation: Skin rash and recent bacteremia due to Staphylococcus warneri, recommendation for different antibiotics therapy, possible antibiotics related skin reaction. History Of Present Illness: The patient is a 77-year-old female with past medical history of CHF, COPD, diabetes, and hypertension, who was admitted to [facility] on 04/04/2017 with pneumonia, urinary tract infection, and sepsis. She was found to have fever and leukocytosis. Blood culture grew Staphylococcus warneri. So, she was on vancomycin treatment for four weeks and her urine culture grew E. coli sensitive to quinolone. So, she was started also on Levaquin for seven days course of treatment. The patient's repeated blood culture was negative on the 04/08/2017, so she was discharged with IV vancomycin and oral Levaquin to finish her course of treatment for four weeks for her Staphylococcus warneri bacteremia until 05/06/2017 and seven days course of Levaquin. At the rehab facility, the patient developed skin rash and erythema all over her upper and lower extremity and her body, which was concerning for drug-related reaction could be antibiotics. So, she was sent back to the emergency room at [facility] for further evaluation and management and I was consulted by the primary provider for antibiotic choice and further management. As of note, the patient is poor historian, cannot provide any history. History was mainly obtained from the medical record. Past Medical History: Significant for CHF, hypertension, COPD, diabetes, Crohn disease, anxiety disorder, dementia, seizure, and memory loss. PAST SURGICAL HISTORY: Negative. Medications: The patient received Solu-Medrol in the emergency room and Benadryl. For the rest of her medications, please refer to MAR. Allergies: She is allergic to either Levaquin or vancomycin, which added to her allergy list. Social History: [facility]. She had no recent drugs, tobacco, or alcohol. FAMILY HISTORY: Unable to obtain. PHYSICAL EXAMINATION: General: An elderly female, quiet, comfortable, lying in bed, alert, not in acute distress. Vital Signs: Temperature 98.1 degrees, pulse 90, respirations 19, blood pressure 154/73, and saturation 99% on two liters nasal cannula. HEENT: Normocephalic and atraumatic. Pupils reactive to light. Pale sclerae. Moist oral mucosa. No exudate. NECK: Supple. No lymphadenopathy. CARDIOVASCULAR: Regular rate and rhythm. No murmur. No gallop. Lungs: Clear bilaterally. Diminished breathing sound at the bases. No wheezing. Normal breathing effort. Abdomen: Soft, nontender, and nondistended. Normal bowel sounds. No hepatosplenomegaly. No ascites. Extremities: Trace edema. No cyanosis. Diffuse maculopapular rash covering lower extremities and buttock. Skin: She has diffuse maculopapular rash covering her back, upper and lower extremities, and her abdominal area, red, warm, and non-itchy. Laboratory And Diagnostic Data: Labs showed white count of 11,000, hemoglobin of 12, and platelet count of 133,000. BUN of 23 and creatinine of 0.8. AST of 36 and ALT of 16. Imaging, chest x-ray showed no overt congestive changes, stable left pleural effusion or left basal atelectasis, improvement in right basilar pleural effusion, and consolidation. ASSESSMENT AND RECOMMENDATION: 1. Skin rash suspect drug eruption, unclear whether vancomycin or Levaquin is the cause of her skin reaction. We will discontinue both completely and add to her allergy list. We will start the patient on Solu-Medrol and Benadryl as needed. Monitor her symptoms closely. 2. Sepsis due to Staphylococcus warneri. The patient received one week of her treatment as planned. She will need three more weeks of IV antibiotics. We will switch her antibiotic class to penicillin and start oxacillin IV infusion to finish her course of treatment for three more weeks and monitor closely in the hospital. Infectious Disease will continue to follow. Siria Ellison M.D. DR: Torrey JOB#: [id number] CC:
[2017-04-17] MEDS: Solu-MEDROL 125mg Inj IVP SCH ×3 (05:48→21:17)
[2017-04-17] MEDS: NovoLOG Insulin Flexpen SUBQ SCH ×4 (06:33→20:12)
[2017-04-17] MEDS: Cyclobenzaprine 10mg Tab ORAL SCH ×2 (09:00→20:10)
[2017-04-17] MEDS: Heparin 5000 units/ml inj SUBQ SCH ×2 (09:00→20:12)
[2017-04-17] MEDS: Lisinopril 20mg tab ORAL SCH (09:55)
[2017-04-17] MEDS: DiphenhydrAMINE 50mg/ml Inj IVP PRN (09:57)
--- NOTE | 2017-04-17 10:01 | General Progress Note ---
Assessment/Plan Problem List: (1) HTN (hypertension) ICD Codes: I10 - HTN (hypertension) SNOMED: 44035825 (2) GERD (gastroesophageal reflux disease) ICD Codes: K21.9 - Gastro-esophageal reflux disease without esophagitis SNOMED: 478725136 (3) Cellulitis (4) DM (diabetes mellitus) ICD Codes: E11.9 - DM (diabetes mellitus) SNOMED: 76804182 (5) OBESITY, NOS (6) SOB (shortness of breath) ICD Codes: R06.02 - Shortness of breath SNOMED: 221772957 (7) HTN (hypertension) ICD Codes: I10 - Essential (primary) hypertension SNOMED: 71765143 (8) Chronic pain ICD Codes: G89.29 - Other chronic pain SNOMED: 32208844 (9) Rash and other nonspecific skin eruption ICD Codes: R21 - Rash and other nonspecific skin eruption SNOMED: 866349004, 211269812 (10) Sepsis ICD Codes: A41.9 - Sepsis, unspecified organism SNOMED: 82498577 Status: stable, progressing, tolerating diet Assessment/Plan ot pt wound care o2 pulm tx cbc bmp am ltach eval Subjective Constitutional: Reports: weakness Respiratory: Reports: shortness of breath Allergies: Coded Allergies: LEVOFLOXACIN (Verified Allergy, Severe, Rash, 04/16/17) VANCOMYCIN (Verified Allergy, Severe, Rash, 04/16/17) All Systems: reviewed and negative except above Subjective o2nc sl anxious Objective Last 24 Hour Vital Signs Date Time Temp Pulse Resp B/P (MAP) Pulse Ox O2 Delivery O2 Flow Rate FiO2 04/17/17 09:56 115 159/79 04/17/17 09:55 159/79 04/17/17 08:00 98.2 115 18 159/79 98 Nasal Cannula 3.0 04/17/17 04:00 97.7 110 20 149/75 97 Nasal Cannula 2.0 04/17/17 03:57 115 04/17/17 00:00 118 04/17/17 00:00 98.2 105 20 139/81 97 Nasal Cannula 2.0 04/16/17 20:00 98.8 101 24 159/72 100 Nasal Cannula 2.0 04/16/17 19:14 103 04/16/17 16:33 98.1 90 18 127/71 98 Room Air 04/16/17 16:00 102 04/16/17 12:08 98.1 90 19 154/73 99 Nasal Cannula 2.0 04/16/17 12:00 91 04/16/17 11:00 97.8 83 18 145/44 94 Nasal Cannula 3.0 04/16/17 10:31 90 04/16/17 10:10 88 17 141/56 100 Nasal Cannula 3.0 Laboratory Tests 04/17/17 04:00: White Blood Count 7.5, Red Blood Count 4.15L, Hemoglobin 11.8L, Hematocrit 37.9 , Mean Corpuscular Volume 91, Mean Corpuscular Hemoglobin 28.4, Mean Corpuscular Hemoglobin Concent 31.2L, Red Cell Distribution Width 11.9, Platelet Count 131L, Mean Platelet Volume 9.7, Neutrophils (%) (Auto) , Lymphocytes (%) (Auto) , Monocytes (%) (Auto) , Eosinophils (%) (Auto) , Basophils (%) (Auto) , Sodium Level 133L, Potassium Level 3.8, Chloride Level 89L, Carbon Dioxide Level 35H, Anion Gap 9, Blood Urea Nitrogen 24H, Creatinine 0.8, Estimat Glomerular Filtration Rate , Glucose Level 236H, Calcium Level 9.0 , Total Bilirubin 0.6, Aspartate Amino Transf (AST/SGOT) 36, Alanine Aminotransferase (ALT/SGPT) 18, Alkaline Phosphatase 120H, Total Protein 7.4, Albumin 3.1L, Globulin 4.3, Albumin/Globulin Ratio 0.7L, Triglycerides Level 66 , Cholesterol Level 107, LDL Cholesterol 51L, HDL Cholesterol 43, Cholesterol/ HDL Ratio 2.5L Height (Feet): 5 Height (Inches): 4.00 Weight (Pounds): 215 General Appearance: lethargic EENT: normal ENT inspection Neck: normal alignment Cardiovascular: normal peripheral pulses, normal rate, regular rhythm Respiratory/Chest: chest wall non-tender, lungs clear, normal breath sounds Abdomen: normal bowel sounds, non tender, soft Extremities: normal inspection Edema: no edema noted Arm (L), no edema noted Arm (R), no edema noted Leg (L), no edema noted Leg (R), no edema noted Pedal (L), no edema noted Pedal (R), no edema noted Generalized Neurologic: motor weakness Skin: normal pigmentation, warm/dry Objective diffuse reddish rash w confluence in back , back of arm, back of leg, and buttocks KUMAR ENGLISH Apr 17, 2017 10:01
--- NOTE | 2017-04-17 11:09 | Pulmonology Progress Note ---
Assessment/Plan Problems: (1) Bilateral pneumonia (2) Generalized rash (3) Dermatitis (4) Tachycardia (5) COPD (chronic obstructive pulmonary disease) (6) DM (diabetes mellitus) (7) HTN (hypertension) (8) GERD (gastroesophageal reflux disease) (9) Cirrhosis Assessment/Plan check cultures continue abx respiratory treatment dvt prophylaxis cxr in a few days check echo Subjective ROS Limited/Unobtainable: No Interval Events: slightly better Allergies: Coded Allergies: LEVOFLOXACIN (Verified Allergy, Severe, Rash, 04/16/17) VANCOMYCIN (Verified Allergy, Severe, Rash, 04/16/17) Objective Last 24 Hour Vital Signs Date Time Temp Pulse Resp B/P (MAP) Pulse Ox O2 Delivery O2 Flow Rate FiO2 04/17/17 09:56 115 159/79 04/17/17 09:55 159/79 04/17/17 08:00 98.2 115 18 159/79 98 Nasal Cannula 3.0 04/17/17 08:00 112 04/17/17 04:00 97.7 110 20 149/75 97 Nasal Cannula 2.0 04/17/17 03:57 115 04/17/17 00:00 118 04/17/17 00:00 98.2 105 20 139/81 97 Nasal Cannula 2.0 04/16/17 20:00 98.8 101 24 159/72 100 Nasal Cannula 2.0 04/16/17 19:14 103 04/16/17 16:33 98.1 90 18 127/71 98 Room Air 04/16/17 16:00 102 04/16/17 12:08 98.1 90 19 154/73 99 Nasal Cannula 2.0 04/16/17 12:00 91 General Appearance: WD/WN HEENT: normocephalic, atraumatic Respiratory/Chest: chest wall non-tender, lungs clear Cardiovascular: normal peripheral pulses, normal rate Abdomen: normal bowel sounds, no organomegaly Genitourinary: normal external genitalia Extremities: no cyanosis Skin: rash Neurologic/Psychiatric: spot facer II-XII grossly normal, no motor/sensory deficits Lymphatic: no neck adenopathy Laboratory Tests 04/17/17 04:00: White Blood Count 7.5, Red Blood Count 4.15L, Hemoglobin 11.8L, Hematocrit 37.9 , Mean Corpuscular Volume 91, Mean Corpuscular Hemoglobin 28.4, Mean Corpuscular Hemoglobin Concent 31.2L, Red Cell Distribution Width 11.9, Platelet Count 131L, Mean Platelet Volume 9.7, Neutrophils (%) (Auto) , Lymphocytes (%) (Auto) , Monocytes (%) (Auto) , Eosinophils (%) (Auto) , Basophils (%) (Auto) , Sodium Level 133L, Potassium Level 3.8, Chloride Level 89L, Carbon Dioxide Level 35H, Anion Gap 9, Blood Urea Nitrogen 24H, Creatinine 0.8, Estimat Glomerular Filtration Rate , Glucose Level 236H, Calcium Level 9.0 , Total Bilirubin 0.6, Aspartate Amino Transf (AST/SGOT) 36, Alanine Aminotransferase (ALT/SGPT) 18, Alkaline Phosphatase 120H, Total Protein 7.4, Albumin 3.1L, Globulin 4.3, Albumin/Globulin Ratio 0.7L, Triglycerides Level 66 , Cholesterol Level 107, LDL Cholesterol 51L, HDL Cholesterol 43, Cholesterol/ HDL Ratio 2.5L Current Medications Medications (Trade) Dose Ordered Sig/Isabel Route PRN Reason Start Time Stop Time Status Last Admin Dose Admin Acetaminophen (Tylenol) 650 mg Q4H PRN ORAL T>100.5 04/16/17 09:45 05/16/17 09:44 Al Hydroxide/Mg Hydroxide (Mylanta II) 30 ml Q6H PRN ORAL dyspepsia 04/16/17 09:45 05/16/17 09:44 Amlodipine Besylate (Norvasc) 10 mg DAILY ORAL 04/17/17 09:00 05/17/17 08:59 04/17/17 09:56 Cyclobenzaprine HCl (Flexeril) 10 mg Q12HR ORAL 04/16/17 21:00 05/16/17 20:59 04/17/17 09:00 Dextrose (Dextrose 50%) STAT PRN IV Hypoglycemia 04/16/17 09:45 05/16/17 09:44 Diphenhydramine HCl (Benadryl) 25 mg Q6H PRN IVP Itching 04/16/17 16:15 05/16/17 16:14 04/17/17 09:57 Heparin Sodium (Porcine) (Heparin 5000 units/ml) 5,000 units EVERY 12 HOURS SUBQ 04/16/17 21:00 05/16/17 20:59 04/17/17 09:00 Insulin Aspart (NovoLOG) BEFORE MEALS AND HS SUBQ 04/16/17 11:30 05/16/17 11:29 04/17/17 06:33 Lisinopril (Prinivil) 40 mg DAILY ORAL 04/17/17 09:00 05/17/17 08:59 04/17/17 09:55 Lorazepam (Ativan 2mg/ml 1ml) 0.5 mg Q4H PRN IV For Anxiety 04/16/17 09:45 04/23/17 09:44 Methylprednisolone Sodium Succinate (Solu-MEDROL) 60 mg EVERY 8 HOURS IVP 04/16/17 16:00 05/16/17 15:59 04/17/17 05:48 Mirtazapine (Remeron) 7.5 mg BEDTIME ORAL 04/16/17 21:00 05/16/17 20:59 04/16/17 21:57 Morphine Sulfate (Morphine Sulfate) 1 mg Q4H PRN IVP PAIN 4-10 04/16/17 09:45 04/23/17 09:44 04/17/17 05:32 Ondansetron HCl (Zofran) 4 mg Q6H PRN IVP Nausea & Vomiting 04/16/17 09:45 05/16/17 09:44 Oxacillin Sodium 2 gm/Sodium Chloride 110 ml @ 220 mls/hr EVERY 6 HOURS IVPB 04/16/17 18:00 05/07/17 17:59 04/17/17 05:31 Polyethylene Glycol (Miralax) 17 gm HSPRN PRN ORAL Constipation 04/16/17 21:00 05/16/17 20:59 Zolpidem Tartrate (Ambien) 5 mg HSPRN PRN ORAL Insomnia 04/16/17 21:00 04/23/17 20:59 04/17/17 00:07 TABATHA PLASENCIA Apr 17, 2017 11:09
--- NOTE | 2017-04-17 12:15 | History and Physical Report ---
DATE OF ADMISSION: 04/16/2017 TIME SEEN: At 10 a.m. ATTENDING PHYSICIAN: Chacho Morocho D.O. CONSULTANTS: 1. Mohsen Ferrera M.D. 2. Dr. Meza. 3. Edilberto Canseco M.D. Chief Complaint: Rash, dermatitis, sepsis, possible Stubbs-Ajith, and anxiety. Brief History: This is a 77-year-old female from [facility] as noted above with two days of increased rash. Rash is diffusely in the back of the thigh and the back, punctate lesions, some confluence, no ulceration. The patient was diagnosed with dermatitis, possible drug reaction, admitted to telemetry for further care. Currently, actually slightly anxious in the ER [facility]. No complaint. Past Medical History: Hypertension, GERD, diabetes, chronic pain, and obesity. PAST SURGICAL HISTORY: None. Medications: Include Norvasc, Prinivil, Flexeril, Remeron, MiraLax, Ambien, NovoLog, Tylenol, Motrin, Zofran, Ativan, and Mylanta. So, the patient was given Solu-Medrol in the ER, Pepcid IV, and Benadryl. ALLERGIES: Denied. SOCIAL HISTORY: No smoking. No alcohol. No intravenous drug abuse. FAMILY HISTORY: Noncontributory. Review Of Systems: No chest pain. No shortness of breath. No nausea, vomiting, or diarrhea. PHYSICAL EXAMINATION: GENERAL: Slightly anxious in bed, oriented x2, no acute distress. Vital Signs: Temperature is 99 degrees, pulse 78, respirations 17, and blood pressure 141/60. CARDIOVASCULAR: No murmur. LUNGS: Poor exchange. ABDOMEN: Bowel sounds are positive. Nontender and nondistended. EXTREMITIES: No cyanosis, clubbing, or edema. Neurological: The patient moves all extremities, but slightly weak. As described on the back, she has throughout the back of the arm, back, back of the thigh with punctate red lesions with some confluence, but no ulceration and no punctate lesions. Laboratory Data: Laboratory exam show white count 11 and platelets 133,000, otherwise CBC is normal. BMP showed chloride 91, bicarbonate 37, and glucose 139. Albumin 2.9, malnutrition. INR is 1.1. PTT is 36. ASSESSMENT: 1. Dermatitis. 2. Rash. 3. Sepsis. 4. Hypertension. 5. Gastroesophageal reflux disease. 6. Diabetes. 7. Chronic pain. 8. Obesity. 9. Malnutrition. PLAN: 1. Wound care. 2. Antibiotics per Infectious Disease. 3. Taper off steroids. 4. Blood pressure and blood sugar control. 5. Dietary followup. 6. OT, PT, and dietary evaluation. 7. CBC and BMP in the morning. Chacho Morocho D.O. DR: Candace JOB#: [id number] CC:
[2017-04-17] MEDS ORDERED: Tubing IV Secondary IV ONE (15:38)
[2017-04-17] MEDS ORDERED: NS 275ml ONE (15:38)
--- NOTE | 2017-04-17 15:51 | Infectious Diseases Prog Note ---
Assessment/Plan Problems: (1) Rash and other nonspecific skin eruption Assessment & Plan: unclear whether due to vancomycin or levaquin since she was on both, avoid both drug class and add to her list of allergy. improving on steroids and benadryl (2) Sepsis due to Staphylococcus Assessment & Plan: warneri which grew out of her previous blood culture last admission , but had skin allergic reaction, unclear whether to vancomycin or levaquin , now blood culture is growing gram positive cocci in clusters , on oxacillin to finish her course of treatment for 4 weeks total , await identification and sensitivity . duration f the antibiotics to be determined based on her new culture Subjective Constitutional: Reports: no symptoms HEENT: Reports: no symptoms Respiratory: Reports: no symptoms Breasts: Reports: no symptoms Cardiovascular: Reports: no symptoms Gastrointestinal/Abdominal: Reports: no symptoms Genitourinary: Reports: no symptoms Neurologic: Reports: no symptoms Psychiatric: Reports: depression Skin: Reports: rash Endocrine: Reports: no symptoms Allergies: Coded Allergies: LEVOFLOXACIN (Verified Allergy, Severe, Rash, 04/16/17) VANCOMYCIN (Verified Allergy, Severe, Rash, 04/16/17) Objective Vital Signs Last 24 Hour Vital Signs Date Time Temp Pulse Resp B/P (MAP) Pulse Ox O2 Delivery O2 Flow Rate FiO2 04/17/17 13:00 98.2 120 20 162/74 96 Nasal Cannula 2.0 04/17/17 12:46 98.2 04/17/17 12:00 128 04/17/17 12:00 98.1 123 22 159/80 87 Nasal Cannula 2.0 04/17/17 09:59 98.2 04/17/17 09:56 115 159/79 04/17/17 09:55 159/79 04/17/17 08:00 98.2 115 18 159/79 98 Nasal Cannula 3.0 04/17/17 08:00 112 04/17/17 04:00 97.7 110 20 149/75 97 Nasal Cannula 2.0 04/17/17 03:57 115 04/17/17 00:00 118 04/17/17 00:00 98.2 105 20 139/81 97 Nasal Cannula 2.0 04/16/17 20:00 98.8 101 24 159/72 100 Nasal Cannula 2.0 04/16/17 19:14 103 04/16/17 16:33 98.1 90 18 127/71 98 Room Air 04/16/17 16:00 102 Height (Feet): 5 Height (Inches): 4.00 Weight (Pounds): 215 General Appearance: WD/WN, no acute distress HEENT: normocephalic, atraumatic, anicteric Respiratory/Chest: chest wall non-tender, lungs clear, normal breath sounds, no respiratory distress, no accessory muscle use Cardiovascular: normal peripheral pulses, normal rate, regular rhythm, no gallop/murmur Abdomen: normal bowel sounds, soft, non tender, no organomegaly, non distended , no mass Extremities: no cyanosis, no clubbing Skin: rash, lesions Microbiology Date/Time Source Procedure Growth Status 04/16/17 08:30 Blood Blood Culture - Preliminary Resulted 04/16/17 08:30 Blood Blood Culture - Preliminary Resulted Laboratory Tests Test 04/17/17 04:00 White Blood Count 7.5 K/UL (4.8-10.8) Red Blood Count 4.15 M/UL (4.20-5.40) L Hemoglobin 11.8 G/DL (12.0-16.0) L Hematocrit 37.9 % (37.0-47.0) Mean Corpuscular Volume 91 FL (80-99) Mean Corpuscular Hemoglobin 28.4 PG (27.0-31.0) Mean Corpuscular Hemoglobin Concent 31.2 G/DL (32.0-36.0) L Red Cell Distribution Width 11.9 % (11.6-14.8) Platelet Count 131 K/UL (150-450) L Mean Platelet Volume 9.7 FL (6.5-10.1) Neutrophils (%) (Auto) % (45.0-75.0) Lymphocytes (%) (Auto) % (20.0-45.0) Monocytes (%) (Auto) % (1.0-10.0) Eosinophils (%) (Auto) % (0.0-3.0) Basophils (%) (Auto) % (0.0-2.0) Sodium Level 133 mEQ/L (135-145) L Potassium Level 3.8 mEQ/L (3.4-4.9) Chloride Level 89 mEQ/L (98-107) L Carbon Dioxide Level 35 mEQ/L (20-30) H Anion Gap 9 (5-15) Blood Urea Nitrogen 24 mg/dL (7-23) H Creatinine 0.8 mg/dL (0.5-0.9) Estimat Glomerular Filtration Rate mL/min (>60) Glucose Level 236 mg/dL (74-106) H Calcium Level 9.0 mg/dL (8.6-10.2) Total Bilirubin 0.6 mg/dL (0.0-1.2) Aspartate Amino Transf (AST/SGOT) 36 U/L (5-40) Alanine Aminotransferase (ALT/SGPT) 18 U/L (3-33) Alkaline Phosphatase 120 U/L (35-104) H Total Protein 7.4 g/dL (6.6-8.7) Albumin 3.1 g/dL (3.5-5.2) L Globulin 4.3 g/dL Albumin/Globulin Ratio 0.7 (1.0-2.7) L Triglycerides Level 66 mg/dL (< 150) Cholesterol Level 107 mg/dL (< 200) LDL Cholesterol 51 mg/dL (60-99) L HDL Cholesterol 43 mg/dL (> 60) Cholesterol/HDL Ratio 2.5 (3.3-4.4) L Current Medications Medications (Trade) Dose Ordered Sig/Isabel Route PRN Reason Start Time Stop Time Status Last Admin Dose Admin Acetaminophen (Tylenol) 650 mg Q4H PRN ORAL T>100.5 04/16/17 09:45 05/16/17 09:44 Al Hydroxide/Mg Hydroxide (Mylanta II) 30 ml Q6H PRN ORAL dyspepsia 04/16/17 09:45 05/16/17 09:44 Amlodipine Besylate (Norvasc) 10 mg DAILY ORAL 04/17/17 09:00 05/17/17 08:59 04/17/17 09:56 Cyclobenzaprine HCl (Flexeril) 10 mg Q12HR ORAL 04/16/17 21:00 05/16/17 20:59 04/17/17 09:00 Dextrose (Dextrose 50%) STAT PRN IV Hypoglycemia 04/16/17 09:45 05/16/17 09:44 Diphenhydramine HCl (Benadryl) 25 mg Q6H PRN IVP Itching 04/16/17 16:15 05/16/17 16:14 04/17/17 09:57 Heparin Sodium (Porcine) (Heparin 5000 units/ml) 5,000 units EVERY 12 HOURS SUBQ 04/16/17 21:00 05/16/17 20:59 04/17/17 09:00 Insulin Aspart (NovoLOG) BEFORE MEALS AND HS SUBQ 04/16/17 11:30 05/16/17 11:29 04/17/17 12:31 Lisinopril (Prinivil) 40 mg DAILY ORAL 04/17/17 09:00 05/17/17 08:59 04/17/17 09:55 Lorazepam (Ativan 2mg/ml 1ml) 0.5 mg Q4H PRN IV For Anxiety 04/16/17 09:45 04/23/17 09:44 Methylprednisolone Sodium Succinate (Solu-MEDROL) 60 mg EVERY 8 HOURS IVP 04/16/17 16:00 05/16/17 15:59 04/17/17 14:10 Mirtazapine (Remeron) 7.5 mg BEDTIME ORAL 04/16/17 21:00 05/16/17 20:59 04/16/17 21:57 Morphine Sulfate (Morphine Sulfate) 1 mg Q4H PRN IVP PAIN 4-10 04/16/17 09:45 04/23/17 09:44 04/17/17 12:16 Ondansetron HCl (Zofran) 4 mg Q6H PRN IVP Nausea & Vomiting 04/16/17 09:45 05/16/17 09:44 Oxacillin Sodium 2 gm/Sodium Chloride 110 ml @ 220 mls/hr EVERY 6 HOURS IVPB 04/16/17 18:00 05/07/17 17:59 04/17/17 12:16 Polyethylene Glycol (Miralax) 17 gm HSPRN PRN ORAL Constipation 04/16/17 21:00 05/16/17 20:59 Zolpidem Tartrate (Ambien) 5 mg HSPRN PRN ORAL Insomnia 04/16/17 21:00 04/23/17 20:59 04/17/17 00:07 Siria Ellison M.D. Apr 17, 2017 15:50
[2017-04-18] VITALS (7 sets, daily range): BP systolic 135–161; BP diastolic 70–96
--- NOTE | 2017-04-18 | Progress Note ---
DATE: 04/17/2017 SUBJECTIVE: A 77-year-old female patient with severe dermatitis. Plan: She is placed on Remeron to reduce her anxiety, depression, and insomnia. Chart reviewed and discussed with staff. Seen and assessed at the bedside. Edilberto Canseco M.D. DR: COLETTE JOB#: [id number] CC:
[2017-04-18] MEDS: Morphine Sulfate 2mg/ml Inj IVP PRN ×2 (01:06→19:42)
[2017-04-18] MEDS: Oxacillin 2 GM in NS 110 ML IVPB SCH ×4 (06:24→23:50)
[2017-04-18] MEDS: Solu-MEDROL 125mg Inj IVP SCH ×2 (06:24→13:46)
[2017-04-18] MEDS: NovoLOG Insulin Flexpen SUBQ SCH ×4 (06:25→21:02)
[2017-04-18 08:03] LABS: MEAN CORPUSCULAR HEMOGLOBIN 29.9 PG (27.0-31.0); MEAN CORPUSCULAR HGB CONC 32.3 G/DL (32.0-36.0); MEAN CORPUSCULAR VOLUME 92 FL (80-99); MEAN PLATELET VOLUME 10.1 FL (6.5-10.1); PLATELET COUNT 152 K/UL (150-450); RED BLOOD COUNT 3.94 M/UL (4.20-5.40); RED CELL DISTRIBUTION WIDTH 12.4 % (11.6-14.8); WHITE BLOOD COUNT 10.5 K/UL (4.8-10.8)
[2017-04-18 08:27] LABS: ALANINE AMINOTRANSFERASE 18 U/L (3-33); ALBUMIN/GLOBULIN RATIO 0.7 (1.0-2.7); ANION GAP 9 (5-15); ASPARTATE AMINO TRANSFERASE 33 U/L (5-40); CALCIUM 9.5 mg/dL (8.6-10.2); CARBON DIOXIDE 36 mEQ/L (20-30); CHLORIDE 92 mEQ/L (98-107); CREATININE 0.8 mg/dL (0.5-0.9); HEMOLYSIS 0; POTASSIUM 3.6 mEQ/L (3.4-4.9); SODIUM 137 mEQ/L (135-145); TOTAL PROTEIN 7.7 g/dL (6.6-8.7)
--- NOTE | 2017-04-18 08:32 | Consultation ---
DATE OF CONSULTATION: INITIAL PSYCHIATRIC CONSULTATION CONSULTING PHYSICIAN: Edilberto Canseco MD History of Present Illness: This is a 77-year-old female patient. 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 _. SOCIAL HISTORY: This patient is _, financially supported by _. SUBSTANCE ABUSE HISTORY: Denies drug or alcohol use. ALLERGIES: No known drug allergies. Psychiatric History: Major depressive disorder, rule out pseudodementia. Mental Status Examination: This is a 77-year-old female with psychomotor retardation. Mood is irritable and agitated. Affect guarded and restricted. Thought process disorganized. Denies any suicidal or homicidal thoughts. Insight and judgement is poor. DIAGNOSIS: Major depressive disorder, rule out pseudodementia. Plan: Continue on _ for now _ over a month without any side effects, adverse reactions _. Chart reviewed and discussed with staff. The patient was seen and assessed at the bedside. I would like to thank Dr. Chacho Morocho for this interesting consultation. I will continue to follow this patient with you throughout her hospital course. Edilberto Canseco M.D. DR: Gucci JOB#: [id number] CC:
[2017-04-18] MEDS: Cyclobenzaprine 10mg Tab ORAL SCH ×2 (09:11→21:04)
[2017-04-18] MEDS: Lisinopril 20mg tab ORAL SCH (09:11)
[2017-04-18] MEDS: Heparin 5000 units/ml inj SUBQ SCH ×2 (09:13→21:01)
[2017-04-18 10:11] LABS: BAND NEUTROPHILS % (MANUAL) 0 % (0-8); BASOPHILS % (MANUAL) 0 % (0-2); EOSINOPHILS % (MANUAL) 0 % (0-3); HYPOCHROMASIA 1+; LYMPHOCYTES % (MANUAL) 5 % (20-45); NEUTROPHILS % (MANUAL) 94 % (45-75); PLATELET ESTIMATE ADEQUATE; PLATELET MORPHOLOGY NORMAL; TOTAL CELLS COUNTED 100
--- NOTE | 2017-04-18 11:35 | Diagnostic Imaging Report ---
Indication: Dyspnea Comparison: 04/16/17 A single view chest radiograph was obtained. Findings: Lung lines remain low. Small basilar effusion suspected. Cardiomegaly and interstitial edema again noted. PICC line is stable. Impression: No change from the prior exam. CHF
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
--- NOTE | 2017-04-18 13:14 | Pulmonology Progress Note ---
Assessment/Plan Problems: (1) Bilateral pneumonia (2) Generalized rash (3) Dermatitis (4) Tachycardia (5) COPD (chronic obstructive pulmonary disease) (6) DM (diabetes mellitus) (7) HTN (hypertension) (8) GERD (gastroesophageal reflux disease) (9) Cirrhosis Assessment/Plan still tachycardic cxr reviewed, LLL infiltrate and effusion check cultures continue abx respiratory treatment dvt prophylaxis Subjective ROS Limited/Unobtainable: Yes Interval Events: comfortable Allergies: Coded Allergies: LEVOFLOXACIN (Verified Allergy, Severe, Rash, 04/16/17) VANCOMYCIN (Verified Allergy, Severe, Rash, 04/16/17) Objective Last 24 Hour Vital Signs Date Time Temp Pulse Resp B/P (MAP) Pulse Ox O2 Delivery O2 Flow Rate FiO2 04/18/17 11:57 97.7 104 18 135/77 96 Nasal Cannula 3.0 04/18/17 10:22 97.7 04/18/17 09:11 144/79 04/18/17 09:11 110 144/79 04/18/17 08:00 118 04/18/17 08:00 97.7 110 20 144/79 95 Nasal Cannula 2.0 04/18/17 04:10 97.9 110 20 145/82 95 Nasal Cannula 2.0 04/18/17 04:00 115 04/18/17 01:39 97.9 118 04/18/17 01:36 97.9 04/18/17 00:00 119 04/18/17 00:00 97.9 118 20 140/77 94 Nasal Cannula 2.0 04/17/17 21:23 Nasal Cannula 3.0 32 04/17/17 21:23 93 Nasal Cannula 3.0 32 04/17/17 20:27 98.7 110 20 151/79 100 Room Air 2.0 04/17/17 20:00 111 04/17/17 16:00 117 04/17/17 15:55 98.7 110 20 151/79 100 Room Air Intake and Output 04/18/17 04/19/17 19:00 07:00 Intake Total 120 ml Balance 120 ml Intake Oral 120 ml # Voids 2 # Bowel Movements 1 General Appearance: WD/WN HEENT: normocephalic, atraumatic, anicteric Respiratory/Chest: chest wall non-tender, lungs clear Breasts: no masses Cardiovascular: normal peripheral pulses, normal rate Abdomen: normal bowel sounds, soft, non tender, no organomegaly Genitourinary: normal external genitalia Neurologic/Psychiatric: wwe wrestler II-XII grossly normal, abnormal gait, normal mood/ affect Musculoskeletal: normal muscle bulk Microbiology Date/Time Source Procedure Growth Status 04/16/17 08:30 Blood Blood Culture - Preliminary Resulted 04/16/17 08:30 Blood Blood Culture - Preliminary Resulted 04/16/17 09:30 Nasal Nares MRSA Culture - Final Staphylococcus Aureus - Mrsa Complete 04/16/17 09:30 Rectum VRE Culture - Final Enterococcus Faecium - Vre Complete Laboratory Tests 04/18/17 07:00: White Blood Count 10.5, Red Blood Count 3.94L, Hemoglobin 11.8L, Hematocrit 36.4L, Mean Corpuscular Volume 92, Mean Corpuscular Hemoglobin 29.9, Mean Corpuscular Hemoglobin Concent 32.3, Red Cell Distribution Width 12.4, Platelet Count 152, Mean Platelet Volume 10.1, Neutrophils (%) (Auto) , Lymphocytes (%) ( Auto) , Monocytes (%) (Auto) , Eosinophils (%) (Auto) , Basophils (%) (Auto) , Differential Total Cells Counted 100, Neutrophils % (Manual) 94H, Lymphocytes % (Manual) 5L, Monocytes % (Manual) 1, Eosinophils % (Manual) 0, Basophils % ( Manual) 0, Band Neutrophils 0, Platelet Estimate Adequate, Platelet Morphology Normal, Hypochromasia 1+, Sodium Level 137, Potassium Level 3.6, Chloride Level 92L, Carbon Dioxide Level 36H, Anion Gap 9, Blood Urea Nitrogen 28H, Creatinine 0.8, Estimat Glomerular Filtration Rate , Glucose Level 242H, Calcium Level 9.5 , Total Bilirubin 0.5, Aspartate Amino Transf (AST/SGOT) 33, Alanine Aminotransferase (ALT/SGPT) 18, Alkaline Phosphatase 187H, Pro-B-Type Natriuretic Peptide 358, Total Protein 7.7, Albumin 3.2L, Globulin 4.5, Albumin/ Globulin Ratio 0.7L Current Medications Medications (Trade) Dose Ordered Sig/Isabel Route PRN Reason Start Time Stop Time Status Last Admin Dose Admin Acetaminophen (Tylenol) 650 mg Q4H PRN ORAL T>100.5 04/16/17 09:45 05/16/17 09:44 Al Hydroxide/Mg Hydroxide (Mylanta II) 30 ml Q6H PRN ORAL dyspepsia 04/16/17 09:45 05/16/17 09:44 Amlodipine Besylate (Norvasc) 10 mg DAILY ORAL 04/17/17 09:00 05/17/17 08:59 04/18/17 09:11 Cyclobenzaprine HCl (Flexeril) 10 mg Q12HR ORAL 04/16/17 21:00 05/16/17 20:59 04/18/17 09:11 Dextrose (Dextrose 50%) STAT PRN IV Hypoglycemia 04/16/17 09:45 05/16/17 09:44 Diphenhydramine HCl (Benadryl) 25 mg Q6H PRN IVP Itching 04/16/17 16:15 05/16/17 16:14 04/17/17 09:57 Heparin Sodium (Porcine) (Heparin 5000 units/ml) 5,000 units EVERY 12 HOURS SUBQ 04/16/17 21:00 05/16/17 20:59 04/18/17 09:13 Insulin Aspart (NovoLOG) BEFORE MEALS AND HS SUBQ 04/16/17 11:30 05/16/17 11:29 04/18/17 11:23 Lisinopril (Prinivil) 40 mg DAILY ORAL 04/17/17 09:00 05/17/17 08:59 04/18/17 09:11 Lorazepam (Ativan 2mg/ml 1ml) 0.5 mg Q4H PRN IV For Anxiety 04/16/17 09:45 04/23/17 09:44 Methylprednisolone Sodium Succinate (Solu-MEDROL) 60 mg EVERY 8 HOURS IVP 04/16/17 16:00 05/16/17 15:59 04/18/17 06:24 Mirtazapine (Remeron) 7.5 mg BEDTIME ORAL 04/16/17 21:00 05/16/17 20:59 04/17/17 20:10 Morphine Sulfate (Morphine Sulfate) 1 mg Q4H PRN IVP PAIN 4-10 04/16/17 09:45 04/23/17 09:44 04/18/17 01:06 Ondansetron HCl (Zofran) 4 mg Q6H PRN IVP Nausea & Vomiting 04/16/17 09:45 05/16/17 09:44 Oxacillin Sodium 2 gm/Sodium Chloride 110 ml @ 220 mls/hr EVERY 6 HOURS IVPB 04/16/17 18:00 05/07/17 17:59 04/18/17 11:24 Polyethylene Glycol (Miralax) 17 gm HSPRN PRN ORAL Constipation 04/16/17 21:00 05/16/17 20:59 Zolpidem Tartrate (Ambien) 5 mg HSPRN PRN ORAL Insomnia 04/16/17 21:00 04/23/17 20:59 04/17/17 21:38 TABATHA PLASENCIA Apr 18, 2017 13:14
--- NOTE | 2017-04-18 14:09 | General Progress Note ---
Assessment/Plan Problem List: (1) HTN (hypertension) ICD Codes: I10 - HTN (hypertension) SNOMED: 19406175 (2) GERD (gastroesophageal reflux disease) ICD Codes: K21.9 - Gastro-esophageal reflux disease without esophagitis SNOMED: 224334002 (3) Cellulitis (4) DM (diabetes mellitus) ICD Codes: E11.9 - DM (diabetes mellitus) SNOMED: 51102128 (5) OBESITY, NOS (6) SOB (shortness of breath) ICD Codes: R06.02 - Shortness of breath SNOMED: 398586842 (7) HTN (hypertension) ICD Codes: I10 - Essential (primary) hypertension SNOMED: 12918759 (8) Chronic pain ICD Codes: G89.29 - Other chronic pain SNOMED: 20841742 (9) Rash and other nonspecific skin eruption ICD Codes: R21 - Rash and other nonspecific skin eruption SNOMED: 442224259, 723742492 (10) Sepsis ICD Codes: A41.9 - Sepsis, unspecified organism SNOMED: 02121449 Status: stable, progressing, tolerating diet Assessment/Plan ot pt wound care o2 pulm tx cbc bmp am ltach eval Subjective Constitutional: Reports: weakness Allergies: Coded Allergies: LEVOFLOXACIN (Verified Allergy, Severe, Rash, 04/16/17) VANCOMYCIN (Verified Allergy, Severe, Rash, 04/16/17) All Systems: reviewed and negative except above Subjective o2nc sl anxious Objective Last 24 Hour Vital Signs Date Time Temp Pulse Resp B/P (MAP) Pulse Ox O2 Delivery O2 Flow Rate FiO2 04/18/17 12:00 112 04/18/17 11:57 97.7 104 18 135/77 96 Nasal Cannula 3.0 04/18/17 10:22 97.7 04/18/17 09:11 144/79 04/18/17 09:11 110 144/79 04/18/17 08:00 118 04/18/17 08:00 97.7 110 20 144/79 95 Nasal Cannula 2.0 04/18/17 04:10 97.9 110 20 145/82 95 Nasal Cannula 2.0 04/18/17 04:00 115 04/18/17 01:39 97.9 118 04/18/17 01:36 97.9 04/18/17 00:00 119 04/18/17 00:00 97.9 118 20 140/77 94 Nasal Cannula 2.0 04/17/17 21:23 Nasal Cannula 3.0 32 04/17/17 21:23 93 Nasal Cannula 3.0 32 04/17/17 20:27 98.7 110 20 151/79 100 Room Air 2.0 04/17/17 20:00 111 04/17/17 16:00 117 04/17/17 15:55 98.7 110 20 151/79 100 Room Air Intake and Output 04/18/17 04/19/17 19:00 07:00 Intake Total 120 ml Balance 120 ml Intake Oral 120 ml # Voids 2 # Bowel Movements 1 Laboratory Tests 04/18/17 07:00: White Blood Count 10.5, Red Blood Count 3.94L, Hemoglobin 11.8L, Hematocrit 36.4L, Mean Corpuscular Volume 92, Mean Corpuscular Hemoglobin 29.9, Mean Corpuscular Hemoglobin Concent 32.3, Red Cell Distribution Width 12.4, Platelet Count 152, Mean Platelet Volume 10.1, Neutrophils (%) (Auto) , Lymphocytes (%) ( Auto) , Monocytes (%) (Auto) , Eosinophils (%) (Auto) , Basophils (%) (Auto) , Differential Total Cells Counted 100, Neutrophils % (Manual) 94H, Lymphocytes % (Manual) 5L, Monocytes % (Manual) 1, Eosinophils % (Manual) 0, Basophils % ( Manual) 0, Band Neutrophils 0, Platelet Estimate Adequate, Platelet Morphology Normal, Hypochromasia 1+, Sodium Level 137, Potassium Level 3.6, Chloride Level 92L, Carbon Dioxide Level 36H, Anion Gap 9, Blood Urea Nitrogen 28H, Creatinine 0.8, Estimat Glomerular Filtration Rate , Glucose Level 242H, Calcium Level 9.5 , Total Bilirubin 0.5, Aspartate Amino Transf (AST/SGOT) 33, Alanine Aminotransferase (ALT/SGPT) 18, Alkaline Phosphatase 187H, Pro-B-Type Natriuretic Peptide 358, Total Protein 7.7, Albumin 3.2L, Globulin 4.5, Albumin/ Globulin Ratio 0.7L Height (Feet): 5 Height (Inches): 4.00 Weight (Pounds): 215 General Appearance: lethargic EENT: normal ENT inspection Neck: normal alignment Cardiovascular: normal peripheral pulses, normal rate, regular rhythm Respiratory/Chest: chest wall non-tender, lungs clear, normal breath sounds Extremities: normal inspection Edema: no edema noted Arm (L), no edema noted Arm (R), no edema noted Leg (L), no edema noted Leg (R), no edema noted Pedal (L), no edema noted Pedal (R), no edema noted Generalized Neurologic: responsive, motor weakness Skin: normal pigmentation, warm/dry Objective diffuse reddish rash w confluence in back , back of arm, back of leg, and buttocks KUMAR ENGLISH Apr 18, 2017 14:09
--- NOTE | 2017-04-18 17:15 | Infectious Diseases Prog Note ---
Assessment/Plan Problems: (1) Rash and other nonspecific skin eruption Assessment & Plan: unclear whether due to vancomycin or levaquin since she was on both, avoid both drug class and add to her list of allergy. improved on steroids and benadryl , will stop steroids (2) Sepsis due to Staphylococcus Assessment & Plan: previously was staph warneri which grew out of her blood culture last admission , but had skin allergic reaction, unclear whether to vancomycin or levaquin , now blood culture is growing gram positive cocci in clusters , which is most likely staphylococcus , now on oxacillin , await identification and sensitivity . duration of the antibiotics to be determined based on her new culture Subjective Constitutional: Reports: no symptoms HEENT: Reports: no symptoms Respiratory: Reports: no symptoms Breasts: Reports: no symptoms Cardiovascular: Reports: no symptoms Gastrointestinal/Abdominal: Reports: no symptoms Genitourinary: Reports: no symptoms Neurologic: Reports: no symptoms Psychiatric: Reports: no symptoms Skin: Reports: rash Allergies: Coded Allergies: LEVOFLOXACIN (Verified Allergy, Severe, Rash, 04/16/17) VANCOMYCIN (Verified Allergy, Severe, Rash, 04/16/17) Objective Vital Signs Last 24 Hour Vital Signs Date Time Temp Pulse Resp B/P (MAP) Pulse Ox O2 Delivery O2 Flow Rate FiO2 04/18/17 15:50 98.1 117 20 141/70 95 Nasal Cannula 3.0 04/18/17 12:00 112 04/18/17 11:57 97.7 104 18 135/77 96 Nasal Cannula 3.0 04/18/17 10:22 97.7 04/18/17 09:11 144/79 04/18/17 09:11 110 144/79 04/18/17 08:00 118 04/18/17 08:00 97.7 110 20 144/79 95 Nasal Cannula 2.0 04/18/17 04:10 97.9 110 20 145/82 95 Nasal Cannula 2.0 04/18/17 04:00 115 04/18/17 01:39 97.9 118 04/18/17 01:36 97.9 04/18/17 00:00 119 04/18/17 00:00 97.9 118 20 140/77 94 Nasal Cannula 2.0 04/17/17 21:23 Nasal Cannula 3.0 32 04/17/17 21:23 93 Nasal Cannula 3.0 32 04/17/17 20:27 98.7 110 20 151/79 100 Room Air 2.0 04/17/17 20:00 111 Height (Feet): 5 Height (Inches): 4.00 Weight (Pounds): 215 General Appearance: WD/WN, no acute distress HEENT: normocephalic, atraumatic, anicteric Respiratory/Chest: chest wall non-tender, lungs clear, normal breath sounds, no respiratory distress, no accessory muscle use Cardiovascular: normal peripheral pulses, normal rate, regular rhythm, no gallop/murmur Abdomen: normal bowel sounds, soft, non tender, no organomegaly, non distended , no mass Extremities: no cyanosis, no clubbing Skin: rash Microbiology Date/Time Source Procedure Growth Status 04/16/17 08:30 Blood Blood Culture - Preliminary Resulted 04/16/17 08:30 Blood Blood Culture - Preliminary Resulted 04/16/17 09:30 Nasal Nares MRSA Culture - Final Staphylococcus Aureus - Mrsa Complete 04/16/17 09:30 Rectum VRE Culture - Final Enterococcus Faecium - Vre Complete Laboratory Tests Test 04/18/17 07:00 White Blood Count 10.5 K/UL (4.8-10.8) Red Blood Count 3.94 M/UL (4.20-5.40) L Hemoglobin 11.8 G/DL (12.0-16.0) L Hematocrit 36.4 % (37.0-47.0) L Mean Corpuscular Volume 92 FL (80-99) Mean Corpuscular Hemoglobin 29.9 PG (27.0-31.0) Mean Corpuscular Hemoglobin Concent 32.3 G/DL (32.0-36.0) Red Cell Distribution Width 12.4 % (11.6-14.8) Platelet Count 152 K/UL (150-450) Mean Platelet Volume 10.1 FL (6.5-10.1) Neutrophils (%) (Auto) % (45.0-75.0) Lymphocytes (%) (Auto) % (20.0-45.0) Monocytes (%) (Auto) % (1.0-10.0) Eosinophils (%) (Auto) % (0.0-3.0) Basophils (%) (Auto) % (0.0-2.0) Differential Total Cells Counted 100 Neutrophils % (Manual) 94 % (45-75) H Lymphocytes % (Manual) 5 % (20-45) L Monocytes % (Manual) 1 % (1-10) Eosinophils % (Manual) 0 % (0-3) Basophils % (Manual) 0 % (0-2) Band Neutrophils 0 % (0-8) Platelet Estimate Adequate Platelet Morphology Normal Hypochromasia 1+ Sodium Level 137 mEQ/L (135-145) Potassium Level 3.6 mEQ/L (3.4-4.9) Chloride Level 92 mEQ/L (98-107) L Carbon Dioxide Level 36 mEQ/L (20-30) H Anion Gap 9 (5-15) Blood Urea Nitrogen 28 mg/dL (7-23) H Creatinine 0.8 mg/dL (0.5-0.9) Estimat Glomerular Filtration Rate mL/min (>60) Glucose Level 242 mg/dL (74-106) H Calcium Level 9.5 mg/dL (8.6-10.2) Total Bilirubin 0.5 mg/dL (0.0-1.2) Aspartate Amino Transf (AST/SGOT) 33 U/L (5-40) Alanine Aminotransferase (ALT/SGPT) 18 U/L (3-33) Alkaline Phosphatase 187 U/L (35-104) H Pro-B-Type Natriuretic Peptide 358 pg/mL (0-450) Total Protein 7.7 g/dL (6.6-8.7) Albumin 3.2 g/dL (3.5-5.2) L Globulin 4.5 g/dL Albumin/Globulin Ratio 0.7 (1.0-2.7) L Current Medications Medications (Trade) Dose Ordered Sig/Isabel Route PRN Reason Start Time Stop Time Status Last Admin Dose Admin Acetaminophen (Tylenol) 650 mg Q4H PRN ORAL T>100.5 04/16/17 09:45 05/16/17 09:44 Al Hydroxide/Mg Hydroxide (Mylanta II) 30 ml Q6H PRN ORAL dyspepsia 04/16/17 09:45 05/16/17 09:44 Amlodipine Besylate (Norvasc) 10 mg DAILY ORAL 04/17/17 09:00 05/17/17 08:59 04/18/17 09:11 Cyclobenzaprine HCl (Flexeril) 10 mg Q12HR ORAL 04/16/17 21:00 05/16/17 20:59 04/18/17 09:11 Dextrose (Dextrose 50%) STAT PRN IV Hypoglycemia 04/16/17 09:45 05/16/17 09:44 Diphenhydramine HCl (Benadryl) 25 mg Q6H PRN IVP Itching 04/16/17 16:15 05/16/17 16:14 04/17/17 09:57 Heparin Sodium (Porcine) (Heparin 5000 units/ml) 5,000 units EVERY 12 HOURS SUBQ 04/16/17 21:00 05/16/17 20:59 04/18/17 09:13 Insulin Aspart (NovoLOG) BEFORE MEALS AND HS SUBQ 04/16/17 11:30 05/16/17 11:29 04/18/17 15:47 Lisinopril (Prinivil) 40 mg DAILY ORAL 04/17/17 09:00 05/17/17 08:59 04/18/17 09:11 Lorazepam (Ativan 2mg/ml 1ml) 0.5 mg Q4H PRN IV For Anxiety 04/16/17 09:45 04/23/17 09:44 Methylprednisolone Sodium Succinate (Solu-MEDROL) 60 mg EVERY 8 HOURS IVP 04/16/17 16:00 05/16/17 15:59 04/18/17 13:46 Mirtazapine (Remeron) 7.5 mg BEDTIME ORAL 04/16/17 21:00 05/16/17 20:59 04/17/17 20:10 Morphine Sulfate (Morphine Sulfate) 1 mg Q4H PRN IVP PAIN 4-10 04/16/17 09:45 04/23/17 09:44 04/18/17 01:06 Ondansetron HCl (Zofran) 4 mg Q6H PRN IVP Nausea & Vomiting 04/16/17 09:45 05/16/17 09:44 Oxacillin Sodium 2 gm/Sodium Chloride 110 ml @ 220 mls/hr EVERY 6 HOURS IVPB 04/16/17 18:00 05/07/17 17:59 04/18/17 11:24 Polyethylene Glycol (Miralax) 17 gm HSPRN PRN ORAL Constipation 04/16/17 21:00 05/16/17 20:59 Zolpidem Tartrate (Ambien) 5 mg HSPRN PRN ORAL Insomnia 04/16/17 21:00 04/23/17 20:59 04/17/17 21:38 Siria Ellison M.D. Apr 18, 2017 17:15
--- NOTE | 2017-04-18 17:45 | Progress Note ---
DATE: 04/18/2017 Subjective: This is a 77-year-old female patient with severe dermatitis. Plan: Continue treatment with medications to prevent any decline in her cognition. Chart reviewed and discussed with staff. Seen and assessed at the bedside. She will continue to be followed by Psychiatry throughout her hospital course. Chart reviewed and discussed with staff. Seen and assessed at the bedside. Edilberto Canseco M.D. DR: MARK JOB#: [id number] CC:
--- NOTE | 2017-04-18 19:42 | Cardiology Report ---
APPROVED REPORT EXAM: Two-dimensional and M-mode echocardiogram with Doppler and color Doppler. INDICATION Left ventricular function M-Mode DIMENSIONS IVSd0.8 (0.7-1.1cm)Left Atrium (MM)4.7 (1.6-4.0cm) LVDd4.7 (3.5-5.6cm)Aortic Root3.2 (2.0-3.7cm) PWd0.8 (0.7-1.1cm)Aortic Cusp Exc.2.0 (1.5-2.0cm) LVDs2.7 (2.5-4.0cm) PWs1.1 cm Normal left ventricular chamber size, systolic function and wall motion. Left ventricular ejection fraction estimated to be 60-65%. No evidence of left ventricular hypertrophy. Large posterior pleural effusion. Right cardiac chamber sizes are within normal limits. Mild left atrial enlargement by 2D. Focal aortic valve sclerosis with adequate cusp excursion. Thickened mitral valve leaflets with normal excursion. Mild mitral annulus and aortic root calcification. Pulmonic valve not well visualized. Normal tricuspid valve structure. IVC is normal in size and collapsible with respiration. A color flow and spectral Doppler study was performed and revealed: No aortic regurgitation. No mitral regurgitation. Mitral diastolic velocities suggest reduced left ventricular relaxation c/w diastolic dysfunction grade 1. Trace tricuspid regurgitation. Tricuspid systolic velocities suggests peak right ventricular systolic pressure of 13mmHg Pulmonic regurgitation present.
[2017-04-18] MEDS: dilTIAZem HCl 60mg tab ORAL SCH (21:53)
[2017-04-18] MEDS: Zolpidem 5mg tab ORAL PRN (23:43)
[2017-04-19 04:00] VITALS: BP 150/75
[2017-04-19 06:10] LABS: MEAN CORPUSCULAR HGB CONC 32.5 G/DL (32.0-36.0); MEAN CORPUSCULAR VOLUME 92 FL (80-99); MEAN PLATELET VOLUME 8.8 FL (6.5-10.1); PLATELET COUNT 174 K/UL (150-450); RED BLOOD COUNT 4.06 M/UL (4.20-5.40); RED CELL DISTRIBUTION WIDTH 12.5 % (11.6-14.8); WHITE BLOOD COUNT 11.9 K/UL (4.8-10.8)
[2017-04-19] MEDS: NovoLOG Insulin Flexpen SUBQ SCH ×4 (06:28→21:29)
[2017-04-19] MEDS: Oxacillin 2 GM in NS 110 ML IVPB SCH ×4 (06:29→23:40)
[2017-04-19] MEDS: dilTIAZem HCl 60mg tab ORAL SCH ×2 (06:29→14:52)
[2017-04-19 06:31] LABS: ANION GAP 8 (5-15); CALCIUM 9.4 mg/dL (8.6-10.2); CARBON DIOXIDE 36 mEQ/L (20-30); CHLORIDE 93 mEQ/L (98-107); CREATININE 0.9 mg/dL (0.5-0.9); HEMOLYSIS 3; POTASSIUM 3.7 mEQ/L (3.4-4.9); SODIUM 137 mEQ/L (135-145)
[2017-04-19 08:20] LABS: BAND NEUTROPHILS % (MANUAL) 0 % (0-8); BASOPHILS % (MANUAL) 0 % (0-2); EOSINOPHILS % (MANUAL) 0 % (0-3); LYMPHOCYTES % (MANUAL) 5 % (20-45); NEUTROPHILS % (MANUAL) 88 % (45-75); PLATELET ESTIMATE ADEQUATE; PLATELET MORPHOLOGY NORMAL; TOTAL CELLS COUNTED 100
[2017-04-19 08:34] VITALS: BP 142/69
[2017-04-19] MEDS ORDERED: Dyna-Hex 2% Top Sol 2oz TOPIC ONE (09:00)
[2017-04-19] MEDS: Cyclobenzaprine 10mg Tab ORAL SCH ×2 (10:03→21:26)
[2017-04-19] MEDS: Heparin 5000 units/ml inj SUBQ SCH ×2 (10:09→21:27)
--- NOTE | 2017-04-19 11:56 | Pulmonology Progress Note ---
Assessment/Plan Problems: (1) Bilateral pneumonia (2) Generalized rash (3) Dermatitis (4) Tachycardia (5) COPD (chronic obstructive pulmonary disease) (6) DM (diabetes mellitus) (7) HTN (hypertension) (8) GERD (gastroesophageal reflux disease) (9) Cirrhosis Assessment/Plan still tachycardic echo reviewed, EF ok, BNP is normal cxr reviewed, LLL infiltrate and effusion check cultures continue abx respiratory treatment dvt prophylaxis Subjective ROS Limited/Unobtainable: Yes Interval Events: comfortable, not communicating Allergies: Coded Allergies: LEVOFLOXACIN (Verified Allergy, Severe, Rash, 04/16/17) VANCOMYCIN (Verified Allergy, Severe, Rash, 04/16/17) Objective Last 24 Hour Vital Signs Date Time Temp Pulse Resp B/P (MAP) Pulse Ox O2 Delivery O2 Flow Rate FiO2 04/19/17 08:34 97.7 102 20 142/69 96 Nasal Cannula 3.0 04/19/17 06:29 105 146/80 04/19/17 04:00 97.7 109 20 150/75 95 Nasal Cannula 3.0 32 04/19/17 03:36 108 04/19/17 00:03 116 04/18/17 23:55 97.7 106 20 161/96 98 Nasal Cannula 3.0 32 04/18/17 21:53 116 150/85 04/18/17 20:10 115 04/18/17 20:00 98.1 114 20 139/80 95 Nasal Cannula 3.0 32 04/18/17 19:00 94 Nasal Cannula 3.0 32 04/18/17 19:00 Nasal Cannula 3.0 32 04/18/17 16:00 112 04/18/17 15:50 98.1 117 20 141/70 95 Nasal Cannula 3.0 04/18/17 12:00 112 04/18/17 11:57 97.7 104 18 135/77 96 Nasal Cannula 3.0 Intake and Output 04/19/17 04/20/17 19:00 07:00 Intake Total 120 ml Balance 120 ml Intake Oral 120 ml # Voids 1 General Appearance: WD/WN HEENT: normocephalic, atraumatic Respiratory/Chest: chest wall non-tender, lungs clear Cardiovascular: normal peripheral pulses, normal rate Abdomen: normal bowel sounds, soft, non tender Genitourinary: normal external genitalia Extremities: no clubbing Skin: no rash Neurologic/Psychiatric: clearing inspector II-XII grossly normal, no motor/sensory deficits Lymphatic: no neck adenopathy Laboratory Tests 04/19/17 04:46: White Blood Count 11.9H, Red Blood Count 4.06L, Hemoglobin 12.2, Hematocrit 37.4 , Mean Corpuscular Volume 92, Mean Corpuscular Hemoglobin 30.0, Mean Corpuscular Hemoglobin Concent 32.5, Red Cell Distribution Width 12.5, Platelet Count 174, Mean Platelet Volume 8.8, Neutrophils (%) (Auto) , Lymphocytes (%) ( Auto) , Monocytes (%) (Auto) , Eosinophils (%) (Auto) , Basophils (%) (Auto) , Differential Total Cells Counted 100, Neutrophils % (Manual) 88H, Lymphocytes % (Manual) 5L, Monocytes % (Manual) 7, Eosinophils % (Manual) 0, Basophils % ( Manual) 0, Band Neutrophils 0, Platelet Estimate Adequate, Platelet Morphology Normal, Red Blood Cell Morphology Normal, Sodium Level 137, Potassium Level 3.7 , Chloride Level 93L, Carbon Dioxide Level 36H, Anion Gap 8, Blood Urea Nitrogen 28H, Creatinine 0.9, Estimat Glomerular Filtration Rate , Glucose Level 226H, Calcium Level 9.4 Current Medications Medications (Trade) Dose Ordered Sig/Isabel Route PRN Reason Start Time Stop Time Status Last Admin Dose Admin Acetaminophen (Tylenol) 650 mg Q4H PRN ORAL T>100.5 04/16/17 09:45 05/16/17 09:44 Al Hydroxide/Mg Hydroxide (Mylanta II) 30 ml Q6H PRN ORAL dyspepsia 04/16/17 09:45 05/16/17 09:44 Cyclobenzaprine HCl (Flexeril) 10 mg Q12HR ORAL 04/16/17 21:00 05/16/17 20:59 04/19/17 10:03 Dextrose (Dextrose 50%) STAT PRN IV Hypoglycemia 04/16/17 09:45 05/16/17 09:44 Diltiazem HCl (Cardizem) 60 mg EVERY 8 HOURS ORAL 04/18/17 22:00 05/18/17 21:59 04/19/17 06:29 Diphenhydramine HCl (Benadryl) 25 mg Q6H PRN IVP Itching 04/16/17 16:15 05/16/17 16:14 04/17/17 09:57 Heparin Sodium (Porcine) (Heparin 5000 units/ml) 5,000 units EVERY 12 HOURS SUBQ 04/16/17 21:00 05/16/17 20:59 04/19/17 10:09 Insulin Aspart (NovoLOG) BEFORE MEALS AND HS SUBQ 04/16/17 11:30 05/16/17 11:29 04/19/17 06:28 Lorazepam (Ativan 2mg/ml 1ml) 0.5 mg Q4H PRN IV For Anxiety 04/16/17 09:45 04/23/17 09:44 Mirtazapine (Remeron) 7.5 mg BEDTIME ORAL 04/16/17 21:00 05/16/17 20:59 04/18/17 21:03 Morphine Sulfate (Morphine Sulfate) 1 mg Q4H PRN IVP PAIN 4-10 04/16/17 09:45 04/23/17 09:44 04/18/17 19:42 Ondansetron HCl (Zofran) 4 mg Q6H PRN IVP Nausea & Vomiting 04/16/17 09:45 05/16/17 09:44 Oxacillin Sodium 2 gm/Sodium Chloride 110 ml @ 220 mls/hr EVERY 6 HOURS IVPB 04/16/17 18:00 05/07/17 17:59 04/19/17 06:29 Polyethylene Glycol (Miralax) 17 gm HSPRN PRN ORAL Constipation 04/16/17 21:00 05/16/17 20:59 Zolpidem Tartrate (Ambien) 5 mg HSPRN PRN ORAL Insomnia 04/16/17 21:00 04/23/17 20:59 04/18/17 23:43 TABATHA PLASENCIA Apr 19, 2017 11:56
[2017-04-19 12:57] VITALS: BP 157/71
--- NOTE | 2017-04-19 13:15 | General Progress Note ---
Assessment/Plan Problem List: (1) HTN (hypertension) ICD Codes: I10 - HTN (hypertension) SNOMED: 06204451 (2) GERD (gastroesophageal reflux disease) ICD Codes: K21.9 - Gastro-esophageal reflux disease without esophagitis SNOMED: 215732888 (3) Cellulitis (4) DM (diabetes mellitus) ICD Codes: E11.9 - DM (diabetes mellitus) SNOMED: 96083287 (5) OBESITY, NOS (6) SOB (shortness of breath) ICD Codes: R06.02 - Shortness of breath SNOMED: 390898980 (7) HTN (hypertension) ICD Codes: I10 - Essential (primary) hypertension SNOMED: 41988944 (8) Chronic pain ICD Codes: G89.29 - Other chronic pain SNOMED: 59028256 (9) Rash and other nonspecific skin eruption ICD Codes: R21 - Rash and other nonspecific skin eruption SNOMED: 486102729, 081573427 (10) Sepsis ICD Codes: A41.9 - Sepsis, unspecified organism SNOMED: 37012404 Status: stable, progressing, tolerating diet Assessment/Plan ot pt wound care o2 pulm tx cbc bmp am dc plan Subjective Constitutional: Reports: weakness Allergies: Coded Allergies: LEVOFLOXACIN (Verified Allergy, Severe, Rash, 04/16/17) VANCOMYCIN (Verified Allergy, Severe, Rash, 04/16/17) All Systems: reviewed and negative except above Subjective o2nc sl anxious Objective Last 24 Hour Vital Signs Date Time Temp Pulse Resp B/P (MAP) Pulse Ox O2 Delivery O2 Flow Rate FiO2 04/19/17 12:57 97.7 102 20 157/71 95 Nasal Cannula 3.0 04/19/17 08:34 97.7 102 20 142/69 96 Nasal Cannula 3.0 04/19/17 08:26 Nasal Cannula 3.0 32 04/19/17 08:25 95 Nasal Cannula 3.0 32 04/19/17 06:29 105 146/80 04/19/17 04:00 97.7 109 20 150/75 95 Nasal Cannula 3.0 32 04/19/17 03:36 108 04/19/17 00:03 116 04/18/17 23:55 97.7 106 20 161/96 98 Nasal Cannula 3.0 32 04/18/17 21:53 116 150/85 04/18/17 20:10 115 10/2/17 20:00 98.1 114 20 139/80 95 Nasal Cannula 3.0 32 04/18/17 19:00 94 Nasal Cannula 3.0 32 04/18/17 19:00 Nasal Cannula 3.0 32 04/18/17 16:00 112 04/18/17 15:50 98.1 117 20 141/70 95 Nasal Cannula 3.0 Intake and Output 04/19/17 04/20/17 19:00 07:00 Intake Total 120 ml Balance 120 ml Intake Oral 120 ml # Voids 1 Laboratory Tests 04/19/17 04:46: White Blood Count 11.9H, Red Blood Count 4.06L, Hemoglobin 12.2, Hematocrit 37.4 , Mean Corpuscular Volume 92, Mean Corpuscular Hemoglobin 30.0, Mean Corpuscular Hemoglobin Concent 32.5, Red Cell Distribution Width 12.5, Platelet Count 174, Mean Platelet Volume 8.8, Neutrophils (%) (Auto) , Lymphocytes (%) ( Auto) , Monocytes (%) (Auto) , Eosinophils (%) (Auto) , Basophils (%) (Auto) , Differential Total Cells Counted 100, Neutrophils % (Manual) 88H, Lymphocytes % (Manual) 5L, Monocytes % (Manual) 7, Eosinophils % (Manual) 0, Basophils % ( Manual) 0, Band Neutrophils 0, Platelet Estimate Adequate, Platelet Morphology Normal, Red Blood Cell Morphology Normal, Sodium Level 137, Potassium Level 3.7 , Chloride Level 93L, Carbon Dioxide Level 36H, Anion Gap 8, Blood Urea Nitrogen 28H, Creatinine 0.9, Estimat Glomerular Filtration Rate , Glucose Level 226H, Calcium Level 9.4 Height (Feet): 5 Height (Inches): 4.00 Weight (Pounds): 215 General Appearance: lethargic EENT: normal ENT inspection Neck: normal alignment Cardiovascular: normal peripheral pulses, normal rate, regular rhythm Respiratory/Chest: chest wall non-tender, lungs clear, normal breath sounds Abdomen: normal bowel sounds, non tender, soft Extremities: normal inspection Edema: no edema noted Arm (L), no edema noted Arm (R), no edema noted Leg (L), no edema noted Leg (R), no edema noted Pedal (L), no edema noted Pedal (R), no edema noted Generalized Neurologic: responsive, motor weakness Skin: normal pigmentation, warm/dry Objective diffuse reddish rash w confluence in back , back of arm, back of leg, and buttocks KUMAR ENGLISH Apr 19, 2017 13:15
[2017-04-19 16:39] VITALS: BP 145/74
[2017-04-19] MEDS: Morphine Sulfate 2mg/ml Inj IVP PRN (16:54)
--- NOTE | 2017-04-19 17:08 | Infectious Diseases Prog Note ---
Assessment/Plan Problems: (1) Rash and other nonspecific skin eruption Assessment & Plan: unclear whether due to vancomycin or levaquin since she was on both, avoid both drug class and add to her list of allergy. improved on steroids and benadryl , will stop steroids (2) Sepsis due to Staphylococcus Assessment & Plan: previously was staph warneri which grew out of her blood culture last admission , but had skin allergic reaction, unclear whether to vancomycin or levaquin , now blood culture is growing staphylococcus SPP again , unclear whether the same as the one before of different , on oxacillin , await identification and sensitivity . duration of the antibiotics to be determined based on her new culture Subjective Constitutional: Reports: no symptoms HEENT: Reports: no symptoms Respiratory: Reports: no symptoms Breasts: Reports: no symptoms Cardiovascular: Reports: no symptoms Gastrointestinal/Abdominal: Reports: no symptoms Genitourinary: Reports: no symptoms Neurologic: Reports: no symptoms Psychiatric: Reports: no symptoms Skin: Reports: no symptoms Endocrine: Reports: no symptoms Hematologic: Reports: no symptoms Allergies: Coded Allergies: LEVOFLOXACIN (Verified Allergy, Severe, Rash, 04/16/17) VANCOMYCIN (Verified Allergy, Severe, Rash, 04/16/17) Objective Vital Signs Last 24 Hour Vital Signs Date Time Temp Pulse Resp B/P (MAP) Pulse Ox O2 Delivery O2 Flow Rate FiO2 04/19/17 16:39 97.7 107 20 145/74 97 Nasal Cannula 3.0 04/19/17 14:52 79 157/71 04/19/17 12:57 97.7 102 20 157/71 95 Nasal Cannula 3.0 04/19/17 08:34 97.7 102 20 142/69 96 Nasal Cannula 3.0 04/19/17 08:26 Nasal Cannula 3.0 32 04/19/17 08:25 95 Nasal Cannula 3.0 32 04/19/17 06:29 105 146/80 04/19/17 04:00 97.7 109 20 150/75 95 Nasal Cannula 3.0 32 04/19/17 03:36 108 04/19/17 00:03 116 04/18/17 23:55 97.7 106 20 161/96 98 Nasal Cannula 3.0 32 04/18/17 21:53 116 150/85 04/18/17 20:10 115 04/18/17 20:00 98.1 114 20 139/80 95 Nasal Cannula 3.0 32 04/18/17 19:00 94 Nasal Cannula 3.0 32 04/18/17 19:00 Nasal Cannula 3.0 32 Height (Feet): 5 Height (Inches): 4.00 Weight (Pounds): 215 General Appearance: WD/WN, no acute distress HEENT: normocephalic, atraumatic, anicteric Respiratory/Chest: chest wall non-tender, lungs clear, normal breath sounds, no respiratory distress Cardiovascular: normal peripheral pulses, normal rate, regular rhythm, no gallop/murmur, no JVD Abdomen: normal bowel sounds, soft, non tender, no organomegaly, non distended , no mass Extremities: no cyanosis, no clubbing Skin: no rash, no lesions, rash Laboratory Tests Test 04/19/17 04:46 White Blood Count 11.9 K/UL (4.8-10.8) H Red Blood Count 4.06 M/UL (4.20-5.40) L Hemoglobin 12.2 G/DL (12.0-16.0) Hematocrit 37.4 % (37.0-47.0) Mean Corpuscular Volume 92 FL (80-99) Mean Corpuscular Hemoglobin 30.0 PG (27.0-31.0) Mean Corpuscular Hemoglobin Concent 32.5 G/DL (32.0-36.0) Red Cell Distribution Width 12.5 % (11.6-14.8) Platelet Count 174 K/UL (150-450) Mean Platelet Volume 8.8 FL (6.5-10.1) Neutrophils (%) (Auto) % (45.0-75.0) Lymphocytes (%) (Auto) % (20.0-45.0) Monocytes (%) (Auto) % (1.0-10.0) Eosinophils (%) (Auto) % (0.0-3.0) Basophils (%) (Auto) % (0.0-2.0) Differential Total Cells Counted 100 Neutrophils % (Manual) 88 % (45-75) H Lymphocytes % (Manual) 5 % (20-45) L Monocytes % (Manual) 7 % (1-10) Eosinophils % (Manual) 0 % (0-3) Basophils % (Manual) 0 % (0-2) Band Neutrophils 0 % (0-8) Platelet Estimate Adequate Platelet Morphology Normal Red Blood Cell Morphology Normal Sodium Level 137 mEQ/L (135-145) Potassium Level 3.7 mEQ/L (3.4-4.9) Chloride Level 93 mEQ/L (98-107) L Carbon Dioxide Level 36 mEQ/L (20-30) H Anion Gap 8 (5-15) Blood Urea Nitrogen 28 mg/dL (7-23) H Creatinine 0.9 mg/dL (0.5-0.9) Estimat Glomerular Filtration Rate mL/min (>60) Glucose Level 226 mg/dL (74-106) H Calcium Level 9.4 mg/dL (8.6-10.2) Current Medications Medications (Trade) Dose Ordered Sig/Isabel Route PRN Reason Start Time Stop Time Status Last Admin Dose Admin Acetaminophen (Tylenol) 650 mg Q4H PRN ORAL T>100.5 04/16/17 09:45 05/16/17 09:44 04/19/17 15:30 Al Hydroxide/Mg Hydroxide (Mylanta II) 30 ml Q6H PRN ORAL dyspepsia 04/16/17 09:45 05/16/17 09:44 04/19/17 15:23 Cyclobenzaprine HCl (Flexeril) 10 mg Q12HR ORAL 04/16/17 21:00 05/16/17 20:59 04/19/17 10:03 Dextrose (Dextrose 50%) STAT PRN IV Hypoglycemia 04/16/17 09:45 05/16/17 09:44 Diltiazem HCl (Cardizem) 60 mg EVERY 8 HOURS ORAL 04/18/17 22:00 05/18/17 21:59 04/19/17 14:52 Diphenhydramine HCl (Benadryl) 25 mg Q6H PRN IVP Itching 04/16/17 16:15 05/16/17 16:14 04/17/17 09:57 Heparin Sodium (Porcine) (Heparin 5000 units/ml) 5,000 units EVERY 12 HOURS SUBQ 04/16/17 21:00 05/16/17 20:59 04/19/17 10:09 Insulin Aspart (NovoLOG) BEFORE MEALS AND HS SUBQ 04/16/17 11:30 05/16/17 11:29 04/19/17 12:14 Lorazepam (Ativan 2mg/ml 1ml) 0.5 mg Q4H PRN IV For Anxiety 04/16/17 09:45 04/23/17 09:44 Mirtazapine (Remeron) 7.5 mg BEDTIME ORAL 04/16/17 21:00 05/16/17 20:59 04/18/17 21:03 Morphine Sulfate (Morphine Sulfate) 1 mg Q4H PRN IVP PAIN 4-10 04/16/17 09:45 04/23/17 09:44 04/19/17 16:54 Ondansetron HCl (Zofran) 4 mg Q6H PRN IVP Nausea & Vomiting 04/16/17 09:45 05/16/17 09:44 04/19/17 15:30 Oxacillin Sodium 2 gm/Sodium Chloride 110 ml @ 220 mls/hr EVERY 6 HOURS IVPB 04/16/17 18:00 05/07/17 17:59 04/19/17 12:20 Polyethylene Glycol (Miralax) 17 gm HSPRN PRN ORAL Constipation 04/16/17 21:00 05/16/17 20:59 Zolpidem Tartrate (Ambien) 5 mg HSPRN PRN ORAL Insomnia 04/16/17 21:00 04/23/17 20:59 04/18/17 23:43 Siria Ellison M.D. Apr 19, 2017 17:08
--- NOTE | 2017-04-19 17:53 | Cardiac Electrophysiology PN ---
Subjective Subjective [id number] Objective Last 24 Hour Vital Signs Date Time Temp Pulse Resp B/P (MAP) Pulse Ox O2 Delivery O2 Flow Rate FiO2 04/19/17 16:39 97.7 107 20 145/74 97 Nasal Cannula 3.0 04/19/17 14:52 79 157/71 04/19/17 12:57 97.7 102 20 157/71 95 Nasal Cannula 3.0 04/19/17 12:00 100 04/19/17 08:34 97.7 102 20 142/69 96 Nasal Cannula 3.0 04/19/17 08:26 Nasal Cannula 3.0 32 04/19/17 08:25 95 Nasal Cannula 3.0 32 04/19/17 08:00 107 04/19/17 06:29 105 146/80 04/19/17 04:00 97.7 109 20 150/75 95 Nasal Cannula 3.0 32 04/19/17 03:36 108 04/19/17 00:03 116 04/18/17 23:55 97.7 106 20 161/96 98 Nasal Cannula 3.0 32 04/18/17 21:53 116 150/85 04/18/17 20:10 115 04/18/17 20:00 98.1 114 20 139/80 95 Nasal Cannula 3.0 32 04/18/17 19:00 94 Nasal Cannula 3.0 32 04/18/17 19:00 Nasal Cannula 3.0 32 Intake and Output 04/19/17 04/20/17 19:00 07:00 Intake Total 120 ml Balance 120 ml Intake Oral 120 ml # Voids 1 # Bowel Movements 1 Laboratory Tests Test 04/19/17 04:46 White Blood Count 11.9 K/UL (4.8-10.8) H Red Blood Count 4.06 M/UL (4.20-5.40) L Hemoglobin 12.2 G/DL (12.0-16.0) Hematocrit 37.4 % (37.0-47.0) Mean Corpuscular Volume 92 FL (80-99) Mean Corpuscular Hemoglobin 30.0 PG (27.0-31.0) Mean Corpuscular Hemoglobin Concent 32.5 G/DL (32.0-36.0) Red Cell Distribution Width 12.5 % (11.6-14.8) Platelet Count 174 K/UL (150-450) Mean Platelet Volume 8.8 FL (6.5-10.1) Neutrophils (%) (Auto) % (45.0-75.0) Lymphocytes (%) (Auto) % (20.0-45.0) Monocytes (%) (Auto) % (1.0-10.0) Eosinophils (%) (Auto) % (0.0-3.0) Basophils (%) (Auto) % (0.0-2.0) Differential Total Cells Counted 100 Neutrophils % (Manual) 88 % (45-75) H Lymphocytes % (Manual) 5 % (20-45) L Monocytes % (Manual) 7 % (1-10) Eosinophils % (Manual) 0 % (0-3) Basophils % (Manual) 0 % (0-2) Band Neutrophils 0 % (0-8) Platelet Estimate Adequate Platelet Morphology Normal Red Blood Cell Morphology Normal Sodium Level 137 mEQ/L (135-145) Potassium Level 3.7 mEQ/L (3.4-4.9) Chloride Level 93 mEQ/L (98-107) L Carbon Dioxide Level 36 mEQ/L (20-30) H Anion Gap 8 (5-15) Blood Urea Nitrogen 28 mg/dL (7-23) H Creatinine 0.9 mg/dL (0.5-0.9) Estimat Glomerular Filtration Rate mL/min (>60) Glucose Level 226 mg/dL (74-106) H Calcium Level 9.4 mg/dL (8.6-10.2) WILLIE MANZANO Apr 19, 2017 17:53
[2017-04-19] MEDS: dilTIAZem HCl 90mg tab ORAL SCH ×2 (18:29→23:34)
[2017-04-19 20:00] VITALS: BP 148/68
[2017-04-19] MEDS: Zolpidem 5mg tab ORAL PRN (23:43)
[2017-04-20] VITALS: BP 156/74
[2017-04-20] MEDS: LORazepam Inj 2mg/ml 1ml IV PRN (02:57)
[2017-04-20 04:00] VITALS: BP 164/76
[2017-04-20] MEDS: Oxacillin 2 GM in NS 110 ML IVPB SCH (05:44)
[2017-04-20] MEDS: dilTIAZem HCl 90mg tab ORAL SCH ×4 (05:45→23:17)
[2017-04-20 06:53] LABS: BASOPHILS % (AUTO) 0.4 % (0.0-2.0); EOSINOPHILS % (AUTO) 0.4 % (0.0-3.0); LYMPHOCYTES % (AUTO) 7.6 % (20.0-45.0); MEAN CORPUSCULAR HEMOGLOBIN 30.3 PG (27.0-31.0); MEAN CORPUSCULAR HGB CONC 32.5 G/DL (32.0-36.0); MEAN CORPUSCULAR VOLUME 93 FL (80-99); MONOCYTES % (AUTO) 6.7 % (1.0-10.0); NEUTROPHILS % (AUTO) 84.9 % (45.0-75.0); PLATELET COUNT 176 K/UL (150-450); RED BLOOD COUNT 4.06 M/UL (4.20-5.40); RED CELL DISTRIBUTION WIDTH 12.4 % (11.6-14.8); WHITE BLOOD COUNT 12.4 K/UL (4.8-10.8)
[2017-04-20 07:32] LABS: ANION GAP 5 (5-15); CALCIUM 9.4 mg/dL (8.6-10.2); CARBON DIOXIDE 38 mEQ/L (20-30); CHLORIDE 93 mEQ/L (98-107); CREATININE 0.8 mg/dL (0.5-0.9); HEMOLYSIS 0; POTASSIUM 3.9 mEQ/L (3.4-4.9); SODIUM 136 mEQ/L (135-145)
[2017-04-20 08:44] VITALS: BP 151/73
--- NOTE | 2017-04-20 08:47 | Consultation ---
DATE OF CONSULTATION: 04/19/2017 CARDIOLOGY CONSULTATION CONSULTING PHYSICIAN: Moy Forman M.D. REFERRING PHYSICIAN: Nathaniel Mckay M.D. Reason For Consultation: Runs of atrial fibrillation and frequent cardiac arrhythmias. History Of Present Illness: The patient is a 77-year-old lady with history of hypertension and diabetes and COPD and congestive heart failure with diastolic dysfunction who was admitted on 04/04/2017 with pneumonia and urinary tract infection. The patient had blood culture at that time grew Staphylococcus warneri. The patient was discharged and was readmitted on 04/16/2017 with skin rash. The patient overnight developed episode of atrial fibrillation as well as frequent PACs and PVCs. At the time of my evaluation, the patient denies any chest pain or shortness of breath. Review Of Systems: Review of systems was performed and was negative other than what was mentioned in the history of present illness. PAST MEDICAL HISTORY: 1. Hypertension. 2. Diastolic dysfunction. 3. Diabetes. 4. History of sepsis. 5. Chronic pain. ALLERGIES: She is allergic to levofloxacin and vancomycin. FAMILY HISTORY: Noncontributory. PHYSICAL EXAMINATION: Vital Signs: Blood pressure is 145/74, pulse 107, respirations 20, and temperature 97.7. HEAD AND NECK: No JVD. LUNGS: Clear. CARDIOVASCULAR: Irregular S1 and S2 with no gallop. ABDOMEN: Soft. EXTREMITIES: The patient has 1+ pitting edema. Laboratory Data: White count of 11.9, hemoglobin 12.2, hematocrit 37, and platelet count is 174,000. Sodium 137, potassium 3.7, BUN of 20, creatinine 0.9, and glucose of 226. Troponin is negative x2. ASSESSMENT AND PLAN: 1. Bursts of what look like atrial fibrillation. detailed examination of this rhythm. Rhythm is very irregularly irregular and tachycardic. It is sinus rhythm with frequent PACs as well as frequent PVCs. I will start the patient on Cardizem 60 mg every 8 hours stabilize. There is no indication for anticoagulation as the majority of this rhythm is frequent PACs. 2. Bilateral pneumonia, on antibiotics per Dr. Ellison. 3. Chronic obstructive pulmonary disease. 4. Dermatitis. 5. Diabetes. 6. Hypertension, on Cardizem. 7. Cirrhosis. 8. Gastroesophageal reflux disease. Thank you very much, Dr. Morocho, for allowing me to participate in the care of this patient. Please do not hesitate to contact me for any questions regarding my evaluation. It is of note, that the patient's ejection fraction by echocardiogram was 60% to 65%. Moy Forman M.D. DR: TONIO JOB#: [id number] CC:
[2017-04-20] MEDS: Cyclobenzaprine 10mg Tab ORAL SCH ×2 (09:47→20:46)
[2017-04-20] MEDS: Heparin 5000 units/ml inj SUBQ SCH ×2 (09:51→20:49)
[2017-04-20] MEDS: NovoLOG Insulin Flexpen SUBQ SCH ×3 (11:30→20:48)
[2017-04-20 12:40] VITALS: BP 147/68
--- NOTE | 2017-04-20 13:07 | Pulmonology Progress Note ---
Assessment/Plan Problems: (1) Bacteremia (2) Bilateral pneumonia (3) Generalized rash (4) Dermatitis (5) Tachycardia (6) COPD (chronic obstructive pulmonary disease) (7) DM (diabetes mellitus) (8) HTN (hypertension) (9) GERD (gastroesophageal reflux disease) (10) Cirrhosis Assessment/Plan tachycardia resolved echo reviewed, EF ok, BNP is normal cxr reviewed, LLL infiltrate and effusion check cultures continue abx respiratory treatment dvt prophylaxis f/u cultures med/surg if ok with cardio Subjective ROS Limited/Unobtainable: No Constitutional: Reports: no symptoms HEENT: Repors: no symptoms Respiratory: Reports: no symptoms Allergies: Coded Allergies: LEVOFLOXACIN (Verified Allergy, Severe, Rash, 04/16/17) VANCOMYCIN (Verified Allergy, Severe, Rash, 04/16/17) Objective Last 24 Hour Vital Signs Date Time Temp Pulse Resp B/P (MAP) Pulse Ox O2 Delivery O2 Flow Rate FiO2 04/20/17 12:43 104 04/20/17 12:40 97.7 94 20 147/68 95 Nasal Cannula 3.0 04/20/17 08:44 97.5 96 20 151/73 95 Nasal Cannula 3.0 04/20/17 07:58 Nasal Cannula 3.0 32 04/20/17 07:58 95 Nasal Cannula 3.0 32 04/20/17 06:51 92 04/20/17 05:45 93 163/73 04/20/17 04:00 97.5 61 20 164/76 98 Nasal Cannula 3.0 04/20/17 00:00 97.7 95 18 156/74 96 Nasal Cannula 3.0 04/19/17 23:34 95 163/70 04/19/17 20:03 103 04/19/17 20:00 99.1 102 18 148/68 98 Nasal Cannula 3.0 04/19/17 19:05 94 Nasal Cannula 3.0 32 04/19/17 19:05 Nasal Cannula 3.0 32 04/19/17 18:29 107 145/74 04/19/17 16:39 97.7 107 20 145/74 97 Nasal Cannula 3.0 04/19/17 16:00 107 04/19/17 14:52 79 157/71 Intake and Output 04/20/17 04/21/17 19:00 07:00 Intake Total 120 ml Balance 120 ml Intake Oral 120 ml # Voids 1 # Bowel Movements 1 General Appearance: WD/WN HEENT: normocephalic, atraumatic Respiratory/Chest: chest wall non-tender, normal breath sounds Breasts: no masses Cardiovascular: normal rate Abdomen: normal bowel sounds, soft, non tender, no organomegaly Extremities: no cyanosis Skin: no rash 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 Laboratory Tests 04/20/17 05:30: White Blood Count 12.4H, Red Blood Count 4.06L, Hemoglobin 12.3, Hematocrit 37.9 , Mean Corpuscular Volume 93, Mean Corpuscular Hemoglobin 30.3, Mean Corpuscular Hemoglobin Concent 32.5, Red Cell Distribution Width 12.4, Platelet Count 176, Mean Platelet Volume 8.0, Neutrophils (%) (Auto) 84.9H, Lymphocytes ( %) (Auto) 7.6L, Monocytes (%) (Auto) 6.7, Eosinophils (%) (Auto) 0.4, Basophils (%) (Auto) 0.4, Sodium Level 136, Potassium Level 3.9, Chloride Level 93L, Carbon Dioxide Level 38H, Anion Gap 5, Blood Urea Nitrogen 24H, Creatinine 0.8, Estimat Glomerular Filtration Rate , Glucose Level 166H, Calcium Level 9.4 Current Medications Medications (Trade) Dose Ordered Sig/Isabel Route PRN Reason Start Time Stop Time Status Last Admin Dose Admin Acetaminophen (Tylenol) 650 mg Q4H PRN ORAL T>100.5 04/16/17 09:45 05/16/17 09:44 04/19/17 15:30 Al Hydroxide/Mg Hydroxide (Mylanta II) 30 ml Q6H PRN ORAL dyspepsia 04/16/17 09:45 05/16/17 09:44 04/19/17 15:23 Cyclobenzaprine HCl (Flexeril) 10 mg Q12HR ORAL 04/16/17 21:00 05/16/17 20:59 04/20/17 09:47 Daptomycin 780 mg/ Sodium Chloride 55 ml @ 100 mls/hr Q24H IV 04/20/17 11:30 04/27/17 11:29 Dextrose (Dextrose 50%) STAT PRN IV Hypoglycemia 04/16/17 09:45 05/16/17 09:44 Diltiazem HCl (Cardizem) 90 mg EVERY 6 HOURS ORAL 04/19/17 18:00 05/18/17 21:59 04/20/17 12:43 Diphenhydramine HCl (Benadryl) 25 mg Q6H PRN IVP Itching 04/16/17 16:15 05/16/17 16:14 04/17/17 09:57 Heparin Sodium (Porcine) (Heparin 5000 units/ml) 5,000 units EVERY 12 HOURS SUBQ 04/16/17 21:00 05/16/17 20:59 04/20/17 09:51 Insulin Aspart (NovoLOG) BEFORE MEALS AND HS SUBQ 04/16/17 11:30 05/16/17 11:29 04/19/17 21:29 Lorazepam (Ativan 2mg/ml 1ml) 0.5 mg Q4H PRN IV For Anxiety 04/16/17 09:45 04/23/17 09:44 04/20/17 02:57 Mirtazapine (Remeron) 7.5 mg BEDTIME ORAL 04/16/17 21:00 05/16/17 20:59 04/19/17 21:25 Morphine Sulfate (Morphine Sulfate) 1 mg Q4H PRN IVP PAIN 4-10 04/16/17 09:45 04/23/17 09:44 04/19/17 16:54 Ondansetron HCl (Zofran) 4 mg Q6H PRN IVP Nausea & Vomiting 04/16/17 09:45 05/16/17 09:44 04/19/17 15:30 Polyethylene Glycol (Miralax) 17 gm HSPRN PRN ORAL Constipation 04/16/17 21:00 05/16/17 20:59 Zolpidem Tartrate (Ambien) 5 mg HSPRN PRN ORAL Insomnia 04/16/17 21:00 04/23/17 20:59 04/19/17 23:43 TABATHA PLASENCIA Apr 20, 2017 13:07
--- NOTE | 2017-04-20 13:51 | General Progress Note ---
Assessment/Plan Problem List: (1) HTN (hypertension) ICD Codes: I10 - HTN (hypertension) SNOMED: 29047589 (2) GERD (gastroesophageal reflux disease) ICD Codes: K21.9 - Gastro-esophageal reflux disease without esophagitis SNOMED: 482982703 (3) Cellulitis (4) DM (diabetes mellitus) ICD Codes: E11.9 - DM (diabetes mellitus) SNOMED: 20853150 (5) OBESITY, NOS (6) SOB (shortness of breath) ICD Codes: R06.02 - Shortness of breath SNOMED: 538575712 (7) HTN (hypertension) ICD Codes: I10 - Essential (primary) hypertension SNOMED: 31020507 (8) Chronic pain ICD Codes: G89.29 - Other chronic pain SNOMED: 88669694 (9) Rash and other nonspecific skin eruption ICD Codes: R21 - Rash and other nonspecific skin eruption SNOMED: 379638509, 735644654 (10) Sepsis ICD Codes: A41.9 - Sepsis, unspecified organism SNOMED: 66781289 Status: stable, progressing, tolerating diet Assessment/Plan ot pt wound care o2 pulm tx cbc bmp am dc plan Subjective Constitutional: Reports: weakness Allergies: Coded Allergies: LEVOFLOXACIN (Verified Allergy, Severe, Rash, 04/16/17) VANCOMYCIN (Verified Allergy, Severe, Rash, 04/16/17) All Systems: reviewed and negative except above Subjective o2nc sl anxious Objective Last 24 Hour Vital Signs Date Time Temp Pulse Resp B/P (MAP) Pulse Ox O2 Delivery O2 Flow Rate FiO2 04/20/17 12:43 104 04/20/17 12:40 97.7 94 20 147/68 95 Nasal Cannula 3.0 04/20/17 08:44 97.5 96 20 151/73 95 Nasal Cannula 3.0 04/20/17 07:58 Nasal Cannula 3.0 32 04/20/17 07:58 95 Nasal Cannula 3.0 32 04/20/17 06:51 92 04/20/17 05:45 93 163/73 04/20/17 04:00 97.5 61 20 164/76 98 Nasal Cannula 3.0 04/20/17 00:00 97.7 95 18 156/74 96 Nasal Cannula 3.0 04/19/17 23:34 95 163/70 04/19/17 20:03 103 04/19/17 20:00 99.1 102 18 148/68 98 Nasal Cannula 3.0 04/19/17 19:05 94 Nasal Cannula 3.0 32 04/19/17 19:05 Nasal Cannula 3.0 32 04/19/17 18:29 107 145/74 04/19/17 16:39 97.7 107 20 145/74 97 Nasal Cannula 3.0 04/19/17 16:00 107 04/19/17 14:52 79 157/71 Intake and Output 04/20/17 04/21/17 19:00 07:00 Intake Total 120 ml Balance 120 ml Intake Oral 120 ml # Voids 1 # Bowel Movements 1 Laboratory Tests 04/20/17 05:30: White Blood Count 12.4H, Red Blood Count 4.06L, Hemoglobin 12.3, Hematocrit 37.9 , Mean Corpuscular Volume 93, Mean Corpuscular Hemoglobin 30.3, Mean Corpuscular Hemoglobin Concent 32.5, Red Cell Distribution Width 12.4, Platelet Count 176, Mean Platelet Volume 8.0, Neutrophils (%) (Auto) 84.9H, Lymphocytes ( %) (Auto) 7.6L, Monocytes (%) (Auto) 6.7, Eosinophils (%) (Auto) 0.4, Basophils (%) (Auto) 0.4, Sodium Level 136, Potassium Level 3.9, Chloride Level 93L, Carbon Dioxide Level 38H, Anion Gap 5, Blood Urea Nitrogen 24H, Creatinine 0.8, Estimat Glomerular Filtration Rate , Glucose Level 166H, Calcium Level 9.4 Height (Feet): 5 Height (Inches): 4.00 Weight (Pounds): 215 General Appearance: lethargic EENT: normal ENT inspection Neck: normal alignment Cardiovascular: normal peripheral pulses, normal rate, regular rhythm Respiratory/Chest: chest wall non-tender, lungs clear, normal breath sounds Abdomen: normal bowel sounds, non tender, soft Extremities: normal inspection Edema: no edema noted Arm (L), no edema noted Arm (R), no edema noted Leg (L), no edema noted Leg (R), no edema noted Pedal (L), no edema noted Pedal (R), no edema noted Generalized Neurologic: responsive, motor weakness Skin: normal pigmentation, warm/dry Objective diffuse reddish rash w confluence in back , back of arm, back of leg, and buttocks KUMAR ENGLISH Apr 20, 2017 13:51
--- NOTE | 2017-04-20 13:58 | Cardiac Electrophysiology PN ---
Assessment/Plan Assessment/Plan 1. Bursts of what look like atrial fibrillation. On Cardizem 90 mg every 6 hours There is no indication for anticoagulation as the majority of this rhythm is frequent PACs. 2. Bilateral pneumonia, on antibiotics per Dr. Ellison. 3. Chronic obstructive pulmonary disease. 4. Dermatitis. 5. Diabetes. 6. Hypertension, on Cardizem. 7. Cirrhosis. 8. Gastroesophageal reflux disease. DW RN Subjective Subjective No chest pain or SOB. No arrhythmias on tele. Objective Last 24 Hour Vital Signs Date Time Temp Pulse Resp B/P (MAP) Pulse Ox O2 Delivery O2 Flow Rate FiO2 04/20/17 12:43 104 04/20/17 12:40 97.7 94 20 147/68 95 Nasal Cannula 3.0 04/20/17 08:44 97.5 96 20 151/73 95 Nasal Cannula 3.0 04/20/17 07:58 Nasal Cannula 3.0 32 04/20/17 07:58 95 Nasal Cannula 3.0 32 04/20/17 06:51 92 04/20/17 05:45 93 163/73 04/20/17 04:00 97.5 61 20 164/76 98 Nasal Cannula 3.0 04/20/17 00:00 97.7 95 18 156/74 96 Nasal Cannula 3.0 04/19/17 23:34 95 163/70 04/19/17 20:03 103 04/19/17 20:00 99.1 102 18 148/68 98 Nasal Cannula 3.0 04/19/17 19:05 94 Nasal Cannula 3.0 32 04/19/17 19:05 Nasal Cannula 3.0 32 04/19/17 18:29 107 145/74 04/19/17 16:39 97.7 107 20 145/74 97 Nasal Cannula 3.0 04/19/17 16:00 107 04/19/17 14:52 79 157/71 Intake and Output 04/20/17 04/21/17 19:00 07:00 Intake Total 120 ml Balance 120 ml Intake Oral 120 ml # Voids 1 # Bowel Movements 1 Laboratory Tests Test 04/20/17 05:30 White Blood Count 12.4 K/UL (4.8-10.8) H Red Blood Count 4.06 M/UL (4.20-5.40) L Hemoglobin 12.3 G/DL (12.0-16.0) Hematocrit 37.9 % (37.0-47.0) Mean Corpuscular Volume 93 FL (80-99) Mean Corpuscular Hemoglobin 30.3 PG (27.0-31.0) Mean Corpuscular Hemoglobin Concent 32.5 G/DL (32.0-36.0) Red Cell Distribution Width 12.4 % (11.6-14.8) Platelet Count 176 K/UL (150-450) Mean Platelet Volume 8.0 FL (6.5-10.1) Neutrophils (%) (Auto) 84.9 % (45.0-75.0) H Lymphocytes (%) (Auto) 7.6 % (20.0-45.0) L Monocytes (%) (Auto) 6.7 % (1.0-10.0) Eosinophils (%) (Auto) 0.4 % (0.0-3.0) Basophils (%) (Auto) 0.4 % (0.0-2.0) Sodium Level 136 mEQ/L (135-145) Potassium Level 3.9 mEQ/L (3.4-4.9) Chloride Level 93 mEQ/L (98-107) L Carbon Dioxide Level 38 mEQ/L (20-30) H Anion Gap 5 (5-15) Blood Urea Nitrogen 24 mg/dL (7-23) H Creatinine 0.8 mg/dL (0.5-0.9) Estimat Glomerular Filtration Rate mL/min (>60) Glucose Level 166 mg/dL (74-106) H Calcium Level 9.4 mg/dL (8.6-10.2) Objective HEAD AND NECK: No JVD. LUNGS: Clear. CARDIOVASCULAR: Irregular S1 and S2 with no gallop. ABDOMEN: Soft. EXTREMITIES: The patient has 1+ pitting edema. WILLIE MANZANO Apr 20, 2017 13:58
[2017-04-20] MEDS: DAPTOMYCIN IV SCH (15:03)
[2017-04-20] MEDS: NS IV SCH (15:03)
[2017-04-20 15:33] VITALS: BP 145/63
--- NOTE | 2017-04-20 15:49 | Infectious Diseases Prog Note ---
Assessment/Plan Problems: (1) Rash and other nonspecific skin eruption Assessment & Plan: unclear whether due to vancomycin or levaquin since she was on both, avoid both drug class and add to her list of allergy. improved on steroids and benadryl , will stop steroids (2) Sepsis due to Staphylococcus Assessment & Plan: previously was staph warneri which grew out of her blood culture last admission , but had skin allergic reaction, unclear whether to vancomycin or levaquin , now blood culture is growing staphylococcus capitis and epidermidis from the PICC line, which is most likely the source of her blood stream infection this time , on oxacillin will switch to daptomycin , and remove PICC line since it is infected . will send tip for culture, and repeat blood culture to confirm clearance after picc line removal . she will need 2 weeks of antibiotics treatment Subjective Constitutional: Reports: no symptoms HEENT: Reports: no symptoms Respiratory: Reports: no symptoms Breasts: Reports: no symptoms Cardiovascular: Reports: no symptoms Gastrointestinal/Abdominal: Reports: no symptoms Genitourinary: Reports: no symptoms Neurologic: Reports: no symptoms Psychiatric: Reports: no symptoms Skin: Reports: no symptoms Endocrine: Reports: no symptoms Hematologic: Reports: no symptoms Allergies: Coded Allergies: LEVOFLOXACIN (Verified Allergy, Severe, Rash, 04/16/17) VANCOMYCIN (Verified Allergy, Severe, Rash, 04/16/17) Objective Vital Signs Last 24 Hour Vital Signs Date Time Temp Pulse Resp B/P (MAP) Pulse Ox O2 Delivery O2 Flow Rate FiO2 04/20/17 15:33 97.7 97 20 145/63 95 Nasal Cannula 3.0 04/20/17 12:43 104 04/20/17 12:40 97.7 94 20 147/68 95 Nasal Cannula 3.0 04/20/17 08:44 97.5 96 20 151/73 95 Nasal Cannula 3.0 04/20/17 07:58 Nasal Cannula 3.0 32 04/20/17 07:58 95 Nasal Cannula 3.0 32 04/20/17 06:51 92 04/20/17 05:45 93 163/73 04/20/17 04:00 97.5 61 20 164/76 98 Nasal Cannula 3.0 04/20/17 00:00 97.7 95 18 156/74 96 Nasal Cannula 3.0 04/19/17 23:34 95 163/70 04/19/17 20:03 103 04/19/17 20:00 99.1 102 18 148/68 98 Nasal Cannula 3.0 04/19/17 19:05 94 Nasal Cannula 3.0 32 04/19/17 19:05 Nasal Cannula 3.0 32 04/19/17 18:29 107 145/74 04/19/17 16:39 97.7 107 20 145/74 97 Nasal Cannula 3.0 04/19/17 16:00 107 Height (Feet): 5 Height (Inches): 4.00 Weight (Pounds): 215 General Appearance: WD/WN, no acute distress HEENT: normocephalic, atraumatic, anicteric, mucous membranes moist, EOMI, pharynx normal Respiratory/Chest: chest wall non-tender, normal breath sounds, no respiratory distress, no accessory muscle use, decreased breath sounds Cardiovascular: normal peripheral pulses, normal rate, regular rhythm, no gallop/murmur Abdomen: normal bowel sounds, soft, non tender, no organomegaly, non distended , no mass Extremities: no cyanosis, no clubbing Skin: no rash, no lesions, no ulcers Laboratory Tests Test 04/20/17 05:30 White Blood Count 12.4 K/UL (4.8-10.8) H Red Blood Count 4.06 M/UL (4.20-5.40) L Hemoglobin 12.3 G/DL (12.0-16.0) Hematocrit 37.9 % (37.0-47.0) Mean Corpuscular Volume 93 FL (80-99) Mean Corpuscular Hemoglobin 30.3 PG (27.0-31.0) Mean Corpuscular Hemoglobin Concent 32.5 G/DL (32.0-36.0) Red Cell Distribution Width 12.4 % (11.6-14.8) Platelet Count 176 K/UL (150-450) Mean Platelet Volume 8.0 FL (6.5-10.1) Neutrophils (%) (Auto) 84.9 % (45.0-75.0) H Lymphocytes (%) (Auto) 7.6 % (20.0-45.0) L Monocytes (%) (Auto) 6.7 % (1.0-10.0) Eosinophils (%) (Auto) 0.4 % (0.0-3.0) Basophils (%) (Auto) 0.4 % (0.0-2.0) Sodium Level 136 mEQ/L (135-145) Potassium Level 3.9 mEQ/L (3.4-4.9) Chloride Level 93 mEQ/L (98-107) L Carbon Dioxide Level 38 mEQ/L (20-30) H Anion Gap 5 (5-15) Blood Urea Nitrogen 24 mg/dL (7-23) H Creatinine 0.8 mg/dL (0.5-0.9) Estimat Glomerular Filtration Rate mL/min (>60) Glucose Level 166 mg/dL (74-106) H Calcium Level 9.4 mg/dL (8.6-10.2) Current Medications Medications (Trade) Dose Ordered Sig/Isabel Route PRN Reason Start Time Stop Time Status Last Admin Dose Admin Acetaminophen (Tylenol) 650 mg Q4H PRN ORAL T>100.5 04/16/17 09:45 05/16/17 09:44 04/19/17 15:30 Al Hydroxide/Mg Hydroxide (Mylanta II) 30 ml Q6H PRN ORAL dyspepsia 04/16/17 09:45 05/16/17 09:44 04/19/17 15:23 Cyclobenzaprine HCl (Flexeril) 10 mg Q12HR ORAL 04/16/17 21:00 05/16/17 20:59 04/20/17 09:47 Daptomycin 780 mg/ Sodium Chloride 55 ml @ 100 mls/hr Q24H IV 04/20/17 11:30 04/27/17 11:29 04/20/17 15:03 Dextrose (Dextrose 50%) STAT PRN IV Hypoglycemia 04/16/17 09:45 05/16/17 09:44 Diltiazem HCl (Cardizem) 90 mg EVERY 6 HOURS ORAL 04/19/17 18:00 05/18/17 21:59 04/20/17 12:43 Diphenhydramine HCl (Benadryl) 25 mg Q6H PRN IVP Itching 04/16/17 16:15 05/16/17 16:14 04/17/17 09:57 Heparin Sodium (Porcine) (Heparin 5000 units/ml) 5,000 units EVERY 12 HOURS SUBQ 04/16/17 21:00 05/16/17 20:59 10/4/17 09:51 Insulin Aspart (NovoLOG) BEFORE MEALS AND HS SUBQ 04/16/17 11:30 05/16/17 11:29 04/19/17 21:29 Lorazepam (Ativan 2mg/ml 1ml) 0.5 mg Q4H PRN IV For Anxiety 04/16/17 09:45 04/23/17 09:44 04/20/17 02:57 Mirtazapine (Remeron) 7.5 mg BEDTIME ORAL 04/16/17 21:00 05/16/17 20:59 04/19/17 21:25 Morphine Sulfate (Morphine Sulfate) 1 mg Q4H PRN IVP PAIN 4-10 04/16/17 09:45 04/23/17 09:44 04/19/17 16:54 Ondansetron HCl (Zofran) 4 mg Q6H PRN IVP Nausea & Vomiting 04/16/17 09:45 05/16/17 09:44 04/19/17 15:30 Polyethylene Glycol (Miralax) 17 gm HSPRN PRN ORAL Constipation 04/16/17 21:00 05/16/17 20:59 Zolpidem Tartrate (Ambien) 5 mg HSPRN PRN ORAL Insomnia 04/16/17 21:00 04/23/17 20:59 04/19/17 23:43 Siria Ellison M.D. Apr 20, 2017 15:49
--- NOTE | 2017-04-20 18:00 | Progress Note ---
DATE: 04/20/2017 Subjective: This is a 77-year-old female patient with severe dermatitis and sepsis. Plan: Continue treatment with medications to prevent any mood lability and decline in her cognition. Chart reviewed and discussed with staff. The patient was seen and assessed at bedside. Edilberto Canseco M.D. DR: DELVIS JOB#: [id number] CC:
[2017-04-20 20:00] VITALS: BP 141/67
[2017-04-20] MEDS: Zolpidem 5mg tab ORAL PRN (23:13)
[2017-04-21] VITALS: BP 153/75
[2017-04-21] MEDS: NovoLOG Insulin Flexpen SUBQ SCH ×5 (00:28→22:41)
[2017-04-21] MEDS: Morphine Sulfate 2mg/ml Inj IVP PRN ×2 (02:00→18:04)
[2017-04-21 04:00] VITALS: BP 149/80
[2017-04-21] MEDS: dilTIAZem HCl 90mg tab ORAL SCH ×3 (06:28→18:03)
[2017-04-21 08:00] VITALS: BP 143/77
--- NOTE | 2017-04-21 08:15 | Progress Note ---
DATE: 04/19/2017 Subjective: This is a 77-year-old female confused and disorganized. No logical plan for her own self care. Plan: I am going to treat with medication to prevent any decline in her cognition. Chart was reviewed and discussed with the staff. . Edilberto Canseco M.D. DR: MARK JOB#: [id number] CC:
[2017-04-21] MEDS: Cyclobenzaprine 10mg Tab ORAL SCH ×2 (09:51→20:47)
[2017-04-21] MEDS: Heparin 5000 units/ml inj SUBQ SCH ×2 (09:53→20:53)
--- NOTE | 2017-04-21 10:18 | Wound Nurse Progress Note ---
Wound RN Progress Note Wound Consult reassessed admitted pressure ulcer to right op of ear noted good progress noted site resolving,no s/s of infection to site, no drainage present no further deterioration present. current wound care is effective, continue to provide cushion to ears and offload affected sites. BALTAZAR SCOTT Apr 21, 2017 10:18
[2017-04-21 10:31] LABS: MEAN CORPUSCULAR HEMOGLOBIN 29.5 PG (27.0-31.0); MEAN CORPUSCULAR VOLUME 92 FL (80-99); MEAN PLATELET VOLUME 7.6 FL (6.5-10.1); PLATELET COUNT 193 K/UL (150-450); RED BLOOD COUNT 4.35 M/UL (4.20-5.40); RED CELL DISTRIBUTION WIDTH 12.3 % (11.6-14.8); WHITE BLOOD COUNT 12.9 K/UL (4.8-10.8)
[2017-04-21 11:04] LABS: ANION GAP 8 (5-15); CALCIUM 9.3 mg/dL (8.6-10.2); CARBON DIOXIDE 37 mEQ/L (20-30); CHLORIDE 95 mEQ/L (98-107); CREATININE 0.8 mg/dL (0.5-0.9); HEMOLYSIS 0; POTASSIUM 4.2 mEQ/L (3.4-4.9); SODIUM 140 mEQ/L (135-145)
[2017-04-21 11:32] LABS: BAND NEUTROPHILS % (MANUAL) 0 % (0-8); BASOPHILS % (MANUAL) 0 % (0-2); EOSINOPHILS % (MANUAL) 1 % (0-3); HYPOCHROMASIA 1+; LYMPHOCYTES % (MANUAL) 3 % (20-45); NEUTROPHILS % (MANUAL) 93 % (45-75); PLATELET ESTIMATE ADEQUATE; PLATELET MORPHOLOGY NORMAL; TOTAL CELLS COUNTED 100
[2017-04-21 12:00] VITALS: BP 134/64
[2017-04-21] MEDS: NS IV SCH (13:32)
[2017-04-21] MEDS: DAPTOMYCIN IV SCH (13:32)
--- NOTE | 2017-04-21 14:00 | Pulmonology Progress Note ---
Assessment/Plan Problems: (1) Bacteremia (2) Bilateral pneumonia (3) Generalized rash (4) Dermatitis (5) Tachycardia (6) COPD (chronic obstructive pulmonary disease) (7) DM (diabetes mellitus) (8) HTN (hypertension) (9) GERD (gastroesophageal reflux disease) (10) Cirrhosis Assessment/Plan tachycardia resolved echo reviewed, EF ok, BNP is normal cxr reviewed, LLL infiltrate and effusion continue abx respiratory treatment dvt prophylaxis f/u cultures med/surg if ok with cardio Subjective ROS Limited/Unobtainable: No Constitutional: Reports: no symptoms HEENT: Repors: no symptoms Respiratory: Reports: no symptoms Allergies: Coded Allergies: LEVOFLOXACIN (Verified Allergy, Severe, Rash, 04/16/17) VANCOMYCIN (Verified Allergy, Severe, Rash, 04/16/17) Objective Last 24 Hour Vital Signs Date Time Temp Pulse Resp B/P (MAP) Pulse Ox O2 Delivery O2 Flow Rate FiO2 04/21/17 13:32 93 136/64 04/21/17 12:00 97.3 92 22 134/64 92 Nasal Cannula 3.0 04/21/17 12:00 93 04/21/17 10:50 97.3 04/21/17 08:22 96 Nasal Cannula 3.0 32 04/21/17 08:22 Nasal Cannula 3.0 32 04/21/17 08:00 97.7 91 22 143/77 92 Nasal Cannula 3.0 04/21/17 08:00 90 04/21/17 06:28 93 144/93 04/21/17 04:00 97.3 93 20 149/80 Nasal Cannula 3.0 04/21/17 03:54 93 04/21/17 00:00 97.9 95 18 153/75 97 Nasal Cannula 3.0 04/20/17 23:52 95 04/20/17 23:17 96 143/67 04/20/17 20:44 96 04/20/17 20:00 98.4 94 22 141/67 98 Nasal Cannula 3.0 04/20/17 19:30 Nasal Cannula 3.0 32 04/20/17 19:30 94 Nasal Cannula 3.0 32 04/20/17 17:50 102 04/20/17 16:00 107 04/20/17 15:33 97.7 97 20 145/63 95 Nasal Cannula 3.0 Intake and Output 04/21/17 04/22/17 19:00 07:00 # Bowel Movements 1 General Appearance: WD/WN HEENT: normocephalic, atraumatic Respiratory/Chest: chest wall non-tender, normal breath sounds Breasts: no masses Cardiovascular: normal peripheral pulses Abdomen: normal bowel sounds, no organomegaly Genitourinary: normal external genitalia Extremities: no cyanosis Skin: no lesions 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, abnormal gait Laboratory Tests 04/21/17 09:40: White Blood Count 12.9H, Red Blood Count 4.35, Hemoglobin 12.8, Hematocrit 40.1 , Mean Corpuscular Volume 92, Mean Corpuscular Hemoglobin 29.5, Mean Corpuscular Hemoglobin Concent 32.0, Red Cell Distribution Width 12.3, Platelet Count 193, Mean Platelet Volume 7.6, Neutrophils (%) (Auto) , Lymphocytes (%) ( Auto) , Monocytes (%) (Auto) , Eosinophils (%) (Auto) , Basophils (%) (Auto) , Differential Total Cells Counted 100, Neutrophils % (Manual) 93H, Lymphocytes % (Manual) 3L, Monocytes % (Manual) 3, Eosinophils % (Manual) 1, Basophils % ( Manual) 0, Band Neutrophils 0, Platelet Estimate Adequate, Platelet Morphology Normal, Hypochromasia 1+, Sodium Level 140, Potassium Level 4.2, Chloride Level 95L, Carbon Dioxide Level 37H, Anion Gap 8, Blood Urea Nitrogen 21, Creatinine 0.8, Estimat Glomerular Filtration Rate , Glucose Level 167H, Calcium Level 9.3 Current Medications Medications (Trade) Dose Ordered Sig/Isabel Route PRN Reason Start Time Stop Time Status Last Admin Dose Admin Acetaminophen (Tylenol) 650 mg Q4H PRN ORAL T>100.5 04/16/17 09:45 05/16/17 09:44 04/19/17 15:30 Al Hydroxide/Mg Hydroxide (Mylanta II) 30 ml Q6H PRN ORAL dyspepsia 04/16/17 09:45 05/16/17 09:44 04/19/17 15:23 Cyclobenzaprine HCl (Flexeril) 10 mg Q12HR ORAL 04/16/17 21:00 05/16/17 20:59 04/21/17 09:51 Daptomycin 780 mg/ Sodium Chloride 55 ml @ 100 mls/hr Q24H IV 04/20/17 11:30 04/27/17 11:29 04/21/17 13:32 Dextrose (Dextrose 50%) STAT PRN IV Hypoglycemia 04/16/17 09:45 05/16/17 09:44 Diltiazem HCl (Cardizem) 90 mg EVERY 6 HOURS ORAL 04/19/17 18:00 05/18/17 21:59 04/21/17 13:32 Diphenhydramine HCl (Benadryl) 25 mg Q6H PRN IVP Itching 04/16/17 16:15 05/16/17 16:14 04/17/17 09:57 Heparin Sodium (Porcine) (Heparin 5000 units/ml) 5,000 units EVERY 12 HOURS SUBQ 04/16/17 21:00 05/16/17 20:59 04/21/17 09:53 Insulin Aspart (NovoLOG) BEFORE MEALS AND HS SUBQ 04/16/17 11:30 05/16/17 11:29 04/21/17 13:13 Lorazepam (Ativan 2mg/ml 1ml) 0.5 mg Q4H PRN IV For Anxiety 04/16/17 09:45 04/23/17 09:44 04/20/17 02:57 Mirtazapine (Remeron) 7.5 mg BEDTIME ORAL 04/16/17 21:00 05/16/17 20:59 04/20/17 20:46 Morphine Sulfate (Morphine Sulfate) 1 mg Q4H PRN IVP PAIN 4-10 04/16/17 09:45 04/23/17 09:44 04/21/17 02:00 Ondansetron HCl (Zofran) 4 mg Q6H PRN IVP Nausea & Vomiting 04/16/17 09:45 05/16/17 09:44 04/19/17 15:30 Polyethylene Glycol (Miralax) 17 gm HSPRN PRN ORAL Constipation 04/16/17 21:00 05/16/17 20:59 Zolpidem Tartrate (Ambien) 5 mg HSPRN PRN ORAL Insomnia 04/16/17 21:00 04/23/17 20:59 04/20/17 23:13 TABATHA PLASENCIA Apr 21, 2017 14:00
--- NOTE | 2017-04-21 14:57 | General Progress Note ---
Assessment/Plan Problem List: (1) HTN (hypertension) ICD Codes: I10 - HTN (hypertension) SNOMED: 03940301 (2) GERD (gastroesophageal reflux disease) ICD Codes: K21.9 - Gastro-esophageal reflux disease without esophagitis SNOMED: 389369061 (3) Cellulitis (4) DM (diabetes mellitus) ICD Codes: E11.9 - DM (diabetes mellitus) SNOMED: 06765587 (5) OBESITY, NOS (6) SOB (shortness of breath) ICD Codes: R06.02 - Shortness of breath SNOMED: 919467267 (7) HTN (hypertension) ICD Codes: I10 - Essential (primary) hypertension SNOMED: 91435846 (8) Chronic pain ICD Codes: G89.29 - Other chronic pain SNOMED: 56496037 (9) Rash and other nonspecific skin eruption ICD Codes: R21 - Rash and other nonspecific skin eruption SNOMED: 828520026, 096117389 (10) Sepsis ICD Codes: A41.9 - Sepsis, unspecified organism SNOMED: 24496029 Status: stable, progressing, tolerating diet Assessment/Plan ot pt wound care o2 pulm tx cbc bmp am dc plan Subjective Constitutional: Reports: weakness Allergies: Coded Allergies: LEVOFLOXACIN (Verified Allergy, Severe, Rash, 04/16/17) VANCOMYCIN (Verified Allergy, Severe, Rash, 04/16/17) All Systems: reviewed and negative except above Subjective o2nc sl anxious Objective Last 24 Hour Vital Signs Date Time Temp Pulse Resp B/P (MAP) Pulse Ox O2 Delivery O2 Flow Rate FiO2 04/21/17 13:32 93 136/64 04/21/17 12:00 97.3 92 22 134/64 92 Nasal Cannula 3.0 04/21/17 12:00 93 04/21/17 10:50 97.3 04/21/17 08:22 96 Nasal Cannula 3.0 32 04/21/17 08:22 Nasal Cannula 3.0 32 04/21/17 08:00 97.7 91 22 143/77 92 Nasal Cannula 3.0 04/21/17 08:00 90 04/21/17 06:28 93 144/93 04/21/17 04:00 97.3 93 20 149/80 Nasal Cannula 3.0 04/21/17 03:54 93 04/21/17 00:00 97.9 95 18 153/75 97 Nasal Cannula 3.0 04/20/17 23:52 95 04/20/17 23:17 96 143/67 04/20/17 20:44 96 04/20/17 20:00 98.4 94 22 141/67 98 Nasal Cannula 3.0 04/20/17 19:30 Nasal Cannula 3.0 32 04/20/17 19:30 94 Nasal Cannula 3.0 32 04/20/17 17:50 102 04/20/17 16:00 107 04/20/17 15:33 97.7 97 20 145/63 95 Nasal Cannula 3.0 Intake and Output 04/21/17 04/22/17 19:00 07:00 # Bowel Movements 1 Laboratory Tests 04/21/17 09:40: White Blood Count 12.9H, Red Blood Count 4.35, Hemoglobin 12.8, Hematocrit 40.1 , Mean Corpuscular Volume 92, Mean Corpuscular Hemoglobin 29.5, Mean Corpuscular Hemoglobin Concent 32.0, Red Cell Distribution Width 12.3, Platelet Count 193, Mean Platelet Volume 7.6, Neutrophils (%) (Auto) , Lymphocytes (%) ( Auto) , Monocytes (%) (Auto) , Eosinophils (%) (Auto) , Basophils (%) (Auto) , Differential Total Cells Counted 100, Neutrophils % (Manual) 93H, Lymphocytes % (Manual) 3L, Monocytes % (Manual) 3, Eosinophils % (Manual) 1, Basophils % ( Manual) 0, Band Neutrophils 0, Platelet Estimate Adequate, Platelet Morphology Normal, Hypochromasia 1+, Sodium Level 140, Potassium Level 4.2, Chloride Level 95L, Carbon Dioxide Level 37H, Anion Gap 8, Blood Urea Nitrogen 21, Creatinine 0.8, Estimat Glomerular Filtration Rate , Glucose Level 167H, Calcium Level 9.3 Height (Feet): 5 Height (Inches): 4.00 Weight (Pounds): 215 General Appearance: lethargic EENT: normal ENT inspection Neck: normal alignment Cardiovascular: normal peripheral pulses, normal rate, regular rhythm Respiratory/Chest: chest wall non-tender, lungs clear, normal breath sounds Abdomen: normal bowel sounds, non tender, soft Extremities: normal inspection Edema: no edema noted Arm (L), no edema noted Arm (R), no edema noted Leg (L), no edema noted Leg (R), no edema noted Pedal (L), no edema noted Pedal (R), no edema noted Generalized Neurologic: responsive, motor weakness Skin: normal pigmentation, warm/dry Objective diffuse reddish rash w confluence in back , back of arm, back of leg, and buttocks KUMAR ENGLISH Apr 21, 2017 14:56
--- NOTE | 2017-04-21 15:57 | Infectious Diseases Prog Note ---
Assessment/Plan Problems: (1) Rash and other nonspecific skin eruption Assessment & Plan: unclear whether due to vancomycin or levaquin since she was on both, avoid both drug class and add to her list of allergy. improved on steroids and benadryl , avoid same class of antibiotics in the future . (2) Sepsis due to Staphylococcus Assessment & Plan: due to staphylococcus capitis and epidermidis from the PICC line, which is most likely the source of her blood stream infection this time , on daptomycin , PICC line was removed and tip was sent for culture , since it is infected . repeated blood culture to confirm clearance after picc line removal is pending . once it is negative we can place new line to complete her course of antibiotics for two weeks with daptomycin. monitor CK level while she is on daptomycin Subjective Constitutional: Reports: no symptoms HEENT: Reports: no symptoms Respiratory: Reports: no symptoms Breasts: Reports: no symptoms Cardiovascular: Reports: no symptoms Gastrointestinal/Abdominal: Reports: no symptoms Genitourinary: Reports: no symptoms Neurologic: Reports: no symptoms Psychiatric: Reports: no symptoms Skin: Reports: no symptoms Allergies: Coded Allergies: LEVOFLOXACIN (Verified Allergy, Severe, Rash, 04/16/17) VANCOMYCIN (Verified Allergy, Severe, Rash, 04/16/17) Objective Vital Signs Last 24 Hour Vital Signs Date Time Temp Pulse Resp B/P (MAP) Pulse Ox O2 Delivery O2 Flow Rate FiO2 04/21/17 13:32 93 136/64 04/21/17 12:00 97.3 92 22 134/64 92 Nasal Cannula 3.0 04/21/17 12:00 93 04/21/17 10:50 97.3 04/21/17 08:22 96 Nasal Cannula 3.0 32 04/21/17 08:22 Nasal Cannula 3.0 32 04/21/17 08:00 97.7 91 22 143/77 92 Nasal Cannula 3.0 04/21/17 08:00 90 04/21/17 06:28 93 144/93 04/21/17 04:00 97.3 93 20 149/80 Nasal Cannula 3.0 04/21/17 03:54 93 04/21/17 00:00 97.9 95 18 153/75 97 Nasal Cannula 3.0 04/20/17 23:52 95 04/20/17 23:17 96 143/67 04/20/17 20:44 96 10/4/17 20:00 98.4 94 22 141/67 98 Nasal Cannula 3.0 04/20/17 19:30 Nasal Cannula 3.0 32 04/20/17 19:30 94 Nasal Cannula 3.0 32 04/20/17 17:50 102 04/20/17 16:00 107 Height (Feet): 5 Height (Inches): 4.00 Weight (Pounds): 215 General Appearance: WD/WN, no acute distress HEENT: normocephalic, atraumatic, anicteric, mucous membranes moist, EOMI, pharynx normal Respiratory/Chest: chest wall non-tender, lungs clear, normal breath sounds, no respiratory distress, no accessory muscle use Cardiovascular: normal peripheral pulses, normal rate, regular rhythm, no gallop/murmur, no JVD Abdomen: normal bowel sounds, soft, non tender, no organomegaly, non distended , no mass, no scars Extremities: no cyanosis, no clubbing Skin: no rash, no lesions, no ulcers Laboratory Tests Test 04/21/17 09:40 White Blood Count 12.9 K/UL (4.8-10.8) H Red Blood Count 4.35 M/UL (4.20-5.40) Hemoglobin 12.8 G/DL (12.0-16.0) Hematocrit 40.1 % (37.0-47.0) Mean Corpuscular Volume 92 FL (80-99) Mean Corpuscular Hemoglobin 29.5 PG (27.0-31.0) Mean Corpuscular Hemoglobin Concent 32.0 G/DL (32.0-36.0) Red Cell Distribution Width 12.3 % (11.6-14.8) Platelet Count 193 K/UL (150-450) Mean Platelet Volume 7.6 FL (6.5-10.1) Neutrophils (%) (Auto) % (45.0-75.0) Lymphocytes (%) (Auto) % (20.0-45.0) Monocytes (%) (Auto) % (1.0-10.0) Eosinophils (%) (Auto) % (0.0-3.0) Basophils (%) (Auto) % (0.0-2.0) Differential Total Cells Counted 100 Neutrophils % (Manual) 93 % (45-75) H Lymphocytes % (Manual) 3 % (20-45) L Monocytes % (Manual) 3 % (1-10) Eosinophils % (Manual) 1 % (0-3) Basophils % (Manual) 0 % (0-2) Band Neutrophils 0 % (0-8) Platelet Estimate Adequate Platelet Morphology Normal Hypochromasia 1+ Sodium Level 140 mEQ/L (135-145) Potassium Level 4.2 mEQ/L (3.4-4.9) Chloride Level 95 mEQ/L (98-107) L Carbon Dioxide Level 37 mEQ/L (20-30) H Anion Gap 8 (5-15) Blood Urea Nitrogen 21 mg/dL (7-23) Creatinine 0.8 mg/dL (0.5-0.9) Estimat Glomerular Filtration Rate mL/min (>60) Glucose Level 167 mg/dL (74-106) H Calcium Level 9.3 mg/dL (8.6-10.2) Current Medications Medications (Trade) Dose Ordered Sig/Isabel Route PRN Reason Start Time Stop Time Status Last Admin Dose Admin Acetaminophen (Tylenol) 650 mg Q4H PRN ORAL T>100.5 04/16/17 09:45 05/16/17 09:44 04/19/17 15:30 Al Hydroxide/Mg Hydroxide (Mylanta II) 30 ml Q6H PRN ORAL dyspepsia 04/16/17 09:45 05/16/17 09:44 04/19/17 15:23 Cyclobenzaprine HCl (Flexeril) 10 mg Q12HR ORAL 04/16/17 21:00 05/16/17 20:59 04/21/17 09:51 Daptomycin 780 mg/ Sodium Chloride 55 ml @ 100 mls/hr Q24H IV 04/20/17 11:30 04/27/17 11:29 04/21/17 13:32 Dextrose (Dextrose 50%) STAT PRN IV Hypoglycemia 04/16/17 09:45 05/16/17 09:44 Diltiazem HCl (Cardizem) 90 mg EVERY 6 HOURS ORAL 04/19/17 18:00 05/18/17 21:59 04/21/17 13:32 Diphenhydramine HCl (Benadryl) 25 mg Q6H PRN IVP Itching 04/16/17 16:15 05/16/17 16:14 04/17/17 09:57 Heparin Sodium (Porcine) (Heparin 5000 units/ml) 5,000 units EVERY 12 HOURS SUBQ 04/16/17 21:00 05/16/17 20:59 04/21/17 09:53 Insulin Aspart (NovoLOG) BEFORE MEALS AND HS SUBQ 04/16/17 11:30 05/16/17 11:29 04/21/17 13:13 Lorazepam (Ativan 2mg/ml 1ml) 0.5 mg Q4H PRN IV For Anxiety 04/16/17 09:45 04/23/17 09:44 04/20/17 02:57 Mirtazapine (Remeron) 7.5 mg BEDTIME ORAL 04/16/17 21:00 05/16/17 20:59 04/20/17 20:46 Morphine Sulfate (Morphine Sulfate) 1 mg Q4H PRN IVP PAIN 4-10 04/16/17 09:45 04/23/17 09:44 04/21/17 02:00 Ondansetron HCl (Zofran) 4 mg Q6H PRN IVP Nausea & Vomiting 04/16/17 09:45 05/16/17 09:44 04/19/17 15:30 Polyethylene Glycol (Miralax) 17 gm HSPRN PRN ORAL Constipation 04/16/17 21:00 05/16/17 20:59 Zolpidem Tartrate (Ambien) 5 mg HSPRN PRN ORAL Insomnia 04/16/17 21:00 04/23/17 20:59 04/20/17 23:13 Siria Ellison M.D. Apr 21, 2017 15:57
[2017-04-21 16:00] VITALS: BP 118/58
--- NOTE | 2017-04-21 16:51 | Cardiac Electrophysiology PN ---
Assessment/Plan Assessment/Plan 1. MFAT that looks like atrial fibrillation. On Cardizem 90 mg every 6 hours There is no indication for anticoagulation as the majority of this rhythm is frequent PACs. 2. Bilateral pneumonia, on antibiotics per Dr. Ellison. 3. Chronic obstructive pulmonary disease. 4. Dermatitis. 5. Diabetes. 6. Hypertension, on Cardizem. 7. Cirrhosis. 8. Gastroesophageal reflux disease. DW RN Subjective Subjective No chest pain or SOB. No arrhythmias on tele.In SR. Objective Last 24 Hour Vital Signs Date Time Temp Pulse Resp B/P (MAP) Pulse Ox O2 Delivery O2 Flow Rate FiO2 04/21/17 16:00 97.3 95 20 118/58 92 Nasal Cannula 3.0 04/21/17 13:32 93 136/64 04/21/17 12:00 97.3 92 22 134/64 92 Nasal Cannula 3.0 04/21/17 12:00 93 04/21/17 10:50 97.3 04/21/17 08:22 96 Nasal Cannula 3.0 32 04/21/17 08:22 Nasal Cannula 3.0 32 04/21/17 08:00 97.7 91 22 143/77 92 Nasal Cannula 3.0 04/21/17 08:00 90 04/21/17 06:28 93 144/93 04/21/17 04:00 97.3 93 20 149/80 Nasal Cannula 3.0 04/21/17 03:54 93 04/21/17 00:00 97.9 95 18 153/75 97 Nasal Cannula 3.0 04/20/17 23:52 95 04/20/17 23:17 96 143/67 04/20/17 20:44 96 04/20/17 20:00 98.4 94 22 141/67 98 Nasal Cannula 3.0 04/20/17 19:30 Nasal Cannula 3.0 32 04/20/17 19:30 94 Nasal Cannula 3.0 32 04/20/17 17:50 102 Intake and Output 04/21/17 04/22/17 19:00 07:00 # Bowel Movements 1 Laboratory Tests Test 04/21/17 09:40 White Blood Count 12.9 K/UL (4.8-10.8) H Red Blood Count 4.35 M/UL (4.20-5.40) Hemoglobin 12.8 G/DL (12.0-16.0) Hematocrit 40.1 % (37.0-47.0) Mean Corpuscular Volume 92 FL (80-99) Mean Corpuscular Hemoglobin 29.5 PG (27.0-31.0) Mean Corpuscular Hemoglobin Concent 32.0 G/DL (32.0-36.0) Red Cell Distribution Width 12.3 % (11.6-14.8) Platelet Count 193 K/UL (150-450) Mean Platelet Volume 7.6 FL (6.5-10.1) Neutrophils (%) (Auto) % (45.0-75.0) Lymphocytes (%) (Auto) % (20.0-45.0) Monocytes (%) (Auto) % (1.0-10.0) Eosinophils (%) (Auto) % (0.0-3.0) Basophils (%) (Auto) % (0.0-2.0) Differential Total Cells Counted 100 Neutrophils % (Manual) 93 % (45-75) H Lymphocytes % (Manual) 3 % (20-45) L Monocytes % (Manual) 3 % (1-10) Eosinophils % (Manual) 1 % (0-3) Basophils % (Manual) 0 % (0-2) Band Neutrophils 0 % (0-8) Platelet Estimate Adequate Platelet Morphology Normal Hypochromasia 1+ Sodium Level 140 mEQ/L (135-145) Potassium Level 4.2 mEQ/L (3.4-4.9) Chloride Level 95 mEQ/L (98-107) L Carbon Dioxide Level 37 mEQ/L (20-30) H Anion Gap 8 (5-15) Blood Urea Nitrogen 21 mg/dL (7-23) Creatinine 0.8 mg/dL (0.5-0.9) Estimat Glomerular Filtration Rate mL/min (>60) Glucose Level 167 mg/dL (74-106) H Calcium Level 9.3 mg/dL (8.6-10.2) Objective HEAD AND NECK: No JVD. LUNGS: Clear. CARDIOVASCULAR: Regular S1 and S2 with no gallop. ABDOMEN: Soft. EXTREMITIES: 1+ pitting edema. WILLIE MANZANO Apr 21, 2017 16:51
[2017-04-21 20:00] VITALS: BP 137/70
[2017-04-22] VITALS: BP 143/66
[2017-04-22] MEDS: LORazepam Inj 2mg/ml 1ml IV PRN (00:32)
[2017-04-22] MEDS: dilTIAZem HCl 90mg tab ORAL SCH ×3 (00:32→12:25)
[2017-04-22] MEDS: Morphine Sulfate 2mg/ml Inj IVP PRN ×2 (02:58→22:24)
[2017-04-22 04:00] VITALS: BP 138/69
[2017-04-22] MEDS: NovoLOG Insulin Flexpen SUBQ SCH ×5 (06:32→22:23)
[2017-04-22 08:00] VITALS: BP 150/68
--- NOTE | 2017-04-22 08:00 | Progress Note ---
DATE: 04/21/2017 Subjective: This is a 77-year-old female patient. She is very depressed. She has sepsis. She has altered mental status and confusion secondary to the progression of medical illness to prevent any decline in cognition Diagnosis: Major depression, rule out pseudodementia. Chart reviewed and discussed with staff . Edilberto Canseco M.D. DR: Suzi JOB#: [id number] CC:
[2017-04-22 08:40] LABS: BASOPHILS % (AUTO) 0.2 % (0.0-2.0); LYMPHOCYTES % (AUTO) 7.4 % (20.0-45.0); MEAN CORPUSCULAR HEMOGLOBIN 28.2 PG (27.0-31.0); MEAN CORPUSCULAR HGB CONC 30.1 G/DL (32.0-36.0); MEAN CORPUSCULAR VOLUME 94 FL (80-99); MEAN PLATELET VOLUME 7.4 FL (6.5-10.1); MONOCYTES % (AUTO) 4.5 % (1.0-10.0); NEUTROPHILS % (AUTO) 83.9 % (45.0-75.0); PLATELET COUNT 209 K/UL (150-450); RED BLOOD COUNT 4.39 M/UL (4.20-5.40); RED CELL DISTRIBUTION WIDTH 12.2 % (11.6-14.8); WHITE BLOOD COUNT 13.5 K/UL (4.8-10.8)
[2017-04-22 08:52] LABS: ANION GAP 5 (5-15); CALCIUM 9.1 mg/dL (8.6-10.2); CARBON DIOXIDE 38 mEQ/L (20-30); CHLORIDE 95 mEQ/L (98-107); CREATININE 0.8 mg/dL (0.5-0.9); HEMOLYSIS 1; POTASSIUM 4.3 mEQ/L (3.4-4.9); SODIUM 138 mEQ/L (135-145)
[2017-04-22] MEDS: Cyclobenzaprine 10mg Tab ORAL SCH ×2 (09:21→22:21)
[2017-04-22] MEDS: Heparin 5000 units/ml inj SUBQ SCH ×2 (09:23→22:22)
--- NOTE | 2017-04-22 10:38 | General Progress Note ---
Assessment/Plan Problem List: (1) HTN (hypertension) ICD Codes: I10 - HTN (hypertension) SNOMED: 73818938 (2) GERD (gastroesophageal reflux disease) ICD Codes: K21.9 - Gastro-esophageal reflux disease without esophagitis SNOMED: 701824805 (3) Cellulitis (4) DM (diabetes mellitus) ICD Codes: E11.9 - DM (diabetes mellitus) SNOMED: 38555279 (5) OBESITY, NOS (6) SOB (shortness of breath) ICD Codes: R06.02 - Shortness of breath SNOMED: 154477006 (7) HTN (hypertension) ICD Codes: I10 - Essential (primary) hypertension SNOMED: 77717142 (8) Chronic pain ICD Codes: G89.29 - Other chronic pain SNOMED: 49180907 (9) Rash and other nonspecific skin eruption ICD Codes: R21 - Rash and other nonspecific skin eruption SNOMED: 626626524, 360344185 (10) Sepsis ICD Codes: A41.9 - Sepsis, unspecified organism SNOMED: 51464880 Status: stable, progressing, tolerating diet Assessment/Plan ot pt wound care o2 pulm tx cbc bmp am ltach transfer Subjective Constitutional: Reports: weakness Allergies: Coded Allergies: LEVOFLOXACIN (Verified Allergy, Severe, Rash, 04/16/17) VANCOMYCIN (Verified Allergy, Severe, Rash, 04/16/17) All Systems: reviewed and negative except above Subjective o2nc sl anxious Objective Last 24 Hour Vital Signs Date Time Temp Pulse Resp B/P (MAP) Pulse Ox O2 Delivery O2 Flow Rate FiO2 04/22/17 08:00 97.7 97 21 150/68 100 Nasal Cannula 2.0 04/22/17 06:14 99 138/69 04/22/17 04:00 98.4 99 21 138/69 93 Room Air 04/22/17 03:54 98 04/22/17 00:32 95 143/66 04/22/17 00:00 98.2 95 21 143/66 97 Room Air 04/21/17 23:53 95 04/21/17 22:42 97.3 04/21/17 20:00 98.2 96 23 137/70 100 Room Air 04/21/17 19:41 94 Nasal Cannula 3.0 32 04/21/17 19:41 Nasal Cannula 3.0 32 04/21/17 19:01 98 04/21/17 18:34 97.3 04/21/17 18:03 96 135/60 04/21/17 16:00 97.3 95 20 118/58 92 Nasal Cannula 3.0 04/21/17 16:00 100 04/21/17 13:32 93 136/64 04/21/17 12:00 97.3 92 22 134/64 92 Nasal Cannula 3.0 04/21/17 12:00 93 Intake and Output 04/22/17 04/23/17 19:00 07:00 # Bowel Movements 1 Laboratory Tests 04/22/17 08:00: White Blood Count 13.5H, Red Blood Count 4.39, Hemoglobin 12.4, Hematocrit 41.1 , Mean Corpuscular Volume 94, Mean Corpuscular Hemoglobin 28.2, Mean Corpuscular Hemoglobin Concent 30.1L, Red Cell Distribution Width 12.2, Platelet Count 209, Mean Platelet Volume 7.4, Neutrophils (%) (Auto) 83.9H, Lymphocytes (%) (Auto) 7.4L, Monocytes (%) (Auto) 4.5, Eosinophils (%) (Auto) 4.0H, Basophils (%) (Auto) 0.2, Sodium Level 138, Potassium Level 4.3, Chloride Level 95L, Carbon Dioxide Level 38H, Anion Gap 5, Blood Urea Nitrogen 18, Creatinine 0.8, Estimat Glomerular Filtration Rate , Glucose Level 158H, Calcium Level 9.1 Height (Feet): 5 Height (Inches): 4.00 Weight (Pounds): 215 General Appearance: lethargic EENT: normal ENT inspection Neck: normal alignment Cardiovascular: normal peripheral pulses, normal rate, regular rhythm Respiratory/Chest: chest wall non-tender, lungs clear, normal breath sounds Abdomen: normal bowel sounds, non tender, soft Extremities: normal inspection Edema: no edema noted Arm (L), no edema noted Arm (R), no edema noted Leg (L), no edema noted Leg (R), no edema noted Pedal (L), no edema noted Pedal (R), no edema noted Generalized Neurologic: responsive, motor weakness Skin: normal pigmentation, warm/dry Objective diffuse reddish rash w confluence in back , back of arm, back of leg, and buttocks KUMAR ENGLISH Apr 22, 2017 10:38
[2017-04-22 12:00] VITALS: BP 131/73
[2017-04-22] MEDS: NS IV SCH (13:03)
[2017-04-22] MEDS: DAPTOMYCIN IV SCH (13:03)
--- NOTE | 2017-04-22 14:47 | Cardiac Electrophysiology PN ---
Assessment/Plan Assessment/Plan 1. MFAT and Sinus arrhythmias with frequent PACs that looks like atrial fibrillation. Change Cardizem 90 mg every 6 hours to Cardizem CD 270 There is no indication for anticoagulation as the majority of this rhythm is frequent PACs. 2. Bilateral pneumonia, on antibiotics per Dr. Ellison. 3. Chronic obstructive pulmonary disease. 4. Dermatitis. 5. Diabetes. 6. Hypertension, on Cardizem. 7. Cirrhosis. 8. Gastroesophageal reflux disease. INDIO RN Subjective Subjective No chest pain or SOB.In SR with PACs.. Objective Last 24 Hour Vital Signs Date Time Temp Pulse Resp B/P (MAP) Pulse Ox O2 Delivery O2 Flow Rate FiO2 04/22/17 12:25 97 131/79 04/22/17 12:00 97.8 97 21 131/73 98 Nasal Cannula 2.0 04/22/17 08:00 97.7 97 21 150/68 100 Nasal Cannula 2.0 04/22/17 06:14 99 138/69 04/22/17 04:00 98.4 99 21 138/69 93 Room Air 04/22/17 03:54 98 04/22/17 00:32 95 143/66 04/22/17 00:00 98.2 95 21 143/66 97 Room Air 04/21/17 23:53 95 04/21/17 22:42 97.3 04/21/17 20:00 98.2 96 23 137/70 100 Room Air 04/21/17 19:41 94 Nasal Cannula 3.0 32 04/21/17 19:41 Nasal Cannula 3.0 32 04/21/17 19:01 98 04/21/17 18:34 97.3 04/21/17 18:03 96 135/60 04/21/17 16:00 97.3 95 20 118/58 92 Nasal Cannula 3.0 04/21/17 16:00 100 Intake and Output 04/22/17 04/23/17 19:00 07:00 # Bowel Movements 1 Laboratory Tests Test 04/22/17 08:00 White Blood Count 13.5 K/UL (4.8-10.8) H Red Blood Count 4.39 M/UL (4.20-5.40) Hemoglobin 12.4 G/DL (12.0-16.0) Hematocrit 41.1 % (37.0-47.0) Mean Corpuscular Volume 94 FL (80-99) Mean Corpuscular Hemoglobin 28.2 PG (27.0-31.0) Mean Corpuscular Hemoglobin Concent 30.1 G/DL (32.0-36.0) L Red Cell Distribution Width 12.2 % (11.6-14.8) Platelet Count 209 K/UL (150-450) Mean Platelet Volume 7.4 FL (6.5-10.1) Neutrophils (%) (Auto) 83.9 % (45.0-75.0) H Lymphocytes (%) (Auto) 7.4 % (20.0-45.0) L Monocytes (%) (Auto) 4.5 % (1.0-10.0) Eosinophils (%) (Auto) 4.0 % (0.0-3.0) H Basophils (%) (Auto) 0.2 % (0.0-2.0) Sodium Level 138 mEQ/L (135-145) Potassium Level 4.3 mEQ/L (3.4-4.9) Chloride Level 95 mEQ/L (98-107) L Carbon Dioxide Level 38 mEQ/L (20-30) H Anion Gap 5 (5-15) Blood Urea Nitrogen 18 mg/dL (7-23) Creatinine 0.8 mg/dL (0.5-0.9) Estimat Glomerular Filtration Rate mL/min (>60) Glucose Level 158 mg/dL (74-106) H Calcium Level 9.1 mg/dL (8.6-10.2) Microbiology Date/Time Source Procedure Growth Status 04/20/17 17:30 Arm Left Catheter Tip Culture - Preliminary NO GROWTH Resulted Objective HEAD AND NECK: No JVD. LUNGS: Clear. CARDIOVASCULAR: Regular S1 and S2 with no gallop. ABDOMEN: Soft. EXTREMITIES: 1+ pitting edema. WILLIE MANZANO Apr 22, 2017 14:47
--- NOTE | 2017-04-22 15:48 | Infectious Diseases Prog Note ---
Assessment/Plan Problems: (1) Rash and other nonspecific skin eruption Assessment & Plan: unclear whether due to vancomycin or levaquin since she was on both, avoid both drug class and add to her list of allergy. improved on steroids and benadryl , avoid same class of antibiotics in the future . (2) Sepsis due to Staphylococcus Assessment & Plan: due to staphylococcus capitis and epidermidis from the PICC line, which is most likely the source of her blood stream infection this time , on daptomycin , PICC line was removed and tip was sent for culture. repeated blood culture to confirm clearance after picc line removal is pending . once it is negative we can place new line to complete her course of antibiotics for two weeks with daptomycin. monitor CK level while she is on daptomycin (3) Leukocytosis Assessment & Plan: due to recent steroids, which she recieved for skin allergic reaction, continue to monitor WBC. Subjective Constitutional: Reports: no symptoms HEENT: Reports: no symptoms Respiratory: Reports: no symptoms Breasts: Reports: no symptoms Cardiovascular: Reports: no symptoms Gastrointestinal/Abdominal: Reports: no symptoms Genitourinary: Reports: no symptoms Neurologic: Reports: no symptoms Psychiatric: Reports: no symptoms Skin: Reports: no symptoms Endocrine: Reports: no symptoms Allergies: Coded Allergies: LEVOFLOXACIN (Verified Allergy, Severe, Rash, 04/16/17) VANCOMYCIN (Verified Allergy, Severe, Rash, 04/16/17) Objective Vital Signs Last 24 Hour Vital Signs Date Time Temp Pulse Resp B/P (MAP) Pulse Ox O2 Delivery O2 Flow Rate FiO2 04/22/17 12:25 97 131/79 04/22/17 12:00 97.8 97 21 131/73 98 Nasal Cannula 2.0 04/22/17 08:00 97.7 97 21 150/68 100 Nasal Cannula 2.0 04/22/17 06:14 99 138/69 04/22/17 04:00 98.4 99 21 138/69 93 Room Air 04/22/17 03:54 98 04/22/17 00:32 95 143/66 04/22/17 00:00 98.2 95 21 143/66 97 Room Air 04/21/17 23:53 95 04/21/17 22:42 97.3 04/21/17 20:00 98.2 96 23 137/70 100 Room Air 04/21/17 19:41 94 Nasal Cannula 3.0 32 04/21/17 19:41 Nasal Cannula 3.0 32 04/21/17 19:01 98 04/21/17 18:34 97.3 04/21/17 18:03 96 135/60 04/21/17 16:00 97.3 95 20 118/58 92 Nasal Cannula 3.0 04/21/17 16:00 100 Height (Feet): 5 Height (Inches): 4.00 Weight (Pounds): 215 General Appearance: WD/WN, no acute distress HEENT: normocephalic, atraumatic, anicteric, mucous membranes moist, PERRL, pharynx normal, supple, no JVD Respiratory/Chest: chest wall non-tender, lungs clear, normal breath sounds, no respiratory distress, no accessory muscle use Cardiovascular: normal peripheral pulses, normal rate, regular rhythm, no gallop/murmur, no JVD Abdomen: normal bowel sounds, soft, non tender, no organomegaly, non distended , no mass, no scars Extremities: no cyanosis, no clubbing Skin: no rash, no lesions, no ulcers Neurologic/Psychiatric: alert, oriented x 3 Microbiology Date/Time Source Procedure Growth Status 04/20/17 17:30 Arm Left Catheter Tip Culture - Preliminary NO GROWTH Resulted Laboratory Tests Test 04/22/17 08:00 White Blood Count 13.5 K/UL (4.8-10.8) H Red Blood Count 4.39 M/UL (4.20-5.40) Hemoglobin 12.4 G/DL (12.0-16.0) Hematocrit 41.1 % (37.0-47.0) Mean Corpuscular Volume 94 FL (80-99) Mean Corpuscular Hemoglobin 28.2 PG (27.0-31.0) Mean Corpuscular Hemoglobin Concent 30.1 G/DL (32.0-36.0) L Red Cell Distribution Width 12.2 % (11.6-14.8) Platelet Count 209 K/UL (150-450) Mean Platelet Volume 7.4 FL (6.5-10.1) Neutrophils (%) (Auto) 83.9 % (45.0-75.0) H Lymphocytes (%) (Auto) 7.4 % (20.0-45.0) L Monocytes (%) (Auto) 4.5 % (1.0-10.0) Eosinophils (%) (Auto) 4.0 % (0.0-3.0) H Basophils (%) (Auto) 0.2 % (0.0-2.0) Sodium Level 138 mEQ/L (135-145) Potassium Level 4.3 mEQ/L (3.4-4.9) Chloride Level 95 mEQ/L (98-107) L Carbon Dioxide Level 38 mEQ/L (20-30) H Anion Gap 5 (5-15) Blood Urea Nitrogen 18 mg/dL (7-23) Creatinine 0.8 mg/dL (0.5-0.9) Estimat Glomerular Filtration Rate mL/min (>60) Glucose Level 158 mg/dL (74-106) H Calcium Level 9.1 mg/dL (8.6-10.2) Current Medications Medications (Trade) Dose Ordered Sig/Isabel Route PRN Reason Start Time Stop Time Status Last Admin Dose Admin Acetaminophen (Tylenol) 650 mg Q4H PRN ORAL T>100.5 04/16/17 09:45 05/16/17 09:44 04/19/17 15:30 Al Hydroxide/Mg Hydroxide (Mylanta II) 30 ml Q6H PRN ORAL dyspepsia 04/16/17 09:45 05/16/17 09:44 04/19/17 15:23 Cyclobenzaprine HCl (Flexeril) 10 mg Q12HR ORAL 04/16/17 21:00 05/16/17 20:59 04/22/17 09:21 Daptomycin 780 mg/ Sodium Chloride 55 ml @ 100 mls/hr Q24H IV 04/20/17 11:30 04/27/17 11:29 04/22/17 13:03 Dextrose (Dextrose 50%) STAT PRN IV Hypoglycemia 04/16/17 09:45 05/16/17 09:44 Diltiazem HCl (Cardizem CD) 300 mg DAILY ORAL 04/23/17 09:00 05/23/17 08:59 Diphenhydramine HCl (Benadryl) 25 mg Q6H PRN IVP Itching 04/16/17 16:15 05/16/17 16:14 04/17/17 09:57 Heparin Sodium (Porcine) (Heparin 5000 units/ml) 5,000 units EVERY 12 HOURS SUBQ 04/16/17 21:00 05/16/17 20:59 04/22/17 09:23 Insulin Aspart (NovoLOG) BEFORE MEALS AND HS SUBQ 04/16/17 11:30 05/16/17 11:29 04/22/17 12:29 Lorazepam (Ativan 2mg/ml 1ml) 0.5 mg Q4H PRN IV For Anxiety 04/16/17 09:45 04/23/17 09:44 04/22/17 00:32 Mirtazapine (Remeron) 7.5 mg BEDTIME ORAL 04/16/17 21:00 05/16/17 20:59 04/21/17 20:46 Morphine Sulfate (Morphine Sulfate) 1 mg Q4H PRN IVP PAIN 4-10 04/16/17 09:45 04/23/17 09:44 04/22/17 02:58 Ondansetron HCl (Zofran) 4 mg Q6H PRN IVP Nausea & Vomiting 04/16/17 09:45 05/16/17 09:44 04/19/17 15:30 Polyethylene Glycol (Miralax) 17 gm HSPRN PRN ORAL Constipation 04/16/17 21:00 05/16/17 20:59 Zolpidem Tartrate (Ambien) 5 mg HSPRN PRN ORAL Insomnia 04/16/17 21:00 04/23/17 20:59 04/20/17 23:13 Siria Ellison M.D. Apr 22, 2017 15:48
[2017-04-22 16:00] VITALS: BP 146/74
--- NOTE | 2017-04-22 16:12 | Pulmonology Progress Note ---
Assessment/Plan Problems: (1) Bacteremia (2) Bilateral pneumonia (3) Generalized rash (4) Dermatitis (5) Tachycardia (6) COPD (chronic obstructive pulmonary disease) (7) DM (diabetes mellitus) (8) HTN (hypertension) (9) GERD (gastroesophageal reflux disease) (10) Cirrhosis Assessment/Plan tachycardia resolved echo reviewed, EF ok, BNP is normal cxr reviewed, LLL infiltrate and effusion continue abx respiratory treatment dvt prophylaxis f/u cultures med/surg if ok with cardio dc planning skin looks much better Subjective ROS Limited/Unobtainable: No Constitutional: Reports: no symptoms HEENT: Repors: no symptoms Respiratory: Reports: no symptoms Allergies: Coded Allergies: LEVOFLOXACIN (Verified Allergy, Severe, Rash, 04/16/17) VANCOMYCIN (Verified Allergy, Severe, Rash, 04/16/17) Objective Last 24 Hour Vital Signs Date Time Temp Pulse Resp B/P (MAP) Pulse Ox O2 Delivery O2 Flow Rate FiO2 04/22/17 12:25 97 131/79 04/22/17 12:00 97.8 97 21 131/73 98 Nasal Cannula 2.0 04/22/17 08:00 97.7 97 21 150/68 100 Nasal Cannula 2.0 04/22/17 06:14 99 138/69 04/22/17 04:00 98.4 99 21 138/69 93 Room Air 04/22/17 03:54 98 04/22/17 00:32 95 143/66 04/22/17 00:00 98.2 95 21 143/66 97 Room Air 04/21/17 23:53 95 04/21/17 22:42 97.3 04/21/17 20:00 98.2 96 23 137/70 100 Room Air 04/21/17 19:41 94 Nasal Cannula 3.0 32 04/21/17 19:41 Nasal Cannula 3.0 32 04/21/17 19:01 98 04/21/17 18:34 97.3 04/21/17 18:03 96 135/60 Intake and Output 04/22/17 04/23/17 19:00 07:00 # Bowel Movements 1 General Appearance: WD/WN HEENT: normocephalic Respiratory/Chest: chest wall non-tender, lungs clear Breasts: no masses Cardiovascular: normal peripheral pulses Abdomen: normal bowel sounds, soft, non tender Extremities: no cyanosis Skin: no rash Microbiology Date/Time Source Procedure Growth Status 04/20/17 17:30 Arm Left Catheter Tip Culture - Preliminary NO GROWTH Resulted Laboratory Tests 04/22/17 08:00: White Blood Count 13.5H, Red Blood Count 4.39, Hemoglobin 12.4, Hematocrit 41.1 , Mean Corpuscular Volume 94, Mean Corpuscular Hemoglobin 28.2, Mean Corpuscular Hemoglobin Concent 30.1L, Red Cell Distribution Width 12.2, Platelet Count 209, Mean Platelet Volume 7.4, Neutrophils (%) (Auto) 83.9H, Lymphocytes (%) (Auto) 7.4L, Monocytes (%) (Auto) 4.5, Eosinophils (%) (Auto) 4.0H, Basophils (%) (Auto) 0.2, Sodium Level 138, Potassium Level 4.3, Chloride Level 95L, Carbon Dioxide Level 38H, Anion Gap 5, Blood Urea Nitrogen 18, Creatinine 0.8, Estimat Glomerular Filtration Rate , Glucose Level 158H, Calcium Level 9.1 Current Medications Medications (Trade) Dose Ordered Sig/Isabel Route PRN Reason Start Time Stop Time Status Last Admin Dose Admin Acetaminophen (Tylenol) 650 mg Q4H PRN ORAL T>100.5 04/16/17 09:45 05/16/17 09:44 04/19/17 15:30 Al Hydroxide/Mg Hydroxide (Mylanta II) 30 ml Q6H PRN ORAL dyspepsia 04/16/17 09:45 05/16/17 09:44 04/19/17 15:23 Cyclobenzaprine HCl (Flexeril) 10 mg Q12HR ORAL 04/16/17 21:00 05/16/17 20:59 04/22/17 09:21 Daptomycin 780 mg/ Sodium Chloride 55 ml @ 100 mls/hr Q24H IV 04/20/17 11:30 04/27/17 11:29 04/22/17 13:03 Dextrose (Dextrose 50%) STAT PRN IV Hypoglycemia 04/16/17 09:45 05/16/17 09:44 Diltiazem HCl (Cardizem CD) 300 mg DAILY ORAL 04/23/17 09:00 05/23/17 08:59 Diphenhydramine HCl (Benadryl) 25 mg Q6H PRN IVP Itching 04/16/17 16:15 05/16/17 16:14 04/17/17 09:57 Heparin Sodium (Porcine) (Heparin 5000 units/ml) 5,000 units EVERY 12 HOURS SUBQ 04/16/17 21:00 05/16/17 20:59 04/22/17 09:23 Insulin Aspart (NovoLOG) BEFORE MEALS AND HS SUBQ 04/16/17 11:30 05/16/17 11:29 04/22/17 12:29 Lorazepam (Ativan 2mg/ml 1ml) 0.5 mg Q4H PRN IV For Anxiety 04/16/17 09:45 04/23/17 09:44 04/22/17 00:32 Mirtazapine (Remeron) 7.5 mg BEDTIME ORAL 04/16/17 21:00 05/16/17 20:59 04/21/17 20:46 Morphine Sulfate (Morphine Sulfate) 1 mg Q4H PRN IVP PAIN 4-10 04/16/17 09:45 04/23/17 09:44 04/22/17 02:58 Ondansetron HCl (Zofran) 4 mg Q6H PRN IVP Nausea & Vomiting 04/16/17 09:45 05/16/17 09:44 04/19/17 15:30 Polyethylene Glycol (Miralax) 17 gm HSPRN PRN ORAL Constipation 04/16/17 21:00 05/16/17 20:59 Zolpidem Tartrate (Ambien) 5 mg HSPRN PRN ORAL Insomnia 04/16/17 21:00 04/23/17 20:59 04/20/17 23:13 TABATHA PLASENCIA Apr 22, 2017 16:11
[2017-04-22 20:00] VITALS: BP 141/73
[2017-04-23] VITALS (7 sets, daily range): BP systolic 133–156; BP diastolic 70–88
[2017-04-23] MEDS: NovoLOG Insulin Flexpen SUBQ SCH ×4 (06:07→20:57)
[2017-04-23 07:09] LABS: BASOPHILS % (AUTO) 0.3 % (0.0-2.0); LYMPHOCYTES % (AUTO) 6.9 % (20.0-45.0); MEAN CORPUSCULAR HEMOGLOBIN 29.5 PG (27.0-31.0); MEAN CORPUSCULAR HGB CONC 31.5 G/DL (32.0-36.0); MEAN CORPUSCULAR VOLUME 94 FL (80-99); MEAN PLATELET VOLUME 8.3 FL (6.5-10.1); MONOCYTES % (AUTO) 6.1 % (1.0-10.0); NEUTROPHILS % (AUTO) 82.7 % (45.0-75.0); PLATELET COUNT 195 K/UL (150-450); RED BLOOD COUNT 4.07 M/UL (4.20-5.40); RED CELL DISTRIBUTION WIDTH 12.5 % (11.6-14.8); WHITE BLOOD COUNT 12.2 K/UL (4.8-10.8)
[2017-04-23 07:50] LABS: ANION GAP 9 (5-15); CALCIUM 9.2 mg/dL (8.6-10.2); CARBON DIOXIDE 37 mEQ/L (20-30); CHLORIDE 94 mEQ/L (98-107); CREATININE 0.7 mg/dL (0.5-0.9); HEMOLYSIS 6; POTASSIUM 4.7 mEQ/L (3.4-4.9); SODIUM 140 mEQ/L (135-145)
[2017-04-23] MEDS ORDERED: dilTIAZem HCl CD 240mg cap ORAL SCH ×2 (09:00→15:15)
[2017-04-23] MEDS: Cyclobenzaprine 10mg Tab ORAL SCH ×2 (09:28→20:44)
[2017-04-23] MEDS: Heparin 5000 units/ml inj SUBQ SCH ×2 (09:30→20:52)
[2017-04-23] MEDS: NS IV SCH (12:26)
[2017-04-23] MEDS: DAPTOMYCIN IV SCH (12:26)
--- NOTE | 2017-04-23 12:35 | Pulmonology Progress Note ---
Assessment/Plan Problems: (1) Bacteremia (2) Bilateral pneumonia (3) Generalized rash (4) Dermatitis (5) Tachycardia (6) COPD (chronic obstructive pulmonary disease) (7) DM (diabetes mellitus) (8) HTN (hypertension) (9) GERD (gastroesophageal reflux disease) (10) Cirrhosis Assessment/Plan still tachycardic echo reviewed, EF ok, BNP is normal cxr reviewed, LLL infiltrate and effusion continue abx respiratory treatment dvt prophylaxis f/u cultures med/surg if ok with cardio skin looks much better Subjective ROS Limited/Unobtainable: No Constitutional: Reports: no symptoms HEENT: Repors: no symptoms Respiratory: Reports: no symptoms Allergies: Coded Allergies: LEVOFLOXACIN (Verified Allergy, Severe, Rash, 04/16/17) VANCOMYCIN (Verified Allergy, Severe, Rash, 04/16/17) Objective Last 24 Hour Vital Signs Date Time Temp Pulse Resp B/P (MAP) Pulse Ox O2 Delivery O2 Flow Rate FiO2 04/23/17 10:25 98.4 04/23/17 08:00 103 04/23/17 08:00 98.4 106 18 139/80 99 Nasal Cannula 3.0 04/23/17 04:00 97.7 103 18 148/76 98 Nasal Cannula 3.0 28 04/23/17 04:00 102 04/23/17 00:49 97.7 105 24 156/70 93 Nasal Cannula 3.0 04/23/17 00:00 108 04/22/17 20:49 Nasal Cannula 3.0 28 04/22/17 20:49 96 Nasal Cannula 2.0 28 04/22/17 20:00 98.1 102 22 141/73 93 Nasal Cannula 3.0 04/22/17 18:27 100 04/22/17 16:00 97.5 95 21 146/74 96 Nasal Cannula 2.0 Objective c./o itching in vaginal area, and back pain General Appearance: WD/WN HEENT: normocephalic, anicteric, mucous membranes moist Respiratory/Chest: chest wall non-tender, lungs clear Cardiovascular: normal peripheral pulses Abdomen: normal bowel sounds Extremities: no cyanosis Skin: no rash 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 Microbiology Date/Time Source Procedure Growth Status 04/21/17 09:40 Blood Blood Culture - Preliminary NO GROWTH AFTER 24 HOURS Resulted 04/20/17 17:30 Arm Left Catheter Tip Culture - Preliminary NO GROWTH AFTER 48 HOURS Resulted Laboratory Tests 04/23/17 04:50: White Blood Count 12.2H, Red Blood Count 4.07L, Hemoglobin 12.0, Hematocrit 38.3 , Mean Corpuscular Volume 94, Mean Corpuscular Hemoglobin 29.5, Mean Corpuscular Hemoglobin Concent 31.5L, Red Cell Distribution Width 12.5, Platelet Count 195, Mean Platelet Volume 8.3, Neutrophils (%) (Auto) 82.7H, Lymphocytes (%) (Auto) 6.9L, Monocytes (%) (Auto) 6.1, Eosinophils (%) (Auto) 4.0H, Basophils (%) (Auto) 0.3, Sodium Level 140, Potassium Level 4.7, Chloride Level 94L, Carbon Dioxide Level 37H, Anion Gap 9, Blood Urea Nitrogen 21, Creatinine 0.7, Estimat Glomerular Filtration Rate , Glucose Level 187H, Calcium Level 9.2 Current Medications Medications (Trade) Dose Ordered Sig/Isabel Route PRN Reason Start Time Stop Time Status Last Admin Dose Admin Acetaminophen (Tylenol) 650 mg Q4H PRN ORAL T>100.5 04/16/17 09:45 05/16/17 09:44 04/19/17 15:30 Al Hydroxide/Mg Hydroxide (Mylanta II) 30 ml Q6H PRN ORAL dyspepsia 04/16/17 09:45 05/16/17 09:44 04/19/17 15:23 Betamethasone/ Clotrimazole (Lotrisone) 1 applic TWICE A DAY TOPIC 04/23/17 18:00 05/23/17 17:59 UNV Cyclobenzaprine HCl (Flexeril) 10 mg Q12HR ORAL 04/16/17 21:00 05/16/17 20:59 04/23/17 09:28 Daptomycin 780 mg/ Sodium Chloride 55 ml @ 100 mls/hr Q24H IV 04/20/17 11:30 04/27/17 11:29 04/23/17 12:26 Dextrose (Dextrose 50%) STAT PRN IV Hypoglycemia 04/16/17 09:45 05/16/17 09:44 Diltiazem HCl (Cardizem CD) 240 mg DAILY ORAL 04/24/17 09:00 05/24/17 08:59 Diphenhydramine HCl (Benadryl) 25 mg Q6H PRN IVP Itching 04/16/17 16:15 05/16/17 16:14 04/17/17 09:57 Heparin Sodium (Porcine) (Heparin 5000 units/ml) 5,000 units EVERY 12 HOURS SUBQ 04/16/17 21:00 05/16/17 20:59 04/23/17 09:30 Insulin Aspart (NovoLOG) BEFORE MEALS AND HS SUBQ 04/16/17 11:30 05/16/17 11:29 04/23/17 12:29 Mirtazapine (Remeron) 7.5 mg BEDTIME ORAL 04/16/17 21:00 05/16/17 20:59 04/22/17 22:20 Ondansetron HCl (Zofran) 4 mg Q6H PRN IVP Nausea & Vomiting 04/16/17 09:45 05/16/17 09:44 04/19/17 15:30 Phenazopyridine HCl (Pyridium) 100 mg THREE TIMES A DAY ORAL 04/23/17 13:00 05/23/17 12:59 04/23/17 12:29 Polyethylene Glycol (Miralax) 17 gm HSPRN PRN ORAL Constipation 04/16/17 21:00 05/16/17 20:59 Zolpidem Tartrate (Ambien) 5 mg HSPRN PRN ORAL Insomnia 04/16/17 21:00 04/23/17 20:59 04/20/17 23:13 TABATHA PLASENCIA Apr 23, 2017 12:35
[2017-04-23] MEDS: Norco 10mg/325mg tab ORAL PRN ×2 (13:46→20:46)
--- NOTE | 2017-04-23 15:07 | Cardiac Electrophysiology PN ---
Assessment/Plan Assessment/Plan 1. MFAT and Sinus arrhythmias with frequent PACs that looks like atrial fibrillation.On Cardizem CD 240 daily. There is no indication for anticoagulation as the majority of this rhythm is frequent PACs. 2. Bilateral pneumonia, on antibiotics per Dr. Ellison. 3. Chronic obstructive pulmonary disease. 4. Dermatitis. 5. Diabetes. 6. Hypertension, on Cardizem. 7. Cirrhosis. 8. Gastroesophageal reflux disease. DW RN Subjective Subjective No chest pain or SOB.In SR on tele. Objective Last 24 Hour Vital Signs Date Time Temp Pulse Resp B/P (MAP) Pulse Ox O2 Delivery O2 Flow Rate FiO2 04/23/17 12:00 105 04/23/17 12:00 97.8 65 18 133/88 96 04/23/17 10:25 98.4 04/23/17 08:00 103 04/23/17 08:00 98.4 106 18 139/80 99 Nasal Cannula 3.0 04/23/17 04:00 97.7 103 18 148/76 98 Nasal Cannula 3.0 28 04/23/17 04:00 102 04/23/17 00:49 97.7 105 24 156/70 93 Nasal Cannula 3.0 04/23/17 00:00 108 04/22/17 20:49 Nasal Cannula 3.0 28 04/22/17 20:49 96 Nasal Cannula 2.0 28 04/22/17 20:00 98.1 102 22 141/73 93 Nasal Cannula 3.0 04/22/17 18:27 100 04/22/17 16:00 97.5 95 21 146/74 96 Nasal Cannula 2.0 Intake and Output 04/23/17 04/24/17 19:00 07:00 Intake Total 120 ml Balance 120 ml Intake Oral 120 ml # Voids 2 # Bowel Movements 1 Laboratory Tests Test 04/23/17 04:50 White Blood Count 12.2 K/UL (4.8-10.8) H Red Blood Count 4.07 M/UL (4.20-5.40) L Hemoglobin 12.0 G/DL (12.0-16.0) Hematocrit 38.3 % (37.0-47.0) Mean Corpuscular Volume 94 FL (80-99) Mean Corpuscular Hemoglobin 29.5 PG (27.0-31.0) Mean Corpuscular Hemoglobin Concent 31.5 G/DL (32.0-36.0) L Red Cell Distribution Width 12.5 % (11.6-14.8) Platelet Count 195 K/UL (150-450) Mean Platelet Volume 8.3 FL (6.5-10.1) Neutrophils (%) (Auto) 82.7 % (45.0-75.0) H Lymphocytes (%) (Auto) 6.9 % (20.0-45.0) L Monocytes (%) (Auto) 6.1 % (1.0-10.0) Eosinophils (%) (Auto) 4.0 % (0.0-3.0) H Basophils (%) (Auto) 0.3 % (0.0-2.0) Sodium Level 140 mEQ/L (135-145) Potassium Level 4.7 mEQ/L (3.4-4.9) Chloride Level 94 mEQ/L (98-107) L Carbon Dioxide Level 37 mEQ/L (20-30) H Anion Gap 9 (5-15) Blood Urea Nitrogen 21 mg/dL (7-23) Creatinine 0.7 mg/dL (0.5-0.9) Estimat Glomerular Filtration Rate mL/min (>60) Glucose Level 187 mg/dL (74-106) H Calcium Level 9.2 mg/dL (8.6-10.2) Microbiology Date/Time Source Procedure Growth Status 04/21/17 09:40 Blood Blood Culture - Preliminary NO GROWTH AFTER 24 HOURS Resulted 04/20/17 17:30 Arm Left Catheter Tip Culture - Preliminary NO GROWTH AFTER 48 HOURS Resulted Objective HEAD AND NECK: No JVD. LUNGS: Clear. CARDIOVASCULAR: Tachy S1 and S2 with no gallop. ABDOMEN: Soft. EXTREMITIES: 1+ pitting edema. WILLIE MANZANO Apr 23, 2017 15:06
--- NOTE | 2017-04-23 15:33 | Infectious Diseases Prog Note ---
Assessment/Plan Problems: (1) Rash and other nonspecific skin eruption Assessment & Plan: unclear whether due to vancomycin or levaquin since she was on both, avoid both drug class and add to her list of allergy. improved S/P steroids and benadryl , avoid same class of antibiotics in the future . (2) Sepsis due to Staphylococcus Assessment & Plan: due to staphylococcus capitis and epidermidis from the PICC line, which is most likely the source of her blood stream infection this time , on daptomycin , PICC line was removed and tip culture is negative . repeated blood culture to confirm clearance after picc line removal is negative . ok to place new central line on Tuesday to complete her course of antibiotics for two weeks with daptomycin. monitor CK level while she is on daptomycin. EOT 05/05/17 (3) Leukocytosis Assessment & Plan: due to recent steroids, which she recieved for skin allergic reaction, continue to monitor WBC. Subjective Constitutional: Reports: no symptoms HEENT: Reports: no symptoms Respiratory: Reports: no symptoms Breasts: Reports: no symptoms Cardiovascular: Reports: no symptoms Gastrointestinal/Abdominal: Reports: nausea Genitourinary: Reports: no symptoms Neurologic: Reports: no symptoms Psychiatric: Reports: no symptoms Skin: Reports: no symptoms Endocrine: Reports: no symptoms Hematologic: Reports: no symptoms Allergies: Coded Allergies: LEVOFLOXACIN (Verified Allergy, Severe, Rash, 04/16/17) VANCOMYCIN (Verified Allergy, Severe, Rash, 04/16/17) Objective Vital Signs Last 24 Hour Vital Signs Date Time Temp Pulse Resp B/P (MAP) Pulse Ox O2 Delivery O2 Flow Rate FiO2 04/23/17 12:00 105 04/23/17 12:00 97.8 65 18 133/88 96 04/23/17 10:25 98.4 04/23/17 08:00 103 04/23/17 08:00 98.4 106 18 139/80 99 Nasal Cannula 3.0 04/23/17 04:00 97.7 103 18 148/76 98 Nasal Cannula 3.0 28 04/23/17 04:00 102 04/23/17 00:49 97.7 105 24 156/70 93 Nasal Cannula 3.0 04/23/17 00:00 108 04/22/17 20:49 Nasal Cannula 3.0 28 04/22/17 20:49 96 Nasal Cannula 2.0 28 04/22/17 20:00 98.1 102 22 141/73 93 Nasal Cannula 3.0 04/22/17 18:27 100 04/22/17 16:00 97.5 95 21 146/74 96 Nasal Cannula 2.0 Height (Feet): 5 Height (Inches): 4.00 Weight (Pounds): 215 General Appearance: WD/WN, no acute distress HEENT: normocephalic, atraumatic, anicteric, mucous membranes moist Respiratory/Chest: chest wall non-tender, lungs clear, normal breath sounds, no respiratory distress Cardiovascular: normal peripheral pulses, normal rate, regular rhythm, no gallop/murmur, no JVD Abdomen: normal bowel sounds, soft, non tender, no organomegaly, non distended , no mass Extremities: no cyanosis, no clubbing Skin: no rash, no lesions Microbiology Date/Time Source Procedure Growth Status 04/21/17 09:40 Blood Blood Culture - Preliminary NO GROWTH AFTER 24 HOURS Resulted 04/20/17 17:30 Arm Left Catheter Tip Culture - Preliminary NO GROWTH AFTER 48 HOURS Resulted Laboratory Tests Test 04/23/17 04:50 White Blood Count 12.2 K/UL (4.8-10.8) H Red Blood Count 4.07 M/UL (4.20-5.40) L Hemoglobin 12.0 G/DL (12.0-16.0) Hematocrit 38.3 % (37.0-47.0) Mean Corpuscular Volume 94 FL (80-99) Mean Corpuscular Hemoglobin 29.5 PG (27.0-31.0) Mean Corpuscular Hemoglobin Concent 31.5 G/DL (32.0-36.0) L Red Cell Distribution Width 12.5 % (11.6-14.8) Platelet Count 195 K/UL (150-450) Mean Platelet Volume 8.3 FL (6.5-10.1) Neutrophils (%) (Auto) 82.7 % (45.0-75.0) H Lymphocytes (%) (Auto) 6.9 % (20.0-45.0) L Monocytes (%) (Auto) 6.1 % (1.0-10.0) Eosinophils (%) (Auto) 4.0 % (0.0-3.0) H Basophils (%) (Auto) 0.3 % (0.0-2.0) Sodium Level 140 mEQ/L (135-145) Potassium Level 4.7 mEQ/L (3.4-4.9) Chloride Level 94 mEQ/L (98-107) L Carbon Dioxide Level 37 mEQ/L (20-30) H Anion Gap 9 (5-15) Blood Urea Nitrogen 21 mg/dL (7-23) Creatinine 0.7 mg/dL (0.5-0.9) Estimat Glomerular Filtration Rate mL/min (>60) Glucose Level 187 mg/dL (74-106) H Calcium Level 9.2 mg/dL (8.6-10.2) Current Medications Medications (Trade) Dose Ordered Sig/Isabel Route PRN Reason Start Time Stop Time Status Last Admin Dose Admin Acetaminophen (Tylenol) 650 mg Q4H PRN ORAL T>100.5 04/16/17 09:45 05/16/17 09:44 04/19/17 15:30 Acetaminophen/ Hydrocodone Bitart ([place] 10/325) 1 ea Q6HR PRN ORAL For Pain 04/23/17 12:45 04/30/17 12:44 04/23/17 13:46 Al Hydroxide/Mg Hydroxide (Mylanta II) 30 ml Q6H PRN ORAL dyspepsia 04/16/17 09:45 05/16/17 09:44 04/19/17 15:23 Betamethasone/ Clotrimazole (Lotrisone) 1 applic TWICE A DAY TOPIC 04/23/17 18:00 05/23/17 17:59 Cyclobenzaprine HCl (Flexeril) 10 mg Q12HR ORAL 04/16/17 21:00 05/16/17 20:59 04/23/17 09:28 Daptomycin 780 mg/ Sodium Chloride 55 ml @ 100 mls/hr Q24H IV 04/20/17 11:30 04/27/17 11:29 04/23/17 12:26 Dextrose (Dextrose 50%) STAT PRN IV Hypoglycemia 04/16/17 09:45 05/16/17 09:44 Diltiazem HCl (Cardizem CD) 240 mg DAILY ORAL 04/23/17 15:15 05/23/17 15:14 Diltiazem HCl (Cardizem CD) 240 mg DAILY ORAL 04/24/17 09:00 05/24/17 08:59 Diphenhydramine HCl (Benadryl) 25 mg Q6H PRN IVP Itching 04/16/17 16:15 05/16/17 16:14 04/17/17 09:57 Heparin Sodium (Porcine) (Heparin 5000 units/ml) 5,000 units EVERY 12 HOURS SUBQ 04/16/17 21:00 05/16/17 20:59 04/23/17 09:30 Insulin Aspart (NovoLOG) BEFORE MEALS AND HS SUBQ 04/16/17 11:30 05/16/17 11:29 04/23/17 12:29 Mirtazapine (Remeron) 7.5 mg BEDTIME ORAL 04/16/17 21:00 05/16/17 20:59 04/22/17 22:20 Ondansetron HCl (Zofran) 4 mg Q6H PRN IVP Nausea & Vomiting 04/16/17 09:45 05/16/17 09:44 04/23/17 13:45 Phenazopyridine HCl (Pyridium) 100 mg THREE TIMES A DAY ORAL 04/23/17 13:00 05/23/17 12:59 04/23/17 12:29 Polyethylene Glycol (Miralax) 17 gm HSPRN PRN ORAL Constipation 04/16/17 21:00 05/16/17 20:59 Zolpidem Tartrate (Ambien) 5 mg HSPRN PRN ORAL Insomnia 04/16/17 21:00 04/23/17 20:59 04/20/17 23:13 Siria Ellison M.D. Apr 23, 2017 15:33
[2017-04-23] MEDS: Lotrisone Cream 15gm TOPIC SCH (17:30)
[2017-04-23] MEDS ORDERED: Lotrisone Cream 15gm TOPIC SCH (18:00)
[2017-04-24] VITALS: BP 141/79
[2017-04-24 04:00] VITALS: BP_SYST 112; BP_SYST 133; BP_DIAS 60; BP_DIAS 65
[2017-04-24] MEDS: NovoLOG Insulin Flexpen SUBQ SCH ×4 (06:31→20:33)
[2017-04-24 07:54] LABS: BASOPHILS % (AUTO) 0.5 % (0.0-2.0); EOSINOPHILS % (AUTO) 3.1 % (0.0-3.0); LYMPHOCYTES % (AUTO) 6.9 % (20.0-45.0); MEAN CORPUSCULAR HEMOGLOBIN 29.1 PG (27.0-31.0); MEAN CORPUSCULAR HGB CONC 30.8 G/DL (32.0-36.0); MEAN CORPUSCULAR VOLUME 95 FL (80-99); MEAN PLATELET VOLUME 8.1 FL (6.5-10.1); MONOCYTES % (AUTO) 7.8 % (1.0-10.0); NEUTROPHILS % (AUTO) 81.7 % (45.0-75.0); PLATELET COUNT 163 K/UL (150-450); RED BLOOD COUNT 4.04 M/UL (4.20-5.40); RED CELL DISTRIBUTION WIDTH 12.5 % (11.6-14.8); WHITE BLOOD COUNT 9.4 K/UL (4.8-10.8)
[2017-04-24 08:00] VITALS: BP 167/95
[2017-04-24 08:29] LABS: ALANINE AMINOTRANSFERASE 20 U/L (3-33); ALBUMIN/GLOBULIN RATIO 0.5 (1.0-2.7); ANION GAP 7 (5-15); ASPARTATE AMINO TRANSFERASE 32 U/L (5-40); CALCIUM 9.2 mg/dL (8.6-10.2); CARBON DIOXIDE 39 mEQ/L (20-30); CHLORIDE 93 mEQ/L (98-107); CREATININE 0.8 mg/dL (0.5-0.9); HEMOLYSIS 16; MAGNESIUM 2.2 mg/dL (1.7-2.5); PHOSPHORUS 3.9 mg/dL (2.5-4.8); POTASSIUM 4.8 mEQ/L (3.4-4.9); SODIUM 139 mEQ/L (135-145); TOTAL PROTEIN 8.9 g/dL (6.6-8.7)
[2017-04-24] MEDS: Lotrisone Cream 15gm TOPIC SCH ×2 (09:10→17:49)
[2017-04-24] MEDS: dilTIAZem HCl CD 240mg cap ORAL SCH (09:11)
[2017-04-24] MEDS: Cyclobenzaprine 10mg Tab ORAL SCH ×2 (09:12→20:32)
[2017-04-24] MEDS: Heparin 5000 units/ml inj SUBQ SCH ×2 (09:14→20:34)
[2017-04-24] MEDS: Norco 10mg/325mg tab ORAL PRN ×2 (09:22→15:56)
[2017-04-24 12:00] VITALS: BP 141/64
[2017-04-24] MEDS: NS IV SCH (12:27)
[2017-04-24] MEDS: DAPTOMYCIN IV SCH (12:27)
--- NOTE | 2017-04-24 13:49 | Infectious Diseases Prog Note ---
Assessment/Plan Problems: (1) Rash and other nonspecific skin eruption Assessment & Plan: resolved, S/P steroids and benadryl. unclear whether due to vancomycin or levaquin since she was on both, avoid both drug class and add to her list of allergy. (2) Sepsis due to Staphylococcus Assessment & Plan: due to staphylococcus capitis and epidermidis from the PICC line, which is most likely the source of her blood stream infection this time , on daptomycin , PICC line was removed and tip culture is negative . repeated blood culture to confirm clearance after picc line removal is negative . ok to place new central line on Tuesday to complete her course of antibiotics for two weeks with daptomycin. monitor CK level while she is on daptomycin. EOT 05/05/17 (3) Leukocytosis Assessment & Plan: improved, due to recent steroids, which she received for skin allergic reaction, continue to monitor WBC. Subjective Constitutional: Reports: no symptoms HEENT: Reports: no symptoms Respiratory: Reports: no symptoms Breasts: Reports: no symptoms Cardiovascular: Reports: no symptoms Gastrointestinal/Abdominal: Reports: no symptoms Genitourinary: Reports: no symptoms Neurologic: Reports: no symptoms Psychiatric: Reports: no symptoms Skin: Reports: no symptoms Endocrine: Reports: no symptoms Hematologic: Reports: no symptoms Musculoskeletal: Reports: no symptoms Allergies: Coded Allergies: LEVOFLOXACIN (Verified Allergy, Severe, Rash, 04/16/17) VANCOMYCIN (Verified Allergy, Severe, Rash, 04/16/17) Objective Vital Signs Last 24 Hour Vital Signs Date Time Temp Pulse Resp B/P (MAP) Pulse Ox O2 Delivery O2 Flow Rate FiO2 04/24/17 12:00 97.3 87 20 141/64 96 Nasal Cannula 2.0 04/24/17 10:11 97.7 04/24/17 10:11 97.7 04/24/17 09:11 99 167/95 04/24/17 08:00 97.7 99 20 167/95 93 Nasal Cannula 2.0 04/24/17 04:00 97.7 94 20 133/65 95 Nasal Cannula 2.0 04/24/17 00:00 97.9 103 19 141/79 93 Nasal Cannula 2.0 04/23/17 22:31 Nasal Cannula 2.0 28 04/23/17 22:31 98 Nasal Cannula 2.0 28 04/23/17 21:54 98.6 107 21 139/74 94 Nasal Cannula 04/23/17 20:00 98.2 110 20 140/77 95 Room Air 3.0 28 04/23/17 16:08 98.6 112 18 134/80 95 Room Air 04/23/17 16:00 113 04/23/17 15:52 105 133/88 Height (Feet): 5 Height (Inches): 4.00 Weight (Pounds): 215 General Appearance: WD/WN, no acute distress HEENT: normocephalic, atraumatic, anicteric, mucous membranes moist, PERRL Respiratory/Chest: chest wall non-tender, lungs clear, normal breath sounds, no respiratory distress, no accessory muscle use Cardiovascular: normal peripheral pulses, normal rate, regular rhythm, no gallop/murmur Abdomen: normal bowel sounds, soft, non tender, no organomegaly, non distended , no mass, no scars Extremities: no cyanosis, no clubbing Skin: no rash, no lesions, no ulcers Neurologic/Psychiatric: alert, oriented x 3 Lymphatic: no neck adenopathy, no groin adenopathy Laboratory Tests Test 04/24/17 05:15 White Blood Count 9.4 K/UL (4.8-10.8) Red Blood Count 4.04 M/UL (4.20-5.40) L Hemoglobin 11.8 G/DL (12.0-16.0) L Hematocrit 38.2 % (37.0-47.0) Mean Corpuscular Volume 95 FL (80-99) Mean Corpuscular Hemoglobin 29.1 PG (27.0-31.0) Mean Corpuscular Hemoglobin Concent 30.8 G/DL (32.0-36.0) L Red Cell Distribution Width 12.5 % (11.6-14.8) Platelet Count 163 K/UL (150-450) Mean Platelet Volume 8.1 FL (6.5-10.1) Neutrophils (%) (Auto) 81.7 % (45.0-75.0) H Lymphocytes (%) (Auto) 6.9 % (20.0-45.0) L Monocytes (%) (Auto) 7.8 % (1.0-10.0) Eosinophils (%) (Auto) 3.1 % (0.0-3.0) H Basophils (%) (Auto) 0.5 % (0.0-2.0) Sodium Level 139 mEQ/L (135-145) Potassium Level 4.8 mEQ/L (3.4-4.9) Chloride Level 93 mEQ/L (98-107) L Carbon Dioxide Level 39 mEQ/L (20-30) H Anion Gap 7 (5-15) Blood Urea Nitrogen 15 mg/dL (7-23) Creatinine 0.8 mg/dL (0.5-0.9) Estimat Glomerular Filtration Rate mL/min (>60) Glucose Level 151 mg/dL (74-106) H Calcium Level 9.2 mg/dL (8.6-10.2) Phosphorus Level 3.9 mg/dL (2.5-4.8) Magnesium Level 2.2 mg/dL (1.7-2.5) Total Bilirubin 0.6 mg/dL (0.0-1.2) Aspartate Amino Transf (AST/SGOT) 32 U/L (5-40) Alanine Aminotransferase (ALT/SGPT) 20 U/L (3-33) Alkaline Phosphatase 92 U/L (35-104) Total Protein 8.9 g/dL (6.6-8.7) H Albumin 3.0 g/dL (3.5-5.2) L Globulin 5.9 g/dL Albumin/Globulin Ratio 0.5 (1.0-2.7) L Current Medications Medications (Trade) Dose Ordered Sig/Isabel Route PRN Reason Start Time Stop Time Status Last Admin Dose Admin Acetaminophen (Tylenol) 650 mg Q4H PRN ORAL T>100.5 04/16/17 09:45 05/16/17 09:44 04/19/17 15:30 Acetaminophen/ Hydrocodone Bitart ([place] 10/325) 1 ea Q6HR PRN ORAL For Pain 04/23/17 12:45 04/30/17 12:44 04/24/17 09:22 Al Hydroxide/Mg Hydroxide (Mylanta II) 30 ml Q6H PRN ORAL dyspepsia 04/16/17 09:45 05/16/17 09:44 04/19/17 15:23 Betamethasone/ Clotrimazole (Lotrisone) 1 applic TWICE A DAY TOPIC 04/23/17 18:00 05/23/17 17:59 04/24/17 09:10 Cyclobenzaprine HCl (Flexeril) 10 mg Q12HR ORAL 04/16/17 21:00 05/16/17 20:59 04/24/17 09:12 Daptomycin 780 mg/ Sodium Chloride 55 ml @ 100 mls/hr Q24H IV 04/20/17 11:30 04/27/17 11:29 04/24/17 12:27 Dextrose (Dextrose 50%) STAT PRN IV Hypoglycemia 04/16/17 09:45 05/16/17 09:44 Diltiazem HCl (Cardizem CD) 240 mg DAILY ORAL 04/24/17 09:00 05/24/17 08:59 04/24/17 09:11 Diphenhydramine HCl (Benadryl) 25 mg Q6H PRN IVP Itching 04/16/17 16:15 05/16/17 16:14 04/17/17 09:57 Heparin Sodium (Porcine) (Heparin 5000 units/ml) 5,000 units EVERY 12 HOURS SUBQ 04/16/17 21:00 05/16/17 20:59 04/24/17 09:14 Insulin Aspart (NovoLOG) BEFORE MEALS AND HS SUBQ 04/16/17 11:30 05/16/17 11:29 04/24/17 13:10 Mirtazapine (Remeron) 7.5 mg BEDTIME ORAL 04/16/17 21:00 05/16/17 20:59 04/23/17 20:46 Ondansetron HCl (Zofran) 4 mg Q6H PRN IVP Nausea & Vomiting 04/16/17 09:45 05/16/17 09:44 04/23/17 13:45 Phenazopyridine HCl (Pyridium) 100 mg THREE TIMES A DAY ORAL 04/23/17 13:00 05/23/17 12:59 04/24/17 13:16 Polyethylene Glycol (Miralax) 17 gm HSPRN PRN ORAL Constipation 04/16/17 21:00 05/16/17 20:59 Siria Ellison M.D. Apr 24, 2017 13:49
[2017-04-24 16:00] VITALS: BP 149/106
[2017-04-24] MEDS ORDERED: NS 275ml ONE (16:10)
[2017-04-24 20:00] VITALS: BP 129/68
--- NOTE | 2017-04-24 22:53 | Pulmonology Progress Note ---
Assessment/Plan Problems: (1) Bacteremia (2) Bilateral pneumonia (3) Generalized rash (4) Dermatitis (5) Tachycardia (6) COPD (chronic obstructive pulmonary disease) (7) DM (diabetes mellitus) (8) HTN (hypertension) (9) GERD (gastroesophageal reflux disease) (10) Cirrhosis Assessment/Plan echo reviewed, EF ok, BNP is normal cxr reviewed, LLL infiltrate and effusion continue abx respiratory treatment dvt prophylaxis f/u cultures med/surg if ok with cardio dc planning Subjective ROS Limited/Unobtainable: No Constitutional: Reports: no symptoms HEENT: Repors: no symptoms Allergies: Coded Allergies: LEVOFLOXACIN (Verified Allergy, Severe, Rash, 04/16/17) VANCOMYCIN (Verified Allergy, Severe, Rash, 04/16/17) Objective Last 24 Hour Vital Signs Date Time Temp Pulse Resp B/P (MAP) Pulse Ox O2 Delivery O2 Flow Rate FiO2 04/24/17 20:00 98.4 101 20 129/68 96 Nasal Cannula 2.0 04/24/17 19:22 97 Nasal Cannula 2.0 28 04/24/17 19:22 Nasal Cannula 2.0 28 04/24/17 16:55 97.3 04/24/17 16:00 97.3 100 20 149/106 92 Nasal Cannula 2.0 04/24/17 12:00 97.3 87 20 141/64 96 Nasal Cannula 2.0 04/24/17 10:11 97.7 04/24/17 09:11 99 167/95 04/24/17 08:00 97.7 99 20 167/95 93 Nasal Cannula 2.0 04/24/17 04:00 97.7 94 20 133/65 95 Nasal Cannula 2.0 04/24/17 00:00 97.9 103 19 141/79 93 Nasal Cannula 2.0 Intake and Output 04/24/17 04/25/17 19:00 07:00 Intake Total 175 ml Balance 175 ml Intake Oral 120 ml IV Total 55 ml # Voids 5 # Bowel Movements 1 Objective General Appearance: WD/WN HEENT: normocephalic, atraumatic Respiratory/Chest: chest wall non-tender, lungs clear Cardiovascular: normal peripheral pulses, normal rate Abdomen: normal bowel sounds, soft, non tender Genitourinary: normal external genitalia Extremities: no clubbing Skin: no rash, no ulcers Laboratory Tests 04/24/17 05:15: White Blood Count 9.4, Red Blood Count 4.04L, Hemoglobin 11.8L, Hematocrit 38.2 , Mean Corpuscular Volume 95, Mean Corpuscular Hemoglobin 29.1, Mean Corpuscular Hemoglobin Concent 30.8L, Red Cell Distribution Width 12.5, Platelet Count 163, Mean Platelet Volume 8.1, Neutrophils (%) (Auto) 81.7H, Lymphocytes (%) (Auto) 6.9L, Monocytes (%) (Auto) 7.8, Eosinophils (%) (Auto) 3.1H, Basophils (%) (Auto) 0.5, Sodium Level 139, Potassium Level 4.8, Chloride Level 93L, Carbon Dioxide Level 39H, Anion Gap 7, Blood Urea Nitrogen 15, Creatinine 0.8, Estimat Glomerular Filtration Rate , Glucose Level 151H, Calcium Level 9.2, Phosphorus Level 3.9, Magnesium Level 2.2, Total Bilirubin 0.6, Aspartate Amino Transf (AST/SGOT) 32, Alanine Aminotransferase (ALT/SGPT) 20, Alkaline Phosphatase 92, Total Protein 8.9H, Albumin 3.0L, Globulin 5.9, Albumin/Globulin Ratio 0.5L Current Medications Medications (Trade) Dose Ordered Sig/Isabel Route PRN Reason Start Time Stop Time Status Last Admin Dose Admin Acetaminophen (Tylenol) 650 mg Q4H PRN ORAL T>100.5 04/16/17 09:45 05/16/17 09:44 04/19/17 15:30 Acetaminophen/ Hydrocodone Bitart ([place] 10/325) 1 ea Q6HR PRN ORAL For Pain 04/23/17 12:45 04/30/17 12:44 04/24/17 15:56 Al Hydroxide/Mg Hydroxide (Mylanta II) 30 ml Q6H PRN ORAL dyspepsia 04/16/17 09:45 05/16/17 09:44 04/19/17 15:23 Betamethasone/ Clotrimazole (Lotrisone) 1 applic TWICE A DAY TOPIC 04/23/17 18:00 05/23/17 17:59 04/24/17 17:49 Cyclobenzaprine HCl (Flexeril) 10 mg Q12HR ORAL 04/16/17 21:00 05/16/17 20:59 04/24/17 20:32 Daptomycin 780 mg/ Sodium Chloride 55 ml @ 100 mls/hr Q24H IV 04/20/17 11:30 04/27/17 11:29 04/24/17 12:27 Dextrose (Dextrose 50%) STAT PRN IV Hypoglycemia 04/16/17 09:45 05/16/17 09:44 Diltiazem HCl (Cardizem CD) 240 mg DAILY ORAL 04/24/17 09:00 05/24/17 08:59 04/24/17 09:11 Diphenhydramine HCl (Benadryl) 25 mg Q6H PRN IVP Itching 04/16/17 16:15 05/16/17 16:14 04/17/17 09:57 Heparin Sodium (Porcine) (Heparin 5000 units/ml) 5,000 units EVERY 12 HOURS SUBQ 04/16/17 21:00 05/16/17 20:59 04/24/17 20:34 Insulin Aspart (NovoLOG) BEFORE MEALS AND HS SUBQ 04/16/17 11:30 05/16/17 11:29 04/24/17 20:33 Mirtazapine (Remeron) 7.5 mg BEDTIME ORAL 04/16/17 21:00 05/16/17 20:59 04/24/17 20:31 Ondansetron HCl (Zofran) 4 mg Q6H PRN IVP Nausea & Vomiting 04/16/17 09:45 05/16/17 09:44 04/23/17 13:45 Phenazopyridine HCl (Pyridium) 100 mg THREE TIMES A DAY ORAL 04/23/17 13:00 05/23/17 12:59 04/24/17 17:46 Polyethylene Glycol (Miralax) 17 gm HSPRN PRN ORAL Constipation 04/16/17 21:00 05/16/17 20:59 TABATHA PLASENCIA Apr 24, 2017 22:53
[2017-04-25] VITALS: BP 147/70
[2017-04-25] MEDS: Norco 10mg/325mg tab ORAL PRN ×3 (02:51→20:56)
[2017-04-25 04:00] VITALS: BP 138/71
[2017-04-25] MEDS: NovoLOG Insulin Flexpen SUBQ SCH ×4 (06:09→21:02)
[2017-04-25 06:45] LABS: BASOPHILS % (AUTO) 0.2 % (0.0-2.0); MEAN CORPUSCULAR HEMOGLOBIN 29.7 PG (27.0-31.0); MEAN CORPUSCULAR HGB CONC 31.4 G/DL (32.0-36.0); MEAN CORPUSCULAR VOLUME 95 FL (80-99); MEAN PLATELET VOLUME 7.7 FL (6.5-10.1); MONOCYTES % (AUTO) 6.9 % (1.0-10.0); NEUTROPHILS % (AUTO) 83.9 % (45.0-75.0); PLATELET COUNT 147 K/UL (150-450); RED BLOOD COUNT 3.82 M/UL (4.20-5.40); RED CELL DISTRIBUTION WIDTH 12.6 % (11.6-14.8); WHITE BLOOD COUNT 10.7 K/UL (4.8-10.8)
[2017-04-25 07:50] LABS: ANION GAP 2 (5-15); CALCIUM 8.6 MG/DL (8.5-10.1); CARBON DIOXIDE 34 MMOL/L (21-32); CHLORIDE 94 MMOL/L (98-107); CREATININE 0.8 MG/DL (0.55-1.30); POTASSIUM 5.1 MMOL/L (3.5-5.1); SODIUM 130 MMOL/L (136-145)
[2017-04-25 08:00] VITALS: BP 148/76
[2017-04-25] MEDS: dilTIAZem HCl CD 240mg cap ORAL SCH (08:54)
[2017-04-25] MEDS: Cyclobenzaprine 10mg Tab ORAL SCH ×2 (08:55→20:57)
[2017-04-25] MEDS: Lotrisone Cream 15gm TOPIC SCH ×2 (08:55→17:55)
[2017-04-25] MEDS: Heparin 5000 units/ml inj SUBQ SCH ×2 (08:55→20:58)
[2017-04-25] MEDS ORDERED: Lidocaine 1% Plain 30 ml INJ PRN (11:45)
[2017-04-25] MEDS ORDERED: Heparin 2000 units/Ns 1000ml INJ PRN (11:45)
--- NOTE | 2017-04-25 11:52 | General Progress Note ---
Assessment/Plan Problem List: (1) HTN (hypertension) ICD Codes: I10 - HTN (hypertension) SNOMED: 32337262 (2) GERD (gastroesophageal reflux disease) ICD Codes: K21.9 - Gastro-esophageal reflux disease without esophagitis SNOMED: 518075735 (3) Cellulitis (4) DM (diabetes mellitus) ICD Codes: E11.9 - DM (diabetes mellitus) SNOMED: 64582167 (5) OBESITY, NOS (6) SOB (shortness of breath) ICD Codes: R06.02 - Shortness of breath SNOMED: 428403360 (7) HTN (hypertension) ICD Codes: I10 - Essential (primary) hypertension SNOMED: 14828934 (8) Chronic pain ICD Codes: G89.29 - Other chronic pain SNOMED: 09391888 (9) Rash and other nonspecific skin eruption ICD Codes: R21 - Rash and other nonspecific skin eruption SNOMED: 465789710, 719879469 (10) Sepsis ICD Codes: A41.9 - Sepsis, unspecified organism SNOMED: 65001977 Status: stable, progressing, tolerating diet Assessment/Plan ot pt wound care o2 pulm tx dc to snf Subjective Constitutional: Reports: weakness Allergies: Coded Allergies: LEVOFLOXACIN (Verified Allergy, Severe, Rash, 04/16/17) VANCOMYCIN (Verified Allergy, Severe, Rash, 04/16/17) All Systems: reviewed and negative except above Subjective o2nc sl anxious Objective Last 24 Hour Vital Signs Date Time Temp Pulse Resp B/P (MAP) Pulse Ox O2 Delivery O2 Flow Rate FiO2 04/25/17 09:54 98.2 04/25/17 09:54 98.2 04/25/17 08:54 94 148/76 04/25/17 08:00 97.7 94 16 148/76 99 Nasal Cannula 2.0 04/25/17 04:00 98.2 94 20 138/71 96 Nasal Cannula 2.0 04/25/17 00:00 98.2 99 20 147/70 97 Nasal Cannula 04/24/17 20:00 98.4 101 20 129/68 96 Nasal Cannula 2.0 04/24/17 19:22 97 Nasal Cannula 2.0 28 04/24/17 19:22 Nasal Cannula 2.0 28 04/24/17 16:00 97.3 100 20 149/106 92 Nasal Cannula 2.0 04/24/17 12:00 97.3 87 20 141/64 96 Nasal Cannula 2.0 Laboratory Tests 04/25/17 05:00: White Blood Count 10.7, Red Blood Count 3.82L, Hemoglobin 11.4L, Hematocrit 36.2L, Mean Corpuscular Volume 95, Mean Corpuscular Hemoglobin 29.7, Mean Corpuscular Hemoglobin Concent 31.4L, Red Cell Distribution Width 12.6, Platelet Count 147L, Mean Platelet Volume 7.7, Neutrophils (%) (Auto) 83.9H, Lymphocytes (%) (Auto) 7.0L, Monocytes (%) (Auto) 6.9, Eosinophils (%) (Auto) 2.0, Basophils (%) (Auto) 0.2, Sodium Level 130L, Potassium Level 5.1, Chloride Level 94L, Carbon Dioxide Level 34H, Anion Gap 2L, Blood Urea Nitrogen 15, Creatinine 0.8, Estimat Glomerular Filtration Rate , Glucose Level 159H, Calcium Level 8.6 Height (Feet): 5 Height (Inches): 4.00 Weight (Pounds): 215 General Appearance: lethargic EENT: normal ENT inspection Neck: normal alignment Cardiovascular: normal peripheral pulses, normal rate, regular rhythm Respiratory/Chest: chest wall non-tender, lungs clear, normal breath sounds Abdomen: normal bowel sounds, non tender, soft Extremities: normal inspection Edema: no edema noted Arm (L), no edema noted Arm (R), no edema noted Leg (L), no edema noted Leg (R), no edema noted Pedal (L), no edema noted Pedal (R), no edema noted Generalized Neurologic: responsive, motor weakness Skin: normal pigmentation, warm/dry Objective diffuse reddish rash w confluence in back , back of arm, back of leg, and buttocks KUMAR ENGLISH Apr 25, 2017 11:52
[2017-04-25] MEDS: DAPTOMYCIN IV SCH (11:56)
[2017-04-25] MEDS: NS IV SCH (11:56)
--- NOTE | 2017-04-25 15:39 | Diagnostic Imaging Report ---
Indication: long term venous access Findings: After the indications, procedure, risks, complications, and alternatives of the procedure were explained, written informed consent was obtained. The right upper extremity was prepped with alcohol. All elements of maximal sterile barrier technique were followed including usage of a cap, mask, sterile gown, sterile gloves, hand hygiene and a large sterile sheet. Sonographic evaluation of the upper extremity was performed demonstrating a patent and compressible basilic vein. Access was obtained under real-time ultrasound guidance and digital image was saved and archived. An .018 wire was introduced. Needle exchanged for a 5 Czech peel-away sheath. Measurements were obtained. A 5 Czech dual-lumen Power PICC line catheter was cut to 47 cm and introduced over the wire. Peel-away sheath and wire were removed.Catheter was secured to the skin using 2-0 Prolene suture. Both ports aspirate and flush easily. Fluoroscopic Images show distal tip in the superior vena cava. Total fluoroscopic time 0.3 minutes. Impression: Successful placement of an upper extremity PICC line catheter
[2017-04-25 16:15] VITALS: BP 149/80
--- NOTE | 2017-04-25 16:27 | Infectious Diseases Prog Note ---
Assessment/Plan Problems: (1) Rash and other nonspecific skin eruption Assessment & Plan: resolved, S/P steroids and benadryl. unclear whether due to vancomycin or levaquin since she was on both, avoid both drug class and add to her list of allergy. (2) Sepsis due to Staphylococcus Assessment & Plan: due to staphylococcus capitis and epidermidis from the PICC line, which is most likely the source of her blood stream infection this time , on daptomycin , PICC line was removed and tip culture is negative . repeated blood culture to confirm clearance after picc line removal is negative . ok to place new central line on Tuesday to complete her course of antibiotics for two weeks with daptomycin. monitor CK level while she is on daptomycin. EOT 05/05/17 (3) Leukocytosis Assessment & Plan: improved, due to recent steroids, which she received for skin allergic reaction, continue to monitor WBC. Subjective Constitutional: Reports: no symptoms HEENT: Reports: no symptoms Respiratory: Reports: no symptoms Breasts: Reports: no symptoms Cardiovascular: Reports: no symptoms Gastrointestinal/Abdominal: Reports: no symptoms Genitourinary: Reports: no symptoms Neurologic: Reports: no symptoms Psychiatric: Reports: no symptoms Skin: Reports: no symptoms Endocrine: Reports: no symptoms Hematologic: Reports: no symptoms Musculoskeletal: Reports: no symptoms Allergies: Coded Allergies: LEVOFLOXACIN (Verified Allergy, Severe, Rash, 04/16/17) VANCOMYCIN (Verified Allergy, Severe, Rash, 04/16/17) Objective Vital Signs Last 24 Hour Vital Signs Date Time Temp Pulse Resp B/P (MAP) Pulse Ox O2 Delivery O2 Flow Rate FiO2 04/25/17 09:54 98.2 04/25/17 09:54 98.2 04/25/17 08:54 94 148/76 04/25/17 08:00 97.7 94 16 148/76 99 Nasal Cannula 2.0 04/25/17 04:00 98.2 94 20 138/71 96 Nasal Cannula 2.0 04/25/17 00:00 98.2 99 20 147/70 97 Nasal Cannula 04/24/17 20:00 98.4 101 20 129/68 96 Nasal Cannula 2.0 04/24/17 19:22 97 Nasal Cannula 2.0 28 04/24/17 19:22 Nasal Cannula 2.0 28 Height (Feet): 5 Height (Inches): 4.00 Weight (Pounds): 215 General Appearance: WD/WN, no acute distress HEENT: normocephalic, atraumatic, anicteric, mucous membranes moist, PERRL Respiratory/Chest: chest wall non-tender, lungs clear, normal breath sounds, no respiratory distress, no accessory muscle use Cardiovascular: normal peripheral pulses, normal rate, regular rhythm, no gallop/murmur, no JVD Abdomen: normal bowel sounds, soft, non tender, no organomegaly, non distended , no mass, no scars Extremities: no cyanosis, no clubbing Skin: no rash, no lesions Neurologic/Psychiatric: alert, oriented x 3 Laboratory Tests Test 04/25/17 05:00 White Blood Count 10.7 K/UL (4.8-10.8) Red Blood Count 3.82 M/UL (4.20-5.40) L Hemoglobin 11.4 G/DL (12.0-16.0) L Hematocrit 36.2 % (37.0-47.0) L Mean Corpuscular Volume 95 FL (80-99) Mean Corpuscular Hemoglobin 29.7 PG (27.0-31.0) Mean Corpuscular Hemoglobin Concent 31.4 G/DL (32.0-36.0) L Red Cell Distribution Width 12.6 % (11.6-14.8) Platelet Count 147 K/UL (150-450) L Mean Platelet Volume 7.7 FL (6.5-10.1) Neutrophils (%) (Auto) 83.9 % (45.0-75.0) H Lymphocytes (%) (Auto) 7.0 % (20.0-45.0) L Monocytes (%) (Auto) 6.9 % (1.0-10.0) Eosinophils (%) (Auto) 2.0 % (0.0-3.0) Basophils (%) (Auto) 0.2 % (0.0-2.0) Sodium Level 130 MMOL/L (136-145) L Potassium Level 5.1 MMOL/L (3.5-5.1) Chloride Level 94 MMOL/L (98-107) L Carbon Dioxide Level 34 MMOL/L (21-32) H Anion Gap 2 (5-15) L Blood Urea Nitrogen 15 mg/dL (7-18) Creatinine 0.8 MG/DL (0.55-1.30) Estimat Glomerular Filtration Rate mL/min (>60) Glucose Level 159 MG/DL (74-106) H Calcium Level 8.6 MG/DL (8.5-10.1) Current Medications Medications (Trade) Dose Ordered Sig/Isabel Route PRN Reason Start Time Stop Time Status Last Admin Dose Admin Acetaminophen (Tylenol) 650 mg Q4H PRN ORAL T>100.5 04/16/17 09:45 05/16/17 09:44 04/19/17 15:30 Acetaminophen/ Hydrocodone Bitart ([place] ) 1 ea Q6HR PRN ORAL For Pain 04/23/17 12:45 04/30/17 12:44 04/25/17 09:23 Al Hydroxide/Mg Hydroxide (Mylanta II) 30 ml Q6H PRN ORAL dyspepsia 04/16/17 09:45 05/16/17 09:44 04/19/17 15:23 Betamethasone/ Clotrimazole (Lotrisone) 1 applic TWICE A DAY TOPIC 04/23/17 18:00 05/23/17 17:59 04/25/17 08:55 Chlorhexidine Gluconate (Kathy-Hex 2%) 1 applic DAILY@2000 TOPIC 04/25/17 20:00 05/25/17 19:59 Cyclobenzaprine HCl (Flexeril) 10 mg Q12HR ORAL 04/16/17 21:00 05/16/17 20:59 04/25/17 08:55 Daptomycin 780 mg/ Sodium Chloride 55 ml @ 100 mls/hr Q24H IV 04/20/17 11:30 04/27/17 11:29 04/25/17 11:56 Dextrose (Dextrose 50%) STAT PRN IV Hypoglycemia 04/16/17 09:45 05/16/17 09:44 Diltiazem HCl (Cardizem CD) 240 mg DAILY ORAL 04/24/17 09:00 05/24/17 08:59 04/25/17 08:54 Diphenhydramine HCl (Benadryl) 25 mg Q6H PRN IVP Itching 04/16/17 16:15 05/16/17 16:14 04/17/17 09:57 Heparin Sodium (Porcine) (Heparin 5000 units/ml) 5,000 units EVERY 12 HOURS SUBQ 04/16/17 21:00 05/16/17 20:59 04/24/17 20:34 Heparin Sodium/ Sodium Chloride (Heparin 2000 units/Ns 1000ml premix) 2,000 unit ONCE PRN INJ PICC LINE 04/25/17 11:45 04/26/17 23:59 Insulin Aspart (NovoLOG) BEFORE MEALS AND HS SUBQ 04/16/17 11:30 05/16/17 11:29 04/25/17 12:43 Lidocaine HCl (Xylocaine 1% 30ml) 30 ml ONCE PRN INJ PICC LINE 04/25/17 11:45 04/26/17 23:59 Mirtazapine (Remeron) 7.5 mg BEDTIME ORAL 04/16/17 21:00 05/16/17 20:59 04/24/17 20:31 Ondansetron HCl (Zofran) 4 mg Q6H PRN IVP Nausea & Vomiting 04/16/17 09:45 05/16/17 09:44 04/23/17 13:45 Phenazopyridine HCl (Pyridium) 100 mg THREE TIMES A DAY ORAL 04/23/17 13:00 05/23/17 12:59 04/25/17 12:42 Polyethylene Glycol (Miralax) 17 gm HSPRN PRN ORAL Constipation 04/16/17 21:00 05/16/17 20:59 Siria Ellison M.D. Apr 25, 2017 16:27
[2017-04-25] MEDS ORDERED: DAPTOMYCIN500 MG IV (16:33)
[2017-04-25] MEDS ORDERED: CARDIZEM CD240 MG ORAL (16:34)
[2017-04-25] MEDS ORDERED: NORCO 10-325 T1 EACH ORAL (16:35)
[2017-04-25] MEDS ORDERED: DIPHENHYDRAMINE25 M1 IV (16:35)
[2017-04-25] MEDS ORDERED: PHENAZOPYRIDIN100 MG ORAL (16:35)
--- NOTE | 2017-04-25 16:47 | Cardiac Electrophysiology PN ---
Assessment/Plan Assessment/Plan 1. MFAT and Sinus arrhythmias with frequent PACs .On Cardizem CD 240 daily. 2. Bilateral pneumonia, on antibiotics per Dr. Ellison. 3. Chronic obstructive pulmonary disease. 4. Dermatitis. 5. Diabetes. 6. Hypertension, on Cardizem. 7. Cirrhosis. 8. Gastroesophageal reflux disease. INDIO RN Subjective Subjective No chest pain or SOB.Off tele now Objective Last 24 Hour Vital Signs Date Time Temp Pulse Resp B/P (MAP) Pulse Ox O2 Delivery O2 Flow Rate FiO2 04/25/17 09:54 98.2 04/25/17 09:54 98.2 04/25/17 08:54 94 148/76 04/25/17 08:00 97.7 94 16 148/76 99 Nasal Cannula 2.0 04/25/17 04:00 98.2 94 20 138/71 96 Nasal Cannula 2.0 04/25/17 00:00 98.2 99 20 147/70 97 Nasal Cannula 04/24/17 20:00 98.4 101 20 129/68 96 Nasal Cannula 2.0 04/24/17 19:22 97 Nasal Cannula 2.0 28 04/24/17 19:22 Nasal Cannula 2.0 28 Intake and Output 04/25/17 04/26/17 19:00 07:00 Intake Total 240 ml Balance 240 ml Intake Oral 240 ml # Voids 7 # Bowel Movements 1 Laboratory Tests Test 04/25/17 05:00 White Blood Count 10.7 K/UL (4.8-10.8) Red Blood Count 3.82 M/UL (4.20-5.40) L Hemoglobin 11.4 G/DL (12.0-16.0) L Hematocrit 36.2 % (37.0-47.0) L Mean Corpuscular Volume 95 FL (80-99) Mean Corpuscular Hemoglobin 29.7 PG (27.0-31.0) Mean Corpuscular Hemoglobin Concent 31.4 G/DL (32.0-36.0) L Red Cell Distribution Width 12.6 % (11.6-14.8) Platelet Count 147 K/UL (150-450) L Mean Platelet Volume 7.7 FL (6.5-10.1) Neutrophils (%) (Auto) 83.9 % (45.0-75.0) H Lymphocytes (%) (Auto) 7.0 % (20.0-45.0) L Monocytes (%) (Auto) 6.9 % (1.0-10.0) Eosinophils (%) (Auto) 2.0 % (0.0-3.0) Basophils (%) (Auto) 0.2 % (0.0-2.0) Sodium Level 130 MMOL/L (136-145) L Potassium Level 5.1 MMOL/L (3.5-5.1) Chloride Level 94 MMOL/L (98-107) L Carbon Dioxide Level 34 MMOL/L (21-32) H Anion Gap 2 (5-15) L Blood Urea Nitrogen 15 mg/dL (7-18) Creatinine 0.8 MG/DL (0.55-1.30) Estimat Glomerular Filtration Rate mL/min (>60) Glucose Level 159 MG/DL (74-106) H Calcium Level 8.6 MG/DL (8.5-10.1) Objective HEAD AND NECK: No JVD. LUNGS: Clear. CARDIOVASCULAR: Tachy S1 and S2 with no gallop. ABDOMEN: Soft. EXTREMITIES: 1+ pitting edema. WILLIE MANZANO Apr 25, 2017 16:47
--- NOTE | 2017-04-25 18:28 | Pulmonology Progress Note ---
Assessment/Plan Problems: (1) Bacteremia (2) Bilateral pneumonia (3) Generalized rash (4) Dermatitis (5) Tachycardia (6) COPD (chronic obstructive pulmonary disease) (7) DM (diabetes mellitus) (8) HTN (hypertension) (9) GERD (gastroesophageal reflux disease) (10) Cirrhosis Assessment/Plan echo reviewed, EF ok, BNP is normal continue abx respiratory treatment dvt prophylaxis f/u cultures med/surg if ok with cardio dc planning Subjective ROS Limited/Unobtainable: No Constitutional: Reports: no symptoms HEENT: Repors: no symptoms Respiratory: Reports: no symptoms Allergies: Coded Allergies: LEVOFLOXACIN (Verified Allergy, Severe, Rash, 04/16/17) VANCOMYCIN (Verified Allergy, Severe, Rash, 04/16/17) Objective Last 24 Hour Vital Signs Date Time Temp Pulse Resp B/P (MAP) Pulse Ox O2 Delivery O2 Flow Rate FiO2 04/25/17 16:15 98.4 90 21 149/80 97 Nasal Cannula 2.0 04/25/17 09:54 98.2 04/25/17 09:54 98.2 04/25/17 08:54 94 148/76 04/25/17 08:00 97.7 94 16 148/76 99 Nasal Cannula 2.0 04/25/17 04:00 98.2 94 20 138/71 96 Nasal Cannula 2.0 04/25/17 00:00 98.2 99 20 147/70 97 Nasal Cannula 04/24/17 20:00 98.4 101 20 129/68 96 Nasal Cannula 2.0 04/24/17 19:22 97 Nasal Cannula 2.0 28 04/24/17 19:22 Nasal Cannula 2.0 28 Intake and Output 04/25/17 04/26/17 19:00 07:00 Intake Total 240 ml Balance 240 ml Intake Oral 240 ml # Voids 7 # Bowel Movements 1 Objective General Appearance: WD/WN HEENT: normocephalic, atraumatic Respiratory/Chest: chest wall non-tender, lungs clear Cardiovascular: normal peripheral pulses, normal rate Abdomen: normal bowel sounds, soft, non tender Genitourinary: normal external genitalia Extremities: no clubbing Skin: no rash, no ulcers Laboratory Tests 04/25/17 05:00: White Blood Count 10.7, Red Blood Count 3.82L, Hemoglobin 11.4L, Hematocrit 36.2L, Mean Corpuscular Volume 95, Mean Corpuscular Hemoglobin 29.7, Mean Corpuscular Hemoglobin Concent 31.4L, Red Cell Distribution Width 12.6, Platelet Count 147L, Mean Platelet Volume 7.7, Neutrophils (%) (Auto) 83.9H, Lymphocytes (%) (Auto) 7.0L, Monocytes (%) (Auto) 6.9, Eosinophils (%) (Auto) 2.0, Basophils (%) (Auto) 0.2, Sodium Level 130L, Potassium Level 5.1, Chloride Level 94L, Carbon Dioxide Level 34H, Anion Gap 2L, Blood Urea Nitrogen 15, Creatinine 0.8, Estimat Glomerular Filtration Rate , Glucose Level 159H, Calcium Level 8.6 Current Medications Medications (Trade) Dose Ordered Sig/Isabel Route PRN Reason Start Time Stop Time Status Last Admin Dose Admin Acetaminophen (Tylenol) 650 mg Q4H PRN ORAL T>100.5 04/16/17 09:45 05/16/17 09:44 04/19/17 15:30 Acetaminophen/ Hydrocodone Bitart (Cameron 10) 1 ea Q6HR PRN ORAL For Pain 04/23/17 12:45 04/30/17 12:44 04/25/17 09:23 Al Hydroxide/Mg Hydroxide (Mylanta II) 30 ml Q6H PRN ORAL dyspepsia 04/16/17 09:45 05/16/17 09:44 04/19/17 15:23 Betamethasone/ Clotrimazole (Lotrisone) 1 applic TWICE A DAY TOPIC 04/23/17 18:00 05/23/17 17:59 04/25/17 17:55 Chlorhexidine Gluconate (Kathy-Hex 2%) 1 applic DAILY@1999 TOPIC 04/25/17 20:00 05/25/17 19:59 Cyclobenzaprine HCl (Flexeril) 10 mg Q12HR ORAL 04/16/17 21:00 05/16/17 20:59 04/25/17 08:55 Daptomycin 780 mg/ Sodium Chloride 55 ml @ 100 mls/hr Q24H IV 04/20/17 11:30 04/27/17 11:29 04/25/17 11:56 Dextrose (Dextrose 50%) STAT PRN IV Hypoglycemia 9/30/17 09:45 05/16/17 09:44 Diltiazem HCl (Cardizem CD) 240 mg DAILY ORAL 04/24/17 09:00 05/24/17 08:59 04/25/17 08:54 Diphenhydramine HCl (Benadryl) 25 mg Q6H PRN IVP Itching 04/16/17 16:15 05/16/17 16:14 04/17/17 09:57 Heparin Sodium (Porcine) (Heparin 5000 units/ml) 5,000 units EVERY 12 HOURS SUBQ 04/16/17 21:00 05/16/17 20:59 04/24/17 20:34 Heparin Sodium/ Sodium Chloride (Heparin 2000 units/Ns 1000ml premix) 2,000 unit ONCE PRN INJ PICC LINE 04/25/17 11:45 04/26/17 23:59 Insulin Aspart (NovoLOG) BEFORE MEALS AND HS SUBQ 04/16/17 11:30 05/16/17 11:29 04/25/17 17:57 Lidocaine HCl (Xylocaine 1% 30ml) 30 ml ONCE PRN INJ PICC LINE 04/25/17 11:45 04/26/17 23:59 Mirtazapine (Remeron) 7.5 mg BEDTIME ORAL 04/16/17 21:00 05/16/17 20:59 04/24/17 20:31 Ondansetron HCl (Zofran) 4 mg Q6H PRN IVP Nausea & Vomiting 04/16/17 09:45 05/16/17 09:44 04/23/17 13:45 Phenazopyridine HCl (Pyridium) 100 mg THREE TIMES A DAY ORAL 04/23/17 13:00 05/23/17 12:59 04/25/17 17:55 Polyethylene Glycol (Miralax) 17 gm HSPRN PRN ORAL Constipation 04/16/17 21:00 05/16/17 20:59 TABATHA PLASENCIA Apr 25, 2017 18:28
[2017-04-25 20:00] VITALS: BP 143/77
[2017-04-25] MEDS ORDERED: Dyna-Hex 2% Top Sol 2oz TOPIC SCH (20:00)
[2017-04-25] MEDS ORDERED: Simethicone 80mg tab ORAL ONE (21:00)
[2017-04-26] VITALS: BP 140/76
[2017-04-26] MEDS: Norco 10mg/325mg tab ORAL PRN (03:37)
[2017-04-26 04:00] VITALS: BP 153/69
[2017-04-26] MEDS: NovoLOG Insulin Flexpen SUBQ SCH ×2 (06:42→12:18)
[2017-04-26 08:15] VITALS: BP 143/71
[2017-04-26] MEDS: Heparin 5000 units/ml inj SUBQ SCH (09:00)
[2017-04-26] MEDS: Cyclobenzaprine 10mg Tab ORAL SCH (09:26)
[2017-04-26] MEDS: dilTIAZem HCl CD 240mg cap ORAL SCH (09:26)
[2017-04-26] MEDS: Lotrisone Cream 15gm TOPIC SCH (09:27)
[2017-04-26 11:48] VITALS: BP 156/68
[2017-04-26] MEDS: DAPTOMYCIN IV SCH (12:16)
[2017-04-26] MEDS: NS IV SCH (12:16)
[2017-04-26] MEDS ORDERED: Tubing IV Secondary IV ONE (14:29)
[2017-04-26] MEDS ORDERED: NS 275ml ONE (14:29)
--- NOTE | 2017-04-26 14:51 | General Progress Note ---
Assessment/Plan Problem List: (1) HTN (hypertension) ICD Codes: I10 - HTN (hypertension) SNOMED: 19691359 (2) GERD (gastroesophageal reflux disease) ICD Codes: K21.9 - Gastro-esophageal reflux disease without esophagitis SNOMED: 015994026 (3) Cellulitis (4) DM (diabetes mellitus) ICD Codes: E11.9 - DM (diabetes mellitus) SNOMED: 96901477 (5) OBESITY, NOS (6) SOB (shortness of breath) ICD Codes: R06.02 - Shortness of breath SNOMED: 066421089 (7) HTN (hypertension) ICD Codes: I10 - Essential (primary) hypertension SNOMED: 67295182 (8) Chronic pain ICD Codes: G89.29 - Other chronic pain SNOMED: 49624776 (9) Rash and other nonspecific skin eruption ICD Codes: R21 - Rash and other nonspecific skin eruption SNOMED: 729871099, 853570527 (10) Sepsis ICD Codes: A41.9 - Sepsis, unspecified organism SNOMED: 77659901 Status: stable, progressing, tolerating diet Assessment/Plan ot pt wound care o2 pulm tx dc to snf Subjective Constitutional: Reports: weakness Allergies: Coded Allergies: LEVOFLOXACIN (Verified Allergy, Severe, Rash, 04/16/17) VANCOMYCIN (Verified Allergy, Severe, Rash, 04/16/17) All Systems: reviewed and negative except above Subjective o2nc sl anxious Objective Last 24 Hour Vital Signs Date Time Temp Pulse Resp B/P (MAP) Pulse Ox O2 Delivery O2 Flow Rate FiO2 04/26/17 11:48 97.9 103 18 156/68 95 Room Air 04/26/17 10:25 98.2 04/26/17 09:26 100 153/69 04/26/17 08:15 97.9 98 18 143/71 95 Nasal Cannula 2.0 04/26/17 07:54 Nasal Cannula 2.0 28 04/26/17 07:53 95 Nasal Cannula 2.0 28 04/26/17 04:00 98.2 100 18 153/69 04/26/17 00:00 97.9 100 20 140/76 94 Room Air 04/25/17 23:05 95 Nasal Cannula 2.0 28 04/25/17 23:05 Nasal Cannula 2.0 28 04/25/17 20:00 98.2 92 19 143/77 92 Room Air 04/25/17 16:15 98.4 90 21 149/80 97 Nasal Cannula 2.0 Intake and Output 04/26/17 04/27/17 19:00 07:00 Intake Total 175 ml Output Total 200 ml Balance -25 ml Intake Oral 120 ml IV Total 55 ml Output Urine Total 200 ml Height (Feet): 5 Height (Inches): 4.00 Weight (Pounds): 215 General Appearance: lethargic EENT: normal ENT inspection Neck: normal alignment Cardiovascular: normal peripheral pulses, normal rate, regular rhythm Respiratory/Chest: chest wall non-tender, lungs clear, normal breath sounds Abdomen: normal bowel sounds, non tender, soft Extremities: normal inspection Edema: no edema noted Arm (L), no edema noted Arm (R), no edema noted Leg (L), no edema noted Leg (R), no edema noted Pedal (L), no edema noted Pedal (R), no edema noted Generalized Neurologic: responsive, motor weakness Skin: normal pigmentation, warm/dry Objective diffuse reddish rash w confluence in back , back of arm, back of leg, and buttocks KUMAR ENGLISH Apr 26, 2017 14:51
--- NOTE | 2017-04-26 18:16 | Pulmonology Progress Note ---
Assessment/Plan Problems: (1) Bacteremia (2) Bilateral pneumonia (3) Generalized rash (4) Dermatitis (5) Tachycardia (6) COPD (chronic obstructive pulmonary disease) (7) DM (diabetes mellitus) (8) HTN (hypertension) (9) GERD (gastroesophageal reflux disease) (10) Cirrhosis Assessment/Plan improving skin got much better respiratory treatment dvt prophylaxis f/u cultures med/surg if ok with cardio dc planning Subjective ROS Limited/Unobtainable: No Constitutional: Reports: no symptoms HEENT: Repors: no symptoms Respiratory: Reports: no symptoms Allergies: Coded Allergies: LEVOFLOXACIN (Verified Allergy, Severe, Rash, 04/16/17) VANCOMYCIN (Verified Allergy, Severe, Rash, 04/16/17) Objective Last 24 Hour Vital Signs Date Time Temp Pulse Resp B/P (MAP) Pulse Ox O2 Delivery O2 Flow Rate FiO2 04/26/17 11:48 97.9 103 18 156/68 95 Room Air 04/26/17 10:25 98.2 04/26/17 09:26 100 153/69 04/26/17 08:15 97.9 98 18 143/71 95 Nasal Cannula 2.0 04/26/17 07:54 Nasal Cannula 2.0 28 04/26/17 07:53 95 Nasal Cannula 2.0 28 04/26/17 04:00 98.2 100 18 153/69 04/26/17 00:00 97.9 100 20 140/76 94 Room Air 04/25/17 23:05 95 Nasal Cannula 2.0 28 04/25/17 23:05 Nasal Cannula 2.0 28 04/25/17 20:00 98.2 92 19 143/77 92 Room Air Intake and Output 04/26/17 04/27/17 19:00 07:00 Intake Total 175 ml Output Total 200 ml Balance -25 ml Intake Oral 120 ml IV Total 55 ml Output Urine Total 200 ml Objective General Appearance: WD/WN HEENT: normocephalic, atraumatic Respiratory/Chest: chest wall non-tender, lungs clear Cardiovascular: normal peripheral pulses, normal rate Abdomen: normal bowel sounds, soft, non tender Genitourinary: normal external genitalia Extremities: no clubbing Skin: no rash, no ulcers TABATHA PLASENCIA Apr 26, 2017 18:16
--- NOTE | 2017-04-29 14:43 | Discharge Summary ---
Discharge Summary Hospital Course Date of Admission Apr 16, 2017 at 09:23 Date of Discharge Apr 26, 2017 at 14:30 Admitting Diagnosis severe dermatitis, sepsis HPI Page Ybarra is a 77 year old female who was admitted on Apr 16, 2017 at 09:23 for Severe Dermatitis,Sepsis Hospital Course [id number] Discharge Discharge Disposition Patient was discharged to SNF/Subacute Facility(03) Discharge Diagnoses: Mayte Lentz NP Apr 29, 2017 14:43
--- NOTE | 2017-04-29 22:45 | Discharge Summary 2 SIG ---
DATE OF ADMISSION: 04/16/2017 DATE OF DISCHARGE: 04/26/2017 CONSULTANTS: 1. Siria Ellison M.D. 2. Moy Forman M.D. 3. Mohsen Ferrera M.D. 4. Edilberto Canseco M.D. BRIEF HOSPITAL COURSE: The patient is a 77-year-old female from [facility], was noted with two days of increased rash. Rash was diffusely in the back and on the back of thigh. There were punctate lesions with no ulcerations. She was recently admitted to [facility] on 04/04/2017 with pneumonia, urinary tract infection, and sepsis. Blood culture grew Staphylococcus warneri. She was then placed on antibiotic treatment, vancomycin for four weeks. Urine culture showed growth of E. coli sensitive to quinolones and was given Levaquin, seven-day course of treatment. At the rehabilitation facility, the patient developed skin rash and erythema all over her upper and lower extremity and to the trunk, which was concerning for drug-related reaction. She was then sent to [facility] ED for evaluation. On evaluation at ED, she was started on IV Solu-Medrol and Benadryl. Chest x-ray done showed pneumonia. She was followed by Infectious Disease specialist. Vancomycin and Levaquin was discontinued and added to the allergy list. She was then given oxacillin. She was diagnosed to have major depressive disorder and was followed by Dr. Canseco. She was given Remeron 7.5 mg at bedtime. The patient developed episodes of atrial fibrillation as well as frequent PACs and PVCs. Dr. Forman was consulted. On evaluation of rhythm strips and on detailed examination, she is very irregularly irregular. Rhythm strips were in sinus rhythm with frequent PACs as well as frequent PVCs. She was started on Cardizem 60 mg. there was no indication to be started on anticoagulation as majority of the rhythm were PACs. Echocardiogram showed ejection fraction of 60% to 65% with no aortic regurgitation, no mitral regurgitation. Cardizem was eventually increased to 240 CD daily. She was given respiratory treatments. Rash resolved, status post steroids and Benadryl. The patient's old PICC line was removed. Culture tip was negative. Initial blood culture showed growth of Staphylococcus capitis and Staphylococcus epidermidis. Repeat blood culture did not isolate any growth. A new central line was inserted on 04/25/2017 and the patient will eventually need two weeks of antibiotics with daptomycin until 05/05/2017. She came in with a right ear stage II pressure ulcer and generalized scabs and rash. She was provided wound care. She was eventually discharged back to [facility]. FINAL DIAGNOSES: 1. Sepsis due to Staphylococcus. 2. Dermatitis. 3. Bilateral pneumonia. 4. Chronic obstructive pulmonary disease. 5. Diabetes mellitus. 6. Hypertension. 7. Gastroesophageal reflux disease. 8. Cirrhosis. 9. Multifocal atrial tachycardia and sinus arrhythmia with frequent premature atrial contractions. 10. Hypertension. 11. Major depression. DISPOSITION: The patient was discharged to [facility]. DISCHARGE MEDICATIONS: Refer to medication list. Chacho Morocho D.O. I have been assigned to dictate discharge summary on this account and I was not involved in the patient's management. Mayte Lentz N.P. DR: SALMA JOB#: [id number] CC: DOROTHY
--- NOTE | 2017-05-08 17:41 | Cardiology Report ---
APPROVED REPORT EKG Measurement Heart [id number] Normal sinus rhythm Cannot rule out Anterior infarct, age undetermined Abnormal ECG
== END 2017-04-26 14:30 | DRG 871 ==
LOC: EDBD 08:10 → EMR 08:36 → 2W 09:23 → EDBEDREQ 09:53 → 2E 04-17 12:48 → 4E 04-23 21:46
PROC: 02HV33Z Insertion of Infusion Device into Superior Vena Cava, Percutaneous Approach (ICD-10-PCS; principal; 2017-04-25)
DX: A41.1 Sepsis due to other specified staphylococcus (principal); J18.9 Pneumonia, unspecified organism; I50.9 Heart failure, unspecified; K50.90 Crohn's disease, unspecified, without complications; K74.60 Unspecified cirrhosis of liver; F03.90 Unspecified dementia, unspecified severity, without behavioral disturbance, psychotic disturbance, mood disturbance, and anxiety; I48.91 Unspecified atrial fibrillation; L02.212 Cutaneous abscess of back [any part, except buttock and flank]; E11.9 Type 2 diabetes mellitus without complications; I10 Essential (primary) hypertension; K21.9 Gastro-esophageal reflux disease without esophagitis; R00.0 Tachycardia, unspecified; J44.9 Chronic obstructive pulmonary disease, unspecified; F41.9 Anxiety disorder, unspecified; F32.9 Major depressive disorder, single episode, unspecified; Z88.1 Allergy status to other antibiotic agents; L30.9 Dermatitis, unspecified; E66.9 Obesity, unspecified; G89.29 Other chronic pain
CPT/HCPCS: 36415; 36569; 51701; 71010; 76937; 80048; 80053; 80061; 82550; 82553; 82962; 83605; 83735; 83880; 84100; 84484; 85007; 85025; 85610; 85730; 87040; 87070; 87081; 87181; 93005; 93306; 94760; 99285; J1815; J2405; J2700